=== PATIENT | female | born 1960 | race Caucasian/White ===

== ENCOUNTER 2017-03-21 18:33 | Emergency (ER) | payer OTHER ==
[2017-03-21 18:49] VITALS: TEMP 98.2; BMI 35.3
--- NOTE | 2017-03-21 19:13 | PDOC ---
History of Present Illness - General History Source: Patient Exam Limitations: No Limitations <Angela Fay - Last Filed: 03/21/17 22:04> <JulianZaiddenny Torresh - Last Filed: 03/22/17 01:55> - General Chief Complaint: Pain Stated Complaint: CHEST PAIN Time Seen by Provider: 03/21/17 18:45 - History of Present Illness Initial Comments: 03/21/17 20:28 The patient is a 56 year old female with past medical history of hypertension, hyperlipidemia, IDDM, asthma and panic attacks who presents to the ED with complaints of chest pain that began today at 11 am. She states it is a left sided sharp pain that radiates to arm, neck and mid back. It is accompanied with headache and palpitations. The patient has also been complaining of three days of vomiting, with two occurrences of vomiting blood. It is accompanied with epigastric abdominal pain. She reports cough but denies fever, or chills. She denies diarrhea, constipation, melena, hematochezia. She denies shortness of breath or urinary symptoms. The patient had a positive stress test in 2014. Surgical history: C-sections x4, cholecystectomy Allergies: Penicillin Social history: Denies drug or alcohol use. PCP: Sees a clinic at [facility] ([facility], [place]) Past History <Angela Fay - Last Filed: 03/21/17 22:04> - Past Medical History Asthma: Yes Cardiac Disorders: Yes (MVP) Diabetes: Yes HTN: Yes - Surgical History Cholecystectomy: Yes - Reproductive History (#): 4 Para: 4 - Immunization History Immunization Up to Date: Yes - Psycho/Social/Smoking Cessation Hx Anxiety: Yes Suicidal Ideation: No Smoking Status: No Smoking History: Never smoked Number of Cigarettes Smoked Daily: 0 Hx Alcohol Use: No Drug/Substance Use Hx: No Substance Use Type: None <JulianCadence Kennedy - Last Filed: 03/22/17 01:55> - Past Medical History Allergies/Adverse Reactions: Allergies Allergy/AdvReac Type Severity Reaction Status Date / Time Penicillins AdvReac Unknown Rash Verified 03/21/17 18:46 Home Medications: Ambulatory Orders Albuterol Sulfate [Proair Hfa -] 1 - 2 inh PO TID 11/03/15 Canagliflozin [Invokana] 300 mg PO DAILY 11/03/15 Diltiazem HCl [Diltiazem ER] 120 mg PO DAILY 11/03/15 Ezetimibe [Zetia] 10 mg PO DAILY 11/03/15 Naproxen/Esomeprazole Mag [Vimovo Dr 500-20 mg Tablet] 1 each PO DAILY 11/03/15 Ranolazine [Ranexa] 500 mg PO DAILY 11/03/15 Simvastatin [Zocor -] 20 mg PO DAILY 11/03/15 Trazodone HCl [Oleptro ER] 100 mg PO DAILY 11/03/15 Albuterol 0.083% Nebulizer Myra [Ventolin 0.083% Nebulizer Soln -] 1 amp NEB Q4H PRN #0 amp 11/05/15 Atorvastatin Ca [Lipitor] 10 mg PO HS tablet 11/05/15 Clonazepam [Klonopin -] 1 mg PO BID #60 tablet MDD 2 11/05/15 Clopidogrel Bisulfate [Plavix -] 75 mg PO DAILY tablet 11/05/15 Magnesium Oxide [Mag-Ox -] 400 mg PO BID tablet 11/05/15 Metoprolol Tartrate [Lopressor -] 25 mg PO BID tablet 11/05/15 Nitroglycerin Sublingual [Nitrostat -] 0.4 mg SL Q8H PRN #0 tab 11/05/15 Aspirin [ASA -] 81 mg PO DAILY 03/21/17 Haloperidol [Haldol -] 2 mg PO BID 03/21/17 Insulin Degludec [Tresiba Flextouch U-100] 70 unit SQ DAILY 03/21/17 Insulin Sliding Scale [Novolog Vial Sliding Scale -] 20 vial SQ BID 03/21/17 Omeprazole 40 mg PO DAILY 03/21/17 Tiotropium Farina [Spiriva] 1 inh IH DAILY 03/21/17 Venlafaxine HCl ER [Effexor Xr -] 150 mg PO DAILY 03/21/17 Review of Systems - Review of Systems Able to Perform ROS?: Yes All Other Systems: Reviewed and Negative <Angela Fay - Last Filed: 03/21/17 22:04> <Cadence Jordan - Last Filed: 03/22/17 01:55> - Review of Systems Comments:: 03/21/17 20:29 CONSTITUTIONAL: Absent: fever, chills, diaphoresis, generalized weakness, malaise, loss of appetite HEENT: Absent: rhinorrhea, nasal congestion, throat pain, throat swelling, difficulty swallowing, mouth swelling, ear pain, eye pain, visual Changes CARDIOVASCULAR: Present: chest pain with radiation to left arm, back and neck, palpitations Absent: syncope, irregular heart rate, lightheadedness, peripheral edema RESPIRATORY: Absent: cough, shortness of breath, dyspnea with exertion, orthopnea, wheezing, stridor, hemoptysis GASTROINTESTINAL: Present: vomiting, hematemasis, abdominal pain Absent: abdominal distension, diarrhea, constipation, melena, hematochezia GENITOURINARY: Absent: dysuria, frequency, urgency, hesitancy, hematuria, flank pain, genital pain MUSCULOSKELETAL: Absent: myalgia, arthralgia, joint swelling SKIN: Absent: rash, itching, pallor HEMATOLOGIC/IMMUNOLOGIC: Absent: easy bleeding, easy bruising, lymphadenopathy, frequent infections ENDOCRINE: Absent: unexplained weight gain, unexplained weight loss, heat intolerance, cold intolerance NEUROLOGIC: Present: headache Absent: focal weakness or paresthesias, dizziness, unsteady gait, seizure, mental status changes, bladder or bowel incontinence PSYCHIATRIC: Absent: anxiety, depression, suicidal or homicidal ideation, hallucinations. (Angela Fay) *Physical Exam <Angela Fay - Last Filed: 03/21/17 22:04> <Cadence Jordan - Last Filed: 03/22/17 01:55> - Vital Signs Last Vital Signs Temp Pulse Resp BP Pulse Ox 98.2 F 76 19 126/79 96 03/21/17 18:46 03/21/17 23:44 03/21/17 23:44 03/21/17 23:44 03/21/17 23:44 - Physical Exam Comments: 03/21/17 20:33 GENERAL: Well developed, well nourished. Awake and alert. No acute distress. HEENT: Normocephalic, atraumatic. PERRLA, EOMI. No conjunctival pallor. Sclera are non- icteric. Moist mucous membranes. Oropharynx is clear. NECK: Supple. Full ROM. No JVD. Carotid pulses 2+ and symmetric, without bruits. No thyromegaly. No lymphadenopathy. CARDIOVASCULAR: Regular rate and rhythm. No murmurs, rubs, or gallops. Distal pulses are 2+ and symmetric. PULMONARY: No evidence of respiratory distress. Lungs clear to auscultation bilaterally. No wheezing, rales or rhonchi. ABDOMINAL: Soft. Non-tender. Non-distended. No rebound or guarding. No organomegaly. Normoactive bowel sounds. MUSCULOSKELETAL Normal range of motion at all joints. No bony deformities or tenderness. No CVA tenderness. EXTREMITIES: No cyanosis. No clubbing. No edema. No calf tenderness. SKIN: Warm and dry. Normal capillary refill. No rashes. No jaundice. NEUROLOGICAL: Alert, awake, appropriate. Cranial nerves 2-12 intact. No deficits to light touch and temperature in face, upper extremities and lower extremities. No motor deficits in the in face, upper extremities and lower extremities. Normoreflexic in the upper and lower extremities. Normal speech. Toes are down-going bilaterally. Gait is normal without ataxia. PSYCHIATRIC: Cooperative. Good eye contact. Appropriate mood and affect. (Angela Fay) ED Treatment Course - LABORATORY CBC & Chemistry Diagram: 03/21/17 19:20 03/21/17 19:20 <Angela Fay - Last Filed: 03/21/17 22:04> - LABORATORY CBC & Chemistry Diagram: 03/21/17 19:20 03/21/17 19:20 <Cadence Jordan - Last Filed: 03/22/17 01:55> - ADDITIONAL ORDERS Additional order review: Laboratory Results 03/22/17 03/21/17 03/21/17 00:58 20:28 19:20 INR 1.08 Sodium Potassium Chloride Carbon Dioxide Anion Gap BUN Creatinine Creat Clearance w eGFR Random Glucose Calcium Total Bilirubin AST ALT Alkaline Phosphatase Creatine Kinase 36 Troponin I < 0.02 Total Protein Albumin Lipase 86 03/21/17 03/21/17 19:20 19:20 INR Sodium 136 Potassium 3.9 Chloride 99 Carbon Dioxide 32 Anion Gap 5 L BUN 9 D Creatinine 0.9 Creat Clearance w eGFR > 60 Random Glucose 372 H* D Calcium 8.3 L Total Bilirubin 0.1 L D AST 15 ALT 20 Alkaline Phosphatase 134 H Creatine Kinase 35 Troponin I 0.02 Total Protein 6.8 Albumin 2.9 L Lipase 03/21/17 19:20 RBC 4.07 MCV 85.4 MCHC 32.9 RDW 13.6 MPV 9.3 Neutrophils % 70.5 Lymphocytes % 21.3 D Monocytes % 4.6 Eosinophils % 3.0 Basophils % 0.6 - RADIOLOGY Radiology Studies Ordered: Category Date Time Status CHEST X-RAY PORTABLE* [RAD] Stat Radiology 03/21/17 19:19 Completed Radiograph Interpretation: 03/21/17 22:04 Chest X-ray as reviewed by Dr. Booker reports no acute pathology or change since 10/27 (Angela Fay) - Medications Given in the ED: ED Medications Discontinued Medications Generic Name Dose Route Start Last Admin Trade Name Laila PRN Reason Stop Dose Admin Aspirin 162 mg 03/21/17 19:16 03/21/17 19:24 Asa - PO 03/21/17 19:17 162 mg ONCE ONE Administration Sodium Chloride 1,000 mls @ 1,000 mls/hr 03/21/17 20:56 03/21/17 21:10 Normal Saline - IV 03/21/17 21:55 1,000 mls/hr ASDIR STA Administration Morphine Sulfate 2 mg 03/21/17 23:53 03/22/17 00:04 Morphine Injection - IVPUSH 03/21/17 23:54 2 mg ONCE ONE Administration Ondansetron HCl 4 mg 03/21/17 20:08 03/21/17 20:27 Zofran Injection IVPUSH 03/21/17 20:09 4 mg ONCE ONE Administration Medical Decision Making <Angela Fay - Last Filed: 03/21/17 22:04> <Cadence Jordan - Last Filed: 03/22/17 01:55> - Medical Decision Making 03/22/17 01:49 56-year-old female who is insulin-dependent diabetic, hypertensive, presents with complaint of chest pain and vomiting for several days. She has been in the emergency department. She is not having any further vomiting. EKG does not show any signs of acute ischemia is normal sinus rhythm at 80 bpm -both Sets of cardiac enzyme are negative Chest x-ray does not show any acute pulmonary disease, no effusions, no infiltrates, no pneumothorax Impression chest pain- PLAN pt to follow up with her primary physician 03/22/17 01:52 (Cadence Jordan) *DC/Admit/Observation/Transfer <Angela Fay - Last Filed: 03/21/17 22:04> <Cadence Jordan - Last Filed: 03/22/17 01:55> Diagnosis at time of Disposition: Diabetes Qualifiers: Diabetes mellitus type: type 1 Diabetes mellitus complication status: with hyperglycemia Qualified Code(s): E10.65 - Type 1 diabetes mellitus with hyperglycemia Chest pain Qualifiers: Chest pain type: unspecified Qualified Code(s): R07.9 - Chest pain, unspecified - Discharge Dispostion Disposition: HOME Condition at time of disposition: Stable - Referrals Referrals: Jimy Marks [Primary Care Provider] - - Patient Instructions Printed Discharge Instructions: DI for Chest Pain Additional Instructions: please follow up with your primary physician - Attestations Scribe Attestion: 03/21/17 20:35 Documentation prepared by Angela Fay, acting as medical billing and coding instructor for Cadence Jordan MD. (Angela Fay)
[2017-03-21] MEDS ORDERED: ASPIRIN 81 MG CHEWABLE TABLETS PO ONE (19:16)
[2017-03-21] MEDS ORDERED: ASPIRIN 81 MG CHEWABLE TABLETS ONE (19:22)
[2017-03-21] MEDS ORDERED: ONDANSETRON 4 MG/2 ML VIAL IVPUSH ONE (20:08)
[2017-03-21 20:18] LABS: BASOPHIL 0.6 % (0-2.0); MCH 28.1 pg (25.7-33.7); MCHC 32.9 g/dl (32.0-36.0); MEAN CELL VOLUME 85.4 fl (80-96); MEAN PLT VOLUME 9.3 fl (7.5-11.1); NEUTROPHILS 70.5 % (42.8-82.8); PLATELET COUNT 256 K/MM3 (134-434); RDW 13.6 % (11.6-15.6); WHITE BLOOD COUNT 11.2 K/mm3 (4.0-10.0)
[2017-03-21] MEDS ORDERED: ONDANSETRON 4 MG/2 ML VIAL ONE (20:20)
[2017-03-21 20:38] LABS: TROPONIN I 0.02 ng/ml (0.00-0.05)
[2017-03-21 20:39] LABS: ALBUMIN 2.9 g/dl (3.4-5.0); ANION GAP 5 (8-16); CALCIUM 8.3 mg/dL (8.5-10.1); CO2 32 mmol/L (21-32); SGOT/AST 15 U/L (15-37)
[2017-03-21 20:41] LABS: ALK PHOS 134 U/L (45-117); BILIRUBIN,TOTAL 0.1 mg/dL (0.2-1.0); CREATININE 0.9 mg/dL (0.55-1.02); SGPT/ALT 20 U/L (12-78); TOT PROT 6.8 g/dl (6.4-8.2)
[2017-03-21 20:47] LABS: GLUCOSE,RANDOM 372 mg/dL (74-106)
[2017-03-21 20:51] LABS: INR 1.08 (0.82-1.09); PROTHROMBIN TIME (PATIENT) 11.9 SEC (9.98-11.88)
[2017-03-21] MEDS ORDERED: SODIUM CHLORIDE 1,000 ML IV STA (20:56)
[2017-03-21 23:45] VITALS: BP 126/79; PULSE 76
[2017-03-21] MEDS ORDERED: morphine CARPU-JECT 2 MG/1 ML DISP.SYRIN IVPUSH ONE (23:53)
[2017-03-21] MEDS ORDERED: morphine CARPU-JECT 4 MG/1 ML DISP.SYRIN ONE (23:59)
[2017-03-22 01:46] LABS: CPK 36 IU/L (26-192)
[2017-03-22 01:47] LABS: TROPONIN I < 0.02 ng/ml (0.00-0.05)
--- NOTE | 2017-03-22 14:45 | EKG ---
Test Reason : Blood Pressure : / mmHG Vent. Rate : 080 BPM Atrial Rate : 080 BPM P-R Int : 132 ms QRS Dur : 076 ms QT Int : 380 ms P-R-T Axes : 046 034 054 degrees QTc Int : 438 ms NORMAL SINUS RHYTHM NORMAL ECG WHEN COMPARED WITH ECG OF 03-NOV-2015 14:51, NO SIGNIFICANT CHANGE WAS FOUND Confirmed by MATHIEU SINGH MD ([id number]) on 03/22/2017 2:44:49 PM Referred By: Confirmed By:MATHIEU SINGH MD
== END 2017-03-22 02:02 | disposition home or self-care (01) ==
LOC: JER 18:33
PROC: 3E033GC Introduction of Other Therapeutic Substance into Peripheral Vein, Percutaneous Approach (ICD-10-PCS; principal; 2017-03-21)
PROC: 3E033NZ Introduction of Analgesics, Hypnotics, Sedatives into Peripheral Vein, Percutaneous Approach (ICD-10-PCS; 2017-03-21)
PROC: 3E0337Z Introduction of Electrolytic and Water Balance Substance into Peripheral Vein, Percutaneous Approach (ICD-10-PCS; 2017-03-21)
DX: R07.9 Chest pain, unspecified (principal); E10.65 Type 1 diabetes mellitus with hyperglycemia; I10 Essential (primary) hypertension; E78.5 Hyperlipidemia, unspecified; J45.909 Unspecified asthma, uncomplicated; F41.0 Panic disorder [episodic paroxysmal anxiety]; I34.1 Nonrheumatic mitral (valve) prolapse; Z88.0 Allergy status to penicillin; Z79.82 Long term (current) use of aspirin; Z79.4 Long term (current) use of insulin
CPT/HCPCS: 36415; 71010-TC; 80053; 83690; 84484; 85025; 85610; 93005; 93010; 99283-25

== ENCOUNTER 2017-10-21 14:54 | Inpatient (IN) | payer OTHER ==
--- NOTE | 2017-10-21 15:23 | PDOC ---
History of Present Illness - General Chief Complaint: Chest Pain Stated Complaint: CHEST PAIN Time Seen by Provider: 10/21/17 15:14 - History of Present Illness Initial Comments: 10/21/17 15:22 57 yo F with h/o HTN, HLD, IDDM, and choleycystectomy who presents to ED with chest pain. Patient reports acute onset of epigastria predominant and generalized abdominal pain. Pain described as 8/10 pressure and crampy with radiation to chest, and left side arm. No identifiable triggers or alleivators. Reports nausea with one episode of non biliary, non bloody emesis. Denies F/C, SOB, diarrhea, constipation, urinary complaints, sensory disturbance. Denies h/ o CAD/CT, stent placement, or CABG. Past History - Past Medical History Allergies/Adverse Reactions: Allergies Allergy/AdvReac Type Severity Reaction Status Date / Time No Known Drug Allergies Allergy Verified 10/21/17 18:54 Penicillins AdvReac Unknown Rash Verified 10/21/17 15:23 Home Medications: Ambulatory Orders Albuterol Sulfate Inhaler - [Ventolin Hfa Inhaler -] 2 inh PO Q4H 10/21/17 Atorvastatin Calcium 40 mg PO ASDIR 10/21/17 Butalb/Acetaminophen/Caffeine [Axgqry-Fraxyaki-Cfdu 50-325-40] 1 each PO ASDIR 10/21/17 Clonazepam 1 mg PO ASDIR 10/21/17 Ergocalciferol (Vitamin D2) [Ergocalciferol] 1.25 mg PO ASDIR 10/21/17 Gabapentin [Neurontin -] 300 mg PO ASDIR 10/21/17 Insulin Degludec [Tresiba Flextouch U-200] 200 unit SQ ASDIR 10/21/17 Liraglutide [Victoza -] 0 mg SQ ASDIR 10/21/17 Losartan Potassium [Cozaar -] 50 mg PO ASDIR 10/21/17 Meloxicam 15 mg PO ASDIR 10/21/17 Metoprolol Succinate 25 mg PO ASDIR 10/21/17 Pantoprazole Sodium [Protonix -] 40 mg PO ASDIR 10/21/17 Venlafaxine HCl ER [Effexor Xr -] 75 mg PO ASDIR 10/21/17 traZODone HCL [Desyrel -] 150 mg PO ASDIR 10/21/17 Asthma: Yes Cardiac Disorders: Yes (MVP, angina) COPD: No Diabetes: Yes HTN: Yes Psychiatric Problems: Yes (anxiety panic attacks depression) - Surgical History Cholecystectomy: Yes - Reproductive History (#): 4 Para: 4 - Immunization History Immunization Up to Date: Yes - Suicide/Smoking/Psychosocial Hx Smoking Status: No Smoking History: Never smoked Have you smoked in the past 12 months: No Number of Cigarettes Smoked Daily: 0 Information on smoking cessation initiated: No Hx Alcohol Use: No Drug/Substance Use Hx: No Substance Use Type: None Review of Systems - Review of Systems Comments:: 10/21/17 15:22 GENERAL/CONSTITUTIONAL: No fever or chills. No weakness. HEAD, EYES, EARS, NOSE AND THROAT: No change in vision. No ear pain or discharge. No sore throat.- CARDIOVASCULAR:+chest pain. No shortness of breath RESPIRATORY: No cough, wheezing, or hemoptysis. GASTROINTESTINAL: + nausea, vomiting, and abdominal pain. No diarrhea or constipation. GENITOURINARY: No dysuria, frequency, or change in urination. MUSCULOSKELETAL: No joint or muscle swelling or pain. No neck or back pain. SKIN: No rash NEUROLOGIC: + No headache,and lightheadedness. No vertigo, loss of consciousness , or change in strength/sensation. ENDOCRINE: No increased thirst. No abnormal weight change HEMATOLOGIC/LYMPHATIC: No anemia, easy bleeding, or history of blood clots. ALLERGIC/IMMUNOLOGIC: No hives or skin allergy. *Physical Exam - Vital Signs Last Vital Signs Temp Pulse Resp BP Pulse Ox 99 F 100 H 20 154/91 95 10/21/17 15:06 10/21/17 15:06 10/21/17 15:06 10/21/17 15:06 10/21/17 15:06 - Physical Exam Comments: 10/21/17 15:22 GENERAL: Awake, alert, and fully oriented, in no acute distress HEAD: No signs of trauma, normocephalic, atraumatic EYES: PERRLA, EOMI, sclera anicteric, conjunctiva clear ENT: Auricles normal inspection, hearing grossly normal, nares patent, oropharynx clear without exudates. Moist mucosa NECK: Normal ROM, supple, no lymphadenopathy, JVD, or masses LUNGS: No distress, speaks full sentences, clear to auscultation bilaterally HEART: Regular rate and rhythm, normal S1 and S2, no murmurs, rubs or gallops, peripheral pulses normal and equal bilaterally. ABDOMEN: Diffusely tender to palpation. NBS, NDS. Neg mukherjee sign or mcburney point ttp. Neg CVA ttp. Neg suprpapubic ttp. EXTREMITIES : Normal inspection, Normal range of motion, no edema. No clubbing or cyanosis. SKIN: Warm, Dry, normal turgor, no rashes or lesions noted ED Treatment Course - LABORATORY CBC & Chemistry Diagram: 10/21/17 14:40 10/21/17 14:40 Medical Decision Making - Medical Decision Making 10/21/17 16:19 57 yo F with h/o HTN, HLD, IDDM, and choleycystectomy who presents to ED with acute onset of epigastria predominant and generalized abdominal pain. Pain described as 8/10 pressure and crampy with radiation to chest, and left side arm. No identifiable triggers or alleviators. +N/V. Denies F/C, SOB, diarrhea, constipation, urinary complaints, sensory disturbance. Denies h/o CAD/CT, stent placement, or CABG. Physical exam with diffuse and epigastric predominant ttp. Hemdoynamically stable. ACS/CT r/o. Suspect gastrtitis vs. esophagitis. Will also consider colitis. Low suspicion of mesenteric ischemia based on physical exam findings. ED Course: CBC,CMP,lipase EKG,CXR UA NS 1 L, Morphine, Zofran 10/21/17 16:24 CBC: 10.8 Trop: 0.07 Glu: 326 10/21/17 17:07 EKG: NSR with normal interval duration and axis. Absent SHERIN, STD, or TWI 10/21/17 23:13 Pt. pain controlled with medication. Pt. stable Pt. admitted to inpt. tele/obs. 10/21/17 23:13 Repeat trop 0.04 *DC/Admit/Observation/Transfer Diagnosis at time of Disposition: Chest pain, Diabetes, Epigastric pain, Elevated troponin - Discharge Dispostion Condition at time of disposition: Fair Admit: Yes - Referrals - Patient Instructions - Post Discharge Activity - Attestations Physician Attestion: 10/21/17 15:23 I attest to the information provided in this note.
--- NOTE | 2017-10-21 15:49 | PDOC ---
Attending Attestation - Resident Resident Name: Chaz Martinezson - ED Attending Attestation I have performed the following: I have examined & evaluated the patient, The case was reviewed & discussed with the resident, I agree w/resident's findings & plan, Exceptions are as noted - HPI HPI: Chief complaint chest pain History of present illness: 57 years old past medical history significant for hypertension diabetes family history of coronary artery disease presents to the emergency department 1 day history of epigastric pain, chest pain pressure-like squeezing 8 out of 10 radiates to her left arm associated with dizziness nausea several episodes of vomiting and mild headache. Symptoms are moderate persistent constant no exacerbating or alleviating factors - Physicial Exam PE: Vitals: Triage Vital signs reviewed General Appearance: mild acute distress, well nourished well developed, Head: Atraumatic, Neck: Supple;No Nucal rigidity Chest Wall: Nontender Cardiac: Regular rate and rhythym, no murmurs, no rubs, no gallops, Lungs: Clear to auscultation bilateral, good air movement bilaterally, Abdomen: epigastric ttp, normal bowel sounds, non tender to palpation Extremities: Full range of motion to all extremities, no cyanosis, clubbing, or edema Skin: Warm and dry, no rashes or lesions, no rash, no petechiae Neuro: Strength intact to all extremities, Sensation intact to all extremities, gait normal Psych: normal mood, normal affect - Medical Decision Making 10/21/17 15:54 57 years old past medical history significant for hypertension diabetes high cholesterol presents emergency department with epigastric discomfort chest pain radiated to her left arm Plan is labs EKG chest x-ray troponin observe and reassess Dr. Lopez to follow up labs, cxr, reevaluate pt. and dispo Heart Score/ECG Review - ECG Impressions Comment:: 10/21/17 15:55 EKG performed at 1504 p.m. Demonstrates rate of 95 sinus rhythm normal axis no ST elevations or T-wave inversions Interpreted by me
[2017-10-21] MEDS ORDERED: morphine CARPU-JECT 4 MG/1 ML DISP.SYRIN IVPUSH ONE (15:53)
[2017-10-21] MEDS ORDERED: ONDANSETRON 4 MG/2 ML VIAL IVPUSH ONE (15:53)
[2017-10-21] MEDS ORDERED: SODIUM CHLORIDE 1,000 ML IV STA (16:14)
[2017-10-21] MEDS ORDERED: MORPHINE SULFATE 10 MG/1 ML *VIAL ONE (16:16)
[2017-10-21] MEDS ORDERED: ONDANSETRON 4 MG/2 ML VIAL ONE (16:16)
[2017-10-21 16:18] LABS: BASO % 0.5 % (0-2.0); EOS % 2.4 % (0-4.5); HEMATOCRIT 34.7 % (32.4-45.2); HEMOGLOBIN 11.7 GM/dL (10.7-15.3); LYMPH % 17.7 % (8-40); MCH 28.2 pg (25.7-33.7); MCHC 33.6 g/dl (32.0-36.0); MEAN CELL VOLUME 83.8 fl (80-96); MONO % 5.7 % (3.8-10.2); NEUT % 73.7 % (42.8-82.8); PLATELET COUNT 334 K/MM3 (134-434); RBC 4.15 M/mm3 (3.60-5.2); RDW 14.9 % (11.6-15.6); WHITE BLOOD COUNT 10.8 K/mm3 (4.0-10.0)
[2017-10-21 16:42] LABS: ALBUMIN 3.3 g/dl (3.4-5.0); ANION GAP 10 (8-16); BILIRUBIN,TOTAL 0.1 mg/dL (0.2-1.0); BLOOD UREA NITROGEN 13 mg/dL (7-18); CALCIUM 8.5 mg/dL (8.5-10.1); CHLORIDE 99 mmol/L (98-107); CO2 30 mmol/L (21-32); POTASSIUM 3.8 mmol/L (3.5-5.1); SGOT/AST 23 U/L (15-37); SGPT/ALT 33 U/L (12-78); SODIUM 139 mmol/L (136-145); TOT PROT 7.7 g/dl (6.4-8.2)
[2017-10-21 16:44] LABS: ALK PHOS 163 U/L (45-117)
[2017-10-21 16:46] LABS: GLUCOSE,RANDOM 326 mg/dL (74-106)
[2017-10-21] MEDS ORDERED: ASPIRIN 81 MG CHEWABLE TABLETS PO ONE (16:58)
[2017-10-21] MEDS ORDERED: ACETAMINOPHEN 1000 MG/100 ML VIAL (NON FORMULARY) IVPB ONE (17:10)
[2017-10-21] MEDS ORDERED: FAMOTIDINE 20 MG/50 ML IVPB 20 MG/50 ML MG IVPB ONE ×3 (17:16→18:10)
--- NOTE | 2017-10-21 17:16 | PDOC ---
*Physical Exam - Vital Signs Last Vital Signs Temp Pulse Resp BP Pulse Ox 99 F 100 H 20 154/91 95 10/21/17 15:06 10/21/17 15:06 10/21/17 15:06 10/21/17 15:06 10/21/17 15:06 - Physical Exam Comments: 10/21/17 17:11 gen: aaox3, uncomfortable c/o epigastric pain and pain in her legs heart: +s1s2 reg Lungs: cta b/l abd: soft, mild epigastric ttp ext: no c/c/e ED Treatment Course - LABORATORY CBC & Chemistry Diagram: 10/21/17 14:40 10/21/17 14:40 - ADDITIONAL ORDERS Additional order review: Laboratory Results 10/21/17 10/21/17 14:40 14:40 Sodium 139 Potassium 3.8 Chloride 99 Carbon Dioxide 30 Anion Gap 10 BUN 13 Creatinine 1.0 Creat Clearance w eGFR 56.95 Random Glucose 326 H* Calcium 8.5 Total Bilirubin 0.1 L AST 23 ALT 33 Alkaline Phosphatase 163 H Troponin I 0.07 H Total Protein 7.7 Albumin 3.3 L Lipase 67 L 10/21/17 14:40 RBC 4.15 MCV 83.8 MCHC 33.6 RDW 14.9 MPV 8.0 D Neutrophils % 73.7 Lymphocytes % 17.7 Monocytes % 5.7 Eosinophils % 2.4 Basophils % 0.5 - Medications Given in the ED: ED Medications Discontinued Medications Generic Name Dose Route Start Last Admin Trade Name Freq PRN Reason Stop Dose Admin Morphine Sulfate 4 mg 10/21/17 15:53 10/21/17 16:20 Morphine Injection - IVPUSH 10/21/17 15:54 4 mg ONCE ONE Administration Ondansetron HCl 4 mg 10/21/17 15:53 10/21/17 16:20 Zofran Injection IVPUSH 10/21/17 15:54 4 mg ONCE ONE Administration Medical Decision Making - Medical Decision Making 10/21/17 17:13 a/p: 57yo female with cp -signed out from the prior attending pending labs and cxr -trop mildly elevated -cp improved with morphine -will keep in obs pending repeat trops -cxr clear -discussed plan with the patient. 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 Chairez Pts pmd admits to [facility] who is covered tonight by [facility] after 5p 10/21/17 18:06 pt with hyperglcyemia receiving IVF hydraiton discussed with [facility] who accepts pt to service *DC/Admit/Observation/Transfer Diagnosis at time of Disposition: Chest pain, Diabetes, Epigastric pain, Elevated troponin - Discharge Dispostion Condition at time of disposition: Fair - Referrals Referrals: iJmy Marks [Primary Care Provider] - - Patient Instructions Additional Instructions: Please return to the emergency department with any new or worsening symptoms or concerns. Please follow up with your primary care physician within 72 hours. - Post Discharge Activity
[2017-10-21] MEDS ORDERED: ACETAMINOPHEN INJECTION 100 ML IVPB ONE (17:18)
[2017-10-21] MEDS ORDERED: ASPIRIN 81 MG CHEWABLE TABLETS ONE (17:18)
--- NOTE | 2017-10-21 18:49 | HP ---
CHIEF COMPLAINT: epigastric pain that radiates to left chest, weakness, dizziness, lower extremity weakness PCP: HISTORY OF PRESENT ILLNESS: Patient is a 57 year old female with a significant past medical history of hypertension, diabetes, hyperlipdemia and choleycystectomy. She presents to the ED with complaints of epigatric pain that radiates to her left chest and arm. Patient describes her abdominal pain as crampy pain, 8/10 in intensity that radiates to her left arm with dizziness, and several episodes of nausea and vomiting. Also reports a mild headache. The chest pain renders her short of breath. In the ED her abdomen was noted to be soft, + bowel sounds, mildly distended with no pain on palpation of abdomen. She was nauseous on exam and states that she has no appetite. Her troponin was elevated at 0.07 on admission. ER course was notable for: (1) Trop 0.07 (2) NSR 90s (3) Recent Travel: denies PAST MEDICAL HISTORY: hypertension, diabetes, hyperlipdemia and choleycystectomy. PAST SURGICAL HISTORY: choleycystectomy. Social History: Smoking: n/a Alcohol: n/a Drugs: n/a Family History: Allergies Penicillins Adverse Reaction (Unknown, Verified 10/21/17 15:23) Rash HOME MEDICATIONS: Home Medications Medication Instructions Recorded Albuterol Sulfate Inhaler - 2 inh PO Q4H 10/21/17 [Ventolin Hfa Inhaler -] Atorvastatin Calcium 40 mg PO ASDIR 10/21/17 Butalb/Acetaminophen/Caffeine 1 each PO ASDIR 10/21/17 [Aejbrk-Ivvhjdmu-Ngff 50-325-40] Clonazepam 1 mg PO ASDIR 10/21/17 Ergocalciferol (Vitamin D2) 1.25 mg PO ASDIR 10/21/17 [Ergocalciferol] Gabapentin [Neurontin -] 300 mg PO ASDIR 10/21/17 Insulin Degludec [Tresiba 200 unit SQ ASDIR 10/21/17 Flextouch U-200] Liraglutide [Victoza -] 0 mg SQ ASDIR 10/21/17 Losartan Potassium [Cozaar -] 50 mg PO ASDIR 10/21/17 Meloxicam 15 mg PO ASDIR 10/21/17 Metoprolol Succinate 25 mg PO ASDIR 10/21/17 Pantoprazole Sodium [Protonix -] 40 mg PO ASDIR 10/21/17 Venlafaxine HCl ER [Effexor Xr -] 75 mg PO ASDIR 10/21/17 traZODone HCL [Desyrel -] 150 mg PO ASDIR 10/21/17 PHYSICAL EXAMINATION Vital Signs - 24 hr 10/21/17 10/21/17 15:06 18:04 Temperature 99 F Pulse Rate 100 H Pulse Rate [ 91 H Apical] Respiratory 20 21 Rate Blood Pressure 154/91 Blood Pressure 156/82 [Right Arm] O2 Sat by Pulse 95 100 Oximetry (%) GENERAL: Awake, alert, and fully oriented, in no acute distress. HEAD: Normal with no signs of trauma. EYES: Pupils equal, round and reactive to light, extraocular movements intact, sclera anicteric, conjunctiva clear. No lid lag. EARS, NOSE, THROAT: Ears normal, nares patent, oropharynx clear without exudates. Moist mucous membranes. NECK: Normal range of motion, supple without lymphadenopathy, JVD, or masses. LUNGS: Breath sounds equal, clear to auscultation bilaterally. HEART: Regular rate and rhythm ABDOMEN: soft, mildly distended, + bowel sounds LOWER EXTREMITIES: 2+ pulses, warm, well-perfused. No calf tenderness. No peripheral edema. NEUROLOGICAL: Normal speech. Normal gait. PSYCHIATRIC: Cooperative. Good eye contact. Appropriate mood and affect. SKIN: Warm, dry, normal turgor, no rashes or lesions noted, normal capillary refill. Laboratory Results - last 24 hr 10/21/17 10/21/17 10/21/17 14:40 14:40 14:40 WBC 10.8 H RBC 4.15 Hgb 11.7 Hct 34.7 MCV 83.8 MCH 28.2 MCHC 33.6 RDW 14.9 Plt Count 334 D MPV 8.0 D Neutrophils % 73.7 Lymphocytes % 17.7 Monocytes % 5.7 Eosinophils % 2.4 Basophils % 0.5 Sodium 139 Potassium 3.8 Chloride 99 Carbon Dioxide 30 Anion Gap 10 BUN 13 Creatinine 1.0 Creat Clearance w eGFR 56.95 Random Glucose 326 H* Lactic Acid Calcium 8.5 Total Bilirubin 0.1 L AST 23 ALT 33 Alkaline Phosphatase 163 H Troponin I 0.07 H Total Protein 7.7 Albumin 3.3 L Lipase 67 L 10/21/17 16:58 WBC RBC Hgb Hct MCV MCH MCHC RDW Plt Count MPV Neutrophils % Lymphocytes % Monocytes % Eosinophils % Basophils % Sodium Potassium Chloride Carbon Dioxide Anion Gap BUN Creatinine Creat Clearance w eGFR Random Glucose Lactic Acid 1.0 Calcium Total Bilirubin AST ALT Alkaline Phosphatase Troponin I Total Protein Albumin Lipase ASSESSMENT/PLAN: Patient is a 57 year old female with a significant past medical history of hypertension, diabetes, hyperlipdemia and choleycystectomy. She presents to the ED with complaints of epigatric pain that radiates to her left chest and arm. Patient describes her abdominal pain as crampy pain, 8/10 in intensity that radiates to her left arm with dizziness, and several episodes of nausea and vomiting. Also reports a mild headache. The chest pain renders her short of breath. In the ED her abdomen was noted to be soft, + bowel sounds, mildly distended with no pain on palpation of abdomen. She was nauseous on exam and states that she has no appetite. Her troponin was elevated at 0.07 on admission. Cardiology: Rule out ACS, Acute IN Trend troponins Monitor on tele Monitor labs, vitals Clear liquid diet IV hydration Echo ordered Cardiolology consult Hypertension Continue home meds Monitor BP Cardiology consult Hyperlipidemia Continue home statin Lipid panel in am. GI: Abdominal pain/Epigastric pain Clear liquid diet Zofran IVF Monitor electrolytes Endocrine: Diabetes Monitor BGMs Novolog Hgma1c F.E.N. Fluids: IVF 50cc/hr Electrolytes: monitor Nutrition: clears Prophylaxis: DVT: deferred if LOS < 48 hrs GI: Protonix IV daily Disposition: full code. LOS likely <48 hours. Visit type - Emergency Visit Emergency Visit: Yes ED Registration Date: 10/21/17 Care time: The patient presented to the Emergency Department on the above date and was hospitalized for further evaluation of their emergent condition. - New Patient This patient is new to me today: Yes Date on this admission: 10/22/17 - Critical Care Critical Care patient: No Hospitalist Screening - Colonoscopy Questionnaire Colonoscopy Questionnaire: Colonoscopy Questionnaire - Patient: 50 - 75 years old and never had a screening colonoscopy: Yes History of colon or rectal polyps, or CA: Unknown History of IBD, Crohn's disease or UC: Unknown History of abdominal radiation therapy as a child: Unknown - Relative: 1 with colon or rectal CA, or polyps at age 60 or younger: No Colon or rectal CA diagnosed at age 45 or younger: Unknown Multiple relatives with colon or rectal CA: Unknown - Outcome: Screening Result: Positive Screen
[2017-10-21] MEDS ORDERED: morphine SULFATE 4 MG/ML VIAL IVPUSH PRN (19:00)
[2017-10-21] MEDS ORDERED: ONDANSETRON 4 MG/2 ML VIAL IVPUSH PRN (19:14)
[2017-10-21] MEDS ORDERED: SODIUM CHLORIDE 1,000 ML IV SCH (19:15)
[2017-10-21] MEDS ORDERED: clonazePAM 0.5 MG TABLET PO ONE (22:29)
[2017-10-21] MEDS ORDERED: MELATONIN 5 MG TABLETS PO ONE (22:29)
--- NOTE | 2017-10-21 22:29 | HOSP ---
Physical Examination Vital Signs: Vital Signs Temperature 98.0 F 10/21/17 20:20 Pulse Rate 80 10/21/17 20:20 Respiratory Rate 15 10/21/17 20:20 Blood Pressure 137/81 10/21/17 20:20 O2 Sat by Pulse Oximetry (%) 100 10/21/17 20:20 Labs: CBC, BMP 10/21/17 14:40 10/21/17 14:40 Hospitalist Encounter Assessment: Suicidal ideation - pt reported to nurse that she heard voices today to telling her to kill self, no one loves me, go stab yourself with the scissors and jump off the roof - will order 1:1 and psychiatry consult
[2017-10-21] MEDS: ACETAMINOPHEN/CAFFEINE/BUTALBITAL 1 TAB PO PRN (23:21)
[2017-10-21] MEDS: ATORVASTATIN CA 40 MG TABLET (FP) PO SCH (23:22)
[2017-10-21] MEDS: traZODone HCL 50 MG TABLET (FP) PO SCH (23:22)
[2017-10-21] MEDS: INSULIN SLIDING SCALE (NOVOLOG) 1 VIAL SQ SCH (23:25)
[2017-10-22 00:35] LABS: URINE APPEARANCE CLEAR; URINE BILIRUBIN NEGATIVE (NEGATIVE); URINE BLOOD NEGATIVE (NEGATIVE); URINE COLOR YELLOW; URINE GLUCOSE (UA) NEGATIVE (NEGATIVE); URINE KETONE NEGATIVE (NEGATIVE); URINE LEUK ESTERASE NEGATIVE (NEGATIVE); URINE NITRITE NEGATIVE (NEGATIVE); URINE PROTEIN NEGATIVE (NEGATIVE); URINE UROBILINOGEN 4.0 E.U/dl mg/dL (0.2-1.0)
[2017-10-22 04:45] VITALS: BMI 38.0
[2017-10-22] MEDS: INSULIN SLIDING SCALE (NOVOLOG) 1 VIAL SQ SCH ×4 (06:36→22:10)
[2017-10-22 07:49] LABS: EOS % 4.2 % (0-4.5); HEMATOCRIT 32.9 % (32.4-45.2); HEMOGLOBIN 10.9 GM/dL (10.7-15.3); LYMPH % 23.7 % (8-40); MCH 28.4 pg (25.7-33.7); MCHC 33.3 g/dl (32.0-36.0); MEAN CELL VOLUME 85.4 fl (80-96); MONO % 8.2 % (3.8-10.2); NEUT % 62.9 % (42.8-82.8); PLATELET COUNT 268 K/MM3 (134-434); RBC 3.85 M/mm3 (3.60-5.2); RDW 14.9 % (11.6-15.6); WHITE BLOOD COUNT 8.3 K/mm3 (4.0-10.0)
[2017-10-22 07:58] LABS: ALBUMIN 2.9 g/dl (3.4-5.0); ANION GAP 5 (8-16); BLOOD UREA NITROGEN 11 mg/dL (7-18); CHLORIDE 105 mmol/L (98-107); CHOLESTEROL 117 mg/dL (50-200); CO2 31 mmol/L (21-32); CREATININE 0.8 mg/dL (0.55-1.02); GLUCOSE,RANDOM 117 mg/dL (74-106); MAGNESIUM 1.7 mg/dL (1.8-2.4); POTASSIUM 4.3 mmol/L (3.5-5.1); SGOT/AST 190 U/L (15-37); SGPT/ALT 155 U/L (12-78); SODIUM 141 mmol/L (136-145); TRIGLYCERIDES 93 mg/dL (35-160)
[2017-10-22 08:01] LABS: ALK PHOS 161 U/L (45-117); BILIRUBIN,TOTAL 0.3 mg/dL (0.2-1.0); HDL CHOLESTEROL 40 mg/dL (40-60); LDL CHOLESTEROL (ONLY SJRH) 66 mg/dL (5-100); TOT PROT 6.6 g/dl (6.4-8.2)
--- NOTE | 2017-10-22 09:24 | CON.CARD ---
Consult Consult Specialty:: Cardiology Referred by:: Hospitalist Reason for Consultation:: Cardiac evaluation - History of Present Illness Chief Complaint: Epigastric pain, chest pain, shortness of breath, palpitations History of Present Illness: Patient is a 57 year old female of descent with underlying history of hypertension, type 2 diabetes mellitus and hypercholesterolemia who presented with complaints of epigastric pain radiating to left chest and arm. She complained of vague shortness of breath. She also complained of palpitations. She denies paroxysmal nocturnal dyspnea or orthopnea. She denies fever or chills. She complained of nausea, but no vomiting, diarrhea or abdominal pain. She denies headache or lightheadedness. Troponin was slightly elevated at 0.07. She is on 1:1 at this time due to her comment on suicide. - History Source History Provided By: Patient Limitations to Obtaining History: No Limitations - Past Medical History Cardio/Vascular: Yes: CAD, HTN, Hyperlipdemia Endocrine: Yes: Diabetes Mellitus - Past Surgical History Past Surgical History: Yes: Cholecystectomy - Alcohol/Substance Use Hx Alcohol Use: No History of Substance Use: reports: None - Smoking History Smoking history: Never smoked Have you smoked in the past 12 months: No Aproximately how many cigarettes per day: 0 Home Medications - Allergies Allergies/Adverse Reactions: Allergies Allergy/AdvReac Type Severity Reaction Status Date / Time No Known Drug Allergies Allergy Verified 10/21/17 18:54 Penicillins AdvReac Unknown Rash Verified 10/21/17 15:23 - Home Medications Home Medications: Ambulatory Orders Albuterol Sulfate Inhaler - [Ventolin Hfa Inhaler -] 2 inh PO Q4H 10/21/17 Atorvastatin Calcium 40 mg PO ASDIR 10/21/17 Butalb/Acetaminophen/Caffeine [Zxedba-Gfgsbijd-Jiqe 50-325-40] 1 each PO ASDIR 10/21/17 Clonazepam 1 mg PO ASDIR 10/21/17 Ergocalciferol (Vitamin D2) [Ergocalciferol] 1.25 mg PO ASDIR 10/21/17 Gabapentin [Neurontin -] 300 mg PO ASDIR 10/21/17 Insulin Degludec [Tresiba Flextouch U-200] 200 unit SQ ASDIR 10/21/17 Liraglutide [Victoza -] 0 mg SQ ASDIR 10/21/17 Losartan Potassium [Cozaar -] 50 mg PO ASDIR 10/21/17 Meloxicam 15 mg PO ASDIR 10/21/17 Metoprolol Succinate 25 mg PO ASDIR 10/21/17 Pantoprazole Sodium [Protonix -] 40 mg PO ASDIR 10/21/17 Venlafaxine HCl ER [Effexor Xr -] 75 mg PO ASDIR 10/21/17 traZODone HCL [Desyrel -] 150 mg PO ASDIR 10/21/17 Family Disease History - Family Disease History Family Disease History: Diabetes: Mother, Sister, Daughter Review of Systems - Review of Systems Constitutional: denies: Chills, Fever Cardiovascular: reports: Chest Pain, Palpitations, Shortness of Breath Respiratory: reports: SOB. denies: Cough, Hemoptysis, Orthopnea, PND Gastrointestinal: denies: Abdominal Pain, Constipation, Diarrhea, Melena, Nausea , Rectal Bleeding, Vomiting Neurological: denies: Dizziness, Headache, Seizure, Syncope Vital Signs: Vital Signs Temperature 97.4 F L 10/22/17 06:00 Pulse Rate 81 10/22/17 06:00 Respiratory Rate 10/22/17 06:00 Blood Pressure 103/43 10/22/17 06:00 O2 Sat by Pulse Oximetry (%) 100 10/21/17 20:20 Constitutional: Yes: Well Nourished Eyes: Yes: PERRL HENT: Yes: Atraumatic Neck: Yes: Supple Respiratory: Yes: Diminished Gastrointestinal: Yes: Normal Bowel Sounds, Soft. No: Tenderness Cardiovascular: Yes: Regular Rate and Rhythm JVD: No Carotid Bruit: No PMI: Non-Displaced Heart Sounds: Yes: S1, S2 Edema: No - Other Data Labs, Other Data: CBC, BMP 10/22/17 06:30 10/22/17 06:30 Troponin, BNP 10/21/17 10/21/17 10/22/17 14:40 20:12 00:01 Troponin I 0.07 H 0.04 0.05 Laboratory Results - last 24 hr 10/22/17 10/22/17 10/22/17 00:01 06:30 06:30 WBC 8.3 RBC 3.85 Hgb 10.9 Hct 32.9 MCV 85.4 MCH 28.4 MCHC 33.3 RDW 14.9 Plt Count 268 MPV 8.0 Neutrophils % 62.9 Lymphocytes % 23.7 D Monocytes % 8.2 Eosinophils % 4.2 Basophils % 1.0 D-Dimer Sodium 141 Potassium 4.3 Chloride 105 Carbon Dioxide 31 Anion Gap 5 L BUN 11 Creatinine 0.8 Creat Clearance w eGFR > 60 POC Glucometer Random Glucose 117 H Hemoglobin A1c % Calcium 8.0 L Magnesium 1.7 L Total Bilirubin 0.3 D AST 190 H ALT 155 H Alkaline Phosphatase 161 H Creatine Kinase 80 Troponin I 0.05 0.03 Total Protein 6.6 Albumin 2.9 L Triglycerides 93 Cholesterol 117 Total LDL Cholesterol 66 HDL Cholesterol 40 Urine Color Urine Appearance Urine pH Ur Specific Surveyor Urine Protein Urine Glucose (UA) Urine Ketones Urine Blood Urine Nitrite Urine Bilirubin Urine Urobilinogen Ur Leukocyte Esterase Sinus rhythm with no ST-T abnormality Imaging - Results Chest X-ray: Report Reviewed (Unremarkable) EKG: Report Reviewed Problem List - Problems (1) Demand ischemia Code(s): I24.8 - OTHER FORMS OF ACUTE ISCHEMIC HEART DISEASE (2) Chest pain Code(s): R07.9 - CHEST PAIN, UNSPECIFIED Qualifiers: Chest pain type: unspecified Qualified Code(s): R07.9 - Chest pain, unspecified (3) Diabetes Code(s): E11.9 - TYPE 2 DIABETES MELLITUS WITHOUT COMPLICATIONS Qualifiers: Diabetes mellitus type: type 2 Diabetes mellitus residential insulin use: with residential use Diabetes mellitus complication status: without complication Qualified Code(s): E11.9 - Type 2 diabetes mellitus without complications; Z79.4 - halfway (current) use of insulin; Z79.4 - manager intermediate ( current) use of insulin; Z79.4 - halfway (current) use of insulin; Z79.4 - manager intermediate (current) use of insulin (4) Epigastric pain Code(s): R10.13 - EPIGASTRIC PAIN (5) HTN (hypertension) Code(s): I10 - ESSENTIAL (PRIMARY) HYPERTENSION Qualifiers: Hypertension type: essential hypertension Qualified Code(s): I10 - Essential (primary) hypertension (6) Hyperlipidemia Code(s): E78.5 - HYPERLIPIDEMIA, UNSPECIFIED Qualifiers: Hyperlipidemia type: pure hypercholesterolemia Qualified Code(s): E78.00 - Pure hypercholesterolemia, unspecified; E78.0 - Pure hypercholesterolemia (7) Palpitations Code(s): R00.2 - PALPITATIONS Assessment/Plan 1. Epigastric pain, etiology to be determined 2. Demand ischemia 3. Hypertension 4. Hypercholesterolemia 5. Type 2 diabetes mellitus 6. Suicidal ideation 7. Palpitations PLAN: 1. Trend troponin 2. Continue Metoprolol and Losartan as tolerated 3. Continue Atorvastatin 4. Consider ASA 5. Transthoracic echocardiography to assess LV/RV and valvular function 6. Continue telemetry monitoring Further plans are to follow. Further cardiac evaluation to follow Cedric Chairez MD
[2017-10-22] MEDS: PANTOPRAZOLE 40 MG TABLET (FP) PO SCH (09:55)
[2017-10-22] MEDS: LOSARTAN POTASSIUM 50 MG TABLET (FP) PO SCH (09:55)
[2017-10-22] MEDS: metoPROLOL SUCCINATE 25 MG TAB.SR.24H (FP) PO SCH (09:55)
[2017-10-22] MEDS: GABAPENTIN 300 MG CAPSULE (FP) PO SCH (09:55)
[2017-10-22] MEDS: ACETAMINOPHEN/CAFFEINE/BUTALBITAL 1 TAB PO PRN (09:57)
[2017-10-22] MEDS ORDERED: PT OWN MED DRAWER 7, Y5N ONE (10:15)
--- NOTE | 2017-10-22 11:04 | PN ---
Progress Note, Physician History of Present Illness: 57 year old female with a significant past medical history of hypertension, diabetes, hyperlipdemia and choleycystectomy. She presents to the ED with complaints of epigatric pain that radiates to her left chest and arm. Patient describes her abdominal pain as crampy pain, 8/10 in intensity that radiates to her left arm with dizziness, and several episodes of nausea and vomiting. Also reports a mild headache. The chest pain renders her short of breath. In the ED her abdomen was noted to be soft, + bowel sounds, mildly distended with no pain on palpation of abdomen. She was nauseous on exam and states that she has no appetite. Her troponin was elevated at 0.07 on admission. - Current Medication List Current Medications: Active Medications Acetaminophen/Butalbital/Caffeine (Fioricet -) 1 tablet PO Q6H PRN PRN Reason: headaches Last Admin: 10/22/17 09:57 Dose: 1 tablet Atorvastatin Calcium (Lipitor -) 40 mg PO HS [facility] Last Admin: 10/21/17 23:22 Dose: 40 mg Gabapentin (Neurontin -) 300 mg PO DAILY [facility] Last Admin: 10/22/17 09:55 Dose: 300 mg Sodium Chloride (Normal Saline -) 1,000 mls @ 50 mls/hr IV ASDIR [facility] Stop: 10/22/17 19:14 Last Admin: 10/21/17 20:01 Dose: 50 mls/hr Insulin Aspart (Novolog Vial Sliding Scale -) 1 vial SQ ACHS [facility] PRN Reason: Protocol Last Admin: 10/22/17 06:36 Dose: Not Given Losartan Potassium (Cozaar -) 50 mg PO DAILY [facility] Last Admin: 10/22/17 09:55 Dose: 50 mg Metoprolol Succinate (Toprol Xl -) 25 mg PO DAILY [facility] Last Admin: 10/22/17 09:55 Dose: 25 mg Morphine Sulfate (Morphine Sulfate) 2 mg IVPUSH Q4H PRN PRN Reason: PAIN Ondansetron HCl (Zofran Injection) 4 mg IVPUSH Q8H PRN PRN Reason: NAUSEA Pantoprazole Sodium (Protonix -) 40 mg PO DAILY [facility] Last Admin: 10/22/17 09:55 Dose: 40 mg Trazodone HCl (Desyrel -) 150 mg PO [facility] Last Admin: 10/21/17 23:22 Dose: 150 mg Venlafaxine HCl (Effexor Xr -) 75 mg PO DAILY [facility] - Objective Vital Signs: Vital Signs Temperature 97.5 F L 10/22/17 10:00 Pulse Rate 76 10/22/17 10:00 Respiratory Rate 18 10/22/17 10:00 Blood Pressure 118/61 10/22/17 10:00 O2 Sat by Pulse Oximetry (%) 100 10/21/17 20:20 Labs: CBC, BMP 10/22/17 06:30 10/22/17 06:30 Problem List - Problems (1) Elevated troponin Assessment/Plan: CARDIO ON BOARD] MONITOR Code(s): R74.8 - ABNORMAL LEVELS OF OTHER SERUM ENZYMES (2) Chest pain Assessment/Plan: Rule out ACS, Acute ID Trend troponins Monitor on tele Monitor labs, vitals Clear liquid diet IV hydration Echo ordered Cardiolology consult Hypertension Continue home meds Monitor BP Cardiology consult Hyperlipidemia Continue home statin Lipid panel in am. Code(s): R07.9 - CHEST PAIN, UNSPECIFIED Qualifiers: Chest pain type: unspecified Qualified Code(s): R07.9 - Chest pain, unspecified (3) Chronic headaches Assessment/Plan: CT HEAD NEURO Code(s): R51 - HEADACHE (4) Hallucination Assessment/Plan: WITH SI PSYCH 1:1 Code(s): R44.3 - HALLUCINATIONS, UNSPECIFIED (5) Diabetes Code(s): E11.9 - TYPE 2 DIABETES MELLITUS WITHOUT COMPLICATIONS Qualifiers: Diabetes mellitus type: type 2 Diabetes mellitus care home insulin use: with care home use Diabetes mellitus complication status: without complication Qualified Code(s): E11.9 - Type 2 diabetes mellitus without complications; Z79.4 - crew director (current) use of insulin; Z79.4 - assisted ( current) use of insulin; Z79.4 - crew director (current) use of insulin; Z79.4 - crew director (current) use of insulin (6) Epigastric pain Assessment/Plan: Abdominal pain/Epigastric pain --with abnormal lft Clear liquid diet Zofran IVF Monitor electrolytes gI US monitor Code(s): R10.13 - EPIGASTRIC PAIN
[2017-10-22] MEDS ORDERED: LORazepam 1 MG TABLET PO PRN (11:27)
[2017-10-22] MEDS: VENLAFAXINE HCL 75 MG E.R. CAPSULES (FP) PO SCH (11:48)
[2017-10-22] MEDS ORDERED: clonazePAM 0.5 MG TABLET PO STA (14:21)
--- NOTE | 2017-10-22 14:30 | CON.PSY ---
Psychiatry Consult Chief Complaint: Asked to see this patient a 57 year old female with a hx of Depression/Anxiety/Panic attacks for suicidal ideation. History of Present Problem: Patient has a Psychiatrist at an outside clinic and she was not sure of her full name"Malena" reports a long hx of Depression/Anxiety panic attacks for which she is prescribed Effexor, trazadone and klonopin 1mgs bid She states that she is having frequent panic attacks as she is not getting her usual dose of klonopin. Although, she admits to depressive symptoms she denies suicidal ideation/attempt/ plan. She denies hx of psychiatric hospitalizations, denies past suicidal attempts. Patient denies feeling helpless or hopeless at this time. Admits to not taking her effexor as prescribed. Symptoms: reports: Depressed Mood, Decreased Motivation, Somatic Symptoms - Family History Family History: Unable to Obtain - Current Medications Current Medications: Active Medications Acetaminophen/Butalbital/Caffeine (Fioricet -) 1 tablet PO Q6H PRN PRN Reason: headaches Last Admin: 10/22/17 09:57 Dose: 1 tablet Atorvastatin Calcium (Lipitor -) 40 mg PO HS [facility] Last Admin: 10/21/17 23:22 Dose: 40 mg Clonazepam (Klonopin -) 1 mg PO BID [facility] Stop: 10/22/17 14:22 Gabapentin (Neurontin -) 300 mg PO DAILY [facility] Last Admin: 10/22/17 09:55 Dose: 300 mg Sodium Chloride (Normal Saline -) 1,000 mls @ 50 mls/hr IV ASDIR [facility] Stop: 10/22/17 19:14 Last Admin: 10/21/17 20:01 Dose: 50 mls/hr Insulin Aspart (Novolog Vial Sliding Scale -) 1 vial SQ ACHS [facility] PRN Reason: Protocol Last Admin: 10/22/17 11:19 Dose: 4 unit Lorazepam (Ativan -) 1 mg PO BID PRN PRN Reason: ANXIETY Losartan Potassium (Cozaar -) 50 mg PO DAILY [facility] Last Admin: 10/22/17 09:55 Dose: 50 mg Metoprolol Succinate (Toprol Xl -) 25 mg PO DAILY [facility] Last Admin: 10/22/17 09:55 Dose: 25 mg Ondansetron HCl (Zofran Injection) 4 mg IVPUSH Q8H PRN PRN Reason: NAUSEA Pantoprazole Sodium (Protonix -) 40 mg PO DAILY [facility] Last Admin: 10/22/17 09:55 Dose: 40 mg Trazodone HCl (Desyrel -) 150 mg PO HS [facility] Last Admin: 10/21/17 23:22 Dose: 150 mg Venlafaxine HCl (Effexor Xr -) 75 mg PO DAILY [facility] Last Admin: 10/22/17 11:48 Dose: 75 mg - Allergies Allergies: Allergies Allergy/AdvReac Type Severity Reaction Status Date / Time No Known Drug Allergies Allergy Verified 10/21/17 18:54 Penicillins AdvReac Unknown Rash Verified 10/21/17 15:23 - Current Living Status Usual Living Arrangement: Other (with grown 40 year old son) - Current Mental Status Evaluation Appearance: Other (appropriately dressed for the situation- hospital gown.) - Affect Affect: Constrictive - Mood Mood: Depressed, Anxious - Speech/Language Receptive: Age Appropriate Comprehension of Spoken Words - Psychomotor Activity Psychomotor Activity: Normal - Thought Process Thought Process: Intact - Thought Content Hallucinations: Absent Delusions: Absent - Self Perception Self Perception: No Impairment - Cognition Attention: Alert Orientation: Time, Person, Place Memory, Short Term: 2/3 Memory, Remote with Promptin/3 - Concentration Serial Sevens Intact: No Simple Calculations Intact: Yes - Abstraction Proverb Interpretation: Intact Judgement: Minimally Impaired - Insight Insight: Intact - Impulse Control Impulse Control: Good Control - Suicidal Ideation Suicidal Ideation: No - Homicidal Ideation Homicidal Ideation: No Assessment/Plan Patient is not suicidal at this time Restart klonopin- stop ativan [employer] retrieved and she is on klonopin 1 mgs bid last rx, 10/19/17 by her outside psychiatrist Adv. to take RTC for her panic attacks Stressed full adherence to effexor. Spoke to RN re: High LFT LOW Magnesium DR> Mraia paged with regard to the above.
[2017-10-22] MEDS ORDERED: MAGNESIUM SULF 50% (8.12 MEQ/2 ML-1 GM VIAL) IVPB ONE ×2 (16:30→20:15)
[2017-10-22] MEDS: clonazePAM 0.5 MG TABLET PO SCH ×2 (16:37→22:02)
--- NOTE | 2017-10-22 16:49 | PN ---
Progress Note (short form) - Note Progress Note: GI CONSULTATION: PLEASE SEE COMPLETE DICTATION IN BRIEF: 57F/ POOR INFORMANT HTN/DM/HLD S/P EDEN YEARS AND YEARS AGO HAD PRIOR EGD/COLON OVER 20 YEARS AGO ADMIT WITH EPIG PAIN WITH RAD'NTO LEFT CHEST-----R/O ACS ADMIT WITH NORMAL LFT'S TODAY LFT'S HAVE RISEN TO 6x ULN UNCLEAR IF PASSING RETAINED CBD STONE/SLUDGE OR RXN TO A MEDICATION SHE HAD GOTTEN HERE ALL LFT NORMAL ON 10/21 WOULD D/C ALL MEDS THAT SHE WAS NOT ON AN OUTPATIENT OBTAIN A RUQ SONO/+/- MRCP F/U LFT'S AND HEP SEROLOGIES NO EVIDENCE OF FULMINANT LIVER FAILURE OR CHOLANGITIS AT THIS TIME THANKSKINGS MD
--- NOTE | 2017-10-22 18:47 | CONS ---
GASTROENTEROLOGY CONSULTATION DATE OF CONSULTATION: 10/22/2017 REASON FOR EVALUATION: I was asked by Dr. Nicholas Man and the hospitalist program to evaluate the patient for abdominal pain. HISTORY OF PRESENT ILLNESS: The patient is a 57-year-old female who is a poor medical informant. Apparently she has longstanding hypertension, diabetes, hyperlipidemia. She has had cholecystectomy many, many years ago, she reports. She came to the hospital because she was having the acute onset of epigastric crampy pain that was 8/10 that radiated to the left arm with dizziness, with shortness of breath, nausea and an episode of vomiting. She thought she was having something wrong with her heart and it went right into her chest. The patient feels much better now but she says at times she gets abdominal discomfort. It is not related to meals. She has not had any fevers, chills or sweats or change in bowel habits. She denies diarrhea or constipation. She tells me that she had endoscopy and colonoscopy many, many years ago. She cannot tell me the findings. She believes she had gastritis but she is not certain. She came to the emergency room and was admitted to rule out acute coronary syndrome, rule out myocardial infarction. Her troponins were borderline. She was placed on telemetry. She has been given a clear liquid diet and she is noted to have elevation of her liver enzymes and we are called for evaluation. She denies jaundice, icterus or pruritus. She denies a history of any liver or other biliary or pancreatic disease. She drinks very, very infrequently and she does not smoke. She was born in [place]. She is . She currently is unable to work. She has no significant additional medical history that she reports. She was noted to be afebrile with a temperature of borderline 99, pulse of 100 and a blood pressure of 150/90. ALLERGIES: She is noted to be ALLERGIC TO PENICILLIN. MEDICATIONS: She came in from home on Ventolin, atorvastatin, butalbital, clonazepam, vitamin D, Neurontin, insulin, Victoza, Cozaar, meloxicam, metoprolol, Protonix, Effexor and Desyrel. Currently her medications now in the hospital include Zofran, Fioricet, Cozaar, Neurontin, Desyrel, Effexor, Klonopin, Toprol, normal saline, Lipitor and Protonix. PHYSICAL EXAMINATION: Vital Signs: At the present time her vital signs are very stable. Her temperature is 97. Her blood pressure is 118/60 with a pulse of 76. General: She is an obese woman in no acute distress. There is chronic . Neck: Thick but supple. Heart: Regular. Abdomen: Bowel sounds are heard. There are no masses, rebound or guarding. There is no tenderness to deep palpation. LABORATORY DATA: Notable in that her white count on admission was 10.8. Today it is 8.3. Hemoglobin 10.9/hematocrit 32.9 with 268,000 platelets. Her chemistry reveal today an AST of 190, an ALT of 155, an alkaline phosphatase of 161. Otherwise, her total bilirubin is 0.3 and her SMA/7 is all within normal limits. Her glucose is 117. Interestingly, on October 21 her AST was 23, her ALT was 33, the alkaline phosphatase was 163. So prior her liver enzymes when she came in yesterday were normal and have risen today. A lipase done yesterday was completely normal and if I scan her prior LFTs on other admissions, it looks like her LFTs have always been normal, going back to 2010. She was here in 2010, 2013, 2015, 2016 and now 2018 and again on admission they were completely normal and they have risen approximately 6 times abnormal over the past 24 hours. Looking at additional medication, it looks like she has gotten morphine, aspirin, Pepcid. Therefore, at the present time, she has not had any GI films to report. IMPRESSION: It is my impression that the patient is a 57-year-old obese woman with hypertension, hyperlipidemia, diabetes, status post cholecystectomy in the past who came in with abdominal pain going into the chest and chest pain who on admission had normal liver enzymes. In the past she has had normal liver enzymes and over the past 24 hours they have risen and are six times the upper limit of normal. It is unclear whether she has passed a stone and the stone has gotten stuck in the common bile duct or whether this is the result of medication that she was given. Therefore I would recommend stopping all unnecessary medication and medication that she has not been on in the past. I would stop everything. I would keep her on a clear liquid diet. I would obtain a sonogram of the right upper quadrant and if LFTs remain elevated she will probably need an MRCP. In addition, she should undergo hepatitis serologic checking. We will continue to be available to aid in the management of this patient. At the present time there is no evidence of impending liver failure or cholangitis. CHUNG KU M.D. JAYSON/[id number]
--- NOTE | 2017-10-22 18:55 | HOSP ---
Physical Examination Vital Signs: Vital Signs Temperature 97.5 F L 10/22/17 10:00 Pulse Rate 76 10/22/17 10:00 Respiratory Rate 18 10/22/17 10:00 Blood Pressure 118/61 10/22/17 10:00 O2 Sat by Pulse Oximetry (%) 100 10/22/17 09:00 Findings/Remarks: The patient has complaints of b/l lower extremity pain. On exam, the patient has b/l lower extremity calf tenderness. No edema or erythema noted. Will order b/l lower extremity doppler to r/o DVT Labs: CBC, BMP 10/22/17 06:30 10/22/17 06:30
--- NOTE | 2017-10-22 20:06 | EKG ---
Test Reason : Blood Pressure : / mmHG Vent. Rate : 095 BPM Atrial Rate : 095 BPM P-R Int : 132 ms QRS Dur : 070 ms QT Int : 372 ms P-R-T Axes : 059 041 058 degrees QTc Int : 467 ms NORMAL SINUS RHYTHM NORMAL ECG WHEN COMPARED WITH ECG OF 01-AUG-2017 10:03, NO SIGNIFICANT CHANGE WAS FOUND Confirmed by RADHA PORTILLO MD ([id number]) on 10/22/2017 8:05:44 PM Referred By: Confirmed By:RADHA PORTILLO MD
[2017-10-22] MEDS: traZODone HCL 50 MG TABLET (FP) PO SCH (22:02)
[2017-10-22] MEDS: ATORVASTATIN CA 40 MG TABLET (FP) PO SCH (22:03)
[2017-10-23] MEDS: INSULIN SLIDING SCALE (NOVOLOG) 1 VIAL SQ SCH ×4 (06:34→21:29)
--- NOTE | 2017-10-23 08:15 | PN ---
Progress Note, Physician History of Present Illness: 57 year old female with a significant past medical history of hypertension, diabetes, hyperlipdemia and choleycystectomy. She presents to the ED with complaints of epigatric pain that radiates to her left chest and arm. Patient describes her abdominal pain as crampy pain, 8/10 in intensity that radiates to her left arm with dizziness, and several episodes of nausea and vomiting. Also reports a mild headache. The chest pain renders her short of breath. This am pt denies any pain or nausea - Current Medication List Current Medications: Active Medications Clonazepam (Klonopin -) 1 mg PO BID [facility] Last Admin: 10/22/17 22:02 Dose: 1 mg Gabapentin (Neurontin -) 300 mg PO DAILY [facility] Last Admin: 10/22/17 09:55 Dose: 300 mg Insulin Aspart (Novolog Vial Sliding Scale -) 1 vial SQ ACHS [facility] PRN Reason: Protocol Last Admin: 10/23/17 06:34 Dose: 2 unit Losartan Potassium (Cozaar -) 50 mg PO DAILY [facility] Last Admin: 10/22/17 09:55 Dose: 50 mg Metoprolol Succinate (Toprol Xl -) 25 mg PO DAILY [facility] Last Admin: 10/22/17 09:55 Dose: 25 mg Ondansetron HCl (Zofran Injection) 4 mg IVPUSH Q8H PRN PRN Reason: NAUSEA Pantoprazole Sodium (Protonix -) 40 mg PO DAILY [facility] Last Admin: 10/22/17 09:55 Dose: 40 mg Trazodone HCl (Desyrel -) 150 mg PO HS [facility] Last Admin: 10/22/17 22:02 Dose: 150 mg Venlafaxine HCl (Effexor Xr -) 75 mg PO DAILY [facility] Last Admin: 10/22/17 11:48 Dose: 75 mg - Objective Vital Signs: Vital Signs Temperature 97.5 F L 10/23/17 06:36 Pulse Rate 81 10/23/17 06:36 Respiratory Rate 20 10/23/17 06:36 Blood Pressure 122/48 10/23/17 06:36 O2 Sat by Pulse Oximetry (%) 98 10/22/17 21:00 Neck: Yes: Supple Cardiovascular: Yes: Regular Rate and Rhythm Respiratory: Yes: Regular, CTA Bilaterally Gastrointestinal: Yes: Normal Bowel Sounds, Soft. No: Tenderness Labs: CBC, BMP 10/22/17 06:30 10/22/17 06:30 Problem List - Problems (1) Elevated troponin Assessment/Plan: CARDIO ON BOARD] MONITOR--rpt nl Code(s): R74.8 - ABNORMAL LEVELS OF OTHER SERUM ENZYMES (2) Chest pain Assessment/Plan: Rule out ACS, Acute NC Trend troponins Monitor on tele Monitor labs, vitals Clear liquid diet IV hydration Echo ordered Cardiolology consult Code(s): R07.9 - CHEST PAIN, UNSPECIFIED Qualifiers: Chest pain type: unspecified Qualified Code(s): R07.9 - Chest pain, unspecified (3) Chronic headaches Assessment/Plan: CT HEAD NEURO Code(s): R51 - HEADACHE (4) Hallucination Assessment/Plan: WITH SI PSYCH 1:1 Code(s): R44.3 - HALLUCINATIONS, UNSPECIFIED (5) Diabetes Code(s): E11.9 - TYPE 2 DIABETES MELLITUS WITHOUT COMPLICATIONS Qualifiers: Diabetes mellitus type: type 2 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
[2017-10-23 09:19] LABS: ALBUMIN 2.8 g/dl (3.4-5.0); ALK PHOS 174 U/L (45-117); ANION GAP 7 (8-16); BILIRUBIN,TOTAL 0.2 mg/dL (0.2-1.0); BLOOD UREA NITROGEN 10 mg/dL (7-18); CALCIUM 8.2 mg/dL (8.5-10.1); CHLORIDE 104 mmol/L (98-107); CO2 30 mmol/L (21-32); CREATININE 0.9 mg/dL (0.55-1.02); GLUCOSE,RANDOM 147 mg/dL (74-106); POTASSIUM 4.4 mmol/L (3.5-5.1); SGOT/AST 73 U/L (15-37); SGPT/ALT 123 U/L (12-78); SODIUM 141 mmol/L (136-145); TOT PROT 6.8 g/dl (6.4-8.2)
[2017-10-23] MEDS ORDERED: PT OWN MED DRAWER 7, Y5N ONE ×2 (10:17→14:32)
[2017-10-23] MEDS: clonazePAM 0.5 MG TABLET PO SCH ×2 (10:23→21:25)
[2017-10-23] MEDS: PANTOPRAZOLE 40 MG TABLET (FP) PO SCH (10:24)
[2017-10-23] MEDS: GABAPENTIN 300 MG CAPSULE (FP) PO SCH (10:25)
[2017-10-23] MEDS: metoPROLOL SUCCINATE 25 MG TAB.SR.24H (FP) PO SCH (10:27)
[2017-10-23] MEDS: VENLAFAXINE HCL 75 MG E.R. CAPSULES (FP) PO SCH (10:27)
[2017-10-23] MEDS: LOSARTAN POTASSIUM 50 MG TABLET (FP) PO SCH (10:28)
--- NOTE | 2017-10-23 10:33 | PN ---
Progress Note, Physician Chief Complaint: No events overnight. Had breakfast w/o nausea, vomiting, abd. pain US liver done, formal read pending - Current Medication List Current Medications: Active Medications Clonazepam (Klonopin -) 1 mg PO BID [facility] Last Admin: 10/23/17 10:23 Dose: 1 mg Gabapentin (Neurontin -) 300 mg PO DAILY [facility] Last Admin: 10/23/17 10:25 Dose: 300 mg Insulin Aspart (Novolog Vial Sliding Scale -) 1 vial SQ ACHS [facility] PRN Reason: Protocol Last Admin: 10/23/17 06:34 Dose: 2 unit Losartan Potassium (Cozaar -) 50 mg PO DAILY [facility] Last Admin: 10/23/17 10:28 Dose: 50 mg Metoprolol Succinate (Toprol Xl -) 25 mg PO DAILY [facility] Last Admin: 10/23/17 10:27 Dose: 25 mg Ondansetron HCl (Zofran Injection) 4 mg IVPUSH Q8H PRN PRN Reason: NAUSEA Pantoprazole Sodium (Protonix -) 40 mg PO DAILY [facility] Last Admin: 10/23/17 10:24 Dose: 40 mg Trazodone HCl (Desyrel -) 150 mg PO HS [facility] Last Admin: 10/22/17 22:02 Dose: 150 mg Venlafaxine HCl (Effexor Xr -) 75 mg PO DAILY [facility] Last Admin: 10/23/17 10:27 Dose: 75 mg - Objective Vital Signs: Vital Signs Temperature 97.5 F L 10/23/17 06:36 Pulse Rate 81 10/23/17 06:36 Respiratory Rate 20 10/23/17 06:36 Blood Pressure 122/48 10/23/17 06:36 O2 Sat by Pulse Oximetry (%) 98 10/22/17 21:00 Constitutional: Yes: Well Nourished, No Distress, Calm Eyes: Yes: Conjunctiva Clear HENT: Yes: Atraumatic Neck: Yes: Supple Cardiovascular: Yes: Regular Rate and Rhythm Respiratory: Yes: Regular Gastrointestinal: Yes: Normal Bowel Sounds, Soft. No: Rectal Bleeding, Tenderness, Vomiting Neurological: Yes: Alert, Oriented Labs: CBC, BMP 10/22/17 06:30 10/23/17 08:39 CBCD WBC 8.3 K/mm3 (4.0-10.0) 10/22/17 06:30 RBC 3.85 M/mm3 (3.60-5.2) 10/22/17 06:30 Hgb 10.9 GM/dL (10.7-15.3) 10/22/17 06:30 Hct 32.9 % (32.4-45.2) 10/22/17 06:30 MCV 85.4 fl (80-96) 10/22/17 06:30 MCHC 33.3 g/dl (32.0-36.0) 10/22/17 06:30 RDW 14.9 % (11.6-15.6) 10/22/17 06:30 Plt Count 268 K/MM3 (134-434) 10/22/17 06:30 MPV 8.0 fl (7.5-11.1) 10/22/17 06:30 CMP Sodium 141 mmol/L (136-145) 10/23/17 08:39 Potassium 4.4 mmol/L (3.5-5.1) 10/23/17 08:39 Chloride 104 mmol/L (98-107) 10/23/17 08:39 Carbon Dioxide 30 mmol/L (21-32) 10/23/17 08:39 Anion Gap 7 (8-16) L 10/23/17 08:39 BUN 10 mg/dL (7-18) 10/23/17 08:39 Creatinine 0.9 mg/dL (0.55-1.02) 10/23/17 08:39 Creat Clearance w eGFR > 60 (>60) 10/23/17 08:39 Calcium 8.2 mg/dL (8.5-10.1) L 10/23/17 08:39 Total Bilirubin 0.2 mg/dL (0.2-1.0) D 10/23/17 08:39 AST 73 U/L (15-37) H 10/23/17 08:39 ALT 123 U/L (12-78) H 10/23/17 08:39 Alkaline Phosphatase 174 U/L (45-117) H 10/23/17 08:39 Total Protein 6.8 g/dl (6.4-8.2) 10/23/17 08:39 Albumin 2.8 g/dl (3.4-5.0) L 10/23/17 08:39 - ....Imaging Ultrasound: Pending Problem List - Problems (1) Transaminasemia Code(s): R74.0 - NONSPEC ELEV OF LEVELS OF TRANSAMNS & LACTIC ACID DEHYDRGNSE (2) Cholestasis Code(s): K83.1 - OBSTRUCTION OF BILE DUCT Assessment/Plan Pain-free US results, serology pending AST/ALT trending down Fat free diet for now
--- NOTE | 2017-10-23 11:17 | PN ---
Progress Note, Physician Chief Complaint: Not in distress History of Present Illness: Patient was seen and examined. Awake and alert. Chart was reviewed Denies chest pain, less SOB and cough Denies palpitations this am - Current Medication List Current Medications: Active Medications Clonazepam (Klonopin -) 1 mg PO BID [facility] Last Admin: 10/23/17 10:23 Dose: 1 mg Gabapentin (Neurontin -) 300 mg PO DAILY [facility] Last Admin: 10/23/17 10:25 Dose: 300 mg Insulin Aspart (Novolog Vial Sliding Scale -) 1 vial SQ ACHS [facility] PRN Reason: Protocol Last Admin: 10/23/17 06:34 Dose: 2 unit Losartan Potassium (Cozaar -) 50 mg PO DAILY [facility] Last Admin: 10/23/17 10:28 Dose: 50 mg Metoprolol Succinate (Toprol Xl -) 25 mg PO DAILY [facility] Last Admin: 10/23/17 10:27 Dose: 25 mg Ondansetron HCl (Zofran Injection) 4 mg IVPUSH Q8H PRN PRN Reason: NAUSEA Pantoprazole Sodium (Protonix -) 40 mg PO DAILY [facility] Last Admin: 10/23/17 10:24 Dose: 40 mg Trazodone HCl (Desyrel -) 150 mg PO HS [facility] Last Admin: 10/22/17 22:02 Dose: 150 mg Venlafaxine HCl (Effexor Xr -) 75 mg PO DAILY [facility] Last Admin: 10/23/17 10:27 Dose: 75 mg - Objective Vital Signs: Vital Signs Temperature 97.6 F 10/23/17 10:00 Pulse Rate 81 10/23/17 10:00 Respiratory Rate 20 10/23/17 10:00 Blood Pressure 129/72 10/23/17 10:00 O2 Sat by Pulse Oximetry (%) 98 10/22/17 21:00 Constitutional: Yes: Well Nourished Eyes: Yes: PERRL HENT: Yes: Atraumatic Neck: Yes: Supple Cardiovascular: Yes: Regular Rate and Rhythm, S1, S2 Respiratory: Yes: CTA Bilaterally Gastrointestinal: Yes: Normal Bowel Sounds, Soft. No: Tenderness Edema: No Additional Findings/Remarks: - Review of Systems Constitutional: denies: Chills, Fever Cardiovascular: reports: Chest Pain, Palpitations, Shortness of Breath Respiratory: reports: SOB. denies: Cough, Hemoptysis, Orthopnea, PND Gastrointestinal: denies: Abdominal Pain, Constipation, Diarrhea, Melena, Nausea , Rectal Bleeding, Vomiting Neurological: denies: Dizziness, Headache, Seizure, Syncope Labs: CBC, BMP 10/22/17 06:30 10/23/17 08:39 Problem List - Problems (1) Demand ischemia Code(s): I24.8 - OTHER FORMS OF ACUTE ISCHEMIC HEART DISEASE (2) Chest pain Code(s): R07.9 - CHEST PAIN, UNSPECIFIED Qualifiers: Chest pain type: unspecified Qualified Code(s): R07.9 - Chest pain, unspecified (3) Diabetes Code(s): E11.9 - TYPE 2 DIABETES MELLITUS WITHOUT COMPLICATIONS Qualifiers: Diabetes mellitus type: type 2 Diabetes mellitus termite technician insulin use: with termite technician use Diabetes mellitus complication status: without complication Qualified Code(s): E11.9 - Type 2 diabetes mellitus without complications; Z79.4 - [facility] (current) use of insulin; Z79.4 - manager intermediate ( current) use of insulin; Z79.4 - [facility] (current) use of insulin; Z79.4 - manager intermediate (current) use of insulin (4) Epigastric pain Code(s): R10.13 - EPIGASTRIC PAIN (5) HTN (hypertension) Code(s): I10 - ESSENTIAL (PRIMARY) HYPERTENSION Qualifiers: Hypertension type: essential hypertension Qualified Code(s): I10 - Essential (primary) hypertension (6) Hyperlipidemia Code(s): E78.5 - HYPERLIPIDEMIA, UNSPECIFIED Qualifiers: Hyperlipidemia type: pure hypercholesterolemia Qualified Code(s): E78.00 - Pure hypercholesterolemia, unspecified; E78.0 - Pure hypercholesterolemia (7) Palpitations Code(s): R00.2 - PALPITATIONS Assessment/Plan 1. Epigastric pain, etiology to be determined 2. Demand ischemia 3. Hypertension 4. Hypercholesterolemia 5. Type 2 diabetes mellitus 6. Palpitations PLAN: 1. Trend troponin - came down to 0.03 2. Continue Metoprolol and Losartan as tolerated 3. Continue Atorvastatin 4. Consider ASA 5. Transthoracic echocardiography to assess LV/RV and valvular function 6. Continue telemetry monitoring Further plans are to follow. Further cardiac evaluation to follow Cedric Chairez MD
--- NOTE | 2017-10-23 11:44 | PN ---
Progress Note (short form) - Note Progress Note: US of the liver report noted. Additional blood work ordered. Stop all non- essential medications Problem List - Problems (1) Transaminasemia Code(s): R74.0 - NONSPEC ELEV OF LEVELS OF TRANSAMNS & LACTIC ACID DEHYDRGNSE (2) Cholestasis Code(s): K83.1 - OBSTRUCTION OF BILE DUCT
--- NOTE | 2017-10-23 12:01 | CON.PSY ---
Psychiatry Consult Chief Complaint: I have panic disoreder for a l;earnest time> I see a psychiatrist at [facility]. I am ok now, I dont feel suicidal and never been. Symptoms: reports: Anxiety, Panic Attacks - Previous Psychiatric Treatment Outpatient: Less than 6 mos ago Inpatient: None - Previous Substance Abuse Treatment Outpatient: None Inpatient: None - Reason for Previous Treatment Reason for Previous Treatment: Anxiety or Panic Disorder - Current Medications Current Medications: Active Medications Clonazepam (Klonopin -) 1 mg PO BID [facility] Last Admin: 10/23/17 10:23 Dose: 1 mg Gabapentin (Neurontin -) 300 mg PO DAILY [facility] Last Admin: 10/23/17 10:25 Dose: 300 mg Insulin Aspart (Novolog Vial Sliding Scale -) 1 vial SQ ACHS [facility] PRN Reason: Protocol Last Admin: 10/23/17 11:48 Dose: 8 unit Losartan Potassium (Cozaar -) 50 mg PO DAILY [facility] Last Admin: 10/23/17 10:28 Dose: 50 mg Metoprolol Succinate (Toprol Xl -) 25 mg PO DAILY [facility] Last Admin: 10/23/17 10:27 Dose: 25 mg Ondansetron HCl (Zofran Injection) 4 mg IVPUSH Q8H PRN PRN Reason: NAUSEA Pantoprazole Sodium (Protonix -) 40 mg PO DAILY [facility] Last Admin: 10/23/17 10:24 Dose: 40 mg Trazodone HCl (Desyrel -) 150 mg PO HS [facility] Last Admin: 10/22/17 22:02 Dose: 150 mg Venlafaxine HCl (Effexor Xr -) 75 mg PO DAILY [facility] Last Admin: 10/23/17 10:27 Dose: 75 mg - Allergies Allergies: Allergies Allergy/AdvReac Type Severity Reaction Status Date / Time No Known Drug Allergies Allergy Verified 10/21/17 18:54 Penicillins AdvReac Unknown Rash Verified 10/21/17 15:23 - Current Living Status Usual Living Arrangement: With Significant Other - Current Mental Status Evaluation Appearance: Well Groomed Attitude: Cooperative - Affect Affect: Full Range Appropriateness: Appropriate to Content - Mood Mood: Anxious - Speech/Language Expressive: Coherent - Psychomotor Activity Psychomotor Activity: Normal - Thought Process Thought Process: Intact - Thought Content Hallucinations: Absent Delusions: Absent - Self Perception Self Perception: No Impairment - Cognition Attention: Alert Orientation: Time Memory, Immediate Recall: Intact Memory, Short Term: 2/3 Memory, Remote with Promptin/3 - Concentration Serial Sevens Intact: No Simple Calculations Intact: No - Abstraction Proverb Interpretation: Intact Judgement: Intact - Impulse Control Impulse Control: Good Control - Suicidal Ideation Suicidal Ideation: No - Homicidal Ideation Homicidal Ideation: No Assessment/Plan 1) No need for1:1 2) continue with [facility]. 3) will see her pvt psych at the clinic./
--- NOTE | 2017-10-23 20:17 | CONSULT ---
Consult - text type - Consultation Consultation Note: NEUROLOGY CONSULTATION is greatly appreciated: This 57 yo RH woman lives with her partner. PMH sig for HTN, DM, Asthma, Depression, panic attacks. S/P Cholecystectomy. Maintained on losartan, albuterol, atorvastatin, insulins, victoza, pantoprazole , trazadone (150), venlafaxine (75 mg), Clonazepam (1 mg BID), and gabapentin. Chronic headaches since teenage years. Now occur daily. Fioricet + APAP causes transient relief at best. HERNDON's can awaken her from sleep. Ridge- or Holocranial throbbing headaches with nausea, photophobia, phonophobia. 4 years of progressive pains "deep in her bones." Began in the legs at night. Now arms and legs, day and night. Now admitted with chest and abdominal pains. Increased LFT's and fatty liver on scan. CT of head (reviewed): Normal. CHARIS: Obese, neck supple, no bruits, cor reg. -Rubi's. -SLR NEURO: MS/speech: Normal CN II-XII: normal Motor: No drift or tremor. Normal strength, bulk, tone. Normal reflexes. Toes downgoing. Coord: No FTN dystaxia. Sensory: Normal Gait: initially stiff-legged, but normal IMP: Normal neurological exam. 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 SUGGEST: check Fe++, TIBC, Ferritin, CK, Ammonia, Lyme. Continue w/u of hepatitis. D/C meloxicam, fioricet, gabapentin Start topiramate 25 mg PO BID x 4 days then 50 mg PO BID Start Pramipexole 0.125 mg PO BID x 4 days the 0.25 mg BID Neuro f/u as out patient. Bupropion would be preferred to Venlafaxine for a patient with severe RLS. Thank you very much, Preet Narvaez MD
[2017-10-23] MEDS: traZODone HCL 50 MG TABLET (FP) PO SCH (21:20)
[2017-10-23] MEDS: TOPIRAMATE 25 MG TABLET (FP) PO SCH (21:26)
[2017-10-23] MEDS: PRAMIPEXOLE DIHYDROCHLORIDE 0.125 MG TABLET PO SCH (21:26)
[2017-10-24 06:07] LABS: HEP.C VIRUS AB 0.1 s/co ratio (0.0-0.9)
[2017-10-24] MEDS: INSULIN SLIDING SCALE (NOVOLOG) 1 VIAL SQ SCH ×4 (06:15→21:23)
[2017-10-24 07:15] LABS: INR 1.11 (0.82-1.09); PROTHROMBIN TIME (PATIENT) 12.5 SEC (9.98-11.88)
[2017-10-24 07:46] LABS: ALBUMIN 2.9 g/dl (3.4-5.0); ALK PHOS 180 U/L (45-117); ANION GAP 8 (8-16); BILIRUBIN,TOTAL 0.2 mg/dL (0.2-1.0); BLOOD UREA NITROGEN 10 mg/dL (7-18); CALCIUM 8.9 mg/dL (8.5-10.1); CHLORIDE 102 mmol/L (98-107); CO2 31 mmol/L (21-32); CREATININE 0.9 mg/dL (0.55-1.02); GLUCOSE,RANDOM 195 mg/dL (74-106); POTASSIUM 4.4 mmol/L (3.5-5.1); SGOT/AST 34 U/L (15-37); SGPT/ALT 88 U/L (12-78); SODIUM 141 mmol/L (136-145); TOT PROT 6.7 g/dl (6.4-8.2)
--- NOTE | 2017-10-24 08:09 | PN ---
Progress Note (short form) - Note Progress Note: Chief Complaint: Events noted, notes reviewed, denies any chest pain or dyspnea , History of Present Illness: Seen and examined on telemetry. Events noted, notes reviewed, denies any chest pain or dyspnea, Echocardiography report noted normal LV systolic function with LVEF 55-60%, mild MR and TR with RVSP of 38 mmHg - Current Medication List Current Medications Clonazepam (Klonopin -) 1 mg PO BID [facility] Last Admin: 10/23/17 21:25 Dose: 1 mg Gabapentin (Neurontin -) 300 mg PO DAILY [facility] Last Admin: 10/23/17 10:25 Dose: 300 mg Insulin Aspart (Novolog Vial Sliding Scale -) 1 vial SQ ACHS [facility] PRN Reason: Protocol Last Admin: 10/24/17 06:15 Dose: 2 unit Losartan Potassium (Cozaar -) 50 mg PO DAILY [facility] Last Admin: 10/23/17 10:28 Dose: 50 mg Metoprolol Succinate (Toprol Xl -) 25 mg PO DAILY [facility] Last Admin: 10/23/17 10:27 Dose: 25 mg Ondansetron HCl (Zofran Injection) 4 mg IVPUSH Q8H PRN PRN Reason: NAUSEA Pantoprazole Sodium (Protonix -) 40 mg PO DAILY [facility] Last Admin: 10/23/17 10:24 Dose: 40 mg Pramipexole Dihydrochloride (Mirapex -) 0.125 mg PO BID [facility] Last Admin: 10/23/17 21:26 Dose: 0.125 mg Topiramate (Topamax -) 25 mg PO BID [facility] Last Admin: 10/23/17 21:26 Dose: 25 mg Trazodone HCl (Desyrel -) 150 mg PO HS [facility] Last Admin: 10/23/17 21:20 Dose: 150 mg Venlafaxine HCl (Effexor Xr -) 75 mg PO DAILY [facility] Last Admin: 10/23/17 10:27 Dose: 75 mg - Review of Systems Constitutional: denies: Chills, Fever Cardiovascular: As noted above Respiratory: denies: Cough or Sputum Production Gastrointestinal: denies: Nausea, Vomiting, Diarrhea, Constipation or Abdominal Pain Neurological: denies: Dizziness or Headache - Objective Vital Signs: Last Vital Signs Temp Pulse Resp BP Pulse Ox 98.5 F 86 20 143/75 95 10/24/17 06:00 10/24/17 06:00 10/24/17 06:00 10/24/17 06:00 10/23/17 20:36 Intake & Output 10/21/17 10/22/17 10/23/17 10/24/17 22:59 23:59 23:59 23:59 Intake Total 2710 120 Balance 2710 120 Weight Constitutional: Well Nourished Eyes: KOKO, EOMI Neck: Supple Cardiovascular: S1 S2 Regular Rate and Rhythm No Murmurs Respiratory: CTA Bilaterally Gastrointestinal: Soft Benign Normal Bowel Sounds Ext: No Edema Labs: CBC, BMP 10/22/17 06:30 10/24/17 06:30 Hepatic Panel Total Bilirubin 0.2 mg/dL (0.2-1.0) 10/24/17 06:30 AST 34 U/L (15-37) 10/24/17 06:30 ALT 88 U/L (12-78) H 10/24/17 06:30 Alkaline Phosphatase 180 U/L (45-117) H 10/24/17 06:30 Albumin 2.9 g/dl (3.4-5.0) L 10/24/17 06:30 Assessment/Plan ASSESSMENT: 1. Epigastric pain, etiology to be determined 2. CAD with evidence of Demand ischemic injury 3. Diastolic LV dysfunction with class 0 NYHA classification LV failure 4. Hypertension 5. DM 6. Hypercholesterolemia 7. Palpitations with no evidence of sustained arrhythmia PLAN: 1. Continue Metoprolol XL and titrate dosage as tolerated and as needed 2. Continue Losartan 3. Add ASA unless it is contraindicated 4. Recommend resumption of statins unless it is absolutely contraindicated once LFT abnormality resolves 5. MPI study can be performed as outpatient for evaluation of CAD Katelynn Allen MD
--- NOTE | 2017-10-24 09:18 | PN ---
Progress Note, Physician - Current Medication List Current Medications: Active Medications Clonazepam (Klonopin -) 1 mg PO BID [facility] Last Admin: 10/23/17 21:25 Dose: 1 mg Gabapentin (Neurontin -) 300 mg PO DAILY [facility] Last Admin: 10/23/17 10:25 Dose: 300 mg Insulin Aspart (Novolog Vial Sliding Scale -) 1 vial SQ ACHS [facility] PRN Reason: Protocol Last Admin: 10/24/17 06:15 Dose: 2 unit Losartan Potassium (Cozaar -) 50 mg PO DAILY [facility] Last Admin: 10/23/17 10:28 Dose: 50 mg Metoprolol Succinate (Toprol Xl -) 25 mg PO DAILY [facility] Last Admin: 10/23/17 10:27 Dose: 25 mg Ondansetron HCl (Zofran Injection) 4 mg IVPUSH Q8H PRN PRN Reason: NAUSEA Pantoprazole Sodium (Protonix -) 40 mg PO DAILY [facility] Last Admin: 10/23/17 10:24 Dose: 40 mg Pramipexole Dihydrochloride (Mirapex -) 0.125 mg PO BID [facility] Last Admin: 10/23/17 21:26 Dose: 0.125 mg Topiramate (Topamax -) 25 mg PO BID [facility] Last Admin: 10/23/17 21:26 Dose: 25 mg Trazodone HCl (Desyrel -) 150 mg PO HS [facility] Last Admin: 10/23/17 21:20 Dose: 150 mg Venlafaxine HCl (Effexor Xr -) 75 mg PO DAILY [facility] Last Admin: 10/23/17 10:27 Dose: 75 mg - Objective Vital Signs: Vital Signs Temperature 98.5 F 10/24/17 06:00 Pulse Rate 86 10/24/17 06:00 Respiratory Rate 20 10/24/17 06:00 Blood Pressure 143/75 10/24/17 06:00 O2 Sat by Pulse Oximetry (%) 95 10/23/17 20:36 Labs: CBC, BMP 10/22/17 06:30 10/24/17 06:30 INR, PTT INR 1.11 (0.82-1.09) 10/24/17 05:30 Problem List - Problems (1) Elevated troponin Code(s): R74.8 - ABNORMAL LEVELS OF OTHER SERUM ENZYMES (2) Chest pain Code(s): R07.9 - CHEST PAIN, UNSPECIFIED Qualifiers: Chest pain type: unspecified Qualified Code(s): R07.9 - Chest pain, unspecified (3) Chronic headaches Code(s): R51 - HEADACHE (4) Hallucination Code(s): R44.3 - HALLUCINATIONS, UNSPECIFIED (5) Diabetes Code(s): E11.9 - TYPE 2 DIABETES MELLITUS WITHOUT COMPLICATIONS Qualifiers: Diabetes mellitus type: type 2 Diabetes mellitus shelter insulin use: with terminal operator use Diabetes mellitus complication status: without complication Qualified Code(s): E11.9 - Type 2 diabetes mellitus without complications; Z79.4 - retirement (current) use of insulin; Z79.4 - director long term care ( current) use of insulin; Z79.4 - retirement (current) use of insulin; Z79.4 - director long term care (current) use of insulin (6) Epigastric pain Code(s): R10.13 - EPIGASTRIC PAIN
[2017-10-24] MEDS ORDERED: PT OWN MED DRAWER 7, Y5N ONE ×4 (09:28→21:36)
--- NOTE | 2017-10-24 10:06 | DS ---
Physical Examination Vital Signs: Vital Signs Temperature 98.5 F 10/24/17 06:00 Pulse Rate 86 10/24/17 06:00 Respiratory Rate 20 10/24/17 06:00 Blood Pressure 143/75 10/24/17 06:00 O2 Sat by Pulse Oximetry (%) 95 10/23/17 20:36 Cardiovascular: Yes: Regular Rate and Rhythm Respiratory: Yes: Regular, CTA Bilaterally Gastrointestinal: Yes: Normal Bowel Sounds, Soft. No: Tenderness Labs: CBC, BMP 10/22/17 06:30 10/24/17 06:30 Discharge Summary Reason For Visit: ELEVATED TROPONIN 1 LEVEL,CHEST PAIN Current Active Problems Chest pain (Acute) Cholestasis (Acute) Chronic headaches (Acute) Demand ischemia (Acute) Diabetes (Acute) Elevated troponin (Acute) Epigastric pain (Acute) Hallucination (Acute) Transaminasemia (Acute) Hospital Course: Patient is a 57 year old female of descent with underlying history of hypertension, type 2 diabetes mellitus and hypercholesterolemia who presented with complaints of epigastric pain radiating to left chest and arm. She complained of vague shortness of breath. She also complained of palpitations. She denies paroxysmal nocturnal dyspnea or orthopnea. She denies fever or chills. She complained of nausea, but no vomiting, diarrhea or abdominal pain. She denies headache or lightheadedness. Troponin was slightly elevated at 0.07. She is on 1:1 at this time due to her comment on suicide. - History Source History Provided By: Patient Limitations to Obtaining History: No Limitations - Past Medical History Cardio/Vascular: Yes: CAD, HTN, Hyperlipdemia Endocrine: Yes: Diabetes Mellitus - Past Surgical History Past Surgical History: Yes: Cholecystectomy - Problems (1) Elevated troponin Assessment/Plan: CARDIO ON BOARD] MONITOR--rpt nl echo nl lv--further w/u as outpatient Code(s): R74.8 - ABNORMAL LEVELS OF OTHER SERUM ENZYMES (2) Chest pain Assessment/Plan: Rule out ACS, Acute WA--rpt ce nl Echo nl lv Cardiolology consult noted--further w/u as outpatient asa Code(s): R07.9 - CHEST PAIN, UNSPECIFIED Qualifiers: Chest pain type: unspecified Qualified Code(s): R07.9 - Chest pain, unspecified (3) Chronic headaches Assessment/Plan: CT HEAD NEURO noted--on topomax Code(s): R51 - HEADACHE (4) Hallucination Assessment/Plan: denies SI PSYCH noted off 1:1 Code(s): R44.3 - HALLUCINATIONS, UNSPECIFIED (5) Diabetes Code(s): E11.9 - TYPE 2 DIABETES MELLITUS WITHOUT COMPLICATIONS Qualifiers: Diabetes mellitus type: type 2 Diabetes mellitus senior care insulin use: with intermediate frame tender use Diabetes mellitus complication status: without complication Qualified Code(s): E11.9 - Type 2 diabetes mellitus without complications; Z79.4 - terminologist (current) use of insulin; Z79.4 - longterm ( current) use of insulin; Z79.4 - terminologist (current) use of insulin; Z79.4 - longterm (current) use of insulin (6) Epigastric pain Assessment/Plan: Abdominal pain/Epigastric pain --with abnormal lft tolerating diet gI noted US-fatty liver monitor dc tylenol and lipitor--may resume as outpatient depending on lft Code(s): R10.13 - EPIGASTRIC PAIN Condition: Improved - Instructions Diet, Activity, Other Instructions: Please return to the emergency department with any new or worsening symptoms or concerns. Please follow up with your primary care physician within 72 hours. your liver enzymes are abnormal need to be repeated and then decide on resuming your cholesterol and other meds Referrals: Jimy Marks [Primary Care Provider] - 1 Week - Home Medications Comprehensive Discharge Medication List: Ambulatory Orders Albuterol Sulfate Inhaler - [Ventolin HFA Inhaler -] 2 inh PO Q4H 10/21/17 Ergocalciferol (Vitamin D2) [Ergocalciferol] 1.25 mg PO ASDIR 10/21/17 Gabapentin [Neurontin -] 300 mg PO ASDIR 10/21/17 Insulin Degludec [Tresiba Flextouch U-200] 200 unit SQ ASDIR 10/21/17 Losartan Potassium [Cozaar -] 50 mg PO ASDIR 10/21/17 Metoprolol Succinate 25 mg PO ASDIR 10/21/17 Pantoprazole Sodium [Protonix -] 40 mg PO ASDIR 10/21/17 Venlafaxine HCl ER [Effexor Xr -] 75 mg PO ASDIR 10/21/17 traZODone HCL [Desyrel -] 150 mg PO ASDIR 10/21/17 Aspirin Coated [Ecotrin -] 81 mg PO DAILY tablet.ec 10/24/17 Gabapentin [Neurontin -] 200 mg PO TID #120 capsule 10/24/17 Pramipexole Dihydrochloride [Mirapex -] 0.125 mg PO BID #30 tablet 10/24/17 Topiramate [Topamax -] 25 mg PO BID #30 tablet 10/24/17
[2017-10-24] MEDS: PRAMIPEXOLE DIHYDROCHLORIDE 0.125 MG TABLET PO SCH (10:39)
[2017-10-24] MEDS: TOPIRAMATE 25 MG TABLET (FP) PO SCH ×2 (10:39→21:21)
[2017-10-24] MEDS: clonazePAM 0.5 MG TABLET PO SCH ×2 (10:39→21:21)
[2017-10-24] MEDS: PANTOPRAZOLE 40 MG TABLET (FP) PO SCH (10:40)
[2017-10-24] MEDS: ASPIRIN COATED 81 MG TABLET.EC PO SCH (10:40)
[2017-10-24] MEDS: metoPROLOL SUCCINATE 25 MG TAB.SR.24H (FP) PO SCH (10:40)
[2017-10-24] MEDS: LOSARTAN POTASSIUM 50 MG TABLET (FP) PO SCH (10:40)
[2017-10-24] MEDS ORDERED: INSULIN (NOVOLOG) ASPART 100 UNITS/ML 10ML VIAL ONE (12:18)
[2017-10-24] MEDS: VENLAFAXINE HCL 75 MG E.R. CAPSULES (FP) PO SCH (12:42)
[2017-10-24] MEDS: GABAPENTIN 100 MG CAPSULE (FP) PO SCH ×2 (14:05→21:21)
--- NOTE | 2017-10-24 19:16 | PN ---
Progress Note (short form) - Note Progress Note: NEUROLOGY FOLLOW-UP: Events reviewed. Patient examined. Sleep much improved last night after pramipexole Rx but Pt continued to c/o stiffness and pain this AM upon awakening. LFT's coming down into normal range. EXAM: normal neck ROM. - SLR Normal strength and reflexes. Normal sensation Gait: initially stiff then normalizes. IMP: Migraine Headaches Restless Limbs syndrome (RLS). Consider acetominophen toxicity as cause of elevated LFT's. SUGGEST: No APAP (or APAP containing products). Increase topiramate to 50 mg BID Increase pramipexole to .25 mg PO BID after meals. Neuro f/u as out patient. Thank you very much, Preet Narvaez MD
[2017-10-24] MEDS: traZODone HCL 50 MG TABLET (FP) PO SCH (21:20)
[2017-10-24] MEDS: PRAMIPEXOLE DIHYDROCHLORIDE 0.25 MG TABLET PO SCH (21:21)
[2017-10-24] MEDS ORDERED: INSULIN DETEMIR 100 UNITS/ML MDV SQ SCH (22:00)
--- NOTE | 2017-10-25 00:10 | CONSULT ---
Consult Consult Specialty:: endocrine Referred by:: dr.annabi sheehan Reason for Consultation:: diabetes mellitus uncontrolled - History of Present Illness Chief Complaint: high sugars History of Present Illness: 57 year old female with a significant past medical history of hypertension, diabetes, hyperlipdemia and choleycystectomy. She presents to the ED with complaints of epigatric pain that radiates to her left chest and arm. Patient describes her abdominal pain as crampy pain, 8/10 in intensity that radiates to her left arm with dizziness, and several episodes of nausea and vomiting. she has higher blood sugars ,despite taking insulin. she has not seen her senior climate advisor recently.she is unsure of how much insulin to take. - Past Medical History Cardio/Vascular: Yes: CAD, HTN, Hyperlipdemia Endocrine: Yes: Diabetes Mellitus - Past Surgical History Past Surgical History: Yes: Cholecystectomy - Alcohol/Substance Use Hx Alcohol Use: No History of Substance Use: reports: None - Smoking History Smoking history: Never smoked Have you smoked in the past 12 months: No Aproximately how many cigarettes per day: 0 - Social History Usual Living Arrangement: With Significant Other Home Medications - Allergies Allergies/Adverse Reactions: Allergies Allergy/AdvReac Type Severity Reaction Status Date / Time No Known Drug Allergies Allergy Verified 10/21/17 18:54 Penicillins AdvReac Unknown Rash Verified 10/21/17 15:23 - Home Medications Home Medications: Ambulatory Orders Albuterol Sulfate Inhaler - [Ventolin HFA Inhaler -] 2 inh PO Q4H 10/21/17 Ergocalciferol (Vitamin D2) [Ergocalciferol] 1.25 mg PO ASDIR 10/21/17 Gabapentin [Neurontin -] 300 mg PO ASDIR 10/21/17 Insulin Degludec [Tresiba Flextouch U-200] 200 unit SQ ASDIR 10/21/17 Losartan Potassium [Cozaar -] 50 mg PO ASDIR 10/21/17 Metoprolol Succinate 25 mg PO ASDIR 10/21/17 Pantoprazole Sodium [Protonix -] 40 mg PO ASDIR 10/21/17 Venlafaxine HCl ER [Effexor Xr -] 75 mg PO ASDIR 10/21/17 traZODone HCL [Desyrel -] 150 mg PO ASDIR 10/21/17 Aspirin Coated [Ecotrin -] 81 mg PO DAILY tablet.ec 10/24/17 Gabapentin [Neurontin -] 200 mg PO TID #120 capsule 10/24/17 Pramipexole Dihydrochloride [Mirapex -] 0.125 mg PO BID #30 tablet 10/24/17 Topiramate [Topamax -] 25 mg PO BID #30 tablet 10/24/17 Family Disease History - Family Disease History Family Disease History: Diabetes: Mother, Sister, Daughter Review of Systems - Review of Systems Constitutional: reports: Loss of Appetite, Weakness Eyes: reports: Blurred Vision HENT: reports: No Symptoms Neck: reports: No Symptoms Cardiovascular: reports: Shortness of Breath Respiratory: reports: Exercise Intolerance Gastrointestinal: reports: Abdominal Pain Genitourinary: reports: No Symptoms Breasts: reports: No Symptoms Reported Musculoskeletal: reports: Muscle Pain, Muscle Cramps Integumentary: reports: No Symptoms Neurological: reports: Numbness, Weakness Endocrine: reports: No Symptoms Psychiatric: reports: Altered Sleep Pattern Physical Exam Vital Signs: Vital Signs Temperature 97.9 F 10/24/17 21:00 Pulse Rate 77 10/24/17 21:00 Respiratory Rate 18 10/24/17 21:00 Blood Pressure 142/86 10/24/17 21:00 O2 Sat by Pulse Oximetry (%) 95 10/24/17 21:00 Constitutional: Yes: Anxious Eyes: Yes: EOM Intact HENT: Yes: Normocephalic Neck: Yes: Trachea Midline Cardiovascular: Yes: Regular Rate and Rhythm Respiratory: Yes: CTA Bilaterally Gastrointestinal: Yes: Normal Bowel Sounds ...Rectal Exam: Yes: Deferred Musculoskeletal: Yes: WNL Extremities: Yes: WNL Edema: No Integumentary: Yes: WNL Neurological: Yes: Alert Labs: CBC, BMP 10/22/17 06:30 10/24/17 06:30 Problem List - Problems (1) Type 2 diabetes mellitus with diabetic neuropathic arthropathy Code(s): E11.610 - TYPE 2 DIABETES MELLITUS W DIABETIC NEUROPATHIC ARTHROPATHY (2) Chest pain Code(s): R07.9 - CHEST PAIN, UNSPECIFIED Qualifiers: Chest pain type: unspecified Qualified Code(s): R07.9 - Chest pain, unspecified (3) Cholestasis Code(s): K83.1 - OBSTRUCTION OF BILE DUCT (4) Chronic headaches Code(s): R51 - HEADACHE (5) Diabetes Code(s): E11.9 - TYPE 2 DIABETES MELLITUS WITHOUT COMPLICATIONS Qualifiers: Diabetes mellitus type: type 2 Diabetes mellitus salvage determiner insulin use: with salvage determiner use Diabetes mellitus complication status: without complication Qualified Code(s): E11.9 - Type 2 diabetes mellitus without complications; Z79.4 - ad terminal makeup operator (current) use of insulin; Z79.4 - retirement ( current) use of insulin; Z79.4 - ad terminal makeup operator (current) use of insulin; Z79.4 - retirement (current) use of insulin Assessment/Plan Current Active Problems Chest pain (Acute) Cholestasis (Acute) Chronic headaches (Acute) Demand ischemia (Acute) Diabetes (Acute) Elevated troponin (Acute) Epigastric pain (Acute) Hallucination (Acute) Transaminasemia (Acute) Abnormal Lab Results 10/24/17 10/24/17 05:30 06:30 PT with INR 12.50 H Random Glucose 195 H ALT 88 H Alkaline Phosphatase 180 H Albumin 2.9 L Laboratory Results - last 24 hr 10/23/17 10/24/17 10/24/17 08:39 05:30 05:52 PT with INR 12.50 H INR 1.11 Sodium Potassium Chloride Carbon Dioxide Anion Gap BUN Creatinine Creat Clearance w eGFR POC Glucometer 178 Random Glucose Calcium Total Bilirubin AST ALT Alkaline Phosphatase Total Protein Albumin Hepatitis A IgM Ab Negative Hep Bs Antigen Negative Hep B Core IgM Ab Negative 10/24/17 10/24/17 10/24/17 06:30 10:46 17:29 PT with INR INR Sodium 141 Potassium 4.4 Chloride 102 Carbon Dioxide 31 Anion Gap 8 BUN 10 Creatinine 0.9 Creat Clearance w eGFR > 60 POC Glucometer 352 252 Random Glucose 195 H Calcium 8.9 Total Bilirubin 0.2 AST 34 ALT 88 H Alkaline Phosphatase 180 H Total Protein 6.7 Albumin 2.9 L Hepatitis A IgM Ab Hep Bs Antigen Hep B Core IgM Ab 10/24/17 21:17 PT with INR INR Sodium Potassium Chloride Carbon Dioxide Anion Gap BUN Creatinine Creat Clearance w eGFR POC Glucometer 166 Random Glucose Calcium Total Bilirubin AST ALT Alkaline Phosphatase Total Protein Albumin Hepatitis A IgM Ab Hep Bs Antigen Hep B Core IgM Ab Laboratory Tests 10/22/17 10/24/17 10/24/17 06:30 06:30 10:46 Sodium 141 Potassium 4.4 Chloride 102 Carbon Dioxide 31 Anion Gap 8 BUN 10 Creatinine 0.9 Creat Clearance w eGFR > 60 POC Glucometer 352 Random Glucose 195 H Hemoglobin A1c % 9.7 H ALT 88 H Alkaline Phosphatase 180 H 10/24/17 10/24/17 17:29 21:17 Sodium Potassium Chloride Carbon Dioxide Anion Gap BUN Creatinine Creat Clearance w eGFR POC Glucometer 252 166 Random Glucose Hemoglobin A1c % ALT Alkaline Phosphatase plan: levemir 20 units am levemir 10 units hs if sugar above 150mg/dl continue bgm achs diet nutrition consult lipid studies oupatient
[2017-10-25] MEDS ORDERED: INSULIN DETEMIR 100 UNITS/ML MDV SQ SCH ×2 (00:20→07:00)
[2017-10-25] MEDS: GABAPENTIN 100 MG CAPSULE (FP) PO SCH (06:43)
[2017-10-25] MEDS: INSULIN SLIDING SCALE (NOVOLOG) 1 VIAL SQ SCH ×2 (06:45→11:39)
[2017-10-25 08:07] LABS: SERUM IRON SATURATION 12 % (15-55); TOTAL IRON BINDING CAPACITY 278 ug/dL (250-450); UIBC 245 ug/dL (131-425)
[2017-10-25] MEDS ORDERED: PT OWN MED DRAWER 7, Y5N ONE (09:13)
--- NOTE | 2017-10-25 09:52 | PN ---
Progress Note, Physician History of Present Illness: No events overnight. Had breakfast w/o nausea, vomiting, abd. pain Fatty liver on RUQ US Autoimmune markers pending - Current Medication List Current Medications: Active Medications Aspirin (Ecotrin -) 81 mg PO DAILY [facility] Last Admin: 10/24/17 10:40 Dose: 81 mg Clonazepam (Klonopin -) 1 mg PO BID [facility] Last Admin: 10/24/17 21:21 Dose: 1 mg Gabapentin (Neurontin -) 200 mg PO TID [facility] Last Admin: 10/25/17 06:43 Dose: 200 mg Insulin Aspart (Novolog Vial Sliding Scale -) 1 vial SQ ACHS [facility] PRN Reason: Protocol Last Admin: 10/25/17 06:45 Dose: 2 unit Insulin Detemir (Levemir Vial) 20 units SQ AM [facility] Last Admin: 10/25/17 06:43 Dose: 20 units Insulin Detemir (Levemir Vial) 10 units SQ HS [facility] Losartan Potassium (Cozaar -) 50 mg PO DAILY [facility] Last Admin: 10/24/17 10:40 Dose: 50 mg Metoprolol Succinate (Toprol Xl -) 25 mg PO DAILY [facility] Last Admin: 10/24/17 10:40 Dose: 25 mg Ondansetron HCl (Zofran Injection) 4 mg IVPUSH Q8H PRN PRN Reason: NAUSEA Pantoprazole Sodium (Protonix -) 40 mg PO DAILY [facility] Last Admin: 10/24/17 10:40 Dose: 40 mg Pramipexole Dihydrochloride (Mirapex -) 0.25 mg PO BID [facility] Last Admin: 10/24/17 21:21 Dose: 0.25 mg Topiramate (Topamax -) 50 mg PO BID [facility] Last Admin: 10/24/17 21:21 Dose: 50 mg Trazodone HCl (Desyrel -) 150 mg PO HS [facility] Last Admin: 10/24/17 21:20 Dose: 150 mg Venlafaxine HCl (Effexor Xr -) 75 mg PO DAILY [facility] Last Admin: 10/24/17 12:42 Dose: 75 mg - Objective Vital Signs: Vital Signs Temperature 98.4 F 10/25/17 06:16 Pulse Rate 85 10/25/17 06:16 Respiratory Rate 18 10/25/17 06:16 Blood Pressure 145/80 10/25/17 06:16 O2 Sat by Pulse Oximetry (%) 95 10/24/17 21:00 Constitutional: Yes: Well Nourished, No Distress, Calm Eyes: Yes: Conjunctiva Clear HENT: Yes: Atraumatic Neck: Yes: Supple Cardiovascular: Yes: Regular Rate and Rhythm Respiratory: Yes: Regular Gastrointestinal: Yes: Soft. No: Ascites, Distention, Melena, Tenderness, Rebound, Vomiting Neurological: Yes: Alert, Oriented Labs: CBC, BMP 10/22/17 06:30 10/24/17 06:30 INR, PTT INR 1.11 (0.82-1.09) 10/24/17 05:30 CBCD WBC 8.3 K/mm3 (4.0-10.0) 10/22/17 06:30 RBC 3.85 M/mm3 (3.60-5.2) 10/22/17 06:30 Hgb 10.9 GM/dL (10.7-15.3) 10/22/17 06:30 Hct 32.9 % (32.4-45.2) 10/22/17 06:30 MCV 85.4 fl (80-96) 10/22/17 06:30 MCHC 33.3 g/dl (32.0-36.0) 10/22/17 06:30 RDW 14.9 % (11.6-15.6) 10/22/17 06:30 Plt Count 268 K/MM3 (134-434) 10/22/17 06:30 MPV 8.0 fl (7.5-11.1) 10/22/17 06:30 CMP Sodium 141 mmol/L (136-145) 10/24/17 06:30 Potassium 4.4 mmol/L (3.5-5.1) 10/24/17 06:30 Chloride 102 mmol/L (98-107) 10/24/17 06:30 Carbon Dioxide 31 mmol/L (21-32) 10/24/17 06:30 Anion Gap 8 (8-16) 10/24/17 06:30 BUN 10 mg/dL (7-18) 10/24/17 06:30 Creatinine 0.9 mg/dL (0.55-1.02) 10/24/17 06:30 Creat Clearance w eGFR > 60 (>60) 10/24/17 06:30 Calcium 8.9 mg/dL (8.5-10.1) 10/24/17 06:30 Total Bilirubin 0.2 mg/dL (0.2-1.0) 10/24/17 06:30 AST 34 U/L (15-37) 10/24/17 06:30 ALT 88 U/L (12-78) H 10/24/17 06:30 Alkaline Phosphatase 180 U/L (45-117) H 10/24/17 06:30 Total Protein 6.7 g/dl (6.4-8.2) 10/24/17 06:30 Albumin 2.9 g/dl (3.4-5.0) L 10/24/17 06:30 - ....Imaging Ultrasound: Report Reviewed Problem List - Problems (1) Transaminasemia Code(s): R74.0 - NONSPEC ELEV OF LEVELS OF TRANSAMNS & LACTIC ACID DEHYDRGNSE (2) Cholestasis Code(s): K83.1 - OBSTRUCTION OF BILE DUCT Assessment/Plan Pain-free Serology negative Autoimmune markers pending [place] has NAFLD Will need monitoring/follow up as OP. Discussed with the patient.
[2017-10-25] MEDS: ASPIRIN COATED 81 MG TABLET.EC PO SCH (10:17)
[2017-10-25] MEDS: PANTOPRAZOLE 40 MG TABLET (FP) PO SCH (10:17)
[2017-10-25] MEDS: VENLAFAXINE HCL 75 MG E.R. CAPSULES (FP) PO SCH (10:17)
[2017-10-25] MEDS: metoPROLOL SUCCINATE 25 MG TAB.SR.24H (FP) PO SCH (10:18)
[2017-10-25] MEDS: PRAMIPEXOLE DIHYDROCHLORIDE 0.25 MG TABLET PO SCH (10:18)
[2017-10-25] MEDS: TOPIRAMATE 25 MG TABLET (FP) PO SCH (10:18)
[2017-10-25] MEDS: LOSARTAN POTASSIUM 50 MG TABLET (FP) PO SCH (10:18)
[2017-10-25] MEDS: clonazePAM 0.5 MG TABLET PO SCH (10:33)
[2017-10-25 11:15] LABS: ALBUMIN 3.2 g/dl (3.4-5.0)
[2017-10-25 11:20] LABS: ALK PHOS 170 U/L (45-117); BILIRUBIN,DIRECT < 0.2 mg/dL (0.0-0.2); BILIRUBIN,TOTAL 0.2 mg/dL (0.2-1.0); SGOT/AST 17 U/L (15-37); SGPT/ALT 66 U/L (12-78); TOT PROT 7.1 g/dl (6.4-8.2)
[2017-10-25 14:00] VITALS: BP 147/87; PULSE 77; TEMP 98.3
[2017-10-25 14:16] LABS: TRANSGLUTAMINASE IGA < 2 U/mL (0-3); TRANSGLUTAMINASE IGG 2 U/mL (0-5)
== END 2017-10-25 12:50 | disposition home or self-care (01) | DRG 198 ==
LOC: JER 14:54 → JERBED 17:52 → J4S 21:24 → OBSVTOIN 10-23 08:13
PROVIDERS: ADMIT Internal Medicine; ATTEND Family Medicine
DX: I24.8 Other forms of acute ischemic heart disease (principal); K76.0 Fatty (change of) liver, not elsewhere classified; R07.9 Chest pain, unspecified; R74.0 Nonspecific elevation of levels of transaminase and lactic acid dehydrogenase [LDH]; I10 Essential (primary) hypertension; E11.9 Type 2 diabetes mellitus without complications; R10.13 Epigastric pain; E78.5 Hyperlipidemia, unspecified; R00.2 Palpitations; R44.3 Hallucinations, unspecified; G43.909 Migraine, unspecified, not intractable, without status migrainosus; E66.9 Obesity, unspecified; Z68.38 Body mass index [BMI] 38.0-38.9, adult; G25.81 Restless legs syndrome
CPT/HCPCS: 36415; 70450-TC; 71045-TC-FY; 76700-TC; 80053; 80061; 80074; 80076; 81003; 82550; 82962; 83036; 83516; 83540; 83550; 83605; 83690; 83721; 83735; 84484; 85025; 85379; 85610; 86038; 87086; 93005; 93010; 93306-TC; 93970-TC; 97116-GP; 97161-GP; 99283-25; G0378; J0131; J7030

== ENCOUNTER 2018-06-29 11:35 | Emergency (ER) | payer OTHER ==
[2018-06-29 11:56] VITALS: BP 157/59; PULSE 81; TEMP 98.6; BMI 40.6
--- NOTE | 2018-06-29 12:23 | PDOC ---
History of Present Illness - General Chief Complaint: Pain, Acute Stated Complaint: NAUSEA/VOMITING Time Seen by Provider: 06/29/18 12:15 Past History - Past Medical History Allergies/Adverse Reactions: Allergies Allergy/AdvReac Type Severity Reaction Status Date / Time Penicillins AdvReac Unknown Rash Verified 06/29/18 11:52 SEAFOOD Allergy Rash Uncoded 06/29/18 11:52 Home Medications: Ambulatory Orders Albuterol Sulfate Inhaler - [Ventolin HFA Inhaler -] 2 inh PO Q4H 10/21/17 Ergocalciferol (Vitamin D2) [Ergocalciferol] 1.25 mg PO ASDIR 10/21/17 Gabapentin [Neurontin -] 300 mg PO ASDIR 10/21/17 Insulin Degludec [Tresiba Flextouch U-200] 200 unit SQ ASDIR 10/21/17 Losartan Potassium [Cozaar -] 50 mg PO ASDIR 10/21/17 Metoprolol Succinate 25 mg PO ASDIR 10/21/17 Pantoprazole Sodium [Protonix -] 40 mg PO ASDIR 10/21/17 Venlafaxine HCl ER [Effexor Xr -] 75 mg PO ASDIR 10/21/17 traZODone HCL [Desyrel -] 150 mg PO ASDIR 10/21/17 Aspirin Coated [Ecotrin -] 81 mg PO DAILY tablet.ec 10/24/17 Gabapentin [Neurontin -] 200 mg PO TID #120 capsule 10/24/17 Pramipexole Dihydrochloride [Mirapex -] 0.125 mg PO BID #30 tablet 10/24/17 Topiramate [Topamax -] 25 mg PO BID #30 tablet 10/24/17 Asthma: Yes Cardiac Disorders: Yes (MVP, angina) COPD: No Diabetes: Yes HTN: Yes Psychiatric Problems: Yes (anxiety panic attacks depression) - Surgical History Cholecystectomy: Yes - Reproductive History (#): 4 Para: 4 - Immunization History Immunization Up to Date: Yes - Suicide/Smoking/Psychosocial Hx Smoking Status: No Smoking History: Never smoked Have you smoked in the past 12 months: No Number of Cigarettes Smoked Daily: 0 Hx Alcohol Use: No Drug/Substance Use Hx: No Substance Use Type: None *Physical Exam - Vital Signs Last Vital Signs Temp Pulse Resp BP Pulse Ox 98.6 F 81 19 157/59 L 97 06/29/18 11:52 06/29/18 11:52 06/29/18 11:52 06/29/18 11:52 06/29/18 11:52 ED Treatment Course - LABORATORY CBC & Chemistry Diagram: 06/29/18 12:55 06/29/18 12:55 *DC/Admit/Observation/Transfer Diagnosis at time of Disposition: Dehydration, mild, Elevated blood sugar, Depressed mood, Insulin dependent diabetes mellitus Nausea & vomiting Qualifiers: Vomiting type: unspecified Vomiting Intractability: non-intractable Qualified Code(s): R11.2 - Nausea with vomiting, unspecified - Discharge Dispostion Disposition: HOME Condition at time of disposition: Stable Decision to Admit order: No - Referrals - Patient Instructions Printed Discharge Instructions: DI for Diabetes Type 2, DI for Poor Appetite, DI for Vomiting -- Adult Additional Instructions: Stacy sntomas actuales son probablemente debido a erazo estado de honey deprimido, falta de apetito y altos niveles de azcar en la grisel. Trate de comer y beber ms. Asegrese de cristofer todos stacy medicamentos segn lo prescrito por erazo mdico. No se hicieron cambios a erazo rgimen mendoza. Sammie un seguimiento con erazo mdico de atencin primaria el en erazo markus previamente programada. Asegrese de hablar sobre stacy medicamentos para la diabetes y erazo apetito. He incluido copias de stacy resultados de la visita de mendoza a caro paquete. Llvelo con usted para que erazo mdico pueda verlos. Vaya al departamento de emergencias ms cercano si erazo afeccin empeora o si flako que necesita rickie evaluacin de emergencia adicional. Your symptoms today are likely because of your depressed mood, poor appetite, and high blood sugar levels. Try to eat and drink more. Be sure to take all of your medications as prescribed by your doctor. No changes were made to your regimen today. Follow up with your primary care doctor on Monday at your previously scheduled appointment. Be sure to talk about your diabetes medications and your appetite. I have included copies of your results from today's visit to this packet. Take it with you so your doctor can see them. Go to the nearest emergency department if your condition worsens or you feel like you need additional emergency evaluation. Print Language: TAJIK - Post Discharge Activity
--- NOTE | 2018-06-29 12:35 | PDOC ---
Attending Attestation - Resident Resident Name: Eric Jacob - ED Attending Attestation I have performed the following: I have examined & evaluated the patient, The case was reviewed & discussed with the resident, I agree w/resident's findings & plan, Exceptions are as noted - HPI HPI: 06/29/18 12:49 58y F hx psych, asthma, dm, fibromyagia, htn, hl, presents with nv x 1 day associated with dizziness. The patient notes she has had poor appateite and generalized weakness for the past for 4 months. The patient states that the last 2 days she has felt more generally weak, endorses lightheadedness, dizziness with possibly sensation of movement (the patient is unable to clearly verbalize her symptoms). The patient endorses a mild headache but endorses this is chronic, does not worse than usual. The patient denies any associated neck pain, new numbness, tingling, weakness, back pain, chest pain. She denies any fever, chills, dysuria, diarrhea, melena. The patient is not a good historian part of the history was obtained from the aide who was bedside. GENERAL: The patient is awake, alert, Nontoxic - in no acute distress. HEAD: Normocephalic, atraumatic. EYES: extraocular movements intact, sclera anicteric, conjunctiva clear. ENT: Normal voice, Moist mucous membranes. NECK: Normal range of motion, supple LUNGS: Breath sounds equal, clear to auscultation bilaterally. No wheezes, no rhonchi, no rales. HEART: Regular rate and rhythm, normal S1 and S2 without murmur, rub or gallop. ABDOMEN: Soft, nontender, normoactive bowel sounds. No guarding, no rebound. No CVA tenderness EXTREMITIES: Normal range of motion, trace edema. NEUROLOGICAL: No facial assymetry, Normal speech, normal rapid alternating movements, heel toe, negative Romberg. Finger to nose is inconclusive but symmetric b/l PSYCH: Normal mood, normal affect. SKIN: Warm, Dry, normal turgor, a couple of scabs/excoriations anterior abdomen without signs of erythema, induration, discharge. Differential for the patient's symptoms includes possible metabolic derangements , anemia, dehydration, occult UTI, cerebellar event, arrhythmia Will obtain blood work, UA, CT head Treat the patient's fluids for hydration, Zofran for nausea, meclizine for her possible vertigo Heart Score/ECG Review - ECG Impressions Comment:: 06/29/18 13:53 Twelve-lead EKG was performed and reviewed by me. There is normal sinus rhythm with a normal rate. rate of 75 The axis is normal. The intervals are normal. abnormal r wave progression
[2018-06-29] MEDS ORDERED: LACTATED RINGERS SOLUTION 1000 ML INFUS.BAG IV ONE (12:54)
[2018-06-29 13:15] LABS: MEAN PLT VOLUME 8.8 fl (7.5-11.1)
[2018-06-29 13:23] LABS: BASO % 0.9 % (0-2.0); EOS % 2.1 % (0-4.5); HEMATOCRIT 37.2 % (32.4-45.2); HEMOGLOBIN 11.8 GM/dL (10.7-15.3); LYMPH % 19.8 % (8-40); MCH 26.9 pg (25.7-33.7); MCHC 31.7 g/dl (32.0-36.0); NEUT % 72.2 % (42.8-82.8); PLATELET COUNT 299 K/MM3 (134-434); RBC 4.37 M/mm3 (3.60-5.2); RDW 14.6 % (11.6-15.6); WHITE BLOOD COUNT 10.7 K/mm3 (4.0-10.0)
[2018-06-29 13:59] LABS: ALK PHOS 103 U/L (45-117); ANION GAP 5 MMOL/L (8-16); BILIRUBIN,TOTAL 0.1 mg/dL (0.2-1); BLOOD UREA NITROGEN 9 mg/dL (7-18); CALCIUM 8.8 mg/dL (8.5-10.1); CHLORIDE 99 mmol/L (98-107); CO2 31 mmol/L (21-32); GLUCOSE,RANDOM 281 mg/dL (74-106); POTASSIUM 4.4 mmol/L (3.5-5.1); SGOT/AST 19 U/L (15-37); SGPT/ALT 20 U/L (13-61); SODIUM 135 mmol/L (136-145)
[2018-06-29] MEDS ORDERED: MECLIZINE HCL 25 MG TABLET (FP) PO ONE (14:03)
[2018-06-29] MEDS ORDERED: ONDANSETRON 4 MG/2 ML VIAL IVPUSH ONE (14:03)
[2018-06-29] MEDS ORDERED: MECLIZINE HCL 25 MG TABLET (FP) ONE (14:15)
[2018-06-29] MEDS ORDERED: ONDANSETRON 4 MG/2 ML VIAL ONE (14:15)
[2018-06-29 16:26] LABS: URINE APPEARANCE CLEAR; URINE BILIRUBIN NEGATIVE (<2.0 mg/dL); URINE COLOR LTYELLOW; URINE GLUCOSE (UA) 2+ (NEGATIVE); URINE KETONE NEGATIVE (NEGATIVE); URINE LEUK ESTERASE NEGATIVE (NEGATIVE); URINE NITRITE NEGATIVE (NEGATIVE); URINE PROTEIN NEGATIVE (NEGATIVE); URINE UROBILINOGEN NEGATIVE mg/dL (0.2-1.0)
--- NOTE | 2018-07-02 23:47 | EKG ---
Test Reason : Blood Pressure : / mmHG Vent. Rate : 074 BPM Atrial Rate : 074 BPM P-R Int : 134 ms QRS Dur : 074 ms QT Int : 386 ms P-R-T Axes : 031 009 042 degrees QTc Int : 428 ms NORMAL SINUS RHYTHM NORMAL ECG WHEN COMPARED WITH ECG OF 21-OCT-2017 15:04, NO SIGNIFICANT CHANGE WAS FOUND Confirmed by RADHA PORTILLO MD ([id number]) on 07/02/2018 11:47:23 PM Referred By: Confirmed By:RADHA PORTILLO MD
== END 2018-06-29 17:00 | disposition home or self-care (01) ==
LOC: JER 11:35
PROC: 3E0337Z Introduction of Electrolytic and Water Balance Substance into Peripheral Vein, Percutaneous Approach (ICD-10-PCS; principal; 2018-06-29)
PROC: 3E033GC Introduction of Other Therapeutic Substance into Peripheral Vein, Percutaneous Approach (ICD-10-PCS; 2018-06-29)
DX: E86.0 Dehydration (principal); E11.65 Type 2 diabetes mellitus with hyperglycemia; R11.2 Nausea with vomiting, unspecified
CPT/HCPCS: 36415; 70450-TC; 80053; 81003; 84484; 85025; 87086; 93005; 93010; 96361; 96374; 99285-25

== ENCOUNTER 2018-08-09 09:48 | Emergency (ER) | payer OTHER ==
[2018-08-09 10:58] VITALS: BP 178/72; PULSE 92; TEMP 97.9; BMI 39.8
--- NOTE | 2018-08-09 12:11 | PDOC ---
History of Present Illness - General Chief Complaint: Pain, Acute Stated Complaint: LEG PAIN Time Seen by Provider: 08/09/18 11:36 History Source: Patient Exam Limitations: No Limitations - History of Present Illness Initial Comments: 08/09/18 12:11 58 year old woman with a past medical history of asthma, dm, fibromyalgia, htn, hld and two prior DVTs who presents with pressure and cramping like pain that started 6 days ago and has been constant since onset. She reports that since the onset of the symptoms she has take Tylenol, Motrin and another medication which she does not recall the name of the med. The patient reports that she is semi-compliant with medications. Denies numbness, tingling, feeling similar to fibromyalgia pain, difficulty walking, new incontinence or retention, denies recent overexertion, back pain, weakness in the lower limbs. She denies any other complaints. PCP: Selina Past History - Past Medical History Allergies/Adverse Reactions: Allergies Allergy/AdvReac Type Severity Reaction Status Date / Time Penicillins AdvReac Unknown Rash Verified 08/09/18 10:54 SEAFOOD Allergy Rash Uncoded 08/09/18 10:54 Home Medications: Ambulatory Orders Albuterol Sulfate Inhaler - [Ventolin HFA Inhaler -] 2 inh PO Q4H 10/21/17 Ergocalciferol (Vitamin D2) [Ergocalciferol] 1.25 mg PO ASDIR 10/21/17 Gabapentin [Neurontin -] 300 mg PO ASDIR 10/21/17 Insulin Degludec [Tresiba Flextouch U-200] 200 unit SQ ASDIR 10/21/17 Losartan Potassium [Cozaar -] 50 mg PO ASDIR 10/21/17 Metoprolol Succinate 25 mg PO ASDIR 10/21/17 Pantoprazole Sodium [Protonix -] 40 mg PO ASDIR 10/21/17 Venlafaxine HCl ER [Effexor Xr -] 75 mg PO ASDIR 10/21/17 traZODone HCL [Desyrel -] 150 mg PO ASDIR 10/21/17 Aspirin Coated [Ecotrin -] 81 mg PO DAILY tablet.ec 10/24/17 Gabapentin [Neurontin -] 200 mg PO TID #120 capsule 10/24/17 Pramipexole Dihydrochloride [Mirapex -] 0.125 mg PO BID #30 tablet 10/24/17 Topiramate [Topamax -] 25 mg PO BID #30 tablet 10/24/17 Anemia: Yes Asthma: Yes Cardiac Disorders: Yes (MVP, angina) COPD: No Diabetes: Yes HTN: Yes Psychiatric Problems: Yes (anxiety panic attacks depression) - Surgical History Cholecystectomy: Yes - Reproductive History (#): 4 Para: 4 - Immunization History Immunization Up to Date: Yes - Suicide/Smoking/Psychosocial Hx Smoking Status: No Smoking History: Never smoked Have you smoked in the past 12 months: No Number of Cigarettes Smoked Daily: 0 Hx Alcohol Use: No Drug/Substance Use Hx: No Substance Use Type: None Review of Systems - Review of Systems Able to Perform ROS?: Yes Is the patient limited Luxembourgish proficient: No Constitutional: No: Chills, Diaphoresis, Fever HEENTM: No: Blurred Vision, Tinnitus Respiratory: No: Cough, Orthopnea, Shortness of Breath Cardiac (ROS): No: Chest Pain, Palpitations, Syncope ABD/GI: No: Constipated, Diarrhea, Nausea, Vomiting : No: Burning, Dysuria, Incontinence Musculoskeletal: Yes: Muscle Pain. No: Joint Pain, Joint Swelling, Joint Stiffness Neurological: No: Headache, Numbness, Tingling *Physical Exam - Vital Signs Last Vital Signs Temp Pulse Resp BP Pulse Ox 97.9 F 92 H 18 178/72 H 96 08/09/18 10:55 08/09/18 10:55 08/09/18 10:55 08/09/18 10:55 08/09/18 10:55 - Physical Exam Comments: 08/09/18 14:49 GENERAL: Awake, alert, and fully oriented, in no acute distress HEAD: No signs of trauma, normocephalic, atraumatic EYES: EOMI, sclera anicteric, conjunctiva clear ENT: oropharynx clear without exudates. Moist mucosa NECK: Normal ROM, supple LUNGS: No distress, speaks full sentences, clear to auscultation bilaterally HEART: Regular rate and rhythm, normal S1 and S2, no murmurs, rubs or gallops, peripheral pulses normal and equal bilaterally. ABDOMEN: Soft, nontender, normoactive bowel sounds. No guarding, no rebound. No masses EXTREMITIES : Normal inspection, Normal range of motion, no edema. No clubbing or cyanosis. + pain to palpation of L thigh, straight leg raise to 75 degrees elicits pain, very slightly enlarged compared to R thigh NEUROLOGICAL: Cranial nerves II through XII grossly intact. Normal speech, no focal sensorimotor deficits SKIN: Warm, Dry, normal turgor, no rashes or lesions noted Moderate Sedation - Procedure Monitoring Vital Signs: Procedure Monitoring Vital Signs Temperature 97.9 F 08/09/18 10:55 Pulse Rate 92 H 08/09/18 10:55 Respiratory Rate 18 08/09/18 10:55 Blood Pressure 178/72 H 08/09/18 10:55 O2 Sat by Pulse Oximetry (%) 96 08/09/18 10:55 ED Treatment Course - LABORATORY CBC & Chemistry Diagram: 08/09/18 13:49 08/09/18 13:49 Medical Decision Making - Medical Decision Making 58 year old woman with a past medical history of asthma, dm, fibromyalgia, htn, hld and two prior DVTs who presents with pressure and cramping like pain that started 6 days ago and has been constant since onset. She reports that since the onset of the symptoms she has take Tylenol, Motrin and another medication which she does not recall the name of the med. The patient reports that she is semi-compliant with medications. She denies any other complaints. ED Course: Patient symptoms and history concerning for DVT vs musculoskeltela pain vs fibromyalgia pain cbc, cmp, pt, ptt, Duplex US 08/09/18 14:29 Patient unable to be located. Not found in room, bathroom or ultrasound suite. 08/09/18 14:47 Patient has eloped. *DC/Admit/Observation/Transfer Diagnosis at time of Disposition: Eloped from emergency department, Leg pain - Discharge Dispostion Disposition: ELOPED - Referrals - Patient Instructions - Post Discharge Activity
[2018-08-09] MEDS ORDERED: ACETAMINOPHEN 1000 MG/100 ML VIAL (NON FORMULARY) IVPB ONE (13:23)
[2018-08-09] MEDS ORDERED: ACETAMINOPHEN 500 MG TABLET (FP) PO ONE (13:51)
[2018-08-09 14:00] LABS: BASO % 0.8 % (0-2.0); EOS % 1.6 % (0-4.5); HEMATOCRIT 37.9 % (32.4-45.2); LYMPH % 18.1 % (8-40); MCH 26.7 pg (25.7-33.7); MCHC 31.5 g/dl (32.0-36.0); MEAN CELL VOLUME 84.8 fl (80-96); MEAN PLT VOLUME 8.3 fl (7.5-11.1); MONO % 4.4 % (3.8-10.2); NEUT % 75.1 % (42.8-82.8); PLATELET COUNT 333 K/MM3 (134-434); RBC 4.47 M/mm3 (3.60-5.2); RDW 13.6 % (11.6-15.6); WHITE BLOOD COUNT 12.3 K/mm3 (4.0-10.0)
[2018-08-09] MEDS ORDERED: ACETAMINOPHEN 325 MG TABLET (FP) ONE (14:14)
[2018-08-09 14:16] LABS: INR 1.07 (0.83-1.09); PROTHROMBIN TIME (PATIENT) 12.6 SEC (9.7-13.0)
[2018-08-09 14:18] LABS: ACTIVATED PTT 26.2 SECONDS (25.2-36.5)
[2018-08-09 14:40] LABS: ALBUMIN 3.4 g/dl (3.4-5.0); ALK PHOS 139 U/L (45-117); ANION GAP 8 MMOL/L (8-16); BILIRUBIN,TOTAL 0.2 mg/dL (0.2-1); BLOOD UREA NITROGEN 11 mg/dL (7-18); CALCIUM 8.5 mg/dL (8.5-10.1); CHLORIDE 98 mmol/L (98-107); CO2 28 mmol/L (21-32); CREATININE 1.1 mg/dL (0.55-1.3); POTASSIUM 4.3 mmol/L (3.5-5.1); SGOT/AST 21 U/L (15-37); SGPT/ALT 26 U/L (13-61); SODIUM 134 mmol/L (136-145); TOT PROT 7.4 g/dl (6.4-8.2)
[2018-08-09 14:42] LABS: GLUCOSE,RANDOM 358 mg/dL (74-106)
--- NOTE | 2018-08-09 14:48 | PDOC ---
Attending Attestation - Resident Resident Name: Arminda Haysie - ED Attending Attestation I have performed the following: I have examined & evaluated the patient, The case was reviewed & discussed with the resident, I agree w/resident's findings & plan - HPI HPI: 08/09/18 14:47 hpi as documented per resident presentation 58 YOF with h/o 2 prior DVTs, fibromyalgia, depression, anxiety, HTN, HLD, DM2 presenting with a 6 day history of left thigh cramping. Patient states the left thigh cramping is constant and has also noticed slight swelling. Patient has taken Tylenol and Motrin with no relief. Patient is semi-complaint with her meds. Allergies: Penicillins Surgeries: Cholecystectomy Social history: No reported alcohol, drug or cigarette use. 08/09/18 14:59 - Physicial Exam PE: 08/09/18 14:48 not done. pt eloped prior to md eval - Medical Decision Making 08/09/18 14:48 pt seen by resideent. labs and US ordered/pending. eloped prior to full MD eval by attending checked everywhere, nowhere to be found. status: eloped from ED. 08/09/18 14:59
== END 2018-08-09 13:15 | disposition left against medical advice (07) ==
LOC: JER 09:48
DX: M79.652 Pain in left thigh (principal); R25.2 Cramp and spasm; I10 Essential (primary) hypertension; E78.00 Pure hypercholesterolemia, unspecified; E11.9 Type 2 diabetes mellitus without complications; Z79.4 Long term (current) use of insulin; J45.909 Unspecified asthma, uncomplicated; D64.9 Anemia, unspecified; Z86.718 Personal history of other venous thrombosis and embolism
CPT/HCPCS: 36415; 80053; 85025; 85610; 85730; 99281-25

== ENCOUNTER 2019-02-16 11:02 | Emergency (ER) | payer OTHER ==
[2019-02-16 11:08] VITALS: BMI 39.0
[2019-02-16] MEDS ORDERED: SODIUM CHLORIDE 1,000 ML IV STA (11:58)
[2019-02-16] MEDS ORDERED: ONDANSETRON 4 MG/2 ML VIAL IVPUSH ONE (11:59)
--- NOTE | 2019-02-16 12:02 | PDOC ---
History of Present Illness - General Chief Complaint: Pain, Acute Stated Complaint: FLANK PAIN Time Seen by Provider: 02/16/19 11:44 History Source: Patient Exam Limitations: No Limitations - History of Present Illness Initial Comments: 02/16/19 11:59 CHIEF COMPLAINT: Flank pain HISTORY OF PRESENT ILLNESS: This is a 58-year-old female with DVTs, fibromyalgia, depression/anxiety/panic disorder, HTN, HLD, and insulin- dependent diabetes who presents complaining of 4 days of bilateral flank pain and vomiting. She reports vomiting 3 times today. She reports that her blood sugars have been in the 300s, although she did not check it today. She denies dysuria/hematuria, diarrhea/constipation, and fevers/chills. Vital signs on arrival are notable for blood pressure 149/98. PCP is Dr. Jimy Marks REVIEW OF SYSTEMS: GENERAL/CONSTITUTIONAL: Generalized weakness.No fever or chills. No weight change. HEAD, EYES, EARS, NOSE AND THROAT: No change in vision. No ear pain or discharge. No sore throat. CARDIOVASCULAR: Palpitations. No chest pain. RESPIRATORY: No cough, wheezing, or shortness of breath. GASTROINTESTINAL: Nausea/vomiting. No diarrhea or constipation. GENITOURINARY: Bilateral flank pain. No dysuria, frequency, or change in urination. MUSCULOSKELETAL: No joint or muscle swelling or pain. No neck or back pain. SKIN: No rash or easy bruising. NEUROLOGIC: No headache, vertigo, loss of consciousness, or loss of sensation. PSYCHIATRIC: No depression or anxiety. ENDOCRINE: No increased thirst. No abnormal weight change. HEMATOLOGIC/LYMPHATIC: History of DVTs. No anemia or easy bleeding. ALLERGIC/IMMUNOLOGIC: PCN and seafood allergies. PHYSICAL EXAM: GENERAL: The patient is awake, alert, and fully oriented, in no acute distress. HEAD: Normal with no signs of trauma. ENT: Pupils equal, round and reactive to light, extraocular movements intact, sclera anicteric, conjunctiva clear. Neck supple. LUNGS: Clear to auscultation bilaterally. Normal excursion. No respiratory distress or use of accessory muscles. CV: RRR, S1/S2, no MRG. Cap refill < 2 sec. ABDOMEN: Soft, obese, non-tender. Bilateral CVA tenderness. EXTREMITIES: Trace LE edema bilaterally, no calf tenderness. NEUROLOGICAL: Normal speech, normal gait. CN II-XII grossly intact. PSYCH: Normal mood, normal affect. SKIN: Warm, dry, normal turgor, no rashes or lesions noted. 02/16/19 12:03 Past History - Past Medical History Allergies/Adverse Reactions: Allergies Allergy/AdvReac Type Severity Reaction Status Date / Time Penicillins AdvReac Unknown Rash Verified 02/16/19 11:06 SEAFOOD Allergy Rash Uncoded 02/16/19 11:06 Home Medications: Ambulatory Orders Albuterol 0.083% Nebulizer Myra [Ventolin 0.083%] 1 neb NEB QID 02/16/19 Aspirin 81 mg PO DAILY 02/16/19 Clonazepam 1 mg PO DAILY 02/16/19 Cyclobenzaprine HCl 10 mg PO DAILY 02/16/19 Haloperidol [Haldol -] 5 mg PO ASDIR 02/16/19 Insulin Degludec [Tresiba Flextouch U-200] 200 unit SQ ASDIR 02/16/19 Losartan Potassium 50 mg PO DAILY 02/16/19 Metoprolol Tartrate 50 mg PO DAILY 02/16/19 Oxycodone HCl/Acetaminophen [Oxycodone-Acetaminophen 5-325] 1 each PO ASDIR 01/30 Pantoprazole Sodium 40 mg PO DAILY 02/16/19 Venlafaxine HCl ER [Effexor Xr -] 150 mg PO DAILY 02/16/19 traZODone HCL [Trazodone HCl] 100 mg PO DAILY 02/16/19 Anemia: Yes Asthma: Yes Cardiac Disorders: Yes (MVP, angina) COPD: No Diabetes: Yes HTN: Yes Psychiatric Problems: Yes (anxiety panic attacks depression) - Surgical History Cholecystectomy: Yes - Reproductive History (#): 4 Para: 4 - Immunization History Immunization Up to Date: Yes - Suicide/Smoking/Psychosocial Hx Smoking Status: No Smoking History: Never smoked Have you smoked in the past 12 months: No Number of Cigarettes Smoked Daily: 0 Hx Alcohol Use: No Drug/Substance Use Hx: No Substance Use Type: None *Physical Exam - Vital Signs Last Vital Signs Temp Pulse Resp BP Pulse Ox 98.7 F 81 18 149/98 99 02/16/19 11:04 02/16/19 11:04 02/16/19 11:04 02/16/19 11:04 02/16/19 11:04 ED Treatment Course - LABORATORY CBC & Chemistry Diagram: 02/16/19 12:50 02/16/19 12:50 Medical Decision Making - Medical Decision Making 02/16/19 12:06 A/P: 58-year-old female with bilateral flank pain and vomiting. Differential includes but is not limited to UTI/pyelonephritis, renal colic. With vomiting and reported high blood sugars at home, DKA is also a consideration. 1. EKG (palpitations) 2. CXR 3. Labs including CBC, CMP, serum acetone, VBG, troponin, UA/culture 4. Normal saline 1 L bolus 5. Zofran 4 mg IV piggyback for nausea 6. Reassess 02/16/19 15:06 Labs notable for WBC 12.8. Anion gap is normal at acetone is negative. UA is negative. Chest x-ray with no acute process seen. *DC/Admit/Observation/Transfer Diagnosis at time of Disposition: Renal cyst - Discharge Dispostion Disposition: HOME Condition at time of disposition: Stable - Referrals Referrals: Jimy Marks [Primary Care Provider] - - Patient Instructions Additional Instructions: Follow-up with her primary doctor within the next 7 days. Thank you very much for choosing us to provide emergent health care needs. - Post Discharge Activity
[2019-02-16 12:49] LABS: PH,URINE 5.5 (5.0-8.0); URINE APPEARANCE CLEAR; URINE BILIRUBIN NEGATIVE (NEGATIVE); URINE COLOR YELLOW; URINE GLUCOSE (UA) 2+ (NEGATIVE); URINE KETONE NEGATIVE (NEGATIVE); URINE LEUK ESTERASE NEGATIVE (NEGATIVE); URINE NITRITE NEGATIVE (NEGATIVE); URINE PROTEIN NEGATIVE (NEGATIVE); URINE UROBILINOGEN 0.2 mg/dL (0.2-1.0)
[2019-02-16 13:06] LABS: VENOUS PC02 65.8 mmHg (41-51); VENOUS PH 7.29 (7.31-7.41)
[2019-02-16 13:07] LABS: VENOUS PO2 23.4 mmHg (30-40)
[2019-02-16] MEDS ORDERED: ONDANSETRON 4 MG/2 ML VIAL ONE (13:11)
[2019-02-16 13:27] LABS: BASO % 0.6 % (0-2.0); EOS % 2.4 % (0-4.5); HEMATOCRIT 39.3 % (32.4-45.2); HEMOGLOBIN 12.8 GM/dL (10.7-15.3); LYMPH % 20.3 % (8-40); MCH 27.5 pg (25.7-33.7); MCHC 32.6 g/dl (32.0-36.0); MEAN CELL VOLUME 84.3 fl (80-96); MEAN PLT VOLUME 8.9 fl (7.5-11.1); MONO % 5.4 % (3.8-10.2); NEUT % 71.3 % (42.8-82.8); RBC 4.67 M/mm3 (3.60-5.2); RDW 13.9 % (11.6-15.6); WHITE BLOOD COUNT 12.8 K/mm3 (4.0-10.0)
[2019-02-16 13:36] LABS: ALBUMIN 3.2 g/dl (3.4-5.0); ALK PHOS 117 U/L (45-117); ANION GAP 4 MMOL/L (8-16); BILIRUBIN,TOTAL 0.2 mg/dL (0.2-1); BLOOD UREA NITROGEN 12.5 mg/dL (7-18); CHLORIDE 103 mmol/L (98-107); CO2 31 mmol/L (21-32); CREATININE 1.1 mg/dL (0.55-1.3); GLUCOSE,RANDOM 267 mg/dL (74-106); POTASSIUM 4.6 mmol/L (3.5-5.1); SGOT/AST 22 U/L (15-37); SGPT/ALT 35 U/L (13-61); SODIUM 139 mmol/L (136-145)
[2019-02-16 13:54] LABS: PLATELET COUNT 328 K/MM3 (134-434)
[2019-02-16 14:18] LABS: ACETONE SERUM NEGATIVE (NEGATIVE)
--- NOTE | 2019-02-16 15:48 | PDOC ---
*Physical Exam - Vital Signs Last Vital Signs Temp Pulse Resp BP Pulse Ox 98.7 F 81 18 149/98 99 02/16/19 11:04 02/16/19 11:04 02/16/19 11:04 02/16/19 11:04 02/16/19 11:04 ED Treatment Course - LABORATORY CBC & Chemistry Diagram: 02/16/19 12:50 02/16/19 12:50 - ADDITIONAL ORDERS Additional order review: Laboratory Results 02/16/19 02/16/19 02/16/19 12:50 12:50 12:50 VBG pH 7.29 L POC VBG pCO2 65.8 H POC VBG pO2 23.4 L VBG HCO3 30.9 H VBG O2 Sat ([place]) 28.2 L VBG Base Excess 3.0 H Sodium 139 Potassium 4.6 Chloride 103 Carbon Dioxide 31 Anion Gap 4 L BUN 12.5 Creatinine 1.1 Est GFR (CKD-EPI)AfAm 63.64 Est GFR (CKD-EPI)NonAf 54.91 Random Glucose 267 H Calcium 9.0 Total Bilirubin 0.2 AST 22 ALT 35 Alkaline Phosphatase 117 Troponin I < 0.02 Total Protein 7.0 Albumin 3.2 L Urine Color Urine Appearance Urine pH Ur Specific [place] Urine Protein Urine Glucose (UA) Urine Ketones Urine Blood Urine Nitrite Urine Bilirubin Urine Urobilinogen Ur Leukocyte Esterase Acetone, Qual Negative L 02/16/19 12:20 VBG pH POC VBG pCO2 POC VBG pO2 VBG HCO3 VBG O2 Sat ([place]) VBG Base Excess Sodium Potassium Chloride Carbon Dioxide Anion Gap BUN Creatinine Est GFR (CKD-EPI)AfAm Est GFR (CKD-EPI)NonAf Random Glucose Calcium Total Bilirubin AST ALT Alkaline Phosphatase Troponin I Total Protein Albumin Urine Color Yellow Urine Appearance Clear Urine pH 5.5 Ur Specific [place] 1.022 Urine Protein Negative Urine Glucose (UA) 2+ H Urine Ketones Negative Urine Blood Negative Urine Nitrite Negative Urine Bilirubin Negative Urine Urobilinogen 0.2 Ur Leukocyte Esterase Negative Acetone, Qual 02/16/19 12:50 RBC 4.67 MCV 84.3 MCHC 32.6 RDW 13.9 MPV 8.9 Neutrophils % 71.3 Lymphocytes % 20.3 Monocytes % 5.4 Eosinophils % 2.4 Basophils % 0.6 - Medications Given in the ED: ED Medications Discontinued Medications Generic Name Dose Route Start Last Admin Trade Name Freq PRN Reason Stop Dose Admin Sodium Chloride 1,000 mls @ 1,000 mls/hr 02/16/19 11:58 02/16/19 12:54 Normal Saline - IV 02/16/19 12:57 1,000 mls/hr ASDIR STA Administration Ondansetron HCl 4 mg 02/16/19 11:59 02/16/19 13:22 Zofran Injection IVPUSH 02/16/19 12:00 4 mg ONCE ONE Administration Medical Decision Making - Medical Decision Making 02/16/19 15:47 Pt seen by Midlevel Provider under my direct supervision Ancillary studies reviewed I agree with plan as outlined by Midlevel Provider *DC/Admit/Observation/Transfer Diagnosis at time of Disposition: Renal cyst - Discharge Dispostion Disposition: HOME Condition at time of disposition: Stable - Referrals Referrals: Jimy Marks [Primary Care Provider] - - Patient Instructions Additional Instructions: Follow-up with her primary doctor within the next 7 days. Thank you very much for choosing us to provide emergent health care needs. - Post Discharge Activity
--- NOTE | 2019-02-16 17:12 | PDOC ---
*Physical Exam - Vital Signs Last Vital Signs Temp Pulse Resp BP Pulse Ox 98.7 F 81 18 149/98 99 02/16/19 11:04 02/16/19 11:04 02/16/19 11:04 02/16/19 11:04 02/16/19 11:04 - Physical Exam General Appearance: Yes: Appropriately Dressed. No: Apparent Distress Musculoskeletal: positive: CVA Tenderness (R), CVA Tenderness (L) Extremity: positive: Normal Inspection Integumentary: positive: Normal Color, Dry, Warm Neurologic: positive: Fully Oriented, Alert ED Treatment Course - LABORATORY CBC & Chemistry Diagram: 02/16/19 12:50 02/16/19 12:50 - ADDITIONAL ORDERS Additional order review: Laboratory Results 02/16/19 02/16/19 02/16/19 12:50 12:50 12:50 VBG pH 7.29 L POC VBG pCO2 65.8 H POC VBG pO2 23.4 L VBG HCO3 30.9 H VBG O2 Sat (Bradley) 28.2 L VBG Base Excess 3.0 H Sodium 139 Potassium 4.6 Chloride 103 Carbon Dioxide 31 Anion Gap 4 L BUN 12.5 Creatinine 1.1 Est GFR (CKD-EPI)AfAm 63.64 Est GFR (CKD-EPI)NonAf 54.91 Random Glucose 267 H Calcium 9.0 Total Bilirubin 0.2 AST 22 ALT 35 Alkaline Phosphatase 117 Troponin I < 0.02 Total Protein 7.0 Albumin 3.2 L Urine Color Urine Appearance Urine pH Ur Specific [place] Urine Protein Urine Glucose (UA) Urine Ketones Urine Blood Urine Nitrite Urine Bilirubin Urine Urobilinogen Ur Leukocyte Esterase Acetone, Qual Negative L 02/16/19 12:20 VBG pH POC VBG pCO2 POC VBG pO2 VBG HCO3 VBG O2 Sat (Bradley) VBG Base Excess Sodium Potassium Chloride Carbon Dioxide Anion Gap BUN Creatinine Est GFR (CKD-EPI)AfAm Est GFR (CKD-EPI)NonAf Random Glucose Calcium Total Bilirubin AST ALT Alkaline Phosphatase Troponin I Total Protein Albumin Urine Color Yellow Urine Appearance Clear Urine pH 5.5 Ur Specific [place] 1.022 Urine Protein Negative Urine Glucose (UA) 2+ H Urine Ketones Negative Urine Blood Negative Urine Nitrite Negative Urine Bilirubin Negative Urine Urobilinogen 0.2 Ur Leukocyte Esterase Negative Acetone, Qual 02/16/19 12:50 RBC 4.67 MCV 84.3 MCHC 32.6 RDW 13.9 MPV 8.9 Neutrophils % 71.3 Lymphocytes % 20.3 Monocytes % 5.4 Eosinophils % 2.4 Basophils % 0.6 - Medications Given in the ED: ED Medications Discontinued Medications Generic Name Dose Route Start Last Admin Trade Name Laila PRN Reason Stop Dose Admin Sodium Chloride 1,000 mls @ 1,000 mls/hr 02/16/19 11:58 02/16/19 12:54 Normal Saline - IV 02/16/19 12:57 1,000 mls/hr ASDIR STA Administration Ondansetron HCl 4 mg 02/16/19 11:59 02/16/19 13:22 Zofran Injection IVPUSH 02/16/19 12:00 4 mg ONCE ONE Administration Progress Note - Progress Note Progress Note: Received signout from nurse practitioner Cathi. Briefly this is a 58-year-old woman past medical history DVTs, fibromyalgia, anxiety, hypertension, hyperlipidemia and insulin-dependent diabetes with 4 days of bilateral flank pain and vomiting including 3 times today. CBC is notable for white count 12.8. chemistries are unremarkable with a random glucose of 267. Acetone is negative Urinalysis notable for 2+ glucose without signs of infection or blood. CT as read by Dr. Childers reveals status post cholecystectomy. Focal low attenuation density again seen in the left kidney measuring 1.6 cm and -10 Hounsfield units likely representing a cyst. Please correlate with renal ultrasound for further evaluation. There is no evidence of hydroureter nephrosis, renal or ureteral stone bilaterally. Partial distended urinary bladder without evidence of intraluminal larynx stones. Extensive diverticulosis mainly involving the sigmoid colon without evidence of acute diverticulitis. Patient is pending renal ultrasound and disposition Medical Decision Making - Medical Decision Making 02/16/19 19:23 Renal U/S: Left renal cyst. Pt feels better and is requesting d/c. I will d/c home to f/u with PMD for continued evaluation. *DC/Admit/Observation/Transfer Diagnosis at time of Disposition: Renal cyst - Discharge Dispostion Disposition: HOME Condition at time of disposition: Stable Decision to Admit order: No - Referrals Referrals: Jimy Marks [Primary Care Provider] - - Patient Instructions Additional Instructions: Follow-up with her primary doctor within the next 7 days. Thank you very much for choosing us to provide emergent health care needs. - Post Discharge Activity
[2019-02-16 19:27] VITALS: BP 143/78; PULSE 80; TEMP 98.2
== END 2019-02-16 19:25 | disposition home or self-care (01) ==
LOC: JER 11:02
PROC: 3E0337Z Introduction of Electrolytic and Water Balance Substance into Peripheral Vein, Percutaneous Approach (ICD-10-PCS; principal; 2019-02-16)
PROC: 3E033GC Introduction of Other Therapeutic Substance into Peripheral Vein, Percutaneous Approach (ICD-10-PCS; 2019-02-16)
DX: N28.1 Cyst of kidney, acquired (principal); I10 Essential (primary) hypertension; E78.5 Hyperlipidemia, unspecified; E11.9 Type 2 diabetes mellitus without complications; Z79.4 Long term (current) use of insulin; M79.7 Fibromyalgia; F41.9 Anxiety disorder, unspecified; F32.9 Major depressive disorder, single episode, unspecified; F41.0 Panic disorder [episodic paroxysmal anxiety]; Z86.718 Personal history of other venous thrombosis and embolism; Z91.013 Allergy to seafood; Z88.0 Allergy status to penicillin
CPT/HCPCS: 36415; 71046-TC-FY; 74176-TC; 76775-TC; 80053; 81003; 82009; 82803; 84484; 85025; 87086; 96361; 96374; 99283-25; J7030

== ENCOUNTER 2019-02-22 09:34 | Emergency (ER) | payer OTHER ==
[2019-02-22 09:44] VITALS: BMI 35.4
[2019-02-22] MEDS ORDERED: MAG HYDROX/AL HYDROX/SIMETH 30 ML UNIT-DOSE CUP PO ONE (10:37)
[2019-02-22] MEDS ORDERED: FAMOTIDINE 20 MG/50 ML IVPB 20 MG/50 ML MG IVPB ONE ×2 (10:37→10:48)
[2019-02-22] MEDS ORDERED: SODIUM CHLORIDE 1,000 ML IV STA (10:37)
[2019-02-22] MEDS ORDERED: ACETAMINOPHEN 1000 MG/100 ML VIAL (NON FORMULARY) IVPB ONE (10:37)
[2019-02-22] MEDS ORDERED: ONDANSETRON 4 MG/2 ML VIAL IVPB ONE (10:37)
[2019-02-22] MEDS ORDERED: MAG HYDROX/AL HYDROX/SIMETH 30 ML UNIT-DOSE CUP ONE (10:47)
[2019-02-22] MEDS ORDERED: ACETAMINOPHEN INJECTION 100 ML IVPB ONE (10:47)
[2019-02-22] MEDS ORDERED: ONDANSETRON 4 MG/2 ML VIAL ONE (10:48)
--- NOTE | 2019-02-22 11:00 | PDOC ---
History of Present Illness - General Chief Complaint: Pain, Acute Stated Complaint: FLANK PAIN Time Seen by Provider: 02/22/19 09:59 - History of Present Illness Initial Comments: 02/22/19 10:53 58 F with h/o DM, HTN, HLD, fibromyalgia, presenting to ED with 9 days of bilateral flank pain. Pt states that the pain is intermittent, lasting about 5 minutes at a time, but occurs frequently. No known triggers. No association with food. Pt states that the pain radiates into her abdomen. Denies CP/SOB. Denies F/C. Endorses nausea without vomiting. Occasional diarrhea. No constipation. Pt was seen here a week ago and evaluated. Had spiral CT and renal US that were unremarkable. Past History - Past Medical History Allergies/Adverse Reactions: Allergies Allergy/AdvReac Type Severity Reaction Status Date / Time Penicillins AdvReac Unknown Rash Verified 02/22/19 09:47 SEAFOOD Allergy Rash Uncoded 02/22/19 09:47 Home Medications: Ambulatory Orders Albuterol 0.083% Nebulizer Myra [Ventolin 0.083%] 1 neb NEB QID 02/16/19 Aspirin 81 mg PO DAILY 02/16/19 Clonazepam 1 mg PO DAILY 02/16/19 Cyclobenzaprine HCl 10 mg PO DAILY 02/16/19 Haloperidol [Haldol -] 5 mg PO ASDIR 02/16/19 Insulin Degludec [Tresiba Flextouch U-200] 200 unit SQ ASDIR 02/16/19 Losartan Potassium 50 mg PO DAILY 02/16/19 Metoprolol Tartrate 50 mg PO DAILY 02/16/19 Oxycodone HCl/Acetaminophen [Oxycodone-Acetaminophen 5-325] 1 each PO ASDIR 01/30 Pantoprazole Sodium 40 mg PO DAILY 02/16/19 Venlafaxine HCl ER [Effexor Xr -] 150 mg PO DAILY 02/16/19 traZODone HCL [Trazodone HCl] 100 mg PO DAILY 02/16/19 Anemia: Yes Asthma: Yes Cardiac Disorders: Yes (MVP, angina) COPD: No Diabetes: Yes HTN: Yes Psychiatric Problems: Yes (anxiety panic attacks depression) - Surgical History Cholecystectomy: Yes - Reproductive History (#): 4 Para: 4 - Immunization History Immunization Up to Date: Yes - Suicide/Smoking/Psychosocial Hx Smoking Status: No Smoking History: Never smoked Have you smoked in the past 12 months: No Number of Cigarettes Smoked Daily: 0 Hx Alcohol Use: No Drug/Substance Use Hx: No Substance Use Type: None Review of Systems - Review of Systems Comments:: 02/22/19 11:00 "GENERAL/CONSTITUTIONAL: No fever or chills. No weakness. HEAD, EYES, EARS, NOSE AND THROAT: No change in vision. No ear pain or discharge. No sore throat. CARDIOVASCULAR: No chest pain, no shortness of breath, no loss of consciousness RESPIRATORY: No cough, wheezing, or hemoptysis. GASTROINTESTINAL: + abdominal pain, No nausea, vomiting, diarrhea or constipation. GENITOURINARY: + bilateral flank pain, No dysuria, frequency, or change in urination. MUSCULOSKELETAL: No joint or muscle swelling or pain. No neck or back pain. SKIN: No rash NEUROLOGIC: No vertigo, no change in strength/sensation. ENDOCRINE: No increased thirst. No abnormal weight change. HEMATOLOGIC/LYMPHATIC: No anemia, easy bleeding, or history of blood clots. ALLERGIC/IMMUNOLOGIC: No hives or skin allergy. *Physical Exam - Vital Signs Last Vital Signs Temp Pulse Resp BP Pulse Ox 98.9 F 76 16 165/75 96 02/22/19 09:38 02/22/19 09:38 02/22/19 09:38 02/22/19 09:38 02/22/19 09:38 - Physical Exam Comments: 02/22/19 11:07 GENERAL: Awake, alert, and fully oriented, in no acute distress. HEAD: No signs of trauma EYES: PERRLA, EOMI, sclera anicteric, conjunctiva clear ENT: Auricles normal inspection, hearing grossly normal, nares patent, oropharynx clear without exudates. Moist mucosa NECK: Nontender, no stepoffs, Normal ROM, supple, no lymphadenopathy, JVD, or masses LUNGS: Breath sounds equal, clear to auscultation bilaterally. No wheezes, and no crackles HEART: Regular rate and rhythm, normal S1 and S2, no murmurs, rubs or gallops ABDOMEN: + LLQ TTP, no CVAT, normoactive bowel sounds. No guarding, no rebound. No masses EXTREMITIES: Normal range of motion, no edema. No clubbing or cyanosis. No cords, erythema, or tenderness NEUROLOGICAL: Cranial nerves II through XII intact. 5/5 strength and sensation in all extremities, Normal speech, normal gait, normal cerebellar function SKIN: Warm, Dry, normal turgor, no rashes or lesions noted. ED Treatment Course - LABORATORY CBC & Chemistry Diagram: 02/22/19 10:54 02/22/19 10:54 - RADIOLOGY Radiology Studies Ordered: Category Date Time Status ABDOMEN & PELVIS CT WITH CONTR [CT] Stat CT Scan 02/22/19 10:35 Ordered Medical Decision Making - Medical Decision Making 02/22/19 11:09 58 F with bilateral flank pain and abdominal pain. LLQ tenderness on exam. Pt had spiral CT and renal US done recently that were normal. No CVAT on exam to suggest renal colic. Will evaluate for diverticulitis/colitis. - Labs - CTAP with IV contrast - GI cocktail 02/22/19 15:31 Labs unremarkable other than mildly elevated lactate 02/22/19 16:48 CT unremarkable Pt is well appearing, with normal vitals. Clinically stable for DC at this time. I discussed the physical exam findings, ancillary test results and final diagnoses with the patient. I answered all of the patient's questions. The patient was satisfied with the care received and felt comfortable with the discharge plan and treatment plan. The patient agrees to follow up with the primary care physician within 24-72 hours. *DC/Admit/Observation/Transfer Diagnosis at time of Disposition: Abdominal pain, Flank pain, Nausea - Discharge Dispostion Disposition: HOME - Referrals Referrals: Jimy Marks [Primary Care Provider] - Td Holman DO [Staff Physician] - - Patient Instructions Printed Discharge Instructions: DI for Abdominal Pain-Adult Additional Instructions: Follow up with a GI doctor for further evaluation of your abdominal pain. Call the number provided to make an appointment within 1 week. If you experience worsening pain, vomiting, fevers, or any other concerning symptoms, return to the ER immediately. - Post Discharge Activity - Attestations Physician Attestion: 02/22/19 15:30 I, Dr. Ricky Cordova MD, attest that this document has been prepared under my direction and personally reviewed by me in its entirety. I further attest, that it accurately reflects all work, treatment, procedures and medical decision -making performed by me.
[2019-02-22 11:31] LABS: URINE APPEARANCE CLEAR; URINE BILIRUBIN NEGATIVE (NEGATIVE); URINE COLOR YELLOW; URINE GLUCOSE (UA) 3+ (NEGATIVE); URINE KETONE NEGATIVE (NEGATIVE); URINE LEUK ESTERASE NEGATIVE (NEGATIVE); URINE NITRITE NEGATIVE (NEGATIVE); URINE PROTEIN NEGATIVE (NEGATIVE); URINE UROBILINOGEN 0.2 mg/dL (0.2-1.0)
[2019-02-22 11:34] LABS: BASO % 0.6 % (0-2.0); EOS % 2.4 % (0-4.5); HEMOGLOBIN 12.7 GM/dL (10.7-15.3); LYMPH % 14.8 % (8-40); MCH 27.4 pg (25.7-33.7); MCHC 32.6 g/dl (32.0-36.0); MEAN CELL VOLUME 84.1 fl (80-96); MEAN PLT VOLUME 8.7 fl (7.5-11.1); MONO % 4.1 % (3.8-10.2); NEUT % 78.1 % (42.8-82.8); PLATELET COUNT 338 K/MM3 (134-434); RBC 4.64 M/mm3 (3.60-5.2); RDW 14.1 % (11.6-15.6); WHITE BLOOD COUNT 11.8 K/mm3 (4.0-10.0)
[2019-02-22 11:41] LABS: ALBUMIN 3.2 g/dl (3.4-5.0); ALK PHOS 114 U/L (45-117); ANION GAP 5 MMOL/L (8-16); BILIRUBIN,TOTAL 0.2 mg/dL (0.2-1); BLOOD UREA NITROGEN 12.5 mg/dL (7-18); CALCIUM 8.9 mg/dL (8.5-10.1); CHLORIDE 102 mmol/L (98-107); CO2 30 mmol/L (21-32); GLUCOSE,RANDOM 249 mg/dL (74-106); LIPASE 51 U/L (73-393); POTASSIUM 4.2 mmol/L (3.5-5.1); SGOT/AST 26 U/L (15-37); SGPT/ALT 38 U/L (13-61); SODIUM 137 mmol/L (136-145); TOT PROT 7.3 g/dl (6.4-8.2)
[2019-02-22 15:12] VITALS: BP 152/77; PULSE 77; TEMP 97.8
--- NOTE | 2019-02-23 09:31 | EKG ---
Test Reason : Blood Pressure : / mmHG Vent. Rate : 073 BPM Atrial Rate : 073 BPM P-R Int : 134 ms QRS Dur : 076 ms QT Int : 418 ms P-R-T Axes : 041 018 056 degrees QTc Int : 460 ms NORMAL SINUS RHYTHM NORMAL ECG WHEN COMPARED WITH ECG OF 29-JUN-2018 13:22, NO SIGNIFICANT CHANGE WAS FOUND Confirmed by CLAUDY CHIU MD ([id number]) on 02/23/2019 9:30:34 AM Referred By: Confirmed By:CLAUDY CHIU MD
== END 2019-02-22 16:56 | disposition home or self-care (01) ==
LOC: JER 09:34
PROC: 3E033NZ Introduction of Analgesics, Hypnotics, Sedatives into Peripheral Vein, Percutaneous Approach (ICD-10-PCS; principal; 2019-02-22)
PROC: 3E033GC Introduction of Other Therapeutic Substance into Peripheral Vein, Percutaneous Approach (ICD-10-PCS; 2019-02-22)
PROC: 3E0337Z Introduction of Electrolytic and Water Balance Substance into Peripheral Vein, Percutaneous Approach (ICD-10-PCS; 2019-02-22)
DX: R10.32 Left lower quadrant pain (principal); R10.31 Right lower quadrant pain; R10.9 Unspecified abdominal pain; R11.0 Nausea; J45.909 Unspecified asthma, uncomplicated; E11.9 Type 2 diabetes mellitus without complications; I10 Essential (primary) hypertension; F99 Mental disorder, not otherwise specified
CPT/HCPCS: 36415; 74177-TC; 80053; 81003; 82550; 83605; 83690; 84484; 85025; 87086; 93005; 93010; 96361; 96365; 96375; 99284-25; J0131; J7030

== ENCOUNTER 2019-09-23 10:49 | Inpatient (IN) | payer OTHER ==
[2019-09-16 11:48] VITALS: BMI 40.2
[~2019-09-23 10:49] MED LIST: BUPIVACAINE HCL/PF 0.25% (2.5MG/ML) 10 ML VIAL IJ ONE
--- NOTE | 2019-09-23 12:24 | HP ---
Admitting History and Physical - Admission Chief Complaint: Morbid obesity History Source: Patient Limitations to Obtaining History: No Limitations - Past Medical History Cardiovascular: Yes: CAD, HTN, Hyperlipdemia Endocrine: Yes: Diabetes Mellitus - Past Surgical History Past Surgical History: Yes: Cholecystectomy, - Smoking History Smoking history: Never smoked Have you smoked in the past 12 months: No Aproximately how many cigarettes per day: 0 - Alcohol/Substance Use Hx Alcohol Use: No History of Substance Use: reports: None - Social History ADL: Independent Home Medications - Allergies Allergies/Adverse Reactions: Allergies Allergy/AdvReac Type Severity Reaction Status Date / Time shellfish derived Allergy Severe Difficulty Verified 09/23/19 12:03 Breathing Penicillins AdvReac Unknown Rash Verified 09/16/19 11:30 SEAFOOD Allergy Severe Rash Uncoded 09/23/19 12:03 - Home Medications Home Medications: Ambulatory Orders Albuterol 0.083% Nebulizer Myra [Ventolin 0.083%] 1 neb NEB QID 02/16/19 Haloperidol [Haldol -] 5 mg PO HS 02/16/19 Losartan Potassium 50 mg PO DAILY 02/16/19 Pantoprazole Sodium 40 mg PO DAILY 02/16/19 Clonazepam [Klonopin] 1 mg PO BID 09/20/19 Insulin Aspart [Novolog] 20 unit SQ TID 09/20/19 Insulin Glargine,Hum.rec.anlog [Basaglar Kwikpen U-100] 60 iu SQ HS 09/20/19 Trazodone HCl 150 mg PO HS 09/23/19 Family Medical History Family History: Unremarkable Review of Systems - Review of Systems Constitutional: denies: Chills, Fever Neck: reports: No Symptoms Cardiovascular: reports: No Symptoms Respiratory: reports: No Symptoms Gastrointestinal: reports: No Symptoms Neurological: reports: No Symptoms Pain Intensity: 0 Physical Examination Vital Signs: Vital Signs Temperature 98.3 F 09/23/19 12:07 Pulse Rate 86 09/23/19 12:07 Respiratory Rate 16 09/23/19 12:07 Blood Pressure 143/94 09/23/19 12:07 O2 Sat by Pulse Oximetry (%) Constitutional: Yes: Calm Cardiovascular: Yes: WNL Respiratory: Yes: WNL Gastrointestinal: Yes: Soft, Abdomen, Obese Neurological: Yes: Alert, Oriented Problem List - Problems (1) Diabetes mellitus type 2 in obese Code(s): E11.69 - TYPE 2 DIABETES MELLITUS WITH OTHER SPECIFIED COMPLICATION; E66.9 - OBESITY, UNSPECIFIED (2) Hyperlipidemia Code(s): E78.5 - HYPERLIPIDEMIA, UNSPECIFIED Qualifiers: Hyperlipidemia type: unspecified Qualified Code(s): E78.5 - Hyperlipidemia , unspecified (3) Morbid obesity due to excess calories Code(s): E66.01 - MORBID (SEVERE) OBESITY DUE TO EXCESS CALORIES (4) Morbid obesity with BMI of 40.0-44.9, adult Code(s): E66.01 - MORBID (SEVERE) OBESITY DUE TO EXCESS CALORIES; Z68.41 - BODY MASS INDEX (BMI) 40.0-44.9, ADULT (5) Hypertension Code(s): I10 - ESSENTIAL (PRIMARY) HYPERTENSION Qualifiers: Hypertension type: unspecified Qualified Code(s): I10 - Essential (primary ) hypertension Assessment/Plan Laparoscopic possible open vertical sleeve gastrectomy possible liver biopsy, upper endoscopy
[2019-09-23] MEDS ORDERED: BUPIVACAINE HCL 0.25% 125 MG/50 ML VIAL ONE (12:40)
[2019-09-23] MEDS ORDERED: MIDAZOLAM HCL 2 MG/2 ML SINGLE DOSE VIAL ONE (13:03)
[2019-09-23] MEDS ORDERED: ROPIVACAINE HCL 0.5% 30ML VIAL ONE (13:04)
[2019-09-23] MEDS ORDERED: fentaNYL CITRATE 250 MCG/5 ML VIAL ONE (13:18)
[2019-09-23] MEDS ORDERED: PROPOFOL 20 ML ONE (13:18)
[2019-09-23] MEDS ORDERED: ROCURONIUM BROMIDE 50 MG/5 ML SYRINGE ONE (13:19)
[2019-09-23] MEDS ORDERED: DEXAMETHASONE SOD PHOSPHATE 4 MG/1 ML VIAL ONE (13:22)
[2019-09-23] MEDS ORDERED: KETOROLAC TROMETHAMINE 30 MG/1 ML VIAL ONE (13:22)
[2019-09-23] MEDS ORDERED: ceFAZolin SODIUM 1 GM VIAL ONE (13:29)
[2019-09-23] MEDS ORDERED: NEOSTIGMINE METHYLSULFATE 0.5 MG/ML - 10 ML MDV ONE (14:22)
[2019-09-23] MEDS ORDERED: GLYCOPYRROLATE 0.2 MG/1 ML VIAL ONE (14:22)
[2019-09-23] MEDS ORDERED: BUPIVACAINE HCL/PF 0.25% (2.5MG/ML) 10 ML VIAL IJ ONE (14:58)
[2019-09-23] MEDS ORDERED: HYDROmorphone HCL CARPU-JECT 1 MG/1 ML DISP.SYRIN IVPB PRN (15:06)
--- NOTE | 2019-09-23 15:08 | OPR ---
Operative Note Operative Date: 09/23/19 Pre-Operative Diagnosis: Morbid obesity Operation: 1. Diagnostic laparoscopy. 2. Laparoscopic vertical sleeve gastrectomy. 3. Laparoscopic wedge liver biopsy. 4. Laparoscopic oversewing of gastric staple line Post-Operative Diagnosis: Same as Pre-op (as well as hepatomegaly and oozing from gastric staple line) Surgeon: Sam Rivera Baby Counselor: Kirby Mccormick Anesthesia: General Specimens Removed: Greater curvature of stomach. Liver biopsy. Estimated Blood Loss (mls): 30 Drains & Tubes with Location: 36 Fr Bougie Operative Report Dictated: Yes
[2019-09-23] MEDS ORDERED: SODIUM CHLORIDE 1,000 ML IV SCH (15:15)
[2019-09-23] MEDS: METOCLOPRAMIDE HCL INJECTION 10 MG/2 ML VIAL IVPUSH SCH ×3 (15:16→21:20)
[2019-09-23] MEDS: ONDANSETRON 4 MG/2 ML VIAL IVPUSH SCH ×3 (15:17→21:20)
[2019-09-23] MEDS: ACETAMINOPHEN 1000 MG/100 ML VIAL (NON FORMULARY) IVPB SCH ×3 (15:18→21:21)
[2019-09-23] MEDS ORDERED: LACTATED RINGERS SOLUTION 1,000 ML IV SCH (15:30)
[2019-09-23] MEDS: ALBUTEROL SO4 0.083% IH SOL 2.5 MG/3 ML VIAL.NEB. NEB SCH ×2 (16:00→21:20)
[2019-09-23 16:11] LABS: ALBUMIN 3.3 g/dl (3.4-5.0); BILIRUBIN,TOTAL 0.4 mg/dl (0.2-1); CALCIUM 8.5 mg/dl (8.5-10); CREATININE 1.1 mg/dl (0.55-1.3); POTASSIUM 4.9 mmol/L (3.5-5.1)
[2019-09-23 16:13] LABS: MCH 27.4 pg (25.7-33.7)
[2019-09-23 16:17] LABS: HEMATOCRIT 37.5 % (32.4-45.2); HEMOGLOBIN 12.2 GM/dl (10.7-15.3); MCHC 32.5 g/dl (32.0-36.0); MEAN CELL VOLUME 84.1 fl (80-96); MEAN PLT VOLUME 8.8 fl (7.5-11.1); PLATELET COUNT 359 K/MM3 (134-434); RBC 4.46 M/mm3 (3.60-5.2); WHITE BLOOD COUNT 14.9 K/mm3 (4.0-10.8)
[2019-09-23] MEDS: INSULIN SLIDING SCALE (NOVOLOG) 1 VIAL SQ SCH (17:00)
[2019-09-23] MEDS ORDERED: FAMOTIDINE 20 MG/50 ML IVPB 20 MG/50 ML MG IVPB SCH (22:00)
[2019-09-23] MEDS ORDERED: ENOXAPARIN NA (PORCINE) 40 MG/0.4 ML DISP.SYRIN SQ SCH (22:00)
[2019-09-24] MEDS: ONDANSETRON 4 MG/2 ML VIAL IVPUSH SCH ×3 (01:14→06:24)
[2019-09-24] MEDS: METOCLOPRAMIDE HCL INJECTION 10 MG/2 ML VIAL IVPUSH SCH (02:46)
[2019-09-24] MEDS: ACETAMINOPHEN 1000 MG/100 ML VIAL (NON FORMULARY) IVPB SCH (02:46)
[2019-09-24] MEDS: INSULIN SLIDING SCALE (NOVOLOG) 1 VIAL SQ SCH (07:09)
[2019-09-24 07:58] LABS: HEMATOCRIT 36.6 % (32.4-45.2); HEMOGLOBIN 11.8 GM/dl (10.7-15.3); MCH 27.2 pg (25.7-33.7); MCHC 32.2 g/dl (32.0-36.0); MEAN CELL VOLUME 84.5 fl (80-96); MEAN PLT VOLUME 8.9 fl (7.5-11.1); PLATELET COUNT 403 K/MM3 (134-434); RBC 4.33 M/mm3 (3.60-5.2); RDW 13.2 % (11.6-15.6); WHITE BLOOD COUNT 15.3 K/mm3 (4.0-10.8)
[2019-09-24 08:07] LABS: ALBUMIN 3.2 g/dl (3.4-5.0); BILIRUBIN,TOTAL 0.2 mg/dl (0.2-1); CALCIUM 8.5 mg/dl (8.5-10)
--- NOTE | 2019-09-24 09:07 | DS ---
Physical Exam: SUBJECTIVE: Patient seen and examined OBJECTIVE: Vital Signs Temperature 98.5 F 09/24/19 06:00 Pulse Rate 99 H 09/24/19 06:00 Respiratory Rate 18 09/24/19 06:00 Blood Pressure 145/57 L 09/24/19 06:00 O2 Sat by Pulse Oximetry (%) 95 09/24/19 06:00 PHYSICAL EXAM GENERAL: The patient is awake, alert, and fully oriented, in no acute distress. HEAD: Normal with no signs of trauma. EYES: PERRL, extraocular movements intact, sclera anicteric, conjunctiva clear. ENT: Ears normal, nares patent, oropharynx clear without exudates, moist mucous membranes. NECK: Trachea midline, full range of motion, supple. LUNGS: breathing comfortably no accessory muscle use. ABDOMEN: Soft,mild diffuse tenderness, nondistended, incisions are clean no erythema, no guarding, no rebound, no hepatosplenomegaly, no masses. EXTREMITIES: warm, well-perfused, no edema. NEUROLOGICAL: Cranial nerves II through XII grossly intact. Normal speech, gait not observed. PSYCH: Normal mood, normal affect. SKIN: Warm, dry, normal turgor, no rashes or lesions noted. LABS CBC,CMP WBC 15.3 K/mm3 (4.0-10.8) H 09/24/19 07:20 RBC 4.33 M/mm3 (3.60-5.2) 09/24/19 07:20 Hgb 11.8 GM/dl (10.7-15.3) 09/24/19 07:20 Hct 36.6 % (32.4-45.2) 09/24/19 07:20 MCV 84.5 fl (80-96) 09/24/19 07:20 MCH 27.2 pg (25.7-33.7) 09/24/19 07:20 MCHC 32.2 g/dl (32.0-36.0) 09/24/19 07:20 RDW 13.2 % (11.6-15.6) 09/24/19 07:20 Plt Count 403 K/MM3 (134-434) 09/24/19 07:20 MPV 8.9 fl (7.5-11.1) 09/24/19 07:20 Sodium 134 mmol/L (136-145) L 09/24/19 07:20 Potassium 5.0 mmol/L (3.5-5.1) 09/24/19 07:20 Chloride 100 mmol/L (98-107) 09/24/19 07:20 Carbon Dioxide 26 mmol/L (21-32) 09/24/19 07:20 Anion Gap 8 MMOL/L (8-16) 09/24/19 07:20 BUN 13.0 mg/dl (7-18) 09/24/19 07:20 Creatinine 1.0 mg/dl (0.55-1.3) 09/24/19 07:20 Est GFR (CKD-EPI)AfAm 70.91 09/24/19 07:20 Est GFR (CKD-EPI)NonAf 61.19 09/24/19 07:20 POC Glucometer 243 UNITS (80-120) 09/24/19 06:05 Random Glucose 278 mg/dl (74-106) H 09/24/19 07:20 Calcium 8.5 mg/dl (8.5-10) 09/24/19 07:20 Total Bilirubin 0.2 mg/dl (0.2-1) 09/24/19 07:20 AST 45 U/L (15-37) H 09/24/19 07:20 ALT 32 U/L (13-61) 09/24/19 07:20 Alkaline Phosphatase 89 U/L (45-117) 09/24/19 07:20 Total Protein 7.0 g/dl (6.4-8.2) 09/24/19 07:20 Albumin 3.2 g/dl (3.4-5.0) L 09/24/19 07:20 HOSPITAL COURSE: Date of Admission:09/23/19 Date of Discharge: 09/24/19 HOSPITAL COURSE: The patient was admitted to the Med-Surg Unit after elective bariatric surgery. Now, s/p laparoscopic vertical sleeve gastrectomy. The day of surgery, the patient ambulated the hallways with assistance. The patient was monitored with remote tele/continuous pulse ox. Narcotic and non-narcotic pain management control was achieved with oral and IV pain control. Upper GI series was obtained the following morning and no leak, extravastion or gastric outlet obstruction. Started on a Bariatric Stage 1 diet and tolerated well. Lanie-operative IV ABX were administered in addition to GI prophylaxis. DVT prophylaxis was achieved with SCDs and early ambulation. The discharge instructions and an oral pain management plan were reviewed with the patient. All questions answered. Above plan discussed with Dr. Rivera and agreed. Minutes to complete discharge: 20 <Santana Crespo - Last Filed: 09/24/19 09:06> Physical Exam: SUBJECTIVE: Patient seen and examined OBJECTIVE: Vital Signs Temperature 98.4 F 09/24/19 10:00 Pulse Rate 94 H 09/24/19 10:00 Respiratory Rate 19 09/24/19 10:00 Blood Pressure 144/74 09/24/19 10:00 O2 Sat by Pulse Oximetry (%) 98 09/24/19 10:00 PHYSICAL EXAM GENERAL: The patient is awake, alert, and fully oriented, in no acute distress. HEAD: Normal with no signs of trauma. EYES: PERRL, extraocular movements intact, sclera anicteric, conjunctiva clear. ENT: Ears normal, nares patent, oropharynx clear without exudates, moist mucous membranes. NECK: Trachea midline, full range of motion, supple. LUNGS: Breath sounds equal, clear to auscultation bilaterally, no wheezes, no crackles, no accessory muscle use. HEART: Regular rate and rhythm, S1, S2 without murmur, rub or gallop. ABDOMEN: Soft, nontender, nondistended, normoactive bowel sounds, no guarding, no rebound, no hepatosplenomegaly, no masses. EXTREMITIES: 2+ pulses, warm, well-perfused, no edema. NEUROLOGICAL: Cranial nerves II through XII grossly intact. Normal speech, gait not observed. PSYCH: Normal mood, normal affect. SKIN: Warm, dry, normal turgor, no rashes or lesions noted. LABS CBC,CMP WBC 15.3 K/mm3 (4.0-10.8) H 09/24/19 07:20 RBC 4.33 M/mm3 (3.60-5.2) 09/24/19 07:20 Hgb 11.8 GM/dl (10.7-15.3) 09/24/19 07:20 Hct 36.6 % (32.4-45.2) 09/24/19 07:20 MCV 84.5 fl (80-96) 09/24/19 07:20 MCH 27.2 pg (25.7-33.7) 09/24/19 07:20 MCHC 32.2 g/dl (32.0-36.0) 09/24/19 07:20 RDW 13.2 % (11.6-15.6) 09/24/19 07:20 Plt Count 403 K/MM3 (134-434) 09/24/19 07:20 MPV 8.9 fl (7.5-11.1) 09/24/19 07:20 Sodium 134 mmol/L (136-145) L 09/24/19 07:20 Potassium 5.0 mmol/L (3.5-5.1) 09/24/19 07:20 Chloride 100 mmol/L (98-107) 09/24/19 07:20 Carbon Dioxide 26 mmol/L (21-32) 09/24/19 07:20 Anion Gap 8 MMOL/L (8-16) 09/24/19 07:20 BUN 13.0 mg/dl (7-18) 09/24/19 07:20 Creatinine 1.0 mg/dl (0.55-1.3) 09/24/19 07:20 Est GFR (CKD-EPI)AfAm 70.91 09/24/19 07:20 Est GFR (CKD-EPI)NonAf 61.19 09/24/19 07:20 POC Glucometer 243 UNITS (80-120) 09/24/19 06:05 Random Glucose 278 mg/dl (74-106) H 09/24/19 07:20 Calcium 8.5 mg/dl (8.5-10) 09/24/19 07:20 Total Bilirubin 0.2 mg/dl (0.2-1) 09/24/19 07:20 AST 45 U/L (15-37) H 09/24/19 07:20 ALT 32 U/L (13-61) 09/24/19 07:20 Alkaline Phosphatase 89 U/L (45-117) 09/24/19 07:20 Total Protein 7.0 g/dl (6.4-8.2) 09/24/19 07:20 Albumin 3.2 g/dl (3.4-5.0) L 09/24/19 07:20 HOSPITAL COURSE: Date of Admission:09/23/19 Date of Discharge: 09/24/19 Agree POD 1 Pain controlled AVSS UGI: no leak/obstruction Clears Discharge home <Sam Rivera - Last Filed: 09/24/19 16:22> Visit type - Case Type Case Type: Scheduled - Emergency Emergency Visit: No - New patient This patient is new to me today: Yes Date on this admission: 09/24/19 - Critical Care Critical Care patient: No <Santana Crespo - Last Filed: 09/24/19 09:06>
--- NOTE | 2019-09-24 09:28 | PN ---
Progress Note (short form) - Note Progress Note: ANESTHESIA POSTOP: 59 yo female, POD#1, s/p gastric sleeve Patient in bed. No complaints. Awaiting GI study. Pain adequately controlled. VSS, Afebrile Continue current care, encouraged IS and ambulation. No anesthetic complications.
--- NOTE | 2019-09-24 09:46 | SPEC ---
DATE OF OPERATION: 09/23/2019 PLACE OF SERVICE: [facility], [address] [place] [address]. SURGEON: Jo Rivera MD E LEARNING MANAGER: Kirby Mccormick MD PREOPERATIVE DIAGNOSES: 1. Morbid obesity. 2. Diabetes mellitus, type 2. 3. Hypertension. 4. Hyperlipidemia. POSTOPERATIVE DIAGNOSES: 1. Morbid obesity. 2. Diabetes mellitus, type 2. 3. Hypertension. 4. Hyperlipidemia. 5. Hepatomegaly. 6. Oozing from gastric staple line. PROCEDURES: 1. Diagnostic laparoscopy. 2. Laparoscopic vertical sleeve gastrectomy. 3. Laparoscopic wedge liver biopsy. 4. Laparoscopic oversewing of gastric staple line for oozing. SPECIMENS: 1. Greater curve of the stomach. 2. Liver biopsy. ESTIMATED BLOOD LOSS: 30 mL. DRAINS: None. ANESTHESIA: GET. BOUGIE: Size 36-Luxembourgish. REASON FOR PROCEDURE: This is a 59-year-old female who presented to the office for weight loss options. After describing different options she decided to proceed with laparoscopic, possible open vertical sleeve gastrectomy, possible liver biopsy, upper endoscopy. RISKS AND BENEFITS: After describing the different options for weight loss management, the patient decided to proceed with a laparoscopic, possible open vertical sleeve gastrectomy. The patient was seen by the respective subspecialties and cleared for surgery. The risks and benefits of the procedure were explained. These included bleeding, infection, hernia, IN, DVT, PE, injury to surrounding structures including the liver, colon, bowel, spleen, esophagus, vessel injury, nerve injury, weight regain, gastric leak, staple line leak, sleeve leak, obstruction, vitamin deficiency, hair loss and as some of the possible complications. The patient understood and signed informed consent. DESCRIPTION OF PROCEDURE: The patient was placed supine on the operating room table. The patient underwent general endotracheal intubation. The arms were brought out at 90 degrees and secured. A footboard was placed and the legs were secured laterally with padding. The abdomen was prepped and draped in the usual sterile fashion. A timeout was performed. An incision was made in the left upper quadrant and a Veress needle inserted. Pneumoperitoneum was established. Subsequently, the Veress needle was removed and a 5-mm trocar was placed under direct visualization with the laparoscope. The laparoscopic camera was then inserted and inspection of the abdominal cavity was performed. An incision was then made in the supraumbilical area and a 15-mm trocar was placed under direct visualization. A 5-mm trocar was then placed in the right upper quadrant and a 5-mm trocar was placed below the left subcostal margin. A stab wound was made in the subxiphoid area and a Homa clamp inserted and removed to dilate the tract. A Robby liver retractor was inserted. The post was secured at the bedside by the nursing staff. The patient was placed in steep reverse Trendelenburg position and the Robby liver retractor was used to secure the liver towards the anterior abdominal wall. The pylorus was identified and 6 cm proximal to it, the lesser sac was entered using the LigaSure device. All lateral attachments to the greater curvature of the stomach, including the short gastric vessels, were ligated using the LigaSure device toward the gastrosplenic and gastrophrenic ligaments. Once this was done in its entirety, it was confirmed that all tubes within the nasal or oropharyngeal cavity, including a temperature probe, were removed by Anesthesia. The bougie was then inserted by Anesthesia. Transection of the stomach was then begun staying adjacent to the bougie but away from the angularis. Transection of the stomach was performed near the portion of the stomach where the lesser sac was entered. Two laparoscopic Endo-FLORA black navin were used at this location. Laparoscopic Endo-FLORA purple staple loads were then used for the remainder of the transection until the greater curvature of the stomach was fully transected. This was done staying close to the bougie. Care was taken to stay away from the angle of His cephalad. The staple line was then inspected. Hemostasis was identified. A leak test was then performed. It was clamped distally to the staple line. Irrigation solution was placed in the left upper quadrant and air was insufflated by Anesthesia into the sleeve. No leaks were identified. No obstruction was identified. This was done through the entirety of the staple line. The stomach was suctioned and the bougie removed fully intact under direct visualization. At this point, the irrigation solution was suctioned and again, hemostasis was noted. A wedge liver biopsy was then performed. The left lobe of the liver was identified. A portion of the edge of the left lobe of the liver was grasped. Using electrocautery, a wedge of the left liver was excised. The specimen was removed and sent off the field. Hemostasis of the wedge liver biopsy site was attained and noted using electrocautery. The 15-mm supraumbilical trocar was then removed and the greater curvature specimen removed from the site using a sponge stick morton. A Yefri-Vipul device was then used to close the fascia with a 0 Vicryl suture at the site. Again, hemostasis was noted. The Robby liver retractor was then removed under direct visualization. Pneumoperitoneum was desufflated. Hemostasis was noted at all incision sites and Marcaine was injected at all incision sites. A 3-0 Vicryl suture was used to close the deep subcutaneous tissue at the 15-mm incision site. All incision sites were closed using 4-0 Biosyn. Sterile dressings were applied. In addition, there was oozing noted at the gastric staple line. The entirety of the gastric staple line had to be oversewn using Endo Stitch suture with multiple Surgidac sutures. Hemostasis was noted. The patient tolerated the rest of the procedure well, transferred to the recovery room in stable condition. JO RIVERA M.D. [id number]
[2019-09-24 11:00] VITALS: BP 144/74; PULSE 94; TEMP 98.4
[2019-09-24] MEDS ORDERED: oxyCODONE HCL 5 MG TABLET PO PRN (14:04)
[2019-09-24] MEDS ORDERED: SODIUM CHLORIDE 1,000 ML IV SCH (14:15)
--- NOTE | 2019-09-26 18:21 | PATH ---
Surgical Pathology Report Patient Name: CANDIDA CHERRY Med. Rec. #: [id number] /Age/Gender: 1960 (Age: 59) / F Account: [id number] Location: [facility] MED-SURG Taken: 09/23/2019 Received: 09/23/2019 Reported: 09/26/2019 Physicians: Sam Rivera M.D. Specimen(s) Received A: GREATER CURVATURE STOMACH B: LIVER BIOPSY Clinical History Morbid obesity Final Diagnosis A. GREATER CURVATURE STOMACH, LAPAROSCOPIC VERTICAL SLEEVE GASTRECTOMY: SEGMENT OF STOMACH SHOWING MILD CHRONIC GASTRITIS. IMMUNOSTAINING IS NEGATIVE FOR H. PYLORI ORGANISMS. Comment: Immunostain for H. Pylori performed at [place], [place] ([id number]) and interpreted at [facility]. Positive and negative controls (internal if applicable) show appropriate results. B. LIVER, BIOPSY: LIVER TISSUE WITH STEATOSIS (~20%), DIFFUSE. NO HISTOLOGIC EVIDENCE OF STEATOHEPATITIS. NO INCREASE IN FIBROSIS (TRICHROME STAIN) OR IRON (IRON STAIN) DEPOSITION. Electronically Signed Jeremías Rosa M.D. Gross Description A. Received in formalin, labeled "greater curvature of stomach," is a 74 gram, 19.0 x 2.5 x 2.0 cm. portion of stomach with a stapled margin of resection. The serosa is wilson-levine with minimal attached fat. The mucosa is wilson-pink with normal folds. No mucosal masses are identified. Financial Representative sections are submitted in one cassette. B. Received in formalin labeled "liver biopsy," is a 2.0 x 0.8 x 0.3 cm wilson portion of soft tissue, consistent with a portion of liver. The specimen is submitted in toto in one cassette. DL/09/24/2019 saudi09/24/2019
== END 2019-09-24 13:07 | disposition home or self-care (01) | DRG 403 ==
LOC: FM/S 10:49
PROVIDERS: ADMIT Surgery; ATTEND Surgery
PROC: 0DB64Z3 Excision of Stomach, Percutaneous Endoscopic Approach, Vertical (ICD-10-PCS; principal; 2019-09-23 14:03)
PROC: 0FB24ZX Excision of Left Lobe Liver, Percutaneous Endoscopic Approach, Diagnostic (ICD-10-PCS; 2019-09-23 14:03)
DX: E66.01 Morbid (severe) obesity due to excess calories (principal); R16.0 Hepatomegaly, not elsewhere classified; I25.10 Atherosclerotic heart disease of native coronary artery without angina pectoris; I10 Essential (primary) hypertension; E78.5 Hyperlipidemia, unspecified; E11.9 Type 2 diabetes mellitus without complications; Z79.4 Long term (current) use of insulin; Z68.39 Body mass index [BMI] 39.0-39.9, adult; Z88.0 Allergy status to penicillin
CPT/HCPCS: 36415; 74240-TC-FY; 80053; 82962; 85027; 94640; 94760; J0131; J7030

== ENCOUNTER 2020-05-04 14:22 | Observation (INO) | payer OTHER ==
[2020-05-04 14:40] VITALS: BMI 35.4
--- NOTE | 2020-05-04 14:41 | PDOC ---
Rapid Medical Evaluation Time Seen by Provider: 05/04/20 14:37 Medical Evaluation: Allergies Allergy/AdvReac Type Severity Reaction Status Date / Time shellfish derived Allergy Severe Difficulty Verified 05/04/20 14:37 Breathing Penicillins AdvReac Unknown Rash Verified 05/04/20 14:37 SEAFOOD Allergy Severe Rash Uncoded 05/04/20 14:37 05/04/20 14:37 Pt presents for evaluation of chest pain, palpitations, SOB since this morning. Exam: RRR, Lungs CTAB Orders: labs, ekg, CXR Pt to proceed to the ER for further evaluation Discharge Disposition - Diagnosis Chest pain Qualifiers: Chest pain type: unspecified Qualified Code(s): R07.9 - Chest pain, unspecified - Referrals - Patient Instructions - Post Discharge Activity
--- NOTE | 2020-05-04 15:21 | PDOC ---
History of Present Illness - General Chief Complaint: Chest Pain Stated Complaint: SENT BY PCP/CHEST PAIN Time Seen by Provider: 05/04/20 14:37 Past History - Medical History Allergies/Adverse Reactions: Allergies Allergy/AdvReac Type Severity Reaction Status Date / Time shellfish derived Allergy Severe Difficulty Verified 05/04/20 14:37 Breathing Penicillins AdvReac Unknown Rash Verified 05/04/20 14:37 SEAFOOD Allergy Severe Rash Uncoded 05/04/20 14:37 Home Medications: Ambulatory Orders Albuterol 0.083% Nebulizer Myra [Ventolin 0.083%] 1 neb NEB QID 02/16/19 Haloperidol [Haldol -] 5 mg PO HS 02/16/19 Losartan Potassium 50 mg PO DAILY 02/16/19 Pantoprazole Sodium 40 mg PO DAILY 02/16/19 Clonazepam [Klonopin] 1 mg PO BID 09/20/19 Insulin Aspart [Novolog] 20 unit SQ TID 09/20/19 Insulin Glargine,Hum.rec.anlog [Basaglar Kwikpen U-100] 60 iu SQ HS 09/20/19 Trazodone HCl 150 mg PO HS 09/23/19 Anemia: No Asthma: Yes Cancer: No Cardiac Disorders: Yes (MVP) CVA: No COPD: No CHF: No Dementia: No Diabetes: Yes GI Disorders: No Disorders: No HTN: Yes Hypercholesterolemia: Yes Liver Disease: No Psychiatric Problems: Yes (anxiety panic attacks depression) Seizures: No Thyroid Disease: No - Surgical History Abdominal Surgery: No Appendectomy: No Cardiac Surgery: No Cholecystectomy: Yes Lung Surgery: No Neurologic Surgery: No Orthopedic Surgery: No - Reproductive History (#): 4 Para: 4 - Immunization History Immunization Up to Date: Yes - Psycho-Social/Smoking History Smoking Status: No Smoking History: Never smoked Have you smoked in the past 12 months: No Number of Cigarettes Smoked Daily: 0 - Substance Abuse Hx (Audit-C & DAST Scrn) How often the patient has a drink containing alcohol: Never Score: In Men: 4 or > Positive; In Women: 3 or > Positive: 0 Screen Result (Pos requires Nsg. Audit-10AR): Negative *Physical Exam - Vital Signs Last Vital Signs Temp Pulse Resp BP Pulse Ox 97.3 F L 92 H 20 142/72 98 05/04/20 14:37 05/04/20 14:37 05/04/20 14:37 05/04/20 14:37 05/04/20 14:37 Heart Score/ECG Review - History History: Moderately suspicious - Electrocardiogram EKG: Normal - Age Age: 45-65 - Risk Factors Risk Factors Heart Score: Yes Hx Hypercholesterolemia, Yes Hx Hypertension, Yes Hx Diabetes, Yes Hx Obesity Based on the list above the patient has:: >/=3 risk factors or Hx atheroscleroti c disease - Troponin Troponin: </= normal limit - Score Heart Score - Total: 4 ED Treatment Course - LABORATORY CBC & Chemistry Diagram: 05/04/20 14:30 05/04/20 14:30 Medical Decision Making - Medical Decision Making 05/04/20 15:20 HPI: 59yo F hx IDT2DM, HTN, HLD, fibromyalgia, s/p cardiac cath, s/p gastric sleeve (1yr ago, no weight loss), angina, obesity, and panic attacks sent by Urgent Care for chest pain. Sudden onset nonexertional at 10am L-sided stabbing constant CP radiating down L arm, intermittent palpitations, dizziness, and nausea. Hx similar sx but does not know why. Did not take any meds today including pain meds or insulin. Did eat. Denies smoking, FHx early CAD, hx PE, leg swelling, numbness/tingling, weakness, vision changes, vomiting, SOB, abdominal pain, back pain, D/C PCP - Selina PE obesity L anterior chest tenderness HEART score 4 EKG: NSR, 86bpm, low voltage QRS, no e/o acute ischemia, QTc 435ms CXR: no acute pathology -Aspirin -1L NS -Cardiac workup -Admit tele obs 05/04/20 20:05 Labs reviewed. WBC 12.9, gluc 212, trop neg. Signed out to admitting team Discharge - Discharge Information Problems reviewed: Yes Clinical Impression/Diagnosis: Chest pain Qualifiers: Chest pain type: unspecified Qualified Code(s): R07.9 - Chest pain, unspecified Condition: Stable - Admission Yes - Follow up/Referral Referrals: Jimy Marks [Primary Care Provider] - - Patient Discharge Instructions - Post Discharge Activity
[2020-05-04] MEDS ORDERED: ACETAMINOPHEN 500 MG TABLET (FP) PO ONE (15:37)
[2020-05-04] MEDS ORDERED: ACETAMINOPHEN 325 MG TABLET (FP) ONE (15:44)
[2020-05-04 16:03] LABS: INR 1.13 (0.83-1.09); PROTHROMBIN TIME (PATIENT) 13.4 SEC (9.7-13.0)
--- NOTE | 2020-05-04 16:07 | PDOC ---
Documentation entered by Freddy Nichols SCRIBE, acting as scribe for Charlee Zhao MD. Charlee Zhao MD: This documentation has been prepared by the Simone del cid Xhesika, SCRIBE, under my direction and personally reviewed by me in its entirety. I confirm that the documentation accurately reflects all work, treatment, procedures, and medical decision making performed by me. Attending Attestation - Resident Resident Name: Malena Noonan - ED Attending Attestation I have performed the following: I have examined & evaluated the patient, The case was reviewed & discussed with the resident, I agree w/resident's findings & plan, Exceptions are as noted - HPI HPI: 05/04/20 15:57 The patient is a 59y/o F with a pmh of IDT2DM, HTN, HLD, fibromyalgia, s/p cardiac cath, s/p gastric sleeve (1yr ago, no weight loss), angina, obesity, and panic attacks for chest pain. Pt describe her pain as L sided, stabbing, constant, radiating down L arm, associated with intermittent palpitations, dizziness, and nausea. Pt denies taking any pain medication. Denies leg swelling, numbness/tingling, weakness, vision changes, vomiting, SOB, abdominal pain, back pain, D/C. Denies any URI symptoms. Allergies: PCN. PCP: Jimy Medeiros - Physicial Exam PE: 05/04/20 16:02 General: well appearing Chest: CTAB, good air entry, +L sided chest wall ttp reproduces complaint CVS: + s1 s2, RRR - Medical Decision Making 05/04/20 16:03 59 yo F with chest pain, EKG sinus without ST elevations or depressions, reproducible on exam however given comorbidities and CP with some typical features concerning for ACS. Plan: -labs -cxr -admit tele obs This clinical encounter is taking place during a federal and state health care emergency attributable to the novel Marquez Virus pandemic. The Corporate Manager of the Department of Health and Human Services has declared, pursuant to the Public Health Service Act 319F-3 (42 U.S.C. 247d-6d), that a covered persons activities related to medical countermeasures against COVID-19 will be immune from liability under Federal and State law. Discharge - Discharge Information Problems reviewed: Yes Clinical Impression/Diagnosis: Chest pain Qualifiers: Chest pain type: unspecified Qualified Code(s): R07.9 - Chest pain, unspecified Condition: Stable - Follow up/Referral Referrals: Jimy Marks [Primary Care Provider] - - Patient Discharge Instructions - Post Discharge Activity
[2020-05-04 16:24] LABS: BASO % 0.4 % (0-2.0); EOS % 2.1 % (0-4.5); HEMATOCRIT 36.2 % (32.4-45.2); HEMOGLOBIN 11.6 GM/dL (10.7-15.3); LYMPH % 20.7 % (8-40); MCH 27.4 pg (25.7-33.7); MEAN CELL VOLUME 85.7 fl (80-96); MEAN PLT VOLUME 9.2 fl (7.5-11.1); MONO % 5.2 % (3.8-10.2); NEUT % 71.6 % (42.8-82.8); PLATELET COUNT 292 K/MM3 (134-434); RBC 4.22 M/mm3 (3.60-5.2); RDW 14.1 % (11.6-15.6); WHITE BLOOD COUNT 12.9 K/mm3 (4.0-10.0)
[2020-05-04 16:28] LABS: ALBUMIN 3.2 g/dl (3.4-5.0); ALK PHOS 121 U/L (45-117); ANION GAP 6 MMOL/L (8-16); BILIRUBIN,TOTAL 0.2 mg/dL (0.2-1); BLOOD UREA NITROGEN 9.2 mg/dL (7-18); CALCIUM 8.4 mg/dL (8.5-10.1); CHLORIDE 102 mmol/L (98-107); CO2 30 mmol/L (21-32); CREATININE 1.1 mg/dL (0.55-1.3); GLUCOSE,RANDOM 212 mg/dL (74-106); MAGNESIUM 1.5 mg/dL (1.8-2.4); POTASSIUM 4.1 mmol/L (3.5-5.1); SGOT/AST 21 U/L (15-37); SGPT/ALT 27 U/L (13-61); SODIUM 138 mmol/L (136-145)
[2020-05-04] MEDS ORDERED: MAGNESIUM SULF 50% (8.12 MEQ/2 ML-1 GM VIAL) IVPB ONE (17:58)
[2020-05-04] MEDS ORDERED: SODIUM CHLORIDE 0.9% 500 ML INFUS.BAG IV ONE (18:00)
[2020-05-04] MEDS ORDERED: MAGNESIUM SULF 50% (8.12 MEQ/2 ML-1 GM VIAL) ONE (18:15)
[2020-05-04 18:57] LABS: URINE APPEARANCE CLEAR; URINE BILIRUBIN NEGATIVE (NEGATIVE); URINE COLOR YELLOW; URINE GLUCOSE (UA) NEGATIVE (NEGATIVE); URINE KETONE NEGATIVE (NEGATIVE); URINE LEUK ESTERASE NEGATIVE (NEGATIVE); URINE NITRITE NEGATIVE (NEGATIVE); URINE PROTEIN NEGATIVE (NEGATIVE); URINE UROBILINOGEN 0.2 mg/dL (0.2-1.0)
[2020-05-04] MEDS ORDERED: ASPIRIN 81 MG CHEWABLE TABLETS PO ONE (19:56)
[2020-05-04] MEDS ORDERED: ASPIRIN 81 MG CHEWABLE TABLETS ONE (20:02)
[2020-05-04] MEDS ORDERED: ALBUTEROL SO4 HFA INHALER IH PRN (20:28)
[2020-05-04] MEDS ORDERED: MELATONIN 5 MG TABLETS ONE (20:40)
--- NOTE | 2020-05-04 20:49 | HP ---
CHIEF COMPLAINT:left sided chest pain PCP:Dr. Jimy Marks HISTORY OF PRESENT ILLNESS: 59 year old obese female with a past medical history of IDDM, hypertension, hyperlipidemia, fibromyalgia, angina, s/p cardiac cath 5 years ago in [facility], no stents, s/p gastric sleeve, and panic attacks who was sent from Urgent Care for evaluation for chest pain. She reported left sided chest pain onset was sudden and started at 10am this morning described as stabbing and constant. Chest pain was nonexertional and non reproducible on exam. She reports having bilateral upper and lower extremity pain. She also reported intermittent palpitations, dizziness, and nausea. She denied vomiting, leg swelling, weakness, vision changes, SOB, abdominal pain, or back pain. ER course notable for: EKG- normal sinus rhythm, QTc interval 435, T wave inversions in aVR and V1 Lab findings notable for WBC 12.9 and magnesium 1.5(repleted) CXR- no acute pathology Venous doppler of lower extremities negative for DVT D-Dimer 350 Recent Travel: no PAST MEDICAL HISTORY: IDDM hypertension hyperlipidemia fibromyalgia angina PAST SURGICAL HISTORY: gastric sleeve surgery 1 year ago Social History: Smoking:no Alcohol:no Drugs:no Family History Denies early CAD in family Allergies shellfish derived Allergy (Severe, Verified 05/04/20 14:37) Difficulty Breathing Penicillins Adverse Reaction (Unknown, Verified 05/04/20 14:37) Rash SEAFOOD Allergy (Severe, Uncoded 05/04/20 14:37) Rash HOME MEDICATIONS: Home Medications Medication Instructions Recorded Albuterol 0.083% Nebulizer Myra 1 neb NEB QID 02/16/19 [Ventolin 0.083%] Haloperidol [Haldol -] 5 mg PO HS 02/16/19 Losartan Potassium 50 mg PO DAILY 02/16/19 Pantoprazole Sodium 40 mg PO DAILY 02/16/19 Clonazepam [Klonopin] 1 mg PO BID 09/20/19 Insulin Aspart [Novolog] 20 unit SQ TID 09/20/19 Insulin Glargine,Hum.rec.anlog 60 iu SQ HS 09/20/19 [Basaglar Kwikpen U-100] Trazodone HCl 150 mg PO HS 09/23/19 REVIEW OF SYSTEMS CONSTITUTIONAL: Absent: fever, chills, diaphoresis, generalized weakness, malaise, loss of appetite, weight change HEENT: Absent: rhinorrhea, nasal congestion, throat pain, throat swelling, difficulty swallowing, mouth swelling, ear pain, eye pain, visual changes CARDIOVASCULAR: Absent: chest pain, syncope, palpitations, irregular heart rate, lightheadedness, peripheral edema RESPIRATORY: Absent: cough, shortness of breath, dyspnea with exertion, orthopnea, wheezing, stridor, hemoptysis GASTROINTESTINAL: Absent: abdominal pain, abdominal distension, nausea, vomiting, diarrhea, constipation, melena, hematochezia GENITOURINARY: Absent: dysuria, frequency, urgency, hesitancy, hematuria, flank pain, genital pain MUSCULOSKELETAL: Absent: myalgia, arthralgia, joint swelling, back pain, neck pain SKIN: Absent: rash, itching, pallor HEMATOLOGIC/IMMUNOLOGIC: Absent: easy bleeding, easy bruising, lymphadenopathy, frequent infections ENDOCRINE: Absent: unexplained weight gain, unexplained weight loss, heat intolerance, cold intolerance NEUROLOGIC: Absent: headache, focal weakness or paresthesias, dizziness, unsteady gait, seizure, mental status changes, bladder or bowel incontinence PSYCHIATRIC: Absent: anxiety, depression, suicidal or homicidal ideation, hallucinations. PHYSICAL EXAMINATION Vital Signs - 24 hr 05/04/20 05/04/20 05/04/20 14:37 19:08 19:41 Temperature 97.3 F L 98.1 F Pulse Rate 92 H Pulse Rate [ 83 81 Left Radial] Respiratory 20 16 17 Rate Blood Pressure 142/72 Blood Pressure 152/71 145/74 [Right Arm] O2 Sat by Pulse 98 97 97 Oximetry (%) General no acute distress Vital signs reviewed afebrile Neuro no focal deficits Lungs CTA nonlabored breathing effort no rales no wheezing Heart s1s2 rate regular no murmurs Abdomen soft nontender nondistended Extremities warm to touch no pitting edema Skin nail beds and lips pink Mood calm Laboratory Results - last 24 hr 05/04/20 05/04/20 05/04/20 14:30 14:30 14:30 WBC 12.9 H RBC 4.22 Hgb 11.6 Hct 36.2 MCV 85.7 MCH 27.4 MCHC 32.0 RDW 14.1 Plt Count 292 D MPV 9.2 Absolute Neuts (auto) 9.2 H Neutrophils % 71.6 Lymphocytes % 20.7 D Monocytes % 5.2 Eosinophils % 2.1 Basophils % 0.4 Nucleated RBC % 0 PT with INR 13.40 H INR 1.13 H Sodium Potassium Chloride Carbon Dioxide Anion Gap BUN Creatinine Est GFR (CKD-EPI)AfAm Est GFR (CKD-EPI)NonAf Random Glucose Calcium Magnesium Total Bilirubin AST ALT Alkaline Phosphatase Creatine Kinase Troponin I Total Protein Albumin TSH Urine Color Yellow Urine Appearance Clear Urine pH 6.0 Ur Specific [place] 1.006 L Urine Protein Negative Urine Glucose (UA) Negative Urine Ketones Negative Urine Blood Negative Urine Nitrite Negative Urine Bilirubin Negative Urine Urobilinogen 0.2 Ur Leukocyte Esterase Negative 05/04/20 14:30 WBC RBC Hgb Hct MCV MCH MCHC RDW Plt Count MPV Absolute Neuts (auto) Neutrophils % Lymphocytes % Monocytes % Eosinophils % Basophils % Nucleated RBC % PT with INR INR Sodium 138 Potassium 4.1 Chloride 102 Carbon Dioxide 30 Anion Gap 6 L BUN 9.2 Creatinine 1.1 Est GFR (CKD-EPI)AfAm 63.20 Est GFR (CKD-EPI)NonAf 54.53 Random Glucose 212 H Calcium 8.4 L Magnesium 1.5 L Total Bilirubin 0.2 AST 21 ALT 27 Alkaline Phosphatase 121 H Creatine Kinase 44 Troponin I < 0.02 Total Protein 7.0 Albumin 3.2 L TSH 1.70 Urine Color Urine Appearance Urine pH Ur Specific [place] Urine Protein Urine Glucose (UA) Urine Ketones Urine Blood Urine Nitrite Urine Bilirubin Urine Urobilinogen Ur Leukocyte Esterase ASSESSMENT/PLAN: 59 year old obese female with a past medical history of IDDM, hypertension, hyperlipidemia, fibromyalgia, angina, s/p cardiac cath 5 years ago in [facility], no stents , s/p gastric sleeve, and panic attacks who presented with nonexertional, nonreproducible left sided chest pain associated with intermittent palpitations, dizziness, and nausea. She was found to have a normal troponin. EKG showed no acute ischemic changes. She is being admitted to observation to telemetry for further cardiac evaluation. #1 chest pain r/o acs EKG- normal sinus rhythm, T wave inversions in aVR and V1 trop X2 normal --repeat troponin in am --c/w asa --will add statin therapy --will keep NPO in anticipation for stress test --consider echo in the am to evaluate LVEF and exclude wall motion abnormalities --D-Dimer 350 --venous doppler of BLE negative for DVT --check lipid panel in am --Cardiology consulted- Dr. Gold #2 htn sbp 140-150's --c/w losartan #3 hld LFT's normal --atorvastatin added #4 leukocytosis (?etiology) afebrile, UA normal, CXR normal --repeat CBC in am #5 hypomagmagnesia repleted --repeat magnesium level in am --monitor on telemetry for ventricular ectopy #6 IDDM --BGM before meals and at bedtime --insulin as per sliding scale --check hgba1c --c/w asa and statin --c/w arb #7 rule out COVID --follow up on COVID test --maintain oxygen saturation >90% --maintain strict droplet and contact precautions FEN no IVF indicated BMP and magnesium level daily, replete as needed low sodium, low fat ADA diet DVT Prophylaxis lovenox 40 mg daily Family Medical History Family History: Denies Visit type - Emergency Visit Emergency Visit: Yes ED Registration Date: 05/04/20 Care time: The patient presented to the Emergency Department on the above date and was hospitalized for further evaluation of their emergent condition. - New Patient This patient is new to me today: Yes Date on this admission: 05/05/20 - Critical Care Critical Care patient: No
[2020-05-04] MEDS: ENOXAPARIN NA (PORCINE) 40 MG/0.4 ML DISP.SYRIN SQ SCH (21:24)
[2020-05-04] MEDS: MELATONIN 5 MG TABLETS PO ONE ×2 (21:24→23:25)
--- OUTSIDE RECORDS SUMMARY | 2020-05-04 21:28 | XMS ---
:1960 Author Organization [facility] Care Team Providers Name Role Phone MD JADA, ROLAND Unavailable JOSE BOOKER, RINEliud Unavailable JOSE BOOKER, RINY Unavailable JOSE BOOKER, RINY Unavailable JOSE BOOKER, RINY Unavailable ELINA GALLARDO Unavailable Unavailable ITZEL HARVEY Unavailable Unavailable ED STAFF PHYSICIAN, STAFF Unavailable Unavailable Gregoria Cabrales Unavailable [phone] William Cabrales Unavailable [phone] William Cabrales Unavailable [phone] EMY Salazar Unavailable Unavailable Gume, TEACHING ASSISTANT Unavailable Unavailable Gume, TEACHING ASSISTANT Unavailable Unavailable Gume, TEACHING ASSISTANT Unavailable Unavailable Gume, TEACHING ASSISTANT Unavailable Unavailable Cesia-Gabriel Unavailable [phone] Cesia-Gabriel Unavailable [phone] ANTONIO Thomas Unavailable Unavailable ED STAFF PHYSICIAN Unavailable Unavailable CESIA-GABRIEL DESTINI Unavailable Unavailable DEENA DDS Unavailable [facility] Unavailable Unavailable Sophie, DO Unavailable Sophie, DO Unavailable JANE DDS Unavailable Aszalos, Chely Unavailable Unavailable Aszalos, Chely Unavailable Unavailable Aszalos, Chely Unavailable Unavailable Aszalos, Chely Unavailable Unavailable Aszalos, Chely Unavailable Unavailable Aszalos, Chely Unavailable Unavailable Aszalos, Chely Unavailable Unavailable Aszalos, Chely Unavailable Unavailable Aszalos, Chely Unavailable Unavailable LOVE Unavailable Unavailable Veselinovic Unavailable [phone] Veselinovic Unavailable [phone] SHAHZA DENT HY Unavailable Re-disclosure Warning The records that you are about to access may contain information from federally- assisted alcohol or drug abuse programs. If such information is present, then the following federally mandated warning applies: This information has been disclosed to you from records protected by federal confidentiality rules (42 CFR part 2). The federal rules prohibit you from making any further disclosure of this information unless further disclosure is expressly permitted by the written consent of the person to whom it pertains or as otherwise permitted by 42 CFR part 2. A general authorization for the release of medical or other information is NOT sufficient for this purpose. The Federal rules restrict any use of the information to criminally investigate or prosecute any alcohol or drug abuse patient.The records that you are about to access may contain highly sensitive health information, the redisclosure of which is protected by Article 27-F of the [facility] Public Health law. If you continue you may haveaccess to information: Regarding HIV / AIDS; Provided by facilities licensed or operated by the [facility] Office of Mental Health; or Provided by the [facility] Office for People With Developmental Disabilities. If such information is present, then the following [facility] mandated warning applies: This information has been disclosed to you from confidential records which are protected by state law. State law prohibits you from making any further disclosure of this information without the specific written consent of the person to whom it pertains, or as otherwise permitted by law. Any unauthorized further disclosure in violation of state law may result in a fine or care home sentence or both. A general authorization for the release of medical or other information is NOT sufficient authorization for further disclosure. Allergies and Adverse Reactions Type Description Substance Reaction Status Data Source(s ) Drug allergy Penicillin Penicillin Unknown Active NEXTGEN ([facility]) Drug allergy PENICILLIN G Penicillin G Active MEDGEN ( [facility]) Drug allergy PENICILLIN G Penicillin G Active MEDGEN ( [facility]) Drug allergy Penicillins Penicillins Active OLIVIA ( [facility]) Drug allergy Penicillins Penicillins [facility] Food allergy No Known Food No Known Food [facility] Encounters Encounter Providers Location Date Indications Data Source(s ) OutpatientOFFICE Attender: Mental Health 04/17/2020 NEXTG EN ([facility] 10:55:00 AM [facility] VISIT, [facility] 04/17/2020 10:55:00 AM EDT Attender: Miriam 04/13/2020 MIL Dunaway NP 12:00:00 AM ([facility]) Office Attender: Miriam Dunaway NP 04/13/2020 12:00:00 AM EDT MEDGEN ([facility]) Office Attender: Miriam Dunaway NP 04/13/2020 12:00:00 AM EDT MEDGEN ([facility]) Office Attender: Miriam Dunaway NP 04/13/2020 12:00:00 AM EDT MEDGEN ([facility]) Office Attender: Miriam Dunaway NP 04/13/2020 12:00:00 AM EDT MEDGEN ([facility]) Office Attender: Miriam Dunaawy NP 04/13/2020 12:00:00 AM EDT MEDGEN ([facility]) Office Attender: Miriam Dunaway NP 04/13/2020 12:00:00 AM EDT MEDGEN ([facility]) Office Attender: Miriam Dunaway NP 04/13/2020 12:00:00 AM EDT MEDGEN ([facility]) Office Attender: Miriam Dunaway NP 04/13/2020 12:00:00 AM EDT MEDGEN ([facility]) Office Attender: Miriam Dunaway NP 04/13/2020 12:00:00 AM EDT MEDGEN ([facility]) Office Attender: Miriam Dunaway NP 04/13/2020 12:00:00 AM EDT MEDGEN ([facility]) Office Attender: Miriam Dunaway NP 04/13/2020 12:00:00 AM EDT MEDGEN ([facility]) Office Attender: Miriam Dunaway NP 03/31/2020 12:00:00 AM EDT MEDGEN ([facility]) Office Attender: Miriam Dunaway NP 03/31/2020 12:00:00 AM EDT MEDGEN ([facility]) Office Attender: Miriam Dunaway NP 03/31/2020 12:00:00 AM EDT MEDGEN ([facility]) Office Attender: Miriam Dunaway NP 03/31/2020 12:00:00 AM EDT MEDGEN ([facility]) Office Attender: Miriam Dunaway NP 03/31/2020 12:00:00 AM EDT MEDGEN ([facility]) Office Attender: Miriam Dunaway NP 03/31/2020 12:00:00 AM EDT MEDGEN ([facility]) Office Attender: Miriam Dunaway NP 03/31/2020 12:00:00 AM EDT MEDGEN ([facility]) Office Attender: Miriam Dunaway NP 03/31/2020 12:00:00 AM EDT MEDGEN ([facility]) Office Attender: Miriam Dunaway NP 03/31/2020 12:00:00 AM EDT MEDGEN ([facility]) Office Attender: Miriam Dunaway NP 03/31/2020 12:00:00 AM EDT MEDGEN ([facility]) Office Attender: Miriam Dunaway NP 03/31/2020 12:00:00 AM EDT MEDGEN ([facility]) Office Attender: Miriam Dunaway NP 03/31/2020 12:00:00 AM EDT MEDGEN ([facility]) Office Attender: [facility] 03/20/2020 NE XTGEN [facility] 11:26:00 AM EDT - Anika sephs 03/20/2020 Medical 11:26:00 AM EDT Center) [facility]OFF[facility]/ [facility] NEXTGEN ([facility] OUTPATIENT VISIT, Cesia-[facility] 10:53:00 AM EDT - Alexus EST 03/20/2020 Medical 10:53:00 AM EDT Center) OutpatientOFFICE/ Attender: [facility] 02/20/2020 DEE ([facility] OUTPATIENT VISIT, [facility] 02:40:00 PM EDT - Alexus EST 02/20/2020 Medical 02:40:00 PM EDT Center) OutpatientOFFICE/ Attender: [facility] OUT[facility], [facility] 01:33:00 PM EDT - Alexus EST 01/24/2020 Medical 01:33:00 PM EDT Center) Attender: [facility] 01/21/2020 HI XTGEN ([facility] 03:29:00 PM EDT - Anika sephs 01/21/2020 Medical 03:29:00 PM EDT Center) OutpatientOFFICE/ Attender: [facility] 12/25/2019 [facility] ([facility] OUTPATIENT VISIT, [facility] 02:16:00 PM EDT - Alexus EST 12/25/2019 Medical 02:16:00 PM EDT Center) OutpatientOFFICE/ Attender: [facility] 11/26/2019 [facility] ([facility] OUTPATIENT VISIT, [facility] 01:25:00 PM EDT - Alexus EST 11/26/2019 Medical 01:25:00 PM EDT Center) OutpatientOFFICE/ Attender: [facility] 10/28/2019 [facility] ([facility] OUTPATIENT VISIT, Cesia-[facility] 11:52:00 AM EDT - Alexus EST 10/28/2019 Medical 11:52:00 AM EDT Center) Outpatient Attender: MHAW9 [facility] 10/01/2019 GS I ([place] 12:16:40 PM EST [facility]) Patient admitted. OutpatientOFFICE/OUTPATIENT Attender: [facility] 09/27/2019 [facility] 12:23:00 PM ([facility] EST - Alexus 09/27/2019 Medical 12:23:00 PM Center) EST Attender: [facility] 09/26/2019 NEXTG EN [facility] 04:09:00 PM ([facility] EST - Alexus 09/26/2019 Medical 04:09:00 PM Center) EST Outpatient Attender: DOV Ruby 09/06/2019 [facility] KHALILAdmitter: 01:54:00 PM Alexus MONAE [facility] Medical GUMAROALILReferrer: [place] DOV LOVE OutpatientOFFICE/OUTPATIENT Attender: [facility] 08/29/2019 NEXTGEN VISIT, [facility] 02:37:00 PM ([facility] 08/29/2019 Medical 02:37:00 PM Center) EST Outpatient Attender: DESTINI 08/24/2019 [facility] 10:21:00 AM Alexus STAHLZAAttender: EST Medical [facility] JELENAAdmitter: [facility] DESTINI [facility] 08/24[facility] [facility] 10:21:00 AM ([facility] 08/24/2019 Medical 10:21:00 AM Center) EST OutpatientOFFICE/OUTPATIENT Attender: [facility] 08/01/2019 [facility] VISIT, [facility] 11:15:00 AM ([facility] 08/01/2019 Medical 11:15:00 AM Center) EST Emergency Attender: ARTURO ED H 07/20/2019 [facility] STAFF 11:06:00 AM Alexus PHYSICIANAttender: EST - Medica l STAFF ED STAFF 07/20/2019 [place] PHYSICIANAdmitter: 11:58:00 PM ARTURO ED STAFF EST PHYSICIAN Patient discharged. Attender: [facility] 07/19/2019 JESSICA KNIGHT ([facility] 08:40:00 AM [facility] - 07/19/2019 Center) 08:40:00 AM EST Attender: [facility] 07/02/2019 NE XTGEN ([facility] 01:21:00 PM [facility] - 07/02/2019 [place]) 01:21:00 PM EST Outpatient<td Attender: ELINA Dixon 06/20/2019 APARNA NEELY [facility] ID="Jesus GALLARDO [facility] 02:00:00 PM EST Ed non eDescriptionID0" Health Center - 06/20/2019 [facility] >NUTRITION 11:59:00 PM EST Health Ce nter) INITIAL VISIT</td><td>[address]</td><td>[facility]</td><td>1 08/20/2018</td><t d></td> OutpatientOFFICE Attender: [facility] 06/03/2019 NEXTGEN ([facility] /OUTPATIENT [facility] 10:32:00 AM EDT Jesse ephs Medical VISIT, EST - 06/03/2019 Center) 10:32:00 AM EDT Outpatient Attender: EMY Ruby 05/21/2019 [facility] JO KAdmitter: 09:15:00 AM EDT Medical Center EMY OSORIO KReferrer: EMY Salazar Outpatient Admitter: GREGORIA Ruby 05/17/2019 [facility] ANTONIO Thomas 09:07:00 AM EDT Medical Center Outpatient Attender: GREGORIA Ruby 05/17/2019 [facility] ANTONIO KINNEY 08:59:00 AM ED Medical Center MAdmitter: GREGORIA Franklin 05/17/2019 ANTONIO KINNEY 12:26:00 PM EDT MReferrer: GREGORIA Thomas Attender: Gregoria 05/17/2019 DEE ([facility] 08:59:00 AM EDT [facility] - 05/17/2019 Center) 08:59:00 AM EDT Outpatient Admitter: GREGORIA Ruby 05/17/2019 [facility] ANTONIO Thomas 12:00:00 AM EDT Medical Center Attender: [facility] 05/09/2019 NE XTGEN ([facility] 04:46:00 PM EDT [facility] Medical - 05/09/2019 Center) 04:46:00 PM EDT OutpatientOFFICE Attender: [facility] 05/03/2019 NEXT ([facility] /OUTPATIENT [facility] 10:23:00 AM EDT Jesse ephs Medical VISIT, EST - 05/03/2019 Center) 10:23:00 AM EDT Outpatient Attender: GREGORIA Ruby 05/01/2019 [facility] ANTONIO KINNEY 11:40:00 AM ED Medical Center MAdmitter: GREGORIA Thomas OutpatientOFFICE Attender: Gregoria [facility] 05/01/2019 N EXTGEN ([facility] /OUTPATIENT [place] 11:40:00 AM EDT Alexus Medical VISIT, [facility] - 05/01/2019 Center) 11:40:00 AM EDT OutpatientOFFICE Attender: [facility] 04/05/2019 [facility] ([facility] /OUTPATIENT [facility] 12:02:00 PM EDT Jesse lunabrendan Medical VISIT, [facility] - 04/05/2019 Center) 12:02:00 PM EDT Outpatient 03/15/2019 GSI ([place] 11:28:15 AM EDT [facility]) Patient admitted. Outpatient 03/15/2019 11:28:10 AM EDT GSI ([facility]) Patient admitted. OutpatientOFFICE/OUTPATIENT Attender: Mental 03/08/2019 [facility] VISIT, [facility] 09:12:00 AM ([facility] EDT [facility] 03/08/2019 Medical 09:12:00 AM Center) EDT Attender: Mental 02/28/2019 [facility]22[facility]00 [facility] 02/28/2019 Medical 02:22:00 PM Center) EDT Attender: Mental 02/18/2019 [facility] 02:24:00 PM [facility] 02/18/2019 Medical 02:24:00 PM Center) EDT Outpatient<td [place] 02/12/2019 [place] ID="encounterTypeDescription Community 11:15:00 AM ([place] ID1">WALKINS</td><td> Health EDT - [facility] </td><td>[facility] 02/12/2019 [facility] 11:59:00 PM Center) Center</td><td>02/12/2019</t EDT d><td></td> OutpatientOFFICE/OUTPATIENT Attender: Mental 01/21/2019 [facility] VISIT, [facility] 03:53:00 PM ([facility] EDT [facility] 01/21/2019 Medical 03:53:00 PM Center) EDT Attender: Mental 01/21/2019 [facility] 01:10:00 PM ([facility] 01/21/2019 Medical 01:10:00 PM Center) EDT OutpatientOFFICE/OUTPATIENT Attender: Mental 12/24/2018 [facility] VISIT, [facility] 02:34:00 PM [facility] 12/24/2018 Medical 02:34:00 PM Center) EDT Attender: Mental 12/18/2018 [facility] 05:36:00 PM [facility] 12/18/2018 Medical 05:36:00 PM Center) EDT Attender: Mental 12/10/2018 [facility] 09:30:00 AM ([facility] 12/10/2018 Medical 09:30:00 AM Center) EDT OutpatientOFFICE/OUTPATIENT Attender: Mental 11/12/2018 [facility] VISIT, [facility] 11:38:00 AM ([facility] 11/12/2018 Medical 11:38:00 AM Center) EDT OutpatientOFFICE/OUTPATIENT Attender: Mental 10/15/2018 [facility] VISIT, [facility] 02:28:00 PM ([facility] 10/15/2018 Medical 02:28:00 PM Center) EST Outpatient Attender: DESTINI 09/21/2018 [facility] 10:05:00 AM Medical ELIZAAdmitter: [facility] DESTINI OutpatientOFFICE/OUTPATIENT Attender: Mental 09/21/2018 [facility] VISIT, [facility] 09:38:00 AM ([facility] 09/21/2018 Medical 09:38:00 AM Center) EST 09/21/2018 [facility] 12:00:00 AM Medical EST [facility] 03/12/2017 12:00:00 AM EDT Attender: Mental 08/29/2018 [facility] 09:11:00 AM ([facility] 08/29/2018 Medical 09:11:00 AM Center) EST Outpatient<td Attender: Destiny 12/07/2017 OLIVIA ID="encounterTypeDescription HAI GIL DDS [facility] 10:30:00 AM (Davin Tovar ID2">DENTALVISIT</td><td>[facility] 12/07/2017 Health DDS</td><td>[place] 11:59:00 PM Cent er) [facility] Health EDT Center</td><td>12/07/2017</t d><td></td> Outpatient<td Attender: MARYANNE Dixon 11/21/2017 [facility] ID="encounterTypeDescription SHAHZA DENT HY [facility] 11:30:00 AM ([place] ID3">DENTALVISIT</td><[facility] SHAHZA DENT [facility] 11/21/2017 Health HY</td><td>Destiny [facility] 11:59:00 PM Center Health EDT Center</td><td>11/21/2017</t d><td></td> Outpatient<td Attender: Destiny 11/14/2017 OLIVIA ID="encounterTypeDescription HAI GIL DDS [facility] 01:45:00 PM (Davin [place] ID4">PREDETERMINATION Health EDT - [facility] ENCOUNTER</td><td>HAI [place] 11/14/2017 Health DEENA DDS</td><td>[place] 11:59:00 PM Center) [facility] Health EDT Center</td><td>11/14/2017</t d><td></td> Outpatient<td Attender: Destiny 11/14/2017 OLIVIA ID="encounterTypeDescription HAI SHAFFER DDS [facility] 10:30:00 AM ([place] ID5">DENTAL RE-CALL Health EDT - [facility] VISIT</td><td>HAI SHAFFER [facility] 11/14/2017 Health DDS</td><td>[place] 11:59:00 PM Cent er) [facility] Health EDT Center</td><td>11/14/2017</t d><td></td> Outpatient<td Attender: Destiny 10/03/2017 OLIVIA ID="encounterTypeDescription HAI GIL S Community 11:30:00 AM ([place] ID6">DENTALVISIT</td><td>[facility] 10/03/2017 Health DDS</td><td>[place] 11:59:00 PM Cent er) [facility] EST [place]</td><td>10/03/2017</t d><td></td> [facility]: [facility] ([facility] 09/21/2017 [facility] 08:05:00 AM [place]) EST Outpatient<td Attender: Destiny 09/15/2017 OLIVIA ID="encounterTypeDescriptartem SHAFFER DDS Community 12:00:00 PM ([place] ID7">DENTALVISIT</td><td>[facility] 09/15/2017 Health DDS</td><td>[place] 11:59:00 PM Cent er) [facility]</td><td>09/15/2017</t d><td></td> Outpatient<td Attender: Destiny 08/29/2017 OLIVIA ID="encounterTypeDescriptartem HAI GIL DDS Community 11:00:00 AM (Davin Tov[place] ID8">DENTALVISIT</td><td>[facility] 08/29/2017 Health DDS</td><td>[place] 11:59:00 PM Cent er) [facility]</td><td>08/29/2017</t d><td></td> Outpatient<td Attender: Destiny 08/22/2017 OLIVIA ID="encounterTypeDescription HAI GIL S Community 11:00:00 AM (Davin Tovar ID9">DENTALVISIT</td><td>[facility] 08/22/2017 Health DDS</td><td>[place] 11:59:00 PM Cent er) [facility] Health EST Center</td><td>08/22/2017</t d><td></td> Outpatient<td Attender: Destiny 07/24/2017 OLIVIA ID="encounterTypeDescription HAI SHAFFER DDS Community 09:30:00 AM (Davin Tov[place] ID10">DENTALVISIT</td><td>BE Health EST - [facility] 07/24/2017 Health DDS</td><td>[place] 11:59:00 PM Cent er) [facility] Health EST Center</td><td>07/24/2017</t d><td></td> Outpatient<td Attender: Destiny 07/17/2017 OLIVIA ID="encounterTypeDescription HAI SHAFFER DDS [facility] 10:30:00 AM (Davin Tovar ID11">*No Health EST - Neighborhood Show*</td><td>HAI [facility] 07/17/2017 Health DDS</td><td>[place] 11:59:00 PM Cent er) [facility] Health EST Center</td><td>07/17/2017</t d><td></td> Outpatient<td Attender: Destiny 06/21/2017 OLIVIA ID="encounterTypeDescription HAI SHAFFER DDS [facility] 12:30:00 PM (Davin [place] ID12">DENTALVISIT</td><td>BE Health EST - [facility] 06/21/2017 Health DDS</td><td>[place] 11:59:00 PM Cent er) [facility] Health EST Center</td><td>06/21/2017</t d><td></td> Outpatient<td Attender: NICO Dixon [facility]="encounterTypeDescription JANE DDS [facility] 11:59:00 AM (Davin Tovar ID13">*No Show*</td><[facility]</td><td>[facility] 05/31/2017 [facility] 11:59:00 PM Center) Center</td><td>05/31/2017</t EDT d><td></td> Outpatient<td Attender: NICO Dixon 05/24/2017 ARABELLA Y ID="encounterTypeDescription JANE DDS [facility] 12:19:00 PM (Davin Tovar ID14">*No Show*</td><td>[facility]</td><td>[facility] 05/24/2017 [facility] 11:59:00 PM Center Center</td><td>05/24/2017</t EDT d><td></td> Outpatient<td Attender: NICO Dixon 05/17/2017 ARABELLA Y ID="encounterTypeDescription JANE DDS [facility] 11:30:00 AM (Davin Tov[place] ID15">DENTALVISIT</td><td>DO Health EDT [facility] 05/17/2017 Health DDS</td><td>[place] 11:59:00 PM [facility] Health EDT Center</td><td>05/17/2017</t d><td></td> Outpatient<td Attender: MARYANNE Dixon 05/09/2017 FRITZ AY ID="encounterTypeDescription SHAHZA DENT HY [facility] 09:30:00 AM ([place] ID16">DENTALVISIT</td><td>[facility] EDT [facility] DANO ALEXANDREZA DENT Center 05/09/2017 Health HY</td><td>[facility] 11:59:00 PM [facility] EDT Center</td><td>05/09/2017</t d><td></td> Outpatient<td Attender: NICO Dixon 04/26/2017 ARABELLA Y ID="encounterTypeDescription JANE DDS [facility] 09:00:00 AM (Dav[place] ID17">DENTAL RE-CALL Health EDT - [facility] hborhood VISIT</td><td>NICO [facility] 04/26/2017 Health DDS</td><td>[place] 11:59:00 PM Cent [facility] EDT Center</td><td>04/26/2017</t d><td></td> Outpatient<td Attender: Destiny 07/23/2012 Diabete OLIVIA ID="encounterTypeDescription ROLAND ELIAS MD [facility] 03:12:00 PM s (Davin Tovar ID18">WALKINS</td><td>[facility] MD JADA</td><td>[facility] 07/23/2012 [facility] 04:37:44 PM 2 - Center Center</td><td>07/23/2012</t EST Uncompl d><td><content icated, ID="[id number] Uncontr ">Diabetes Mellitus Type 2 - olled Uncomplicated, Uncontrolled</content></td> Diabetes Mellitus Type 2 - Uncomplicated , Uncontrolled Outpatient<td Attender: Destiny 04/18/2012 OLIVIA ID="[id number]">WALKINS</td><td>[facility] 12:33:00 PM (Davin GARCIA MD</td><td>[facility] JOSE BOOKER [facility] EDT [facility]</td><td>04/18/2012</td><td></td> Center [address] [place] [address] 05:17:28 PM Center) EDT Outpatient<td Attender: Destiny 03/07/2012 OLIVIA ID="[id number]">[Patient [facility] 12:1 9:00 PM (Davin Tovar Encounter]</td><td>ANGELA GARCIA MD</td><td>Destiny GARCIA MD [facility] EDT [facility] 03/07/2012 Health Center</td><td>03/07/2012</td><td></td> 11:59:0 0 PM Center) EDT Outpatient<td Attender: Destiny 03/07/2012 OLIVIA ID="[id number]">WALKINS</td><td>[facility] 11:03:00 AM (Davin GARCIA MD</td><td>[facility] JOSE BOOKER Health EDT - [facility]</td><td>03/07/2012</td><td></td> Center [address] [place] [address] 05:10:10 PM Center) EDT Outpatient<td [place] 11/29/2011 OLIVIA ID="[id number]">WALKINS</td><td> Communi ty 11:30:00 AM ([place] </td><td>[facility] E DT - [facility]</td><td>11/29/2011</td><td></td> Center [address] [place] [address] 11:59:00 PM Center) EDT Outpatient<td [place] 10/24/2011 OLIVIA ID="[id number]">WALKINS</td><td> Communi ty 10:30:00 AM ([place] [facility] </td><td>[facility] E DT - [facility]</td><td>10/24/2011</td><td></td> Center [address] [place] [address] 11:59:00 PM Center) EDT Outpatient<td [place] 09/01/2011 OLIVIA ID="[id number]">WALKINS</td><td> Communi ty 12:00:00 PM ([place] </td><td>[facility] E ST - [facility]</td><td>09/01/2011</td><td></td> Center [facility] 11:59:00 PM Center) EST Outpatient<td ID="[id number]">OFFICE Attender: Destiny 04/28/2011 OLIVIA VISIT</td><td>ANGELA GARCIA MD</td><td>General acute hospital 12:30:00 PM ([place] [facility]</td><td>04/28/2011</td><td></td> [facility] EDT - [facility] 04/28/2011 Health 11:59:00 PM Center) EDT Outpatient<td [place] 04/22/2011 OLIVIA ID="[id number]">WALKINS</td><td> Communi ty 09:00:00 AM ([place] </td><td>[facility] E DT - [facility]</td><td>04/22/2011</td><td></td> Center [address] [place] [address] 11:59:00 PM Center) EDT Outpatient<td ID="[id number]">OFFICE Attender: [place] 04/11/2011 OLIVIA VISIT</td><td>[facility] </td><td>[facility] 11:30:00 AM ([facility] EDT - [facility]</td><td>04/11/2011</td><td></td> [facility] [address] [place] [address] 11:59:00 PM Center) EDT Outpatient<td [place] 03/21/2011 OLIVIA ID="[id number]">WALKINS</td><td> Communi ty 11:30:00 AM ([place] </td><td>[facility] DT [facility]</td><td>03/21/2011</td><td></td> Center [address] [place] [address] 11:59:00 PM Center) EDT Attender: Family 07/21/2009 [facility] 10:57:00 AM ([facility] 07/21/2009 Medical 10:57:00 AM Center) EST Immunizations Vaccine Date Status Description Data Source(s) Note that this vaccine 08/05/2016 completed [facility] name has changed. See 03:28:00 AM EST Ce nter also Td (adult). It is not adsorbed. Medications Medication Brand Start Product Dose Route Administrative Pharmacy St atus Indications Reaction Description Data Name Date Form Instructions Instructions Source(s) 24 HR Effexo 04/17/ active 24 HR NEXTGEN venlafaxine r XR 2020 venlafaxine ( [facility] 75 MG 75 mg 12:00: 75 MG Alex[facility] Extended capsul 00 AM Extended Medi galindo Release e,exte EDT Release Oral Ce nter) Oral nded Capsule Capsule releas [Effexor] [Effexor] e Effexor XR 75 mg capsule,ext ended release Trazodone trazod ORAL active take 1 NE XTGEN Hydrochlori one 2019 {tabl tablet by (S aint de 150 MG 150 mg 12:00: et} oral route Alexus Oral Tablet tablet 00 AM every Medi galindo trazodone EDT bedtime for [facility]) 150 mg insomnia tablet 24 HR Effexo 04/17/ active 24 HR NEXTGEN venlafaxine r XR 2019 venlafaxine ( [facility] 150 MG 150 mg 12:00: 150 MG Alexus Extended capsul 00 AM Extended Medi galindo Release e,exte EDT Release Oral Ce nter) Oral nded Capsule Capsule releas [Effexor] [Effexor] e Effexor XR 150 mg capsule,ext ended release Haloperidol halope 04/17/ active TAKE 08/15 NEXTGEN 5 MG Oral ridol 2019 TABLET BY (Nadir nt Tablet 5 mg 12:00: ORAL ROUTE Dave hs haloperidol tablet 00 AM EVERY DAY AT Medical 5 mg tablet EDT BEDTIME FOR C enter) PSYCHOSIS FOR PSYCHOSIS Clonazepam Klonop 04/17/ active clonazep am 1 NEXTGEN 1 MG Oral in 1 2020 MG Oral ([facility] Tablet mg 12:00: Tablet Alexus [Klonopin] tablet 00 AM [Klonopin] [facility] Klonopin 1 EDT Center) mg tablet Sulfamethox BACTRI 04/13/ TABLET 14 complet BACT RIM DS MEDGEN azole 800 M 2019 ed ([place] MG / DS:849 12:00: Medical Trimethopri 580 00 AM Service ) m 160 MG EDT Oral Tablet [Bactrim] BACTRIM DS:[id number] UBRELVY:226 04/13/ TABLET 30 complet UBRELV Y MEDGEN 8231 2019 ed ([place] 12:00: Medical 00 AM Service) EDT BASAGLAR 04/13/ SOLUTION 450 complet BASAGLA R MEDGEN KWIKPEN:173 2019 ed KWIKPEN ([place] 6863 12:00: Medical 00 AM Service) EDT Losartan LOSART 03/31/ TABLET 30 complet LOSARTA N MEDGEN Potassium AN:979 2019 ed ([facility] 100 MG Oral 480 12:00: Medica l Tablet 00 AM Service) LOSARTAN:97 EDT 9480 Albuterol ALBUTE 03/31/ SOLUTION 1 complet ALBU TEROL MEDGEN 0.83 MG/ML ROL:63 2019 ed ([facility] Inhalant 0208 12:00: Medical Solution 00 AM Service) ALBUTEROL:6 EDT 26238 24 HR METOPR 03/31/ TABLET, 30 complet METOPROLO L MEDGEN metoprolol OLOL 2020 EXTENDED ed SUCCINATE ER ([place] succinate SUCCIN 12:00: RELEASE Med ical 50 MG ATE 00 AM Service) Extended ER:866 EDT Release 436 Oral Tablet METOPROLOL SUCCINATE ER:481867 Insulin, NOVOLO 03/31/ SOLUTION 1980 complet NOVOL OG MEDGEN Aspart, G 2019 ed FLEXPEN ([place] Human 100 FLEXPE 12:00: Medica l UNT/ML N:3110 00 AM Service) Injectable 40 EDT Solution NOVOLOG FLEXPEN:311 040 Isopropyl ALCOHO 03/31/ PAD 90 complet ALCOHOL PAD MEDGEN Alcohol 0.7 L 2019 ed ([facility] ML/ML PAD:79 12:00: Medical Medicated 7544 00 AM Service) Pad ALCOHOL EDT PAD:332966 BASAGLAR 03/31/ SOLUTION 1800 complet BASAGLA R MEDGEN KWIKPEN:173 2019 ed KWIKPEN ([place] 12:00: Medical 00 AM Service) EDT BLOOD complet BLOOD MEDGEN GLUCOSE 2020 ed GLUCOSE TEST ([facility] adway TEST IN 12:00: IN VITRO Medica l VITRO 00 AM STRIP Service) STRIP: EDT Amylases CREON: 03/31/ DELAYED 150 complet CREON MEDGEN [id number] UNT [id number] 2000 RELEASE ed ( [place] 12:00: CAPSULE Medical Endopeptida 00 AM Service ) ses 579202 EDT UNT / Lipase 06329 UNT Delayed Release Oral Capsule [Creon] CREON:33409 27 Amylases CREON: 03/31/ DELAYED 150 complet CREON MEDGEN 933642 UNT [id number] 7104 RELEASE ed ( [place] 12:00: CAPSULE Medical Endopeptida 00 AM Service ) ses 530246 EDT UNT / Lipase 79886 UNT Delayed Release Oral Capsule [Creon] CREON:50417 27 atorvastati LIPITO 08/18/ TABLET 30 complet LIPI TOR MEDGEN n 20 MG R:6173 2020 ed ([place] Oral Tablet 18 12:00: Medica l [Lipitor] 00 AM Service) LIPITOR:617 EDT 318 BASAGLAR 03/31/ SOLUTION 1800 complet BASAGLA R MEDGEN KWIKPEN:173 2020 ed KWIKPEN ([place] 12:00: Medical 00 AM Service) EDT Isopropyl ALCOHO 03/31/ PAD 90 complet ALCOHOL PAD MEDGEN Alcohol 0.7 L 2020 ed ([facility] ML/ML PAD:79 12:00: Medical Medicated 7544 00 AM Service) Pad ALCOHOL EDT PAD:972431 BLOOD complet BLOOD MEDGEN GLUCOSE 2020 ed GLUCOSE TEST ([facility] TEST IN 12:00: IN VITRO Medica l VITRO 00 AM STRIP Service) STRIP: EDT Albuterol ALBUTE 03/31/ SOLUTION 1 complet ALBU TEROL MEDGEN 0.83 MG/ML ROL:63 [facility] 12:00: Medical Solution 00 AM Service) ALBUTEROL:6 EDT 14817 pantoprazol PROTON 03/31/ DELAYED 30 complet PRO TONIX MEDGEN e 40 MG IX:314 2020 RELEASE ed ([facility] Delayed 200 12:00: TABLET Medical Release 00 AM Service) Oral Tablet EDT PROTONIX:31 4200 Acetaminoph TYLENO 03/31/ TABLET 120 complet TYLE NOL MEDGEN en 325 MG L:3137 2019 ed ([facility] Oral Tablet 82 12:00: Medica l TYLENOL:313 00 AM Service ) 782 EDT 200 ACTUAT VENTOL 03/31/ AEROSOL 1 complet VENT DARIUS HFA MEDGEN Albuterol IN 2020 ed ([place] 0.09 HFA:74 12:00: Medical MG/ACTUAT 5679 00 AM Service) Metered EDT Dose Inhaler VENTOLIN HFA:735395 200 ACTUAT VENTOL 03/31/ AEROSOL 1 complet VENT DARIUS HFA MEDGEN Albuterol IN 2020 ed ([place] 0.09 HFA:74 12:00: Medical MG/ACTUAT 5679 00 AM Service) Metered EDT Dose Inhaler VENTOLIN HFA:638106 atorvastati LIPITO 03/31/ TABLET 30 complet LIPI TOR MEDGEN n 20 MG R:6173 2019 ed ([place] Oral Tablet 18 12:00: Medica l [Lipitor] 00 AM Service) LIPITOR:617 EDT 318 Losartan LOSART 03/31/ TABLET 30 complet LOSARTA N MEDGEN Potassium AN:979 2019 ed ([facility] 100 MG Oral 480 12:00: Medica l Tablet 00 AM Service) LOSARTAN:97 EDT 9480 Acetaminoph TYLENO 03/31/ TABLET 120 complet TYLE NOL MEDGEN en 325 MG L:3137 2019 ed ([facility] Oral Tablet 82 12:00: Medica l TYLENOL:313 00 AM Service ) 782 EDT pantoprazol PROTON 03/31/ DELAYED 30 complet PRO TONIX MEDGEN e 40 MG IX:314 2019 RELEASE ed ([facility] Delayed 200 12:00: TABLET Medical Release 00 AM Service) Oral Tablet EDT PROTONIX:31 4200 Insulin, NOVOLO 03/31/ SOLUTION 1980 complet NOVOL OG MEDGEN Aspart, G 2019 ed FLEXPEN ([place] Human 100 FLEXPE 12:00: Medica l UNT/ML N:3110 00 AM Service) Injectable 40 EDT Solution NOVOLOG FLEXPEN:311 040 24 HR METOPR 03/31/ TABLET, 30 complet METOPROLO L MEDGEN metoprolol OLOL 2019 EXTENDED ed SUCCINATE ER ([place] succinate SUCCIN 12:00: RELEASE Med ical 50 MG ATE 00 AM Service) Extended ER:866 EDT Release 436 Oral Tablet METOPROLOL SUCCINATE ER:240530 Haloperidol halope 03/20/ complet TAKE 1 /2 NEXTGEN 5 MG Oral ridol 2019 ed TABLET BY (Nadir nt Tablet 5 mg 12:00: ORAL ROUTE Dave hs haloperidol tablet 00 AM EVERY DAY AT Medical 5 mg tablet EDT BEDTIME FOR C enter) PSYCHOSIS FOR PSYCHOSIS 24 HR Effexo 03/20/ complet 24 HR NEXTGE N venlafaxine r XR 2019 ed venlafaxine ( [facility] 150 MG 150 mg 12:00: 150 MG Alexus Extended capsul 00 AM Extended Medi galindo Release e,exte EDT Release Oral Ce nter) Oral nded Capsule Capsule releas [Effexor] [Effexor] e Effexor XR 150 mg capsule,ext ended release Trazodone trazod ORAL complet take 1 N EXTGEN Hydrochlori one 2019 {tabl ed tablet by (S aint de 150 MG 150 mg 12:00: et} oral route Alexus Oral Tablet tablet 00 AM every Medi galindo trazodone EDT bedtime for [facility]) 150 mg insomnia tablet Clonazepam Klonop clonaze wilmer 1 NEXTGEN 1 MG Oral in 2019 ed MG Oral ([facility] Tablet mg 12:00: Tablet Alexus [Klonopin] tablet 00 AM [facility]) mg tablet 24 HR Effexo 24 HR NEXTGE N venlafaxine r XR 2019 ed venlafaxine ( [facility] 75 MG 75 mg 12:00: 75 MG Alexus Extended capsul 00 AM Extended Medi galindo Release e,exte EDT Release Oral Ce nter) Oral nded Capsule Capsule releas [Effexor] [Effexor] e Effexor XR 75 mg capsule,ext ended release Clonazepam Klonop ORAL complet Clonaze wilmer 1 NEXTGEN 1 MG Oral in 2019 {tbl} ed MG Oral ([facility] Tablet mg 12:00: Tablet Alexus [Klonopin] tablet 00 AM [facility]) mg tablet Medication administered onsite Trazodone trazodone 02/20/2020 1 ORAL completed take 1 NEXTGEN Hydrochloride 150 mg 12:00:00 AM {tbl} t ablet by ([facility] 150 MG Oral tablet EDT oral route Alexus Tablet every Medical trazodone 150 bedtime for Center) mg tablet insomnia 24 HR Effexor XR 02/20/2020 completed 24 HR NEXTGEN venlafaxine 150 mg 12:00:00 AM venl afaxine ([facility] 150 MG capsule,exte EDT 150 MG Jesse ephs Extended nded release Extended Medical Release Oral Release Cent er) Capsule Oral [Effexor] Capsule Effexor XR 150 [Effexor] mg capsule,extend ed release 24 HR Effexor XR 02/20/2020 completed 24 HR NEXTGEN venlafaxine 75 75 mg 12:00:00 AM ve nlafaxine ([facility] MG Extended capsule,exte EDT 75 MG Alexus Release Oral nded release Exte nded Medical Capsule Release [facility]) [Effexor] Oral Effexor XR 75 Capsule mg [Effexor] capsule,extend ed release Haloperidol 5 haloperidol 02/20/2020 completed TAKE 1/2 NEXTGEN MG Oral Tablet 5 mg tablet 12:00:00 AM TABLET BY ([facility] haloperidol 5 EDT ORAL ROUTE Alexus mg tablet EVERY DAY Medic al AT BEDTIME Center) FOR PSYCHOSIS FOR PSYCHOSIS Clonazepam 1 Klonopin 1 02/20/2020 completed Clonazepam NEXTGEN MG Oral Tablet mg tablet 12:00:00 AM 1 MG Oral ([facility] [Klonopin] EDT Tablet Alexus Klonopin 1 mg [Klonopin] Medical tablet Center) 24 HR MYRBETRIQ:13 02/06/2020 TABL 30 completed MYRBETRIQ MEDGEN mirabegron 50 08215 12:00:00 AM ET, ([facility] MG Extended EDT EXTE y Release Oral NDED Medical Tablet RELE Service) [Myrbetriq] ASE MYRBETRIQ:1300 803 Budesonide SYMBICORT:59 02/06/2020 AERO 1 completed SYMBICORT MEDGEN 0.16 MG/ACTUAT 7829 12:00:00 AM BOGDAN ([facility] / formoterol EDT y 0.0045 Medical MG/ACTUAT Service) Inhalant Powder SYMBICORT:5978 29 24 HR MYRBETRIQ:13 02/06/2020 TABL 30 completed MYRBETRIQ MEDGEN mirabegron 50 01370 12:00:00 AM ET, ([facility] MG Extended EDT EXTE y Release Oral NDED Medical Tablet RELE Service) [Myrbetriq] ASE MYRBETRIQ:1300 803 Budesonide SYMBICORT:59 02/06/2020 AERO 1 completed SYMBICORT MEDGEN 0.16 MG/ACTUAT 7829 12:00:00 AM BOGDAN ([place] / formoterol EDT y 0.0045 Medical MG/ACTUAT Service) Inhalant Powder SYMBICORT:5978 29 24 HR Effexor XR 01/24/2020 completed 24 HR NEXTGEN venlafaxine 75 75 mg 12:00:00 AM ve nlafaxine ([facility] MG Extended capsule,exte EDT 75 MG Alexus Release Oral nded release Exte nded Medical Capsule Release Center) [Effexor] Oral Effexor XR 75 Capsule mg [Effexor] capsule,extend ed release Haloperidol 5 haloperidol 01/24/2020 completed TAKE 1/2 NEXTGEN MG Oral Tablet 5 mg tablet 12:00:00 AM TABLET BY ([facility] haloperidol 5 EDT ORAL ROUTE Alexus mg tablet EVERY DAY Medic al AT BEDTIME Center) FOR PSYCHOSIS FOR PSYCHOSIS Trazodone trazodone 01/24/2020 1 ORAL completed take 1 NEXTGEN Hydrochloride 150 mg 12:00:00 AM {tbl} t ablet by ([facility] 150 MG Oral tablet EDT oral route Alexus Tablet every Medical trazodone 150 bedtime for Center) mg tablet insomnia 24 HR Effexor XR 01/24/2020 completed 24 HR NEXTGEN venlafaxine 150 mg 12:00:00 AM venl afaxine ([facility] 150 MG capsule,exte EDT 150 MG Jesse ephs Extended nded release Extended Medical Release Oral Release Cent er) Capsule Oral [Effexor] Capsule Effexor XR 150 [Effexor] mg capsule,extend ed release Clonazepam 1 Klonopin 1 01/24/2020 1 ORAL completed Clonazepam NEXTGEN MG Oral Tablet mg tablet 12:00:00 AM {tbl} 1 MG Oral ([facility] [Klonopin] EDT Tablet Alexus Klonopin 1 mg [Klonopin] Medical tablet [facility]) Haloperidol 5 haloperidol 12/25/2019 completed TAKE 1/2 NEXTGEN MG Oral Tablet 5 mg tablet 12:00:00 AM TABLET BY ([facility] haloperidol 5 EDT ORAL ROUTE Alexus mg tablet EVERY DAY Medic al AT BEDTIME Center) FOR PSYCHOSIS FOR PSYCHOSIS 24 HR Effexor XR 12/25/2019 completed 24 HR NEXTGEN venlafaxine 75 75 mg 12:00:00 AM ve nlafaxine ([facility] MG Extended capsule,exte EDT 75 MG Alexus Release Oral nded release Exte nded Medical Capsule Release [facility]) [Effexor] Oral Effexor XR 75 Capsule mg [Effexor] capsule,extend ed release 24 HR Effexor XR 12/25/2019 completed 24 HR NEXTGEN venlafaxine 150 mg 12:00:00 AM venl afaxine ([facility] 150 MG capsule,exte EDT 150 MG Jesse ephs Extended nded release Extended Medical Release Oral Release Cent er) Capsule Oral [Effexor] Capsule Effexor XR 150 [Effexor] mg capsule,extend ed release Trazodone trazodone 12/25/2019 1 ORAL completed take 1 NEXTGEN Hydrochloride 150 mg 12:00:00 AM {tbl} t ablet by ([facility] 150 MG Oral tablet EDT oral route Alexus Tablet every Medical trazodone 150 bedtime for Center) mg tablet insomnia Clonazepam 1 Klonopin 1 12/25/2019 1 ORAL completed Clonazepam NEXTGEN MG Oral Tablet mg tablet 12:00:00 AM {tbl} 1 MG Oral ([facility] [Klonopin] EDT Tablet Alexus Klonopin 1 mg [Klonopin] Medical tablet [facility]) 24 HR Effexor XR 11/26/2019 completed 24 HR NEXTGEN venlafaxine 75 75 mg 12:00:00 AM ve nlafaxine ([facility] MG Extended capsule,exte EDT 75 MG Alexus Release Oral nded release Exte nded Medical Capsule Release [facility]) [Effexor] Oral Effexor XR 75 Capsule mg [Effexor] capsule,extend ed release 24 HR Effexor XR 11/26/2019 completed 24 HR NEXTGEN venlafaxine 150 mg 12:00:00 AM venl afaxine ([facility] 150 MG capsule,exte EDT 150 MG Jesse ephs Extended nded release Extended Medical Release Oral Release Cent er) Capsule Oral [Effexor] Capsule Effexor XR 150 [Effexor] mg capsule,extend ed release Trazodone trazodone 11/26/2019 1 ORAL completed take 1 NEXTGEN Hydrochloride 150 mg 12:00:00 AM {tbl} t ablet by ([facility] 150 MG Oral tablet EDT oral route Alexus Tablet every Medical trazodone 150 bedtime for Center) mg tablet insomnia Haloperidol 5 haloperidol 11/26/2019 completed TAKE 1/2 NEXTGEN MG Oral Tablet 5 mg tablet 12:00:00 AM TABLET BY ([facility] haloperidol 5 EDT ORAL ROUTE Alexus mg tablet EVERY DAY Medic al AT BEDTIME Center) FOR PSYCHOSIS FOR PSYCHOSIS Clonazepam 1 Klonopin 1 11/26/2019 1 ORAL completed Clonazepam NEXTGEN MG Oral Tablet mg tablet 12:00:00 AM {tbl} 1 MG Oral ([facility] [Klonopin] EDT Tablet Alexus Klonopin 1 mg [Klonopin] Medical tablet [facility]) 24 HR Effexor XR 10/28/2019 completed 24 HR NEXTGEN venlafaxine 150 mg 12:00:00 AM venl afaxine ([facility] 150 MG capsule,exte EDT 150 MG Jesse ephs Extended nded release Extended Medical Release Oral Release Cent er) Capsule Oral [Effexor] Capsule Effexor XR 150 [Effexor] mg capsule,extend ed release 24 HR Effexor XR 10/28/2019 completed 24 HR NEXTGEN venlafaxine 75 75 mg 12:00:00 AM ve nlafaxine ([facility] MG Extended capsule,exte EDT 75 MG Alexus Release Oral nded release Exte nded Medical Capsule Release [facility]) [Effexor] Oral Effexor XR 75 Capsule mg [Effexor] capsule,extend ed release 24 HR Effexor XR 10/28/2019 completed 24 HR NEXTGEN venlafaxine 150 mg 12:00:00 AM venl afaxine ([facility] 150 MG capsule,exte EDT 150 MG Jesse ephs Extended nded release Extended Medical Release Oral Release Cent er) Capsule Oral [Effexor] Capsule Effexor XR 150 [Effexor] mg capsule,extend ed release Medication administered onsite 24 HR venlafaxine Effexor XR 75 mg 10/28/2019 comp leted 24 HR NEXTGEN 75 MG Extended capsule,extended 12:00:00 AM venlafaxine ([facility] Release Oral release EDT 75 MG Jesse ephs Capsule [Effexor] Extende d Medical Effexor XR 75 mg Release Oral [facility]) capsule,extended Capsule release [Effexor] Medication administered onsite Clonazepam 1 Klonopin 1 10/28/2019 1 ORAL completed Clonazepam 1 NEXTGEN MG Oral mg tablet 12:00:00 AM {tbl} MG O ral ([facility] Tablet EDT Tablet Alexus [Klonopin] [Klonopin] Med ical Klonopin 1 mg [facility] ) tablet Trazodone trazodone 10/28/2019 1 ORAL completed take 1 tablet NEXTGEN Hydrochloride 150 mg 12:00:00 AM {tbl} b y oral route ([facility] 150 MG Oral tablet EDT every Ad[facility]s Tablet bedtime for Medica l trazodone 150 insomnia Ce nter) mg tablet Haloperidol 5 haloperidol 10/28/2019 completed TAKE 1/2 NEXTGEN MG Oral 5 mg tablet 12:00:00 AM TAB LET BY ([facility] Tablet EDT ORAL ROUTE Alexus haloperidol 5 EVERY DAY A T Medical mg tablet BEDTIME FOR [facility]ise ter) PSYCHOSIS FOR PSYCHOSIS Mupirocin BACTROBAN:1 10/22/2019 OIN 1 completed BACTROBAN MEDGEN 0.02 MG/MG 60444 12:00:00 AM TME ( [place] Topical EDT NT Medical Ointment Service) [Bactroban] BACTROBAN:103 570 LANCETS 10/22/2019 90 completed LANCET S MEDGEN MISCELLANEOUS 12:00:00 AM MISC ELLANEOUS ([place] : EDT Medical Service) Mupirocin BACTROBAN:1 10/22/2019 OIN 1 completed BACTROBAN MEDGEN 0.02 MG/MG 83871 12:00:00 AM TME ( [place] Topical EDT NT Medical Ointment Service) [Bactroban] BACTROBAN:103 570 LANCETS 10/22/2019 90 completed LANCET S MEDGEN MISCELLANEOUS 12:00:00 AM MISC ELLANEOUS ([place] : EDT Medical Service) 24 HR Effexor XR 09/27/2019 completed 24 HR NEXTGEN venlafaxine 150 mg 12:00:00 AM venl afaxine ([facility] 150 MG capsule,ext EST 150 MG Ad[facility] phs Extended ended Extended Medica l Release Oral release Release O ral Center) Capsule Capsule [Effexor] [Effexor] Effexor XR 150 mg capsule,exten ded release Trazodone trazodone 09/27/2019 1 ORAL completed take 1 tablet NEXTGEN Hydrochloride 150 mg 12:00:00 AM {tbl} b y oral route ([facility] 150 MG Oral tablet EST every Adelso phs Tablet bedtime for Medica l trazodone 150 insomnia Ce nter) mg tablet Clonazepam 1 Klonopin 1 09/27/2019 1 ORAL completed Clonazepam 1 NEXTGEN MG Oral mg tablet 12:00:00 AM {tbl} MG O ral ([facility] Tablet EST Tablet Alexus [Klonopin] [Klonopin] Med ical Klonopin 1 mg [facility] ) tablet Haloperidol 5 haloperidol 09/27/2019 completed TAKE 1/2 NEXTGEN MG Oral 5 mg tablet 12:00:00 AM TAB LET BY ([facility] Tablet EST ORAL ROUTE Alexus haloperidol 5 EVERY DAY A T Medical mg tablet BEDTIME FOR [facility] ter) PSYCHOSIS FOR PSYCHOSIS 24 HR Effexor XR 09/27/2019 completed 24 HR NEXTGEN venlafaxine 75 mg 12:00:00 AM venla faxine ([facility] 75 MG capsule,ext EST 75 MG [facility] Extended ended Extended Medica l Release Oral release Release O ral Center) Capsule Capsule [Effexor] [Effexor] Effexor XR 75 mg capsule,exten ded release Haloperidol 5 haloperidol 08/29/2019 completed TAKE 1/2 NEXTGEN MG Oral 5 mg tablet 12:00:00 AM TAB LET BY ([facility] Tablet EST ORAL ROUTE Alexus haloperidol 5 EVERY DAY A T Medical mg tablet BEDTIME FOR [facility] ter) PSYCHOSIS FOR PSYCHOSIS 24 HR Effexor XR 08/29/2019 completed 24 HR NEXTGEN venlafaxine 75 mg 12:00:00 AM venla faxine ([facility] 75 MG capsule,ext EST 75 MG [place] [facility] Extended ended Extended Medica l Release Oral release Release O ral Center) Capsule Capsule [Effexor] [Effexor] Effexor XR 75 mg capsule,exten ded release 24 HR Effexor XR 08/29/2019 completed 24 HR NEXTGEN venlafaxine 150 mg 12:00:00 AM venl afaxine ([facility] 150 MG capsule,ext EST 150 MG Adelso phs Extended ended Extended Medica l Release Oral release Release O ral Center) Capsule Capsule [Effexor] [Effexor] Effexor XR 150 mg capsule,exten ded release Clonazepam 1 Klonopin 1 08/29/2019 1 ORAL completed Clonazepam 1 NEXTGEN MG Oral mg tablet 12:00:00 AM {tbl} MG O ral ([facility] Tablet EST Tablet Alexus [Klonopin] [Klonopin] Med ical Klonopin 1 mg Center ) tablet Trazodone trazodone 08/29/2019 1 ORAL completed take 1 tablet NEXTGEN Hydrochloride 150 mg 12:00:00 AM {tbl} b y oral route ([facility] 150 MG Oral tablet EST every Adelso phs Tablet bedtime for Medica l trazodone 150 insomnia Ce nter) mg tablet 24 HR Effexor XR 08/01/2019 completed 24 HR NEXTGEN venlafaxine 75 mg 12:00:00 AM venla faxine ([facility] 75 MG capsule,ext EST 75 MG [facility] Extended ended Extended Medica l Release Oral release Release O ral Center) Capsule Capsule [Effexor] [Effexor] Effexor XR 75 mg capsule,exten ded release Clonazepam 1 Klonopin 1 08/01/2019 1 ORAL completed Clonazepam 1 NEXTGEN MG Oral mg tablet 12:00:00 AM {tbl} MG O ral ([facility] Tablet EST Tablet Alexus [Klonopin] [Klonopin] Med ical Klonopin 1 mg Center ) tablet Haloperidol 5 haloperidol 08/01/2019 completed TAKE 1/2 NEXTGEN MG Oral 5 mg tablet 12:00:00 AM TAB LET BY ([facility] Tablet EST ORAL ROUTE Alexus haloperidol 5 EVERY DAY A T Medical mg tablet BEDTIME FOR [facility] ter) PSYCHOSIS FOR PSYCHOSIS 24 HR Effexor XR 08/01/2019 completed 24 HR NEXTGEN venlafaxine 150 mg 12:00:00 AM venl afaxine ([facility] 150 MG capsule,ext EST 150 MG Adelso phs Extended ended Extended Medica l Release Oral release Release O ral Center) Capsule Capsule [Effexor] [Effexor] Effexor XR 150 mg capsule,exten ded release Trazodone trazodone 08/01/2019 1 ORAL completed take 1 tablet NEXTGEN Hydrochloride 150 mg 12:00:00 AM {tbl} b y oral route ([facility] 150 MG Oral tablet EST every Adelso phs Tablet bedtime for Medica l trazodone 150 insomnia Ce nter) mg tablet 24 HR VENLAFAXINE 07/19/2019 completed 2 4 HR NEXTGEN venlafaxine HCL XR 12:00:00 AM venl afaxine ([facility] 150 MG 150MG CER EST 150 MG [facility] Extended Extended Medical Release Oral Release Oral Center) Capsule Capsule [Effexor] [Effexor] VENLAFAXINE HCL XR 150MG CER Haloperidol 5 HALOPERIDOL 07/19/2019 completed TAKE 1/2 NEXTGEN MG Oral 5MG TAB 12:00:00 AM TABLET BY ([facility] Tablet EST ORAL ROUTE Alexus HALOPERIDOL EVERY DAY AT Medical 5MG TAB BEDTIME FOR Cente r) PSYCHOSIS FOR PSYCHOSIS 24 HR VENLAFAXINE 07/19/2019 completed 2 4 HR NEXTGEN venlafaxine HYDROCHLORI 12:00:00 AM venlafaxine ([facility] 75 MG DE 75MG CAP EST 75 MG [facility] [facility] Extended ER Extended Medical Release Oral Release Oral Center) Capsule Capsule [Effexor] [Effexor] VENLAFAXINE HYDROCHLORIDE 75MG CAP ER 24 HR Effexor XR 07/02/2019 completed 24 HR NEXTGEN venlafaxine 150 mg 12:00:00 AM venl afaxine ([facility] 150 MG capsule,ext EST 150 MG Adelso phs Extended ended Extended Medica l Release Oral release Release O ral Center) Capsule Capsule [Effexor] [Effexor] Effexor XR 150 mg capsule,exten ded release Haloperidol 5 haloperidol 07/02/2019 completed take 1/2 NEXTGEN MG Oral 5 mg tablet 12:00:00 AM tab let by ([facility] Tablet EST oral route [facility] haloperidol 5 every day a t Medical mg tablet bedtime for [facility]) psychosis for psychosis Clonazepam 1 Klonopin 1 07/02/2019 1 ORAL completed Clonazepam 1 NEXTGEN MG Oral mg tablet 12:00:00 AM {tbl} MG O ral ([facility] Tablet EST Tablet [facility] [Klonopin] [Klonopin] Med ical Klonopin 1 mg Center ) tablet 24 HR Effexor XR 07/02/2019 completed 24 HR NEXTGEN venlafaxine 75 mg 12:00:00 AM venla faxine ([facility] 75 MG capsule,ext EST 75 MG [facility] Extended ended Extended Medica l Release Oral release Release O ral Center) Capsule Capsule [Effexor] [Effexor] Effexor XR 75 mg capsule,exten ded release Trazodone trazodone 07/02/2019 1 ORAL completed take 1 tablet NEXTGEN Hydrochloride 150 mg 12:00:00 AM {tbl} b y oral route ([facility] 150 MG Oral tablet EST every [facility] Tablet bedtime for Medica l trazodone 150 insomnia [facility]) mg tablet Haloperidol 5 haloperidol 06/03/2019 completed take 1/2 NEXTGEN MG Oral 5 mg tablet 12:00:00 AM tab let by ([facility] Tablet EDT oral route [facility] haloperidol 5 every day a t Medical mg tablet bedtime for [facility]) psychosis for psychosis Trazodone trazodone 06/03/2019 1 ORAL completed take 1 tablet NEXTGEN Hydrochloride 150 mg 12:00:00 AM {tbl} b y oral route ([facility] 150 MG Oral tablet EDT every [facility] Tablet bedtime for Medica l trazodone 150 insomnia Ce [facility]) mg tablet 24 HR Effexor XR 06/03/2019 completed 24 HR NEXTGEN venlafaxine 150 mg 12:00:00 AM venl afaxine ([facility] 150 MG capsule,ext EDT 150 MG [facility] Extended ended Extended Medica l Release Oral release Release [facility]al Center) Capsule Capsule [Effexor] [Effexor] Effexor XR 150 mg capsule,exten ded release 24 HR Effexor XR 06/03/2019 completed 24 HR NEXTGEN venlafaxine 75 mg 12:00:00 AM [facility]la faxine ([facility] 75 MG capsule,ext EDT 75 MG [facility] Extended ended Extended Medica l Release Oral release Release [facility] Center) Capsule Capsule [Effexor] [Effexor] Effexor XR 75 mg capsule,exten ded release Clonazepam 1 Klonopin 1 06/03/2019 1 ORAL completed Clonazepam 1 NEXTGEN MG Oral mg tablet 12:00:00 AM {tbl} MG O ral ([facility] Tablet EDT Tablet [facility] [Klonopin] [Klonopin] Med ical Klonopin 1 mg Center ) tablet Clonazepam 1 Klonopin 1 05/03/2019 1 ORAL completed Clonazepam 1 NEXTGEN MG Oral mg tablet 12:00:00 AM {tbl} MG O ral ([facility] Tablet EDT Tablet [facility] [Klonopin] [Klonopin] Med ical Klonopin 1 mg Center ) tablet Trazodone trazodone 05/03/2019 1 ORAL completed take 1 tablet NEXTGEN Hydrochloride 150 mg 12:00:00 AM {tbl} b y oral route ([facility] 150 MG Oral tablet EDT every [facility] Tablet bedtime for Medica l trazodone 150 insomnia Ce nter) mg tablet Haloperidol 5 haloperidol 05/03/2019 completed take 1/2 NEXTGEN MG Oral 5 mg tablet 12:00:00 AM tab let by ([facility] Tablet EDT oral route [facility] haloperidol 5 every day a t Medical mg tablet bedtime for [facility]) psychosis for psychosis 24 HR Effexor XR 05/03/2019 completed 24 HR NEXTGEN venlafaxine 75 mg 12:00:00 AM venla faxine ([facility] 75 MG capsule,ext EDT 75 MG [facility] Extended ended Extended Medica l Release Oral release Release [facility]al Center) Capsule Capsule [Effexor] [Effexor] Effexor XR 75 mg capsule,exten ded release 24 HR Effexor XR 05/03/2019 completed 24 HR NEXTGEN venlafaxine 150 mg 12:00:00 AM venl afaxine ([facility] 150 MG capsule,ext EDT 150 MG [facility] Extended ended Extended Medica l Release Oral release Release [facility]al Center) Capsule Capsule [Effexor] [Effexor] Effexor XR 150 mg capsule,exten ded release 24 HR Effexor XR 04/05/2019 completed 24 HR NEXTGEN venlafaxine 150 mg 12:00:00 AM venl afaxine ([facility] 150 MG capsule,ext EDT 150 MG [facility] Extended ended Extended Medica l Release Oral release Release [facility] Center) Capsule Capsule [Effexor] [Effexor] Effexor XR 150 mg capsule,exten ded release Haloperidol 5 haloperidol 04/05/2019 completed take 1/2 NEXTGEN MG Oral 5 mg tablet 12:00:00 AM tab let by ([facility] Tablet EDT oral route [facility] haloperidol 5 every day a t Medical mg tablet bedtime for [facility]) psychosis for psychosis Clonazepam 1 Klonopin 1 04/05/2019 1 ORAL completed Clonazepam 1 NEXTGEN MG Oral mg tablet 12:00:00 AM {tbl} MG O ral ([facility] Tablet EDT Tablet [facility] [Klonopin] [Klonopin] Med ical Klonopin 1 mg Center ) tablet 24 HR Effexor XR 04/05/2019 completed 24 HR NEXTGEN venlafaxine 75 mg 12:00:00 AM venla faxine ([facility] 75 MG capsule,ext EDT 75 MG [facility] Extended ended Extended Medica l Release Oral release Release [facility]al Center) Capsule Capsule [Effexor] [Effexor] Effexor XR 75 mg capsule,exten ded release Trazodone trazodone 04/05/2019 1 ORAL completed take 1 tablet NEXTGEN Hydrochloride 150 mg 12:00:00 AM {tbl} b y oral route ([facility] 150 MG Oral tablet EDT every [facility] Tablet bedtime for Medica l trazodone 150 insomnia Ce nter) mg tablet 24 HR Effexor XR 03/08/2019 completed 24 HR NEXTGEN venlafaxine 150 mg 12:00:00 AM venl afaxine ([facility] 150 MG capsule,ext EDT 150 MG [facility] Extended ended Extended Medica l Release Oral release Release [facility]al Center) Capsule Capsule [Effexor] [Effexor] Effexor XR 150 mg capsule,exten ded release 24 HR Effexor XR 03/08/2019 completed 24 HR NEXTGEN venlafaxine 75 mg 12:00:00 AM venla faxine ([facility] 75 MG capsule,ext EDT 75 MG [facility] Extended ended Extended Medica l Release Oral release Release [facility]al Center) Capsule Capsule [Effexor] [Effexor] Effexor XR 75 mg capsule,exten ded release Trazodone trazodone 03/08/2019 1 ORAL completed take 1 tablet NEXTGEN Hydrochloride 150 mg 12:00:00 AM {tbl} b y oral route ([facility] 150 MG Oral tablet EDT every [facility] Tablet bedtime for Medica l trazodone 150 insomnia Ce nter) mg tablet Haloperidol 5 haloperidol 03/08/2019 completed take 1/2 NEXTGEN MG Oral 5 mg tablet 12:00:00 AM tab let by ([facility] Tablet EDT oral route [facility] haloperidol 5 every day a t Medical mg tablet bedtime for [facility]) psychosis for psychosis Clonazepam 1 Klonopin 1 03/08/2019 1 ORAL completed Clonazepam 1 NEXTGEN MG Oral mg tablet 12:00:00 AM {tbl} MG O ral ([facility] Tablet EDT Tablet [facility] [Klonopin] [Klonopin] Med ical Klonopin 1 mg [place] ) tablet 24 HR Effexor XR 02/28/2019 completed 24 HR NEXTGEN venlafaxine 75 mg 12:00:00 AM venla faxine ([facility] 75 MG capsule,ext EDT 75 MG [facility] Extended ended Extended Medica l Release Oral release Release [facility]al Center) Capsule Capsule [Effexor] [Effexor] Effexor XR 75 mg capsule,exten ded release 24 HR Effexor XR 02/28/2019 completed 24 HR NEXTGEN venlafaxine 150 mg 12:00:00 AM venl afaxine ([facility] 150 MG capsule,ext EDT 150 MG [facility] Extended ended Extended Medica l Release Oral release Release [facility]al [facility]) Capsule Capsule [Effexor] [Effexor] Effexor XR 150 mg capsule,exten ded release Trazodone trazodone 02/28/2019 1 ORAL completed take 1 tablet NEXTGEN Hydrochloride 150 mg 12:00:00 AM {tbl} b y oral route ([facility] 150 MG Oral tablet EDT every [facility] Tablet bedtime for Medica l trazodone 150 insomnia Ce nter) mg tablet Haloperidol 5 haloperidol 02/28/2019 completed take 1/2 NEXTGEN MG Oral 5 mg tablet 12:00:00 AM tab let by ([facility] Tablet EDT oral route [facility] haloperidol 5 every day a t Medical mg tablet bedtime for [facility]) psychosis for psychosis Clonazepam 1 Klonopin 1 02/28/2019 1 ORAL completed Clonazepam 1 NEXTGEN MG Oral mg tablet 12:00:00 AM {tbl} MG O ral ([facility] Tablet EDT Tablet [facility] [Klonopin] [Klonopin] Med ical Klonopin 1 mg Center ) tablet Trazodone trazodone 01/21/2019 1 ORAL completed take 1 tablet NEXTGEN Hydrochloride 150 mg 12:00:00 AM {tbl} b y oral route ([facility] 150 MG Oral tablet EDT every [facility] Tablet bedtime for Medica l trazodone 150 insomnia Ce [facility]ter) mg tablet Clonazepam 1 Klonopin 1 01/21/2019 1 ORAL completed Clonazepam 1 NEXTGEN MG Oral mg tablet 12:00:00 AM {tbl} MG O ral ([facility] Tablet EDT Tablet [facility] [Klonopin] [Klonopin] Med ical Klonopin 1 mg [place] ) tablet Haloperidol 5 haloperidol 01/21/2019 completed take 1/2 NEXTGEN MG Oral 5 mg tablet 12:00:00 AM tab let by ([facility] Tablet EDT oral route [facility] haloperidol 5 every day a t Medical mg tablet bedtime for [facility]) psychosis for psychosis Trazodone trazodone 01/21/2019 1 ORAL completed take 1 tablet NEXTGEN Hydrochloride 100 mg 12:00:00 AM {tbl} b y oral route ([facility] 100 MG Oral tablet EDT every day at [facility] Tablet bedtime for Medica l trazodone 100 insomnia Ce nter) mg tablet 24 HR Effexor XR 01/21/2019 completed 24 HR NEXTGEN venlafaxine 150 mg 12:00:00 AM venl afaxine ([facility] 150 MG capsule,ext EDT 150 MG [facility] Extended ended Extended Medica l Release Oral release Release O ral [place]) Capsule Capsule [Effexor] [Effexor] Effexor XR 150 mg capsule,exten ded release 24 HR Effexor XR 01/21/2019 completed 24 HR NEXTGEN venlafaxine 75 mg 12:00:00 AM venla faxine ([facility] 75 MG capsule,ext EDT 75 MG [facility] Extended ended Extended Medica l Release Oral release Release O ral [place]) Capsule Capsule [Effexor] [Effexor] Effexor XR 75 mg capsule,exten ded release Haloperidol 5 haloperidol 12/24/2018 completed take 1/2 NEXTGEN MG Oral 5 mg tablet 12:00:00 AM tab let by ([facility] Tablet EDT oral route [facility] haloperidol 5 every day a t Medical mg tablet bedtime for [facility]) psychosis for psychosis 24 HR Effexor XR 12/24/2018 completed 24 HR NEXTGEN venlafaxine 150 mg 12:00:00 AM venl afaxine ([facility] 150 MG capsule,ext EDT 150 MG [facility] Extended ended Extended Medica l Release Oral release Release [facility]al Center) Capsule Capsule [Effexor] [Effexor] Effexor XR 150 mg capsule,exten ded release Trazodone trazodone 12/24/2018 1 ORAL completed take 1 tablet NEXTGEN Hydrochloride 100 mg 12:00:00 AM {tbl} b y oral route ([facility] 100 MG Oral tablet EDT every day at [facility] Tablet bedtime for Medica l trazodone 100 insomnia Ce nter) mg tablet Clonazepam 1 Klonopin 1 12/24/2018 1 ORAL completed Clonazepam 1 NEXTGEN MG Oral mg tablet 12:00:00 AM {tbl} MG O ral ([facility] Tablet EDT Tablet [facility] [Klonopin] [Klonopin] Med ical Klonopin 1 mg Center ) tablet 24 HR Effexor XR 12/24/2018 completed 24 HR NEXTGEN venlafaxine 75 mg 12:00:00 AM venla faxine ([facility] 75 MG capsule,ext EDT 75 MG [facility] Extended ended Extended Medica l Release Oral release Release [facility]al Center) Capsule Capsule [Effexor] [Effexor] Effexor XR 75 mg capsule,exten ded release Clonazepam 1 Klonopin 1 12/18/2018 1 ORAL completed Clonazepam 1 NEXTGEN MG Oral mg tablet 12:00:00 AM {tbl} MG O ral ([facility] Tablet EDT Tablet [facility] [Klonopin] [Klonopin] Med ical Klonopin 1 mg Center ) tablet Haloperidol 5 haloperidol 12/18/2018 completed take 1/2 NEXTGEN MG Oral 5 mg tablet 12:00:00 AM tab let by ([facility] Tablet EDT oral route [facility] haloperidol 5 every day a t Medical mg tablet bedtime for [facility]) psychosis for psychosis 24 HR Effexor XR 12/18/2018 completed 24 HR NEXTGEN venlafaxine 150 mg 12:00:00 AM venl afaxine ([facility] 150 MG capsule,ext EDT 150 MG [facility] Extended ended Extended Medica l Release Oral release Release [facility]al Center) Capsule Capsule [Effexor] [Effexor] Effexor XR 150 mg capsule,exten ded release Trazodone trazodone 12/18/2018 1 ORAL completed take 1 tablet NEXTGEN Hydrochloride 100 mg 12:00:00 AM {tbl} b y oral route ([facility] 100 MG Oral tablet EDT every day at [facility] Tablet bedtime for Medica l trazodone 100 insomnia Ce nter) mg tablet 24 HR Effexor XR 12/18/2018 completed 24 HR NEXTGEN venlafaxine 75 mg 12:00:00 AM venla faxine ([facility] 75 MG capsule,ext EDT 75 MG [facility] Extended ended Extended Medica l Release Oral release Release [facility]al Center) Capsule Capsule [Effexor] [Effexor] Effexor XR 75 mg capsule,exten ded release Trazodone trazodone 11/12/2018 1 ORAL completed take 1 tablet NEXTGEN Hydrochloride 100 mg 12:00:00 AM {tbl} b y oral route ([facility] 100 MG Oral tablet EDT every day at [facility] Tablet bedtime for Medica l trazodone 100 insomnia Ce nter) mg tablet 24 HR Effexor XR 11/12/2018 completed 24 HR NEXTGEN venlafaxine 75 mg 12:00:00 AM venla faxine ([facility] 75 MG capsule,ext EDT 75 MG [facility] Extended ended Extended Medica l Release Oral release Release [facility]al Center) Capsule Capsule [Effexor] [Effexor] Effexor XR 75 mg capsule,exten ded release Haloperidol 5 haloperidol 11/12/2018 completed take 1/2 NEXTGEN MG Oral 5 mg tablet 12:00:00 AM tab let by ([facility] Tablet EDT oral route [facility] haloperidol 5 every day a t Medical mg tablet bedtime for [facility]) psychosis for psychosis Clonazepam 1 Klonopin 1 11/12/2018 1 ORAL completed Clonazepam 1 NEXTGEN MG Oral mg tablet 12:00:00 AM {tbl} MG O ral ([facility] Tablet EDT Tablet [facility] [Klonopin] [Klonopin] Med ical Klonopin 1 mg [place] ) tablet 24 HR Effexor XR 11/12/2018 completed 24 HR NEXTGEN venlafaxine 150 mg 12:00:00 AM venl afaxine ([facility] 150 MG capsule,ext EDT 150 MG [facility] Extended ended Extended Medica l Release Oral release Release [facility]al Center) Capsule Capsule [Effexor] [Effexor] Effexor XR 150 mg capsule,exten ded release Trazodone trazodone 10/15/2018 1 ORAL completed take 1 tablet NEXTGEN Hydrochloride 100 mg 12:00:00 AM {tbl} b y oral route ([facility] 100 MG Oral tablet EST every day at [facility] Tablet bedtime for Medica l trazodone 100 insomnia Ce nter) mg tablet Clonazepam 1 Klonopin 1 10/15/2018 1 ORAL completed Clonazepam 1 NEXTGEN MG Oral mg tablet 12:00:00 AM {tbl} MG O ral ([facility] Tablet EST Tablet [facility] [Klonopin] [Klonopin] Med ical Klonopin 1 mg Center ) tablet 24 HR Effexor XR 10/15/2018 completed 24 HR NEXTGEN venlafaxine 150 mg 12:00:00 AM venl afaxine ([facility] 150 MG capsule,ext EST 150 MG [facility] Extended ended Extended Medica l Release Oral release Release [facility]al Center) Capsule Capsule [Effexor] [Effexor] Effexor XR 150 mg capsule,exten ded release 24 HR Effexor XR 10/15/2018 completed 24 HR NEXTGEN venlafaxine 75 mg 12:00:00 AM venla faxine ([facility] 75 MG capsule,ext EST 75 MG [facility] Extended ended Extended Medica l Release Oral release Release [facility]al Center) Capsule Capsule [Effexor] [Effexor] Effexor XR 75 mg capsule,exten ded release Haloperidol 5 haloperidol 10/15/2018 completed take 1/2 NEXTGEN MG Oral 5 mg tablet 12:00:00 AM tab let by ([facility] Tablet EST oral route [facility] haloperidol 5 every day a t Medical mg tablet bedtime for [facility] ter) psychosis for psychosis 24 HR Effexor XR 09/21/2018 completed 24 HR NEXTGEN venlafaxine 150 mg 12:00:00 AM venl afaxine ([facility] 150 MG capsule,ext EST 150 MG [facility] Extended ended Extended Medica l Release Oral release Release [facility]al Center) Capsule Capsule [Effexor] [Effexor] Effexor XR 150 mg capsule,exten ded release Clonazepam 1 Klonopin 1 09/21/2018 1 ORAL completed Clonazepam 1 NEXTGEN MG Oral mg tablet 12:00:00 AM {tbl} MG O ral ([facility] Tablet EST Tablet [facility] [Klonopin] [Klonopin] Med ical Klonopin 1 mg [place] ) tablet 24 HR Effexor XR 09/21/2018 completed 24 HR NEXTGEN venlafaxine 75 mg 12:00:00 AM venla faxine ([facility] 75 MG capsule,ext EST 75 MG [facility] Extended ended Extended Medica l Release Oral release Release O ral [place]) Capsule Capsule [Effexor] [Effexor] Effexor XR 75 mg capsule,exten ded release Trazodone trazodone 09/21/2018 1 ORAL completed take 1 tablet NEXTGEN Hydrochloride 100 mg 12:00:00 AM {tbl} b y oral route ([facility] 100 MG Oral tablet EST every day at [facility] Tablet bedtime for Medica l trazodone 100 insomnia Ce nter) mg tablet Haloperidol 5 haloperidol 09/21/2018 completed take 1/2 NEXTGEN MG Oral 5 mg tablet 12:00:00 AM tab let by ([facility] Tablet EST oral route [facility] haloperidol 5 every day a t Medical mg tablet bedtime for [facility] ter) psychosis Metformin metFORMIN 04/18/2012 UNI 1 active me tFORMIN HCl OLIVIA hydrochloride HCl 500MG 12:00:00 AM T ([facility] 500 MG Oral TABS EDT Guy Tablet [facility] metFORMIN HCl ood 500MG [facility]) Enalapril Enalapril 04/18/2012 UNI 1 active En alapril OLIVIA Maleate 5 MG Maleate 5MG 12:00:00 AM T Maleate ([facility] Oral Tablet OR TABS EDT [place] Enalapril [facility] Maleate 5MG ood OR [facility]) Glucophage Glucophage 03/07/2012 UNI 1 active Glucophage OLIVIA 1000 MG TABS 1000 MG 12:00:00 AM T ([facility] TABS EDT Guy [facility]) Ventolin HFA Ventolin 03/07/2012 INH active Ventolin HFA OLIVIA 108 (90 HFA 108 (90 12:00:00 AM ALA ([facility] Base)MCG/ACT Base)MCG/AC EDT MELIZA Guy IN AERS T IN AERS N [place] DOS ood [facility]) T Advair Diskus Advair 03/07/2012 INH 1 active A dvair Diskus OLIVIA 250-50MCG/DOS Diskus 12:00:00 AM ALA ([facility] E IN AEPB 250-50MCG/D EDT MELIZA Ed non OSE IN AEPB N [place]ighbor h DOS ood [facility]) T Paxil 20MG OR Paxil 20MG 03/07/2012 UNI 1 active Paxil OLIVIA TABS OR TABS 12:00:00 AM T (Moun t [facility]) RisperDAL 1MG RisperDAL 03/07/2012 UNI 1 active RisperDAL OLIVIA OR TABS 1MG OR TABS 12:00:00 AM T ([facility] EDT [facility]) Trazodone traZODone 03/07/2012 UNI 1 active tr aZODone HCl OLIVIA Hydrochloride HCl 100MG 12:00:00 AM T ([facility] 100 MG Oral OR TABS EDT [place] n Tablet [facility]ighbor traZODone HCl ood 100MG OR TABS [facility]) Insurance Providers Payer name Policy type / Policy ID Covered Covered libertarian's Policy Plan Coverage type libertarian ID relationship to [place] Information morton MVP MEDICAID [id number] SP [id number] [employer] [id number] self [id number] OPTION MEDICAID OF [id number] [facility] HEALTH [id number] 1 [id number] PLANS MEDICAID [id number] SP [id number] MVP PSYCH OP O [id number] O MVP/HHP O [id number] 01 [id number] [facility] O [id number] OPTION P MEDICAID [id number] SP [id number] O O [facility] Health Individual 0 Self [address] [facility] MVP/HHP O [id number] 01 [id number] [facility] [id number] self [id number] OPTIONS MVP/HHP O [id number] 01 [id number] MVP HEALTH [id number] 1 [id number] PLANS O [id number] 01 [id number] "" O [id number] 01 [id number] Dental [id number] S [id number] [employer] MKD Superior [id number] S [id number] Vision MKD [facility] [id number] S [id number] Options MKD [facility] [id number] S [id number] FFS Medicaid Medicaid [id number] S [id number] Regular Clinic Visit [facility] Medicaid [id number] S [id number] [facility] Care Superior [id number] S [id number] Vision MKD [facility] [id number] S [id number] Options MKD [facility] Medicaid [id number] S [id number] Managed Care Medicaid [id number] S [id number] Regular Clinic Visit [facility] th [id number] S [id number] S Medicaid Dental [id number] S [id number] U-1 [facility] MKD Problems, Conditions, and Diagnoses Code Display Name Description Problem Effective Data Type Dates Source(s) N39.0 Urinary tract URINARY TRACT Problem 04/13/2020 MEDGEN infection, site not INFECTION, SITE NOT 12:00:0 0 AM ([facility] EDT Medical Service) E66.09 Other obesity due to OTHER OBESITY DUE TO Problem 08/03 MEDGEN excess calories EXCESS CALORIES 12:00:00 AM ([facility] Medical Service) E66.09 Other obesity due to OTHER OBESITY DUE TO Problem 08/03 MEDGEN excess calories EXCESS CALORIES 12:00:00 AM ([facility] Medical Service) H81.10 Benign paroxysmal BENIGN PAROXYSMAL Problem 03/27/2019 MEDGEN vertigo, unspecified VERTIGO, UNSPECIFIED 12:00 :00 AM ([place] ear EAR EDT Medical Service) H61.23 Impacted cerumen, IMPACTED CERUMEN, Problem 03/27/2019 MEDGEN bilateral BILATERAL 12:00:00 AM ([place] EDT Medical Service) N32.81 Overactive bladder OVERACTIVE BLADDER Problem 9 MEDGEN 12:00:00 AM ([place] EDT Medical Service) H81.10 Benign paroxysmal BENIGN PAROXYSMAL Problem 03/27/2019 MEDGEN vertigo, unspecified VERTIGO, UNSPECIFIED 12:00 :00 AM ([place] ear EAR EDT Medical Service) H61.23 Impacted cerumen, IMPACTED CERUMEN, Problem 03/27/2019 MEDGEN bilateral BILATERAL 12:00:00 AM ([facility] Medical Service) N32.81 Overactive bladder OVERACTIVE BLADDER Problem 9 MEDGEN 12:00:00 AM ([facility] Medical Service) R10.9 Unspecified UNSPECIFIED Problem 03/05/2019 MEDGEN abdominal pain ABDOMINAL PAIN 12:00:00 AM ([facility] Medical Service) R10.9 Unspecified UNSPECIFIED Problem 03/05/2019 MEDGEN abdominal pain ABDOMINAL PAIN 12:00:00 AM ([facility] Medical Service) H10.45 Other chronic OTHER CHRONIC Problem 01/17/2019 MEDGEN allergic ALLERGIC 12:00:00 AM ([place] conjunctivitis CONJUNCTIVITIS EDT Medica l Service) H10.45 Other chronic OTHER CHRONIC Problem 01/17/2019 MEDGEN allergic ALLERGIC 12:00:00 AM ([place] conjunctivitis CONJUNCTIVITIS EDT Medica l Service) M79.7 Fibromyalgia FIBROMYALGIA Problem 10/09/2018 MEDGEN 12:00:00 AM ([facility] Medical Service) M79.7 Fibromyalgia FIBROMYALGIA Problem 10/09/2018 MEDGEN 12:00:00 AM ([facility] Medical Service) M25.542 Pain in joints of PAIN IN JOINTS OF Problem 03/21/2018 MEDGEN left hand LEFT HAND 12:00:00 AM ([facility] Medical Service) M25.542 Pain in joints of PAIN IN JOINTS OF Problem 03/21/2018 MEDGEN left hand LEFT HAND 12:00:00 AM ([facility] Medical Service) G43.019 Migraine without MIGRAINE WITHOUT Problem 09/18/2017 ME DGEN aura, intractable, AURA, INTRACTABLE, 12:00:00 AM ([place] without status WITHOUT STATUS EST Medica l migrainosus MIGRAINOSUS Service) G43.019 Migraine without MIGRAINE WITHOUT Problem 09/18/2017 ME DGEN aura, intractable, AURA, INTRACTABLE, 12:00:00 AM ([place] without status WITHOUT STATUS EST Medica l migrainosus MIGRAINOSUS Service) R51 Headache HEADACHE Problem 07/15/2017 MEDGEN 12:00:00 AM ([facility] Medical Service) R51 Headache HEADACHE Problem 07/15/2017 MEDGEN 12:00:00 AM ([facility] Medical Service) M25.50 Pain in unspecified PAIN IN UNSPECIFIED Problem 017 MEDGEN joint JOINT 12:00:00 AM ([facility] Medical Service) M25.50 Pain in unspecified PAIN IN UNSPECIFIED Problem 017 MEDGEN joint JOINT 12:00:00 AM ([facility] Medical Service) M79.1 Myalgia MYALGIA Problem 12/28/2016 MEDGEN 12:00:00 AM ([facility] Medical Service) M79.1 Myalgia MYALGIA Problem 12/28/2016 MEDGEN 12:00:00 AM ([facility] Medical Service) M54.5 Low back pain LOW BACK PAIN Problem 09/20/2016 MEDGEN 12:00:00 AM ([facility] Medical Service) R07.9 Chest pain, CHEST PAIN, Problem 09/20/2016 MEDGEN unspecified UNSPECIFIED 12:00:00 AM ([facility] Medical Service) M54.5 Low back pain LOW BACK PAIN Problem 09/20/2016 MEDGEN 12:00:00 AM ([facility] Medical Service) R07.9 Chest pain, CHEST PAIN, Problem 09/20/2016 MEDGEN unspecified UNSPECIFIED 12:00:00 AM ([facility] Medical Service) R42 Dizziness and DIZZINESS AND Problem 06/13/2016 MEDGEN giddiness GIDDINESS 12:00:00 AM ([facility] Medical Service) Z13.89 Encounter for ENCOUNTER FOR Problem 06/13/2016 MEDGEN screening for other SCREENING FOR OTHER 12:00:0 0 AM ([place] disorder DISORDER [facility] Medical Service) R42 Dizziness and DIZZINESS AND Problem 06/13/2016 MEDGEN giddiness GIDDINESS 12:00:00 AM ([facility] Medical Service) Z13.89 Encounter for ENCOUNTER FOR Problem 06/13/2016 MEDGEN screening for other SCREENING FOR OTHER 12:00:0 0 AM ([place] disorder DISORDER [facility] Medical Service) J06.0 Acute ACUTE Problem 05/11/2016 MEDGEN laryngopharyngitis LARYNGOPHARYNGITIS 12:00:00 AM ([facility] Medical Service) J06.0 Acute ACUTE Problem 05/11/2016 MEDGEN laryngopharyngitis LARYNGOPHARYNGITIS 12:00:00 AM (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 01/14/2016 MEDGEN neoplasm of skin and NEOPLASM OF SKIN AND 12:00 :00 AM ([facility] subcutaneous tissue SUBCUTANEOUS TISSUE EDT Medical of unspecified sites OF UNSPECIFIED SITES Service) J45.909 Unspecified asthma, UNSPECIFIED ASTHMA, Problem 016 MEDGEN uncomplicated UNCOMPLICATED 12:00:00 AM ([facility] EDT Medical Service) F41.9 Anxiety disorder, ANXIETY DISORDER, Problem 01/14/2016 MEDGEN unspecified UNSPECIFIED 12:00:00 AM ([facility] EDT Medical Service) F33.1 Major depressive MAJOR DEPRESSIVE Problem 01/14/2016 ME DGEN disorder, recurrent, DISORDER, RECURRENT, 12:00 :00 AM ([facility] EDT Medical Service) 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 Problem 01/14/2016 MEDGEN neoplasm of skin and NEOPLASM OF SKIN AND 12:00 :00 AM ([place] subcutaneous tissue SUBCUTANEOUS TISSUE EDT Medical of unspecified sites OF UNSPECIFIED SITES Service) E11.65 Type 2 diabetes TYPE 2 DIABETES Problem 11/17/2015 MEDG EN mellitus with MELLITUS WITH 12:00:00 AM ([facility] hyperglycemia HYPERGLYCEMIA EDT Medical Service) R00.2 Palpitations PALPITATIONS Problem 11/17/2015 MEDGEN 12:00:00 AM ([place] EDT Medical Service) E11.65 Type 2 diabetes TYPE 2 DIABETES Problem 11/17/2015 MEDG EN mellitus with MELLITUS WITH 12:00:00 AM ([facility] hyperglycemia HYPERGLYCEMIA EDT Medical Service) R00.2 Palpitations PALPITATIONS Problem 11/17/2015 MEDGEN 12:00:00 AM ([place] EDT Medical Service) E78.5 Hyperlipidemia, HYPERLIPIDEMIA, Problem 11/13/2015 MEDG EN unspecified UNSPECIFIED 12:00:00 AM ([place] EDT Medical Service) K59.09 Other constipation OTHER CONSTIPATION Problem 6 MEDGEN 12:00:00 AM ([facility] Medical Service) R30.0 Dysuria DYSURIA Problem 11/13/2015 MEDGEN 12:00:00 AM ([facility] Medical Service) K21.0 Gastro-esophageal GASTRO-ESOPHAGEAL Problem 11/13/2015 MEDGEN reflux disease with REFLUX DISEASE WITH 12:00:0 0 AM ([place] esophagitis ESOPHAGITIS T Medical Service) I10 Essential (primary) ESSENTIAL (PRIMARY) Problem 016 MEDGEN hypertension HYPERTENSION 12:00:00 AM ([facility] Medical Service) E78.5 Hyperlipidemia, HYPERLIPIDEMIA, Problem 11/13/2015 MEDG EN unspecified UNSPECIFIED 12:00:00 AM ([facility] Medical Service) K59.09 Other constipation OTHER CONSTIPATION Problem 6 MEDGEN 12:00:00 AM ([facility] Medical Service) R30.0 Dysuria DYSURIA Problem 11/13/2015 MEDGEN 12:00:00 AM ([facility] Medical Service) K21.0 Gastro-esophageal GASTRO-ESOPHAGEAL Problem 11/13/2015 MEDGEN reflux disease with REFLUX DISEASE WITH 12:00:0 0 AM ([place] esophagitis ESOPHAGITIS T Medical Service) I10 Essential (primary) ESSENTIAL (PRIMARY) Problem 016 MEDGEN hypertension HYPERTENSION 12:00:00 [facility] E78.2 Mixed hyperlipidemia MIXED HYPERLIPIDEMIA Problem 07/23 MEDGEN 12:00:00 AM ([facility] Medical Service) E11.9 Type 2 diabetes TYPE 2 DIABETES Problem 07/23/2015 MEDG EN mellitus without MELLITUS WITHOUT 12:00:00 AM ( [place] complications COMPLICATIONS EST Medical Service) E10.9 Type 1 diabetes TYPE 1 DIABETES Problem 07/23/2015 MEDG EN mellitus without MELLITUS WITHOUT 12:00:00 AM ( [place] complications COMPLICATIONS EST Medical Service) E78.2 Mixed hyperlipidemia MIXED HYPERLIPIDEMIA Problem 07/23 MEDGEN 12:00:00 AM ([place] EST Medical Service) E11.9 Type 2 diabetes TYPE 2 DIABETES Problem 07/23/2015 MEDG EN mellitus without MELLITUS WITHOUT 12:00:00 AM ( [place] complications COMPLICATIONS EST Medical Service) E10.9 Type 1 diabetes TYPE 1 DIABETES Problem 07/23/2015 MEDG EN mellitus without MELLITUS WITHOUT 12:00:00 AM ( [place] complications COMPLICATIONS EST Medical Service) [id number] Diabetes mellitus Diabetes Mellitus Problem 03/07/2012 OLIVIA (disorder) 12:00:00 AM ([facility]) [id number] Asthma (disorder) Asthma Problem 03/07/2012 [facility] 12:00:00 AM ([facility]) [id number] Anxiety (finding) Anxiety Finding 03/07/2012 [facility] 12:00:00 AM ([facility]) Z98.84 Bariatric surgery BARIATRIC SURGERY Diagnosis 09/06/2019 [facility] status STATUS 01:54:00 PM Medical EST Center I10 Essential (primary) ESSENTIAL (PRIMARY) Diagnosis 020 [facility] hypertension HYPERTENSION 01:54:00 PM Medical EST Center F33.3 Major depressive MAJOR DEPRESSV Diagnosis 08/24/2019 Amarilis Vaughan disorder, recurrent, DISORDER, RECURRENT, 10:21 :00 AM Medical severe with SEVERE W PSYCH EST Center psychotic symptoms SYMPTOMS Z53.20 Procedure and PROC/TRTMT NOT CRD Diagnosis 07/20/2019 Nadir Vaughan treatment not OUT BEC PT DECISION 11:06:00 AM M edical carried out because FOR UNSP REASONS EST Center of patient's decision for unspecified reasons R10.30 Lower abdominal LOWER ABDOMINAL Diagnosis 07/20/2019 Amarilis Vaughan pain, unspecified PAIN, UNSPECIFIED 11:06:00 AM Medical EST Center K57.90 Diverticulosis of DVRTCLOS OF INTEST, Diagnosis 9 [facility] intestine, part PART UNSP, W/O PERF 11:06:00 AM Medical unspecified, without OR ABSCESS W/O BLEED EST Center perforation or abscess without bleeding M79.606 Pain in leg, PAIN IN LEG, Diagnosis 07/20/2019 [facility] phs unspecified UNSPECIFIED 11:06:00 AM Medical EST Center E66.01 Morbid (severe) MORBID (SEVERE) Diagnosis 05/21/2019 Amarilis Vaughan obesity due to OBESITY DUE TO 09:15:00 AM Medic al excess calories EXCESS CALORIES EDT Cent er K29.50 Unspecified chronic UNSPECIFIED CHRONIC Diagnosis 019 [facility] gastritis without GASTRITIS WITHOUT 08:59:00 AM Medical bleeding BLEEDING EDT Center R10.13 Epigastric pain EPIGASTRIC PAIN Diagnosis 05/01/2019 Amarilis suarez [facility] 11:40:00 AM Medical EDT Center R69 Illness, unspecified Illness, unspecified Diagnosis 10/16 OLIVIA 06:23:31 PM ([facility]) Diagnosis NEXTGEN ([facility]) Diagnosis NEXTGEN ([facility]) Surgeries/Procedures Procedure Description Date Indications Data Source(s) OFFICE/OUTPATIENT 04/17/2020 NEXTGEN (S aint VISIT, EST 12:00:00 AM [facility] EDT - Center) 04/17/2020 12:00:00 AM EDT Psychotherapy (30 03/20/2020 NEXTGEN (S aint Mins) W/ E&M 12:00:00 AM [facility] EDT - [place]) 03/20/2020 12:00:00 AM EDT OFFICE/OUTPATIENT 03/20/2020 NEXTGEN (S aint VISIT, EST 12:00[facility] [facility] [place] 03/20/2020 12:00:00 AM EDT Psychotherapy (30 02/20/2020 NEXTGEN (S aint Mins) W/ E&M 12:00:00 AM [facility] EDT - [place]) 02/20/2020 12:00:00 AM EDT OFFICE/OUTPATIENT 02/20/2020 NEXTGEN (S aint VISIT, EST 12:00:00 AM [facility] EDT - [place]) 02/20/2020 12:00:00 AM EDT Psychotherapy (30 01/24/2020 NEXTGEN (S aint Mins) W/ E&M 12:00:00 AM [facility] EDT - Center) 01/24/2020 12:00:00 AM EDT OFFICE/OUTPATIENT 01/24/2020 NEXTGEN (S aint VISIT, EST 12:00:00 AM [facility] EDT - [place]) 01/24/2020 12:00:00 AM EDT OFFICE/OUTPATIENT 12/25/2019 NEXTGEN (S aint VISIT, EST 12:00:00 AM [facility] EDT - [place]) 12/25/2019 12:00:00 AM EDT Psychotherapy (30 11/26/2019 NEXTGEN (S aint Mins) W/ E&M 12:00:00 AM [facility] EDT - [place]) 11/26/2019 12:00:00 AM EDT OFFICE/OUTPATIENT 11/26/2019 NEXTGEN (S aint VISIT, EST 12:00:00 AM [facility] EDT - Center) 11/26/2019 12:00:00 AM EDT Documentation of 11/05/2019 MEDGEN ([place] [facility] current medications 12:00:00 AM Medical Service) (procedure) EDT Documentation of 11/05/2019 MEDGEN ([place] [facility] current medications 12:00:00 AM Medical Service) (procedure) EDT Documentation of 11/05/2019 MEDGEN ([place] current medications 12:00:00 AM Medical Service) (procedure) EDT Documentation of 11/05/2019 MEDGEN ([place] current medications 12:00:00 AM Medical Service) (procedure) EDT Documentation of 11/05/2019 MEDGEN ([place] current medications 12:00:00 AM Medical Service) (procedure) EDT Documentation of 11/05/2019 MEDGEN ([place] current medications 12:00:00 AM Medical Service) (procedure) EDT Documentation of 11/05/2019 MEDGEN ([place] current medications 12:00:00 AM Medical Service) (procedure) EDT Documentation of 11/05/2019 MEDGEN ([facility] current medications 12:00:00 AM Medical Service) (procedure) EDT Documentation of 11/05/2019 MEDGEN ([place] [facility] current medications 12:00:00 AM Medical Service) (procedure) EDT Documentation of 11/05/2019 MEDGEN ([place] [facility] current medications 12:00:00 AM Medical Service) (procedure) EDT Psychotherapy (30 10/28/2019 NEXTGEN (S aint Mins) W/ E&M 12:00:00 AM [facility] EDT - Center) 10/28/2019 12:00:00 AM EDT OFFICE/OUTPATIENT 10/28/2019 NEXTGEN (S aint VISIT, EST 12:00:00 AM [facility] EDT - Center) 10/28/2019 12:00:00 AM EDT OFFICE/OUTPATIENT 09/27/2019 NEXTGEN (S aint VISIT, EST 12:00:00 AM [facility] EST - Center) 09/27/2019 12:00:00 AM EST Documentation of 09/06/2019 MEDGEN ([place] current medications 12:00:00 AM Medical Service) (procedure) EST Documentation of 09/06/2019 MEDGEN ([place] current medications 12:00:00 AM Medical Service) (procedure) EST Documentation of 09/06/2019 MEDGEN ([place] current medications 12:00:00 AM Medical Service) (procedure) EST Documentation of 09/06/2019 MEDGEN ([place] current medications 12:00:00 AM Medical Service) (procedure) EST Documentation of 09/06/2019 MEDGEN ([place] current medications 12:00:00 AM Medical Service) (procedure) EST Documentation of 09/06/2019 MEDGEN ([place] current medications 12:00:00 AM Medical Service) (procedure) EST Documentation of 09/06/2019 MEDGEN ([place] current medications 12:00:00 AM Medical Service) (procedure) EST Documentation of 09/06/2019 MEDGEN ([place] current medications 12:00:00 AM Medical Service) (procedure) EST Documentation of 09/06/2019 MEDGEN ([place] current medications 12:00:00 AM Medical Service) (procedure) EST Documentation of 09/06/2019 MEDGEN ([place] current medications 12:00:00 AM Medical Service) (procedure) EST Documentation of 09/06/2019 MEDGEN ([place] current medications 12:00:00 AM Medical Service) (procedure) EST Documentation of 09/06/2019 MEDGEN ([place] current medications 12:00:00 AM Medical Service) (procedure) EST Documentation of 09/06/2019 MEDGEN ([place] current medications 12:00:00 AM Medical Service) (procedure) EST Documentation of 09/06/2019 MEDGEN ([place] current medications 12:00:00 AM Medical Service) (procedure) EST Documentation of 09/06/2019 MEDGEN ([place] current medications 12:00:00 AM Medical Service) (procedure) EST Documentation of 09/06/2019 MEDGEN ([place] current medications 12:00:00 AM Medical Service) (procedure) EST Documentation of 09/03/2019 MEDGEN ([place] current medications 12:00:00 AM Medical Service) (procedure) EST Documentation of 09/03/2019 MEDGEN ([place] current medications 12:00:00 AM Medical Service) (procedure) EST Documentation of 09/03/2019 MEDGEN ([place] current medications 12:00:00 AM Medical Service) (procedure) EST Documentation of 09/03/2019 MEDGEN ([place] current medications 12:00:00 AM Medical Service) (procedure) EST Documentation of 09/03/2019 MEDGEN ([place] current medications 12:00:00 AM Medical Service) (procedure) EST Documentation of 09/03/2019 MEDGEN ([place] [facility] current medications 12:00:00 AM Medical Service) (procedure) EST Documentation of 09/03/2019 MEDGEN ([place] current medications 12:00:00 AM Medical Service) (procedure) EST Documentation of 09/03/2019 MEDGEN ([place] [facility] current medications 12:00:00 AM Medical Service) (procedure) EST Documentation of 09/03/2019 MEDGEN ([place] current medications 12:00:00 AM Medical Service) (procedure) EST Documentation of 09/03/2019 MEDGEN ([place] current medications 12:00:00 AM Medical Service) (procedure) EST Documentation of 09/03/2019 MEDGEN ([place] current medications 12:00:00 AM Medical Service) (procedure) EST Documentation of 09/03/2019 MEDGEN ([place] current medications 12:00:00 AM Medical Service) (procedure) EST Psychotherapy (30 08/29/2019 NEXTGEN (S aint Mins) W/ E&M 12:00:00 AM [facility] EST - Center) 08/29/2019 12:00:00 AM EST OFFICE/OUTPATIENT 08/29/2019 NEXTGEN (S aint VISIT, EST 12:00:00 AM [facility] EST - Center) 08/29/2019 12:00:00 AM EST Documentation of 08/08/2019 MEDGEN ([place] [facility] current medications 12:00:00 AM Medical Service) (procedure) EST Documentation of 08/08/2019 MEDGEN ([place] current medications 12:00:00 AM Medical Service) (procedure) EST Documentation of 08/08/2019 MEDGEN ([place] current medications 12:00:00 AM Medical Service) (procedure) EST Documentation of 08/08/2019 MEDGEN ([place] current medications 12:00:00 AM Medical Service) (procedure) EST Documentation of 08/08/2019 MEDGEN ([place] current medications 12:00:00 AM Medical Service) (procedure) EST Documentation of 08/08/2019 MEDGEN ([place] current medications 12:00:00 AM Medical Service) (procedure) EST Documentation of 08/08/2019 MEDGEN ([place] current medications 12:00:00 AM Medical Service) (procedure) EST Documentation of 08/08/2019 MEDGEN ([place] current medications 12:00:00 AM Medical Service) (procedure) EST Documentation of 08/08/2019 MEDGEN ([place] current medications 12:00:00 AM Medical Service) (procedure) EST Documentation of 08/08/2019 MEDGEN ([place] current medications 12:00:00 AM Medical Service) (procedure) EST Documentation of 08/08/2019 MEDGEN ([place] [facility] current medications 12:00:00 AM Medical Service) (procedure) EST Documentation of 08/08/2019 MEDGEN ([place] current medications 12:00:00 AM Medical Service) (procedure) EST Documentation of 08/08/2019 MEDGEN ([place] current medications 12:00:00 AM Medical Service) (procedure) EST Documentation of 08/08/2019 MEDGEN ([place] current medications 12:00:00 AM Medical Service) (procedure) EST Documentation of 08/08/2019 MEDGEN ([place] current medications 12:00:00 AM Medical Service) (procedure) EST Documentation of 08/08/2019 MEDGEN ([place] current medications 12:00:00 AM Medical Service) (procedure) EST Documentation of 08/08/2019 MEDGEN ([place] current medications 12:00:00 AM Medical Service) (procedure) EST Documentation of 08/08/2019 MEDGEN ([place] current medications 12:00:00 AM Medical Service) (procedure) EST Documentation of 08/08/2019 MEDGEN ([place] current medications 12:00:00 AM Medical Service) (procedure) EST Documentation of 08/08/2019 MEDGEN ([place] current medications 12:00:00 AM Medical Service) (procedure) EST Documentation of 08/08/2019 MEDGEN ([place] current medications 12:00:00 AM Medical Service) (procedure) EST Documentation of 08/08/2019 MEDGEN ([place] current medications 12:00:00 AM Medical Service) (procedure) EST Documentation of 08/08/2019 MEDGEN ([place] current medications 12:00:00 AM Medical Service) (procedure) EST Documentation of 08/08/2019 MEDGEN ([place] current medications 12:00:00 AM Medical Service) (procedure) EST Documentation of 08/03/2019 MEDGEN ([place] current medications 12:00:00 AM Medical Service) (procedure) EST Documentation of 08/03/2019 MEDGEN ([place] current medications 12:00:00 AM Medical Service) (procedure) EST Documentation of 08/03/2019 MEDGEN ([place] current medications 12:00:00 AM Medical Service) (procedure) EST Documentation of 08/03/2019 MEDGEN ([place] current medications 12:00:00 AM Medical Service) (procedure) EST Documentation of 08/03/2019 MEDGEN ([place] current medications 12:00:00 AM Medical Service) (procedure) EST Documentation of 08/03/2019 MEDGEN ([place] current medications 12:00:00 AM Medical Service) (procedure) EST Documentation of 08/03/2019 MEDGEN ([place] current medications 12:00:00 AM Medical Service) (procedure) EST Documentation of 08/03/2019 MEDGEN ([place] current medications 12:00:00 AM Medical Service) (procedure) EST Documentation of 08/03/2019 MEDGEN ([place] current medications 12:00:00 AM Medical Service) (procedure) EST Documentation of 08/03/2019 MEDGEN ([place] current medications 12:00:00 AM Medical Service) (procedure) EST Documentation of 08/03/2019 MEDGEN ([place] current medications 12:00:00 AM Medical Service) (procedure) EST Documentation of 08/03/2019 MEDGEN ([place] current medications 12:00:00 AM Medical Service) (procedure) EST Documentation of 08/03/2019 MEDGEN ([place] current medications 12:00:00 AM Medical Service) (procedure) EST Documentation of 08/03/2019 MEDGEN ([place] current medications 12:00:00 AM Medical Service) (procedure) EST Documentation of 08/03/2019 MEDGEN ([place] current medications 12:00:00 AM Medical Service) (procedure) EST Documentation of 08/03/2019 MEDGEN ([place] current medications 12:00:00 AM Medical Service) (procedure) EST Psychotherapy (30 08/01/2019 NEXTGEN (S airosa Mins) W/ E&M 12:00:00 AM [facility] EST - Center) 08/01/2019 12:00:00 AM EST OFFICE/OUTPATIENT 08/01/2019 NEXTGEN (S aint VISIT, EST 12:00:00 AM [facility]) 08/01/2019 12:00:00 AM EST Documentation of 07/22/2019 MEDGEN ([place] current medications 12:00:00 AM Medical Service) (procedure) EST Documentation of 07/22/2019 MEDGEN ([place] current medications 12:00:00 AM Medical Service) (procedure) EST Documentation of 07/22/2019 MEDGEN ([place] current medications 12:00:00 AM Medical Service) (procedure) EST Documentation of 07/22/2019 MEDGEN ([place] current medications 12:00:00 AM Medical Service) (procedure) EST No intolerance to milk No intolerance to 06/20/2019 OLIVIA ([facility] milk products 12:00:00 AM [facility]) NUTRITION THERAPY NUTRITION THERAPY 06/20/[address] ([facility] INITIAL INITIAL 12:00:00 AM [facility]) OFFICE/OUTPATIENT 06/03/2019 NEXTGEN (S aint VISIT, EST 12:00:00 AM [facility] EDT - [place]) 06/03/2019 12:00:00 AM EDT Psychotherapy (30 05/03/2019 NEXTGEN (S aint Mins) W/ E&M 12:00:[address] [facility] 05/03/2019 12:00:00 AM EDT OFFICE/OUTPATIENT 05/03/2019 NEXTGEN (S aint VISIT, EST 12:00:[address] [facility] 05/03/2019 12:00:00 AM EDT OFFICE/OUTPATIENT 05/01/2019 NEXTGEN (S aint VISIT, NEW 12:00:[address] [facility] 05/01/2019 12:00:00 AM EDT Psychotherapy (30 04/05/2019 NEXTGEN (S aint Mins) W/ E&M 12:00:[address] [facility] 04/05/2019 12:00:00 AM EDT OFFICE/OUTPATIENT 04/05/2019 NEXTGEN (S aint VISIT, EST 12:00:[address] [facility] 04/05/2019 12:00:00 AM EDT Documentation of 03/27/2019 MEDGEN ([place] current medications 12:00:00 AM Medical Service) (procedure) EDT Documentation of 03/27/2019 MEDGEN ([place] current medications 12:00:00 AM Medical Service) (procedure) EDT Documentation of 03/27/2019 MEDGEN ([place] current medications 12:00:00 AM Medical Service) (procedure) EDT Documentation of 03/27/2019 MEDGEN ([place] current medications 12:00:00 AM Medical Service) (procedure) EDT Documentation of 03/27/2019 MEDGEN ([place] [facility] current medications 12:00:00 AM Medical Service) (procedure) EDT Documentation of 03/27/2019 MEDGEN ([place] current medications 12:00:00 AM Medical Service) (procedure) EDT Documentation of 03/27/2019 MEDGEN ([place] current medications 12:00:00 AM Medical Service) (procedure) EDT Documentation of 03/27/2019 MEDGEN ([place] current medications 12:00:00 AM Medical Service) (procedure) EDT Documentation of 03/27/2019 MEDGEN ([place] current medications 12:00:00 AM Medical Service) (procedure) EDT Documentation of 03/27/2019 MEDGEN ([place] current medications 12:00:00 AM Medical Service) (procedure) EDT Psychotherapy (30 03/08/2019 DEE (Brendan workman Mins) W/ E&M 12:00:[address] [facility] 03/08/2019 12:00:00 AM EDT OFFICE/OUTPATIENT 03/08/2019 DEE (Brendan workman VISIT, EST 12:00:[address] [facility] 03/08/2019 12:00:00 AM EDT Periodic Oral Exam - Periodic Oral Exam - 02/12/2019 OLIVIA ([facility] MKD WRAP MKD WRAP 12:00:00 AM [facility]) Re-evaluation - Re-evaluation - 02/12/2019 OLIVIA ([place] limited, problem limited, problem 12:00:00 AM [facility] focused (established focused (established [facility]) patien patien INTRAORAL PERIAPICAL INTRAORAL PERIAPICAL 02/12/2019 OLIVIA ([facility] FIRST FLIM FIRST FLIM 12:00:00 AM [facility]) Documentation of 02/07/2019 MEDGEN ([place] [facility] current medications 12:00:00 AM Medical Service) (procedure) EDT Documentation of 02/07/2019 MEDGEN ([place] current medications 12:00:00 AM Medical Service) (procedure) EDT Documentation of 02/07/2019 MEDGEN ([place] current medications 12:00:00 AM Medical Service) (procedure) EDT Documentation of 02/07/2019 MEDGEN ([place] current medications 12:00:00 AM Medical Service) (procedure) EDT Documentation of 02/07/2019 MEDGEN ([facility] current medications 12:00:00 AM Medical Service) (procedure) EDT Documentation of 02/07/2019 MEDGEN ([place] current medications 12:00:00 AM Medical Service) (procedure) EDT Documentation of 02/07/2019 MEDGEN ([place] [facility] current medications 12:00:00 AM Medical Service) (procedure) EDT Documentation of 02/07/2019 MEDGEN ([place] current medications 12:00:00 AM Medical Service) (procedure) EDT Documentation of 02/07/2019 MEDGEN ([place] [facility] current medications 12:00:00 AM Medical Service) (procedure) EDT Documentation of 02/07/2019 MEDGEN ([place] current medications 12:00:00 AM Medical Service) (procedure) EDT Documentation of 02/07/2019 MEDGEN ([place] current medications 12:00:00 AM Medical Service) (procedure) EDT Documentation of 02/07/2019 MEDGEN ([place] [facility] current medications 12:00:00 AM Medical Service) (procedure) EDT Psychotherapy (30 01/21/2019 NEXTGEN (S aint Mins) W/ E&M 12:00:[address] [facility]) 01/21/2019 12:00:00 AM EDT OFFICE/OUTPATIENT 01/21/2019 NEXTGEN (S aint VISIT, EST 12:00:[address] [facility]) 01/21/2019 12:00:00 AM EDT OFFICE/OUTPATIENT 12/24/2018 NEXTGEN (S aint VISIT, EST 12:00:[address] [facility]) 12/24/2018 12:00:00 AM EDT OFFICE/OUTPATIENT 11/12/2018 NEXTGEN (S aint VISIT, EST 12:00:00 AM [facility] EDT - Center) 11/12/2018 12:00:00 AM EDT OFFICE/OUTPATIENT 10/15/2018 NEXTGEN (S aint VISIT, EST 12:00:00 AM [facility] EST - Center) 10/15/2018 12:00:00 AM EST Documentation of 10/09/2018 MEDGEN ([facility] current medications 12:00:00 AM Medical Service) (procedure) EST Documentation of 10/09/2018 MEDGEN ([facility] current medications 12:00:00 AM Medical Service) (procedure) EST Documentation of 10/09/2018 MEDGEN ([facility] current medications 12:00:00 AM Medical Service) (procedure) EST Documentation of 10/09/2018 MEDGEN ([facility] current [facility] 12:00:00 AM [facility] Service) (procedure) EST Documentation of 10/09/2018 MEDGEN ([facility] current medications 12:00:00 AM Medical Service) (procedure) EST Documentation of 10/09/2018 [facility] ([facility] current [facility] 12:00:00 AM Medical Service) (procedure) EST Documentation of 10/09/2018 [facility] ([facility] current [facility] 12:00:00 AM Medical Service) (procedure) EST Documentation of 10/09/2018 [facility] ([facility] 12:00:00 AM Medical Service) (procedure) EST Documentation of 10/09/2018 [facility] ([facility] current [facility] 12:00:00 AM Medical Service) (procedure) EST Documentation of 10/09/2018 [facility] ([facility] 12:00:00 AM Medical Service) (procedure) EST Documentation of 10/09/2018 [facility] ([facility] 12:00:00 AM Medical Service) (procedure) EST Documentation of 10/09/2018 [facility] ([facility] 12:00:00 AM Medical Service) (procedure) EST Documentation of 10/09/2018 [facility] ([facility] 12:00:00 AM Medical Service) (procedure) EST Documentation of 10/09/2018 [facility] ([facility] 12:00:00 AM Medical Service) (procedure) EST Documentation of 10/09/2018 [facility] ([facility] 12:00:00 AM Medical Service) (procedure) EST Documentation of 10/09/2018 [facility] ([facility] current [facility] 12:00:00 AM Medical Service) (procedure) EST Psychotherapy (30 09/21/2018 NEXTGEN (S a[facility]) W/ E&M 12:00:00 AM [facility]) 09/21/2018 12:00:00 AM EST OFFICE/OUTPATIENT 09/21/2018 NEXTGEN (S aint VISIT, EST 12:00:00 AM [facility]) 09/21/2018 12:00:00 AM EST Documentation of 09/06/2018 MEDGEN ([facility] current [facility] 12:00:00 AM Medical Service) (procedure) EST Documentation of 09/06/2018 MEDGEN ([facility] current [facility] 12:00:00 AM Medical Service) (procedure) EST Documentation of 09/06/2018 [facility] ([facility] 12:00:00 AM Medical Service) (procedure) EST Documentation of 09/06/2018 MEDGEN ([facility] current [facility] 12:00:00 AM Medical Service) (procedure) EST Documentation of 09/06/2018 MEDGEN ([facility] current [facility] 12:00:00 AM Medical Service) (procedure) EST Documentation of 09/06/2018 MEDGEN ([facility] current [facility] 12:00:00 AM Medical Service) (procedure) EST Documentation of 09/06/2018 MED[facility] ([facility] 12:00:00 AM Medical Service) (procedure) EST Documentation of 09/06/2018 [facility]GEN ([facility] 12:00:00 AM Medical Service) (procedure) EST Documentation of 09/06/2018 [facility] ([facility] 12:00:00 AM Medical Service) (procedure) EST Documentation of 09/06/2018 MEDGEN ([facility] current [facility] 12:00:00 AM Medical Service) (procedure) EST Documentation of 09/06/2018 MEDGEN ([facility] 12:00:00 AM Medical Service) (procedure) EST Documentation of 09/06/2018 MEDGEN ([facility] 12:00:00 AM Medical Service) (procedure) EST Documentation of 09/06/2018 MEDGEN ([facility] current [facility] 12:00:00 AM Medical Service) (procedure) EST Documentation of 09/06/2018 [facility] ([facility] 12:00:00 AM Medical Service) (procedure) EST Documentation of 09/06/2018 [facility]GEN ([facility] current [facility] 12:00:00 AM Medical Service) (procedure) EST Documentation of 09/06/2018 MEDGEN ([facility] current [facility] 12:00:00 AM Medical Service) (procedure) EST Documentation of 08/10/2018 MEDGEN ([facility] current [facility] 12:00:00 AM Medical Service) (procedure) EST Documentation of 08/10/2018 MEDGEN ([facility] 12:00:00 AM Medical Service) (procedure) EST Documentation of 08/10/2018 MEDGEN ([facility] 12:00:00 AM Medical Service) (procedure) EST Documentation of 08/10/2018 MEDGEN ([facility] 12:00:00 AM Medical Service) (procedure) EST Documentation of 08/10/2018 MEDGEN ([facility] current [facility] 12:00:00 AM Medical Service) (procedure) EST Documentation of 08/10/2018 MEDGEN ([facility] current [facility] 12:00:00 AM Medical Service) (procedure) EST Documentation of 08/10/2018 MEDGEN ([facility] current [facility] 12:00:00 AM Medical Service) (procedure) EST Documentation of 08/10/2018 MEDGEN ([facility] current [facility] 12:00:00 AM Medical Service) (procedure) EST Documentation of 08/10/2018 MEDGEN ([facility] current [facility] 12:00:00 AM Medical Service) (procedure) EST Documentation of 08/10/2018 MEDGEN ([facility] current [facility] 12:00:00 AM Medical Service) (procedure) EST Documentation of 08/10/2018 MEDGEN ([facility] current [facility] 12:00:00 AM Medical Service) (procedure) EST Documentation of 08/10/2018 MEDGEN ([facility] current [facility] 12:00:00 AM Medical Service) (procedure) EST Documentation of 08/10/2018 MEDGEN ([facility] current [facility] 12:00:00 AM Medical Service) (procedure) EST Documentation of 08/10/2018 MEDGEN ([facility] current [facility] 12:00:00 AM Medical Service) (procedure) EST Documentation of 08/10/2018 MEDGEN ([facility] current [facility] 12:00:00 AM Medical Service) (procedure) EST Documentation of 08/10/2018 MEDGEN ([facility] current [facility] 12:00:00 AM Medical Service) (procedure) EST Documentation of 08/10/2018 MEDGEN ([facility] current [facility] 12:00:00 AM Medical Service) (procedure) EST Documentation of 08/10/2018 MEDGEN ([facility] current [facility] 12:00:00 AM Medical Service) (procedure) EST Documentation of 08/10/2018 MEDGEN ([facility] current [facility] 12:00:00 AM Medical Service) (procedure) EST Documentation of 08/10/2018 MEDGEN ([facility] current [facility] 12:00:00 AM Medical Service) (procedure) EST Documentation of 08/10/2018 MEDGEN ([facility] current [facility] 12:00:00 AM Medical Service) (procedure) EST Documentation of 08/10/2018 MEDGEN ([facility] current [facility] 12:00:00 AM Medical Service) (procedure) EST Documentation of 08/10/2018 MEDGEN ([facility] current [facility] 12:00:00 AM Medical Service) (procedure) EST Documentation of 08/10/2018 MEDGEN ([facility] current [facility] 12:00:00 AM Medical Service) (procedure) EST Documentation of 08/10/2018 MEDGEN ([facility] current [facility] 12:00:00 AM Medical Service) (procedure) EST Documentation of 08/10/2018 MEDGEN ([facility] current [facility] 12:00:00 AM Medical Service) (procedure) EST Documentation of 07/16/2018 MEDGEN ([facility] current [facility] 12:00:00 AM Medical Service) (procedure) EST Documentation of 07/16/2018 MEDGEN ([facility] 12:00:00 AM Medical Service) (procedure) EST Documentation of 07/16/2018 MEDGEN ([facility] current [facility] 12:00:00 AM Medical Service) (procedure) EST Documentation of 07/16/2018 MEDGEN ([facility] 12:00:00 AM Medical Service) (procedure) EST Documentation of 07/16/2018 MEDGEN ([facility] 12:00:00 AM Medical Service) (procedure) EST Documentation of 07/16/2018 [facility] ([facility] 12:00:00 AM Medical Service) (procedure) EST Documentation of 07/16/2018 MED[facility] ([facility] 12:00:00 AM Medical Service) (procedure) EST Documentation of 07/16/2018 MEDGEN ([facility] current [facility] 12:00:00 AM Medical Service) (procedure) EST Medication 07/16/2018 [facility] ([facility] [facility] 12:00:00 AM Medical Servi ce) (procedure) EST Documentation of 07/16/2018 MEDGEN ([facility] current [facility] 12:00:00 AM Medical Service) (procedure) EST Documentation of 07/16/2018 MED[facility] ([facility] current [facility] 12:00:00 AM Medical Service) (procedure) EST Documentation of 07/16/2018 MEDGEN ([facility] 12:00:00 AM Medical Service) (procedure) EST Documentation of 07/16/2018 MEDGEN ([facility] current [facility] 12:00:00 AM Medical Service) (procedure) EST Documentation of 07/16/2018 MEDGEN ([facility] 12:00:00 AM Medical Service) (procedure) EST Documentation of 07/16/2018 MEDGEN ([facility] 12:00:00 AM Medical Service) (procedure) EST Documentation of 07/16/2018 MEDGEN ([facility] 12:00:00 AM Medical Service) (procedure) EST Documentation of 07/16/2018 MED[facility] ([facility] current [facility] 12:00:00 AM Medical Service) (procedure) EST Documentation of 07/16/2018 MED[facility] ([facility] current [facility] 12:00:00 AM Medical Service) (procedure) EST Medication 07/16/2018 MEDGEN ([facility]conciliation 12:00:00 AM Medical Servi ce) (procedure) EST Documentation of 07/16/2018 MEDGEN ([facility] 12:00:00 AM Medical Service) (procedure) EST Documentation of 07/02/2018 MED[facility] ([facility] current [facility] 12:00:00 AM Medical Service) (procedure) EST Documentation of 07/02/2018 MEDGEN ([facility] current [facility] 12:00:00 AM Medical Service) (procedure) EST Documentation of 07/02/2018 MEDGEN ([facility] 12:00:00 AM Medical Service) (procedure) EST Medication 07/02/2018 MED[facility] ([facility]con[facility] 12:00:00 AM Medical Servi ce) (procedure) EST Documentation of 07/02/2018 MEDGEN ([facility] 12:00:00 AM Medical Service) (procedure) EST Documentation of 07/02/2018 MED[facility] ([facility] 12:00:00 AM Medical Service) (procedure) EST Documentation of 07/02/2018 [facility] ([facility] 12:00:00 AM Medical Service) (procedure) EST Documentation of 07/02/2018 MEDGEN ([facility] 12:00:00 AM Medical Service) (procedure) EST Medication 07/02/2018 MEDGEN ([facility] 12:00:00 AM Medical Servi ce) (procedure) EST Documentation of 07/02/2018 MEDGEN ([facility] 12:00:00 AM Medical Service) (procedure) EST Documentation of 05/26/2018 MEDGEN ([facility] 12:00:00 AM Medical Service) (procedure) EDT Documentation of 05/26/2018 MEDGEN ([facility] 12:00:00 AM Medical Service) (procedure) EDT Documentation of 05/26/2018 MEDGEN ([facility] 12:00:00 AM Medical Service) (procedure) EDT Documentation of 05/26/2018 MEDGEN ([facility] 12:00:00 AM Medical Service) (procedure) EDT Documentation of 05/26/2018 MEDGEN ([facility] 12:00:00 AM Medical Service) (procedure) EDT Documentation of 05/26/2018 MEDGEN ([facility] current [facility] 12:00:00 AM Medical Service) (procedure) EDT Documentation of 05/26/2018 MEDGEN ([facility] 12:00:00 AM Medical Service) (procedure) EDT Documentation of 05/26/2018 MEDGEN ([facility] current [facility] 12:00:00 AM Medical Service) (procedure) EDT Documentation of 04/24/2018 MEDGEN ([facility] current [facility] 12:00:00 AM Medical Service) (procedure) EDT Documentation of 04/24/2018 MEDGEN ([facility] current [facility] 12:00:00 AM Medical Service) (procedure) EDT Documentation of 04/24/2018 MEDGEN ([facility] 12:00:00 AM Medical Service) (procedure) EDT Documentation of 04/24/2018 MEDGEN ([facility] 12:00:00 AM Medical Service) (procedure) EDT Documentation of 04/24/2018 MEDGEN ([facility] 12:00:00 AM Medical Service) (procedure) EDT Documentation of 04/24/2018 MEDGEN ([facility] 12:00:00 AM Medical Service) (procedure) EDT Documentation of 04/24/2018 MEDGEN ([facility] 12:00:00 AM Medical Service) (procedure) EDT Documentation of 04/24/2018 MEDGEN ([facility] 12:00:00 AM Medical Service) (procedure) EDT Documentation of 03/21/2018 MEDGEN ([facility] current [facility] 12:00:00 AM Medical Service) (procedure) EDT Documentation of 03/21/2018 MEDGEN ([facility] 12:00:00 AM Medical Service) (procedure) EDT Documentation of 03/21/2018 MEDGEN ([facility] 12:00:00 AM Medical Service) (procedure) EDT Documentation of 03/21/2018 MEDGEN ([facility] current [facility] 12:00:00 AM Medical Service) (procedure) EDT Documentation of 03/21/2018 MEDGEN ([facility] 12:00:00 AM Medical Service) (procedure) EDT Documentation of 03/21/2018 MEDGEN ([facility] 12:00:00 AM Medical Service) (procedure) EDT Documentation of 03/21/2018 MEDGEN ([facility] 12:00:00 AM Medical Service) (procedure) EDT Documentation of 03/21/2018 MEDGEN ([facility] current [facility] 12:00:00 AM Medical Service) (procedure) EDT Documentation of 03/21/2018 MED[facility] ([facility] 12:00:00 AM Medical Service) (procedure) EDT Documentation of 03/21/2018 MEDGEN ([facility] current [facility] 12:00:00 AM Medical Service) (procedure) EDT Documentation of 03/21/2018 MEDGEN ([facility] 12:00:00 AM Medical Service) (procedure) EDT Documentation of 03/21/2018 MEDGEN ([facility] current [facility] 12:00:00 AM Medical Service) (procedure) EDT Documentation of 03/21/2018 MEDGEN ([facility] current [facility] 12:00:00 AM Medical Service) (procedure) EDT Documentation of 03/21/2018 MEDGEN ([facility] current [facility] 12:00:00 AM Medical Service) (procedure) EDT Documentation of 03/21/2018 MEDGEN ([facility] current [facility] 12:00:00 AM Medical Service) (procedure) EDT Documentation of 03/21/2018 MEDGEN ([facility] current [facility] 12:00:00 AM Medical Service) (procedure) EDT Documentation of 03/21/2018 MEDGEN ([facility] current [facility] 12:00:00 AM Medical Service) (procedure) EDT Documentation of 03/21/2018 MEDGEN ([facility] current [facility] 12:00:00 AM Medical Service) (procedure) EDT Documentation of 03/21/2018 MEDGEN ([facility] current [facility] 12:00:00 AM Medical Service) (procedure) EDT Documentation of 03/21/2018 MEDGEN ([facility] current [facility] 12:00:00 AM Medical Service) (procedure) EDT Documentation of 03/21/2018 MEDGEN ([facility] current [facility] 12:00:00 AM Medical Service) (procedure) EDT Documentation of 03/21/2018 MEDGEN ([facility] current [facility] 12:00:00 AM Medical Service) (procedure) EDT Documentation of 03/21/2018 MED[facility] ([facility] current [facility] 12:00:00 AM Medical Service) (procedure) EDT Documentation of 03/21/2018 MEDGEN ([facility] current [facility] 12:00:00 AM Medical Service) (procedure) EDT Documentation of 02/28/2018 MEDGEN ([facility] current medications 12:00:00 AM Medical Service) (procedure) EDT Documentation of 02/28/2018 MEDGEN ([facility] current medications 12:00:00 AM Medical Service) (procedure) EDT Documentation of 02/28/2018 MEDGEN ([facility] current medications 12:00:00 AM Medical Service) (procedure) EDT Documentation of 02/28/2018 MEDGEN ([facility] current medications 12:00:00 AM Medical Service) (procedure) EDT Documentation of 02/28/2018 MEDGEN ([facility] current medications 12:00:00 AM Medical Service) (procedure) EDT Documentation of 02/28/2018 MEDGEN ([facility] current medications 12:00:00 AM Medical Service) (procedure) EDT Documentation of 02/28/2018 MEDGEN ([facility] current medications 12:00:00 AM Medical Service) (procedure) EDT Documentation of 02/28/2018 MEDGEN ([facility] current [facility] 12:00:00 AM Medical Service) (procedure) EDT Documentation of 02/28/2018 MEDGEN ([facility] current [facility] 12:00:00 AM Medical Service) (procedure) EDT Documentation of 02/28/2018 MEDGEN ([facility] current medications 12:00:00 AM Medical Service) (procedure) EDT Documentation of 02/28/2018 MEDGEN ([facility] current [facility] 12:00:00 AM Medical Service) (procedure) EDT Documentation of 02/28/2018 MEDGEN ([facility] current [facility] 12:00:00 AM Medical Service) (procedure) EDT Documentation of 02/28/2018 MEDGEN ([facility] current [facility] 12:00:00 AM Medical Service) (procedure) EDT Documentation of 02/28/2018 MEDGEN ([facility] current [facility] 12:00:00 AM Medical Service) (procedure) EDT Documentation of 02/20/2018 MEDGEN ([facility] current [facility] 12:00:00 AM Medical Service) (procedure) EDT Documentation of 02/20/2018 MEDGEN ([facility] current [facility] 12:00:00 AM Medical Service) (procedure) EDT Documentation of 02/20/2018 MEDGEN ([facility] current [facility] 12:00:00 AM Medical Service) (procedure) EDT Documentation of 02/20/2018 MEDGEN ([facility] current [facility] 12:00:00 AM Medical Service) (procedure) EDT Documentation of 02/20/2018 MEDGEN ([facility] current medications 12:00:00 AM Medical Service) (procedure) EDT Documentation of 02/20/2018 MEDGEN ([facility] current [facility] 12:00:00 AM Medical Service) (procedure) EDT Documentation of 02/20/2018 MEDGEN ([facility] current [facility] 12:00:00 AM Medical Service) (procedure) EDT Documentation of 02/20/2018 MEDGEN ([facility] current [facility] 12:00:00 AM Medical Service) (procedure) EDT Documentation of 02/20/2018 MEDGEN ([facility] current medications 12:00:00 AM Medical Service) (procedure) EDT Documentation of 02/20/2018 MEDGEN ([facility] current [facility] 12:00:00 AM Medical Service) (procedure) EDT Documentation of 02/20/2018 MEDGEN ([facility] current medications 12:00:00 AM Medical Service) (procedure) EDT Documentation of 02/20/2018 MEDGEN ([facility] current medications 12:00:00 AM Medical Service) (procedure) EDT Documentation of 02/20/2018 MEDGEN ([facility] current medications 12:00:00 AM Medical Service) (procedure) EDT Documentation of 02/20/2018 MEDGEN ([facility] current medications 12:00:00 AM Medical Service) (procedure) EDT Documentation of 02/20/2018 MEDGEN ([facility] current medications 12:00:00 AM Medical Service) (procedure) EDT Documentation of 02/20/2018 MEDGEN ([facility] current medications 12:00:00 AM Medical Service) (procedure) EDT Documentation of 02/20/2018 MEDGEN ([facility] current medications 12:00:00 AM Medical Service) (procedure) EDT Documentation of 02/20/2018 MEDGEN ([facility] current medications 12:00:00 AM Medical Service) (procedure) EDT Documentation of 02/10/2018 MEDGEN ([facility] current medications 12:00:00 AM Medical Service) (procedure) EDT Documentation of 02/10/2018 MEDGEN ([facility] current medications 12:00:00 AM Medical Service) (procedure) EDT Documentation of 02/10/2018 MEDGEN ([facility] current medications 12:00:00 AM Medical Service) (procedure) EDT Documentation of 02/10/2018 MEDGEN ([facility] current medications 12:00:00 AM Medical Service) (procedure) EDT Documentation of 01/09/2018 MEDGEN ([facility] current medications 12:00:00 AM Medical Service) (procedure) EDT Documentation of 01/09/2018 MEDGEN ([facility] current medications 12:00:00 AM Medical Service) (procedure) EDT Documentation of 01/09/2018 MEDGEN ([facility] current medications 12:00:00 AM Medical Service) (procedure) EDT Documentation of 01/09/2018 MEDGEN ([facility] current medications 12:00:00 AM Medical Service) (procedure) EDT Documentation of 01/09/2018 MEDGEN ([facility] current medications 12:00:00 AM Medical Service) (procedure) EDT Documentation of 01/09/2018 [facility]GEN ([facility] current medications 12:00:00 AM Medical Service) (procedure) EDT Documentation of 01/09/2018 [facility]GEN ([facility] current medications 12:00:00 AM Medical Service) (procedure) EDT Documentation of 01/09/2018 [facility] ([facility] current [facility] 12:00:00 AM Medical Service) (procedure) EDT Documentation of 01/09/2018 [facility] ([facility] current medications 12:00:00 AM Medical Service) (procedure) EDT Documentation of 01/09/2018 [facility] ([facility] current medications 12:00:00 AM Medical Service) (procedure) EDT Documentation of 01/09/2018 [facility] ([facility] current medications 12:00:00 AM Medical Service) (procedure) EDT Documentation of 01/09/2018 [facility] ([facility] current medications 12:00:00 AM Medical Service) (procedure) EDT Documentation of 01/09/2018 [facility] ([facility] current medications 12:00:00 AM Medical Service) (procedure) EDT Documentation of 01/09/2018 [facility] ([facility] current medications 12:00:00 AM Medical Service) (procedure) EDT Documentation of 01/09/2018 [facility] ([facility] current medications 12:00:00 AM Medical Service) (procedure) EDT Documentation of 01/09/2018 [facility] ([facility] current medications 12:00:00 AM Medical Service) (procedure) EDT Documentation of 01/09/2018 [facility] ([facility] current medications 12:00:00 AM Medical Service) (procedure) EDT Documentation of 01/09/2018 [facility] ([facility] current medications 12:00:00 AM Medical Service) (procedure) EDT Documentation of 12/20/2017 MEDGEN ([facility] current medications 12:00:00 AM Medical Service) (procedure) EDT Documentation of 12/20/2017 [facility]GEN ([facility] current medications 12:00:00 AM Medical Service) (procedure) EDT Documentation of 12/20/2017 MEDGEN ([facility] current medications 12:00:00 AM Medical Service) (procedure) EDT Documentation of 12/20/2017 MEDGEN ([facility] current medications 12:00:00 AM Medical Service) (procedure) EDT Documentation of 12/20/2017 MEDGEN ([facility] current medications 12:00:00 AM Medical Service) (procedure) EDT Documentation of 12/20/2017 [facility] ([facility] current medications 12:00:00 AM Medical Service) (procedure) EDT Documentation of 12/20/2017 [facility] ([facility] current medications 12:00:00 AM Medical Service) (procedure) EDT Documentation of 12/20/2017 [facility] ([facility] current [facility] 12:00:00 AM Medical Service) (procedure) EDT Documentation of 12/20/2017 [facility] ([facility] current medications 12:00:00 AM Medical Service) (procedure) EDT Documentation of 12/20/2017 [facility] ([facility] current medications 12:00:00 AM Medical Service) (procedure) EDT Documentation of 12/20/2017 [facility] ([facility] current medications 12:00:00 AM Medical Service) (procedure) EDT Documentation of 12/20/2017 [facility] ([facility] 12:00:00 AM Medical Service) (procedure) EDT Documentation of 11/22/2017 [facility] ([facility] current [facility] 12:00:00 AM Medical Service) (procedure) EDT Documentation of 11/22/2017 [facility] ([facility] current [facility] 12:00:00 AM Medical Service) (procedure) EDT Documentation of 11/22/2017 [facility] ([facility] current medications 12:00:00 AM Medical Service) (procedure) EDT Documentation of 11/22/2017 [facility] ([facility] current [facility] 12:00:00 AM Medical Service) (procedure) EDT Documentation of 11/09/2017 [facility] ([facility] current [facility] 12:00:00 AM Medical Service) (procedure) EDT Documentation of 11/09/2017 [facility] ([facility] current medications 12:00:00 AM Medical Service) (procedure) EDT Documentation of 11/09/2017 [facility]GEN ([facility] current medications 12:00:00 AM Medical Service) (procedure) EDT Documentation of 11/09/2017 [facility] ([facility] current medications 12:00:00 AM Medical Service) (procedure) EDT Documentation of 11/09/2017 [facility] ([facility] current medications 12:00:00 AM Medical Service) (procedure) EDT Documentation of 11/09/2017 [facility] ([facility] current medications 12:00:00 AM Medical Service) (procedure) EDT Documentation of 11/09/2017 [facility] ([facility] current medications 12:00:00 AM Medical Service) (procedure) EDT Documentation of 11/09/2017 [facility] ([facility] current medications 12:00:00 AM Medical Service) (procedure) EDT Documentation of 10/26/2017 MEDGEN ([facility] current medications 12:00:00 AM Medical Service) (procedure) EDT Documentation of 10/26/2017 [facility] ([facility] current medications 12:00:00 AM Medical Service) (procedure) EDT Documentation of 10/26/2017 [facility] ([facility] current medications 12:00:00 AM Medical Service) (procedure) EDT Documentation of 10/26/2017 [facility] ([facility] current medications 12:00:00 AM Medical Service) (procedure) EDT Documentation of 10/19/2017 [facility] ([facility] current medications 12:00:00 AM Medical Service) (procedure) EST Documentation of 10/19/2017 [facility] ([facility] current medications 12:00:00 AM Medical Service) (procedure) EST Documentation of 10/19/2017 [facility] ([facility] current medications 12:00:00 AM Medical Service) (procedure) EST Documentation of 10/19/2017 [facility] ([facility] current medications 12:00:00 AM Medical Service) (procedure) EST Documentation of 10/19/2017 MED[facility] ([facility] current medications 12:00:00 AM Medical Service) (procedure) EST Documentation of 10/19/2017 [facility] ([facility] 12:00:00 AM Medical Service) (procedure) EST Documentation of 10/03/2017 [facility] ([facility] medications 12:00:00 AM Medical Service) (procedure) EST Documentation of 10/03/2017 [facility] ([facility] medications 12:00:00 AM [facility] Service) (procedure) EST Documentation of 10/03/2017 [facility] ([place] current medications 12:00:00 AM [facility] Service) (procedure) EST Documentation of 10/03/2017 [facility] ([place] [facility] current medications 12:00:00 AM Medical Service) (procedure) EST Documentation of 10/03/2017 [facility] ([place] [facility] current medications 12:00:00 AM [facility] Service) (procedure) EST Documentation of 10/03/2017 [facility] ([place] [facility] current medications 12:00:00 AM Medical Service) (procedure) EST Documentation of 10/03/2017 [facility] ([place] [facility] current medications 12:00:00 AM [facility] Service) (procedure) EST Documentation of 10/03/2017 [facility] ([place] [facility] current medications 12:00:00 AM Medical Service) (procedure) EST Documentation of 10/03/2017 [facility] ([place] [facility] current medications 12:00:00 AM Medical Service) (procedure) EST Documentation of 10/03/2017 [facility] ([place] [facility] current medications 12:00:00 AM Medical Service) (procedure) EST Documentation of 07/27/2017 [facility] ([place] [facility] current medications 12:00:00 AM [facility] Service) (procedure) EST Documentation of 07/27/2017 [facility] ([place] [facility] current medications 12:00:00 AM [facility] Service) (procedure) EST Documentation of 07/27/2017 [facility] ([place] current medications 12:00:00 AM [facility] Service) (procedure) EST Documentation of 07/27/2017 [facility] ([place] [facility] current medications 12:00:00 AM [facility] Service) (procedure) EST Documentation of 07/27/2017 [facility] ([place] current medications 12:00:00 AM Medical Service) (procedure) EST Documentation of 07/27/2017 [facility] ([place] [facility] current medications 12:00:00 AM Medical Service) (procedure) EST Documentation of 07/27/2017 [facility] ([place] [facility] current medications 12:00:00 AM [facility] Service) (procedure) EST Documentation of 07/27/2017 [facility] ([place] [facility] current medications 12:00:00 AM Medical Service) (procedure) EST Documentation of 07/27/2017 [facility] ([place] [facility] current medications 12:00:00 AM Medical Service) (procedure) EST Documentation of 07/27/2017 [facility] ([place] [facility] current medications 12:00:00 AM Medical Service) (procedure) EST Documentation of 07/27/2017 [facility] ([place] [facility] current medications 12:00:00 AM Medical Service) (procedure) EST Documentation of 07/27/2017 [facility] ([place] [facility] current medications 12:00:00 AM Medical Service) (procedure) EST Documentation of 07/15/2017 [facility] ([place] [facility] current medications 12:00:00 AM Medical Service) (procedure) EST Documentation of 07/15/2017 [facility] ([place] [facility] current medications 12:00:00 AM Medical Service) (procedure) EST Documentation of 07/15/2017 [facility] ([place] [facility] current medications 12:00:00 AM Medical Service) (procedure) EST Documentation of 07/15/2017 [facility] ([place] [facility] current medications 12:00:00 AM Medical Service) (procedure) EST Documentation of 07/15/2017 [facility] ([place] [facility] current medications 12:00:00 AM Medical Service) (procedure) EST Documentation of 07/15/2017 [facility] ([place] [facility] current medications 12:00:00 AM Medical Service) (procedure) EST Documentation of 06/20/2017 [facility] ([place] [facility] current medications 12:00:00 AM Medical Service) (procedure) EST Documentation of 06/20/2017 [facility] ([place] [facility] current medications 12:00:00 AM Medical Service) (procedure) EST Documentation of 06/20/2017 [facility] ([place] [facility] current medications 12:00:00 AM Medical Service) (procedure) EST Documentation of 06/20/2017 [facility] ([place] [facility] current medications 12:00:00 AM Medical Service) (procedure) EST Documentation of 06/20/2017 [facility] ([place] [facility] current medications 12:00:00 AM Medical Service) (procedure) EST Documentation of 06/20/2017 [facility] ([place] [facility] current medications 12:00:00 AM Medical Service) (procedure) EST Documentation of 06/20/2017 [facility] ([place] [facility] current medications 12:00:00 AM Medical Service) (procedure) EST Documentation of 06/20/2017 [facility] ([place] [facility] current medications 12:00:00 AM Medical Service) (procedure) EST Documentation of 06/20/2017 [facility] ([place] [facility] current medications 12:00:00 AM Medical Service) (procedure) EST Documentation of 06/20/2017 [facility] ([place] [facility] current medications 12:00:00 AM Medical Service) (procedure) EST Documentation of 06/20/2017 [facility] ([place] [facility] current medications 12:00:00 AM Medical Service) (procedure) EST Documentation of 06/20/2017 [facility] ([place] [facility] current medications 12:00:00 AM Medical Service) (procedure) EST Documentation of 06/20/2017 [facility] ([place] [facility] current medications 12:00:00 AM Medical Service) (procedure) EST Documentation of 06/20/2017 [facility] ([place] [facility] current medications 12:00:00 AM Medical Service) (procedure) EST Documentation of 06/20/2017 [facility] ([place] [facility] current medications 12:00:00 AM Medical Service) (procedure) EST Documentation of 06/20/2017 [facility] ([place] [facility] current medications 12:00:00 AM Medical Service) (procedure) EST Documentation of 06/12/2017 [facility] ([place] [facility] current medications 12:00:00 AM Medical Service) (procedure) EDT Documentation of 06/12/2017 [facility] ([place] [facility] current medications 12:00:00 AM Medical Service) (procedure) EDT Documentation of 06/12/2017 [facility] ([place] [facility] current medications 12:00:00 AM Medical Service) (procedure) EDT Documentation of 06/12/2017 [facility] ([place] [facility] current medications 12:00:00 AM Medical Service) (procedure) EDT Documentation of 06/12/2017 [facility] ([place] [facility] current medications 12:00:00 AM Medical Service) (procedure) EDT Documentation of 06/12/2017 [facility] ([place] [facility] current medications 12:00:00 AM Medical Service) (procedure) EDT Documentation of 06/12/2017 [facility] ([place] [facility] current medications 12:00:00 AM Medical Service) (procedure) EDT Documentation of 06/12/2017 [facility] ([place] [facility] current medications 12:00:00 AM Medical Service) (procedure) EDT Documentation of 03/16/2017 [facility] ([place] [facility] current medications 12:00:00 AM Medical Service) (procedure) EDT Documentation of 03/16/2017 [facility] ([place] [facility] current medications 12:00:00 AM Medical Service) (procedure) EDT Documentation of 03/16/2017 [facility] ([place] [facility] current medications 12:00:00 AM Medical Service) (procedure) EDT Documentation of 03/16/2017 [facility] ([place] [facility] current medications 12:00:00 AM Medical Service) (procedure) EDT Documentation of 03/16/2017 [facility] ([place] current medications 12:00:00 AM Medical Service) (procedure) EDT Medication 03/16/2017 [facility] ([place] [facility] 12:00:00 AM [facility] Serv[facility]) (procedure) EDT Documentation of 03/16/2017 [facility] ([place] current medications 12:00:00 AM Medical Service) (procedure) EDT Documentation of 03/16/2017 [facility] ([place] current medications 12:00:00 AM Medical Service) (procedure) EDT Documentation of 03/16/2017 [facility] ([place] [facility] current medications 12:00:00 AM Medical Service) (procedure) EDT Documentation of 03/16/2017 [facility] ([place] [facility] current medications 12:00:00 AM Medical Service) (procedure) EDT Documentation of 03/16/2017 [facility] ([place] [facility] current medications 12:00:00 AM Medical Service) (procedure) EDT Medication 03/16/2017 [facility] ([place] [facility] 12:00:00 AM [facility]) (procedure) EDT Documentation of 03/13/2017 [facility] ([place] [facility] current medications 12:00:00 AM Medical Service) (procedure) EDT Documentation of 03/13/2017 [facility] ([place] [facility] current medications 12:00:00 AM Medical Service) (procedure) EDT Documentation of 03/13/2017 [facility] ([place] [facility] current medications 12:00:00 AM Medical Service) (procedure) EDT Documentation of 03/13/2017 [facility] ([place] [facility] current medications 12:00:00 AM Medical Service) (procedure) EDT Documentation of 03/13/2017 [facility] ([place] [facility] current medications 12:00:00 AM Medical Service) (procedure) EDT Documentation of 03/13/2017 [facility] ([place] [facility] current medications 12:00:00 AM Medical Service) (procedure) EDT Documentation of 03/13/2017 [facility] ([place] [facility] current medications 12:00:00 AM Medical Service) (procedure) EDT Documentation of 03/13/2017 [facility] ([place] [facility] current medications 12:00:00 AM Medical Service) (procedure) EDT Documentation of 03/13/2017 [facility] ([place] [facility] current medications 12:00:00 AM Medical Service) (procedure) EDT Documentation of 03/13/2017 [facility] ([place] [facility] current medications 12:00:00 AM Medical Service) (procedure) EDT Documentation of 03/13/2017 [facility] ([place] [facility] current medications 12:00:00 AM Medical Service) (procedure) EDT Documentation of 03/13/2017 [facility] ([place] [facility] current medications 12:00:00 AM Medical Service) (procedure) EDT Documentation of 03/13/2017 [facility] ([place] [facility] current medications 12:00:00 AM Medical Service) (procedure) EDT Documentation of 03/13/2017 [facility] ([place] [facility] current medications 12:00:00 AM Medical Service) (procedure) EDT Documentation of 03/13/2017 [facility] ([place] [facility] current medications 12:00:00 AM Medical Service) (procedure) EDT Documentation of 03/13/2017 [facility] ([place] [facility] current medications 12:00:00 AM Medical Service) (procedure) EDT Documentation of 03/13/2017 [facility] ([place] [facility] current medications 12:00:00 AM Medical Service) (procedure) EDT Documentation of 03/13/2017 [facility] ([place] [facility] current medications 12:00:00 AM Medical Service) (procedure) EDT Documentation of 03/09/2017 [facility] ([place] [facility] current medications 12:00:00 AM Medical Service) (procedure) EDT Documentation of 03/09/2017 [facility] ([place] current medications 12:00:00 AM Medical Service) (procedure) EDT Documentation of 03/09/2017 [facility] ([place] [facility] current medications 12:00:00 AM Medical Service) (procedure) EDT Documentation of 03/09/2017 [facility] ([place] [facility] current medications 12:00:00 AM Medical Service) (procedure) EDT Documentation of 03/09/2017 [facility] ([place] [facility] current medications 12:00:00 AM Medical Service) (procedure) EDT Documentation of 03/09/2017 [facility] ([place] current medications 12:00:00 AM Medical Service) (procedure) EDT Documentation of 03/09/2017 [facility] ([place] [facility] current medications 12:00:00 AM Medical Service) (procedure) EDT Documentation of 03/09/2017 [facility] ([place] [facility] current medications 12:00:00 AM Medical Service) (procedure) EDT Documentation of 01/12/2017 [facility] ([place] [facility] current medications 12:00:00 AM Medical Service) (procedure) EDT Documentation of 01/12/2017 [facility] ([place] [facility] current medications 12:00:00 AM Medical Service) (procedure) EDT Documentation of 01/12/2017 [facility] ([place] [facility] current medications 12:00:00 AM Medical Service) (procedure) EDT Documentation of 01/12/2017 [facility] ([place] current medications 12:00:00 AM Medical Service) (procedure) EDT Documentation of 01/12/2017 [facility] ([place] [facility] current medications 12:00:00 AM Medical Service) (procedure) EDT Documentation of 01/12/2017 [facility] ([place] [facility] current medications 12:00:00 AM Medical Service) (procedure) EDT Documentation of 01/12/2017 [facility] ([place] [facility] current medications 12:00:00 AM Medical Service) (procedure) EDT Documentation of 01/12/2017 [facility] ([place] [facility] current medications 12:00:00 AM Medical Service) (procedure) EDT Documentation of 12/07/2016 [facility] ([place] [facility] current medications 12:00:00 AM Medical Service) (procedure) EDT Documentation of 12/07/2016 [facility] ([place] [facility] current medications 12:00:00 AM Medical Service) (procedure) EDT Documentation of 10/21/2016 [facility] ([place] [facility] current medications 12:00:00 AM Medical Service) (procedure) EST Documentation of 10/21/2016 [facility] ([place] current medications 12:00:00 AM Medical Service) (procedure) EST Documentation of 10/21/2016 [facility] ([place] [facility] current medications 12:00:00 AM Medical Service) (procedure) EST Documentation of 10/21/2016 [facility] ([place] current medications 12:00:00 AM Medical Service) (procedure) EST Medication 10/21/2016 [facility] ([facility] [facility] 12:00:00 AM [facility] Serv[facility]) (procedure) EST Documentation of 10/21/2016 [facility] ([place] current medications 12:00:00 AM Medical Service) (procedure) EST Documentation of 10/21/2016 [facility] ([place] [facility] current medications 12:00:00 AM Medical Service) (procedure) EST Documentation of 10/21/2016 [facility] ([place] [facility] current medications 12:00:00 AM Medical Service) (procedure) EST Documentation of 10/21/2016 [facility] ([place] [facility] current medications 12:00:00 AM Medical Service) (procedure) EST Documentation of 10/21/2016 [facility] ([place] [facility] current medications 12:00:00 AM Medical Service) (procedure) EST Documentation of 10/21/2016 [facility] ([place] [facility] current medications 12:00:00 AM Medical Service) (procedure) EST Documentation of 10/21/2016 [facility] ([place] current medications 12:00:00 AM Medical Service) (procedure) EST Documentation of 10/21/2016 [facility] ([place] [facility] current medications 12:00:00 AM Medical Service) (procedure) EST Medication 10/21/2016 [facility] ([place] [facility] 12:00:00 AM [facility] Serv[facility] ce) (procedure) EST Documentation of 10/21/2016 [facility] ([place] current medications 12:00:00 AM Medical Service) (procedure) EST Documentation of 10/21/2016 [facility] ([place] current medications 12:00:00 AM Medical Service) (procedure) EST Documentation of 10/21/2016 [facility] ([place] current medications 12:00:00 AM Medical Service) (procedure) EST Documentation of 10/21/2016 [facility] ([place] current medications 12:00:00 AM Medical Service) (procedure) EST Documentation of 09/20/2016 [facility] ([place] current medications 12:00:00 AM Medical Service) (procedure) EST Documentation of 09/20/2016 [facility] ([place] current medications 12:00:00 AM Medical Service) (procedure) EST Documentation of 09/20/2016 [facility] ([place] current medications 12:00:00 AM Medical Service) (procedure) EST Documentation of 09/20/2016 [facility] ([place] current medications 12:00:00 AM Medical Service) (procedure) EST Documentation of 09/20/2016 [facility] ([place] current medications 12:00:00 AM Medical Service) (procedure) EST Documentation of 09/20/2016 [facility] ([place] current medications 12:00:00 AM Medical Service) (procedure) EST Documentation of 06/13/2016 [facility] ([place] current medications 12:00:00 AM Medical Service) (procedure) EDT Documentation of 06/13/2016 [facility] ([place] current medications 12:00:00 AM Medical Service) (procedure) EDT Documentation of 06/13/2016 [facility] ([place] current medications 12:00:00 AM Medical Service) (procedure) EDT Documentation of 06/13/2016 [facility] ([place] current medications 12:00:00 AM Medical Service) (procedure) EDT Documentation of 06/13/2016 [facility] ([place] current medications 12:00:00 AM Medical Service) (procedure) EDT Documentation of 06/13/2016 [facility] ([place] current medications 12:00:00 AM Medical Service) (procedure) EDT Documentation of 06/13/2016 [facility] ([place] current medications 12:00:00 AM Medical Service) (procedure) EDT Documentation of 06/13/2016 [facility] ([place] current medications 12:00:00 AM Medical Service) (procedure) EDT Documentation of 06/13/2016 [facility] ([place] current medications 12:00:00 AM Medical Service) (procedure) EDT Documentation of 06/13/2016 [facility] ([place] current medications 12:00:00 AM Medical Service) (procedure) EDT Documentation of 06/13/2016 [facility] ([place] current medications 12:00:00 AM Medical Service) (procedure) EDT Documentation of 06/13/2016 [facility] ([place] current medications 12:00:00 AM Medical Service) (procedure) EDT Documentation of 06/13/2016 [facility] ([place] [facility] current medications 12:00:00 AM Medical Service) (procedure) EDT Documentation of 06/13/2016 [facility] ([place] current medications 12:00:00 AM Medical Service) (procedure) EDT Documentation of 05/11/2016 [facility] ([place] [facility] current medications 12:00:00 AM Medical Service) (procedure) EDT Documentation of 05/11/2016 [facility] ([place] current medications 12:00:00 AM Medical Service) (procedure) EDT Documentation of 05/11/2016 [facility] ([place] current medications 12:00:00 AM Medical Service) (procedure) EDT Documentation of 05/11/2016 [facility] ([place] current medications 12:00:00 AM Medical Service) (procedure) EDT Documentation of 05/11/2016 [facility] ([place] [facility] current medications 12:00:00 AM Medical Service) (procedure) EDT Documentation of 05/11/2016 [facility] ([place] current medications 12:00:00 AM Medical Service) (procedure) EDT Documentation of 05/11/2016 [facility] ([place] [facility] current medications 12:00:00 AM Medical Service) (procedure) EDT Documentation of 05/11/2016 [facility] ([place] current medications 12:00:00 AM Medical Service) (procedure) EDT Documentation of 01/14/2016 [facility] ([place] [facility] current medications 12:00:00 AM Medical Service) (procedure) EDT Documentation of 01/14/2016 [facility] ([place] [facility] current medications 12:00:00 AM Medical Service) (procedure) EDT Documentation of 01/14/2016 [facility] ([place] [facility] current medications 12:00:00 AM Medical Service) (procedure) EDT Documentation of 01/14/2016 [facility] ([place] [facility] current medications 12:00:00 AM Medical Service) (procedure) EDT Documentation of 01/14/2016 [facility] ([place] [facility] current medications 12:00:00 AM Medical Service) (procedure) EDT Documentation of 01/14/2016 [facility] ([place] [facility] current medications 12:00:00 AM Medical Service) (procedure) EDT Documentation of 01/14/2016 [facility] ([place] [facility] current medications 12:00:00 AM Medical Service) (procedure) EDT Documentation of 01/14/2016 [facility] ([place] [facility] current medications 12:00:00 AM Medical Service) (procedure) EDT Documentation of 01/14/2016 [facility] ([place] [facility] current medications 12:00:00 AM Medical Service) (procedure) EDT Documentation of 01/14/2016 [facility] ([place] [facility] current medications 12:00:00 AM Medical Service) (procedure) EDT Documentation of 01/14/2016 [facility] ([place] [facility] current medications 12:00:00 AM Medical Service) (procedure) EDT Documentation of 01/14/2016 [facility] ([place] current medications 12:00:00 AM Medical Service) (procedure) EDT Urine protein was not Urine protein was not 07/23/2012 [place] ([place] checked checked 12:00:00 AM [facility]) History of History of 07/23/2012 [place] ([place] hypertension hypertension 12:00:00 AM [facility]) History of asthma History of asthma 07/23/2012 [facility] ([place] 12:00:00 AM [facility]) A home blood sugar A home blood sugar 07/23/2012 APARNA NEELY ([place] check was not check was not 12:00:00 AM [facility]) No history of coronary No history of 04/18/2012 NEREYDA [facility] ([facility] artery disease coronary artery 12:00:00 AM [facility]) History of type 2 History of type 2 04/18/2012 [facility] ([facility] diabetes mellitus diabetes mellitus 12:00:00 AM [facility]) History of History of 04/18/2012 [place] ([facility] hyperlipidemia hyperlipidemia [facility]:00:[facility] History of essential History of essential 04/18/2012 [place] ([facility] hypertension hypertension 12[facility]00:00 AM [facility]) depression..s/p psych depression..s/p psych 03/07/2012 [place] ([facility] admission at [facility]. admission at st. 12:00:00 AM [facility]) Results ID Date Data Source [id number] 03/31/2020 12:00:00 AM EDT [facility] ([facility]) Name Value Range Interpretation Description Data Sup porting Code Source(s) Document(s ) SARS-CoV- Not Detected Normal (applies to [facility] 2 PCR non-numeric ([place] results) Medical Service) ID Date Data Source [id number] 03/31/2020 12:00:00 AM EDT [facility] ([facility]) Name Value Range Interpretation Code Description Data Supporting Source(s) Document(s ) SARS-CoV- 3.80 AU/mL Normal (applies to [facility] 2 IGG QNT non-numeric ([place] results) Medical Service) SARS-CoV- NEGATIVE Normal (applies to [facility] 2 IGG non-numeric ([place] results) Medical Service) ID Date Data Source [id number] 03/31/2020 12:00:00 AM EDT [facility] ([facility]) Name Value Range Interpretation Description Data Sup porting Code Source(s) Document(s ) TSH,3RD 1.17 Normal (applies to [facility] GENERATION uIU/mL non-numeric ([place] results) [facility] Service) T4 TOTAL 7.8 ug/dL Normal (applies to [facility] THYROXINE non-numeric ([facility] results) Medical Service) T3 TOTAL 81 ng/dL Normal (applies to [facility] non-numeric ([place] results) Medical Service) ID Date Data Source [id number] 03/31/2020 12:00:00 AM EDT [facility] ([facility]) Name Value Range Interpretation Description Data Sup porting Code Source(s) Document(s ) Cholesterol 234 Above high normal [facility] [Moles/volume] mg/dL ([place] in Pericardial Medical fluid Service) LDL CALCULATION 149.2 Above high normal [facility] mg/dL ([facility]) CHOL/HDL RATIO 4.25 Normal (applies [facility] ratio to non-numeric ([facility] results) Medical Service) HDL CHOLESTEROL 55 mg/dL Normal (applies [facility] to non-numeric ([facility] results) Medical Service) VLDL CALCULATION 29.8 Normal (applies [facility] mg/dl to non-numeric ([place] results) Medical Service) TRIGLYCERIDES 149 Normal (applies [facility] mg/dL to non-numeric ([place] results) Medical Service) ID Date Data Source [id number] 03/31/2020 12:00:00 AM EDT [facility] ([facility]) Name Value Range Interpretation Description Data Sup porting Code Source(s) Document(s ) WBC 11.2 Above high normal [facility] 10(3)/uL ([facility]) RBC 4.5 Normal (applies [facility] 10(6)/uL to non-numeric ([place] results) Medical Service) Hemoglobin 12.2 g/dL Normal (applies [facility] [Mass/volume] to non-numeric ([place] in Mixed venous results) Medical blood by Service) Oximetry Hematocrit 38.7 % Normal (applies [facility] [Pure volume to non-numeric ([place] fraction] of results) Medical Blood by Service) Automated count MCV 86.0 fL Normal (applies [facility] to non-numeric ([place] results) Medical Service) MCH 27 pg Normal (applies [facility] to non-numeric ([place] results) Medical Service) MCHC 32 g/dL Normal (applies [facility] to non-numeric ([place] results) Medical Service) RDWSD 39.4 fL Normal (applies [facility] to non-numeric ([place] results) Medical Service) RDWCV 12.7 % Normal (applies [facility] to non-numeric ([place] results) Medical Service) Platelet Count 289 Normal (applies [facility] 10(3)/uL to non-numeric ([place] results) Medical Service) MPV 11.1 fL Normal (applies [facility] to non-numeric ([place] results) Medical Service) Neutrophil Abs 7.83 Above high normal [facility] 10(3)/uL ([facility]) Lymphocyte Abs 2.52 Normal (applies [facility] 10(3)/uL to non-numeric ([place] results) Medical Service) Monocyte Abs 0.55 Normal (applies [facility] 10(3)/uL to non-numeric ([place] results) Medical Service) Eosinophil Abs 0.27 Normal (applies [facility] 10(3)/uL to non-numeric ([place] results) Medical Service) Basophil Abs 0.07 Normal (applies [facility] 10(3)/uL to non-numeric ([place] results) Medical Service) Immature 0.06 Normal (applies [facility] Granulocyte Abs 10(3)/uL to non-numeric ([place] results) Medical Service) Neutrophil % 69.70 % Normal (applies [facility] to non-numeric ([place] results) Medical Service) Lymphocyte % 22 % Normal (applies [facility] to non-numeric ([place] results) Medical Service) Monocyte % 4.9 % Normal (applies [facility] to non-numeric ([place] results) Medical Service) Eosinophil % 2.4 % Normal (applies [facility] to non-numeric ([place] results) Medical Service) Basophil % 0.6 % Normal (applies [facility] to non-numeric ([place] results) Medical Service) Immature 0.50 % Normal (applies [facility] Granulocyte % to non-numeric ([place] results) Medical Service) NRBC % 0.0 % Normal (applies [facility] to non-numeric ([place] results) Medical Service) NRBC Abs 0.00 Normal (applies [facility] 10(3)/uL to non-numeric ([place] results) Medical Service) ID Date Data Source [id number] 03/31/2020 12:00:00 AM EDT [facility] ([facility]) Name Value Range Interpretation Description Data Sup porting Code Source(s) Document(s ) GLUCOSE 386 Above high normal [facility] NONFASTING,SERUM mg/dL ([place] [facility]) SODIUM, SERUM 135 Normal (applies [facility] mEq/L to non-numeric ([place] results) Medical Service) POTASSIUM, SERUM 4.1 Normal (applies [facility] mEq/L to non-numeric ([place] results) Medical Service) CHLORIDE, SERUM 98 mEq/L Below low normal [facility] ([facility]) Carbon dioxide 27 mEq/L Normal (applies [facility] [VFr/PPres] in to non-numeric ([facility] results) Medical system Service) Anion gap in 14.1 Normal (applies [facility] Body fluid mEq/L to non-numeric ([facility] results) Medical Service) BLOOD UREA 9 mg/dL Normal (applies [facility] NITROGEN to non-numeric ([facility] results) Medical Service) CREATININE, 1.10 Above high normal [facility] SERUM mg/dL ([facility]) BUN/CREATININE 8.18 Normal (applies [facility] RATIO to non-numeric ([facility] results) Medical Service) CALCIUM, SERUM 9.1 Normal (applies [facility] mg/dL to non-numeric ([facility] results) Medical Service) TOTAL PROTEIN 7.1 g/dL Normal (applies [facility] to non-numeric ([facility] results) Medical Service) Microalbumin 4.3 g/dL Normal (applies [facility] [Mass/time] in to non-numeric ([facility] Urine collected results) Medical for unspecified Service) duration Globulin 2.8 gldl Normal (applies [facility] [Mass/time] in to non-numeric ([facility] 24 hour Urine results) Medical Service) A/G RATIO 1.54 Normal (applies [facility] g/dl to non-numeric ([facility] results) Medical Service) BILIRUBIN, TOTAL 0.2 Below low normal [facility] mg/dL ([facility]) ALKALINE 124 U/L Normal (applies [facility] ALT (SGPT) 27 U/L Normal (applies [facility] to non-numeric ([facility] results) Medical Service) AST 25 U/L Normal (applies [facility] to non-numeric ([facility] results) Medical Service) EGFR NON AFR 54 Below low normal MEDGEN BRAZILIAN mL/min/1 ([facility] .[facility] Service) EGFR AFR 65 Normal (applies [facility] BRAZILIAN mL/min/1 to non-numeric ([facility] .73m2 results) Medical Service) ID Date Data Source [id number] 02/20/2020 12:25:00 PM EDT PT PAL tics Name Value Range Interpretation Code Description Data Camryn rce(s) Supporting Document(s ) COV2 [facility] This lab was ordered by [facility] AKSHAT GUSMAN and reported by [facility]. ID Date Data Source [id number] 12/10/2019 04:55:00 PM EDT PT PAL tics Name Value Range Interpretation Code Description Data Camryn rce(s) Supporting Document(s ) COV2 [facility] This lab was ordered by ARIANA baldwin nd reported by [facility] [place]. ID Date Data Source [id number] 10/22/2019 12:00:00 AM EDT [facility] ([facility]) Name Value Range Interpretation Description Data Sup porting Code Source(s) Document(s ) TSH,3RD 1.43 Normal (applies to [facility] GENERATION uIU/mL non-numeric ([facility] results) Medical Service) T4 TOTAL 8.5 ug/dL Normal (applies to [facility] THYROXINE non-numeric ([facility] results) Medical Service) T3 TOTAL 98 ng/dL Normal (applies to [facility] non-numeric ([facility] results) Medical Service) ID Date Data Source [id number] 10/22/2019 12:00:00 AM EDT MEDGEN ([facility]) Name Value Range Interpretation Description Data Sup porting Code Source(s) Document(s ) Ferritin 39 ng/mL Normal (applies to MEDGEN [Interpretat non-numeric ([facility] ion] in results) Medical Blood Service) ID Date Data Source [id number] 10/22/2019 12:00:00 AM EDT [facility] ([facility]) Name Value Range Interpretation Description Data Sup porting Code Source(s) Document(s ) IRON, TOTAL 27 ug/dL Below low normal [facility]GEN ([facility]) Transferrin 265 mg/dL Normal (applies [facility] [Mass/time] in to non-numeric ([facility] 24 hour Urine results) Medical Service) TIBC 371.6 Normal (applies [facility] ug/dL to non-numeric ([facility] results) Medical Service) UIBC 344.6 Normal (applies [facility] ug/dL to non-numeric ([facility] results) Medical Service) %SATURATION 7.3 % Below low normal MEDGEN ([facility]) ID Date Data Source [id number] 10/22/2019 12:00:00 AM EDT MEDGEN ([facility]) Name Value Range Interpretation Description Data Sup porting Code Source(s) Document(s ) VITAMIN D 30.85 Below low normal [facility]GEN 25-HYDROXY ng/mL ([facility]) ID Date Data Source [id number] 10/22/2019 12:00:00 AM EDT MEDGEN ([facility]) Name Value Range Interpretation Description Data Sup porting Code Source(s) Document(s ) VITAMIN B12 678 pg/mL Normal (applies to MEDGEN non-numeric ([facility] results) Medical Service) ID Date Data Source [id number] 10/22/2019 12:00:00 AM EDT [facility] ([facility] Medical Service) Name Value Range Interpretation Description Data Sup porting Code Source(s) Document(s ) Cholesterol 196 Normal (applies MEDGEN [Moles/volume] mg/dL to non-numeric ([facility] in Pericardial results) Medical fluid Service) LDL CALCULATION 127.6 Normal (applies [facility] mg/dL to non-numeric ([facility] results) Medical Service) CHOL/HDL RATIO 5.16 Normal (applies [facility]GEN ratio to non-numeric ([facility] results) Medical Service) HDL CHOLESTEROL 38 mg/dL Below low normal [facility]GEN ([facility]) VLDL CALCULATION 30.4 Normal (applies [facility] mg/dl to non-numeric ([facility] results) Medical Service) TRIGLYCERIDES 152 Above high normal [facility] mg/dL ([facility]) ID Date Data Source [id number] 10/22/2019 12:00:00 AM EDT MED[facility] ([facility] Service) Name Value Range Interpretation Description Data Sup porting Code Source(s) Document(s ) WBC 11.2 Above high normal [facility]GEN 10(3)/uL ([facility]) RBC 4.7 Normal (applies [facility]GEN 10(6)/uL to non-numeric ([facility] results) Medical Service) Hemoglobin 12.3 g/dL Normal (applies [facility]GEN [Mass/volume] to non-numeric ([facility] in Mixed venous results) Medical blood by Service) Oximetry Hematocrit 39.0 % Normal (applies MEDGEN [Pure volume to non-numeric ([facility] fraction] of results) Medical Blood by Service) Automated count MCV 83.5 fL Normal (applies MEDGEN to non-numeric ([facility] results) Medical Service) MCH 26 pg Normal (applies [facility]GEN to non-numeric ([facility] results) Medical Service) MCHC 32 g/dL Normal (applies MEDGEN to non-numeric ([facility] results) Medical Service) RDWSD 41.5 fL Normal (applies [facility]GEN to non-numeric ([facility] results) Medical Service) RDWCV 13.7 % Normal (applies MEDGEN to non-numeric ([facility] results) Medical Service) Platelet Count 332 Normal (applies MEDGEN 10(3)/uL to non-numeric ([facility] results) Medical Service) MPV 10.8 fL Normal (applies [facility]GEN to non-numeric ([facility] results) Medical Service) Neutrophil Abs 8.21 Above high normal [facility]GEN 10(3)/uL ([facility]) Lymphocyte Abs 2.14 Normal (applies MEDGEN 10(3)/uL to non-numeric ([facility] results) Medical Service) Monocyte Abs 0.55 Normal (applies [facility]GEN 10(3)/uL to non-numeric ([facility] results) Medical Service) Eosinophil Abs 0.23 Normal (applies [facility]GEN 10(3)/uL to non-numeric ([facility] results) Medical Service) Basophil Abs 0.06 Normal (applies [facility]GEN 10(3)/uL to non-numeric ([facility] results) Medical Service) Immature 0.05 Normal (applies MEDGEN Granulocyte Abs 10(3)/uL to non-numeric ([facility] results) Medical Service) Neutrophil % 73.20 % Normal (applies [facility]GEN to non-numeric ([facility] results) Medical Service) Lymphocyte % 19 % Normal (applies [facility]GEN to non-numeric ([facility] results) Medical Service) Monocyte % 4.9 % Normal (applies [facility] to non-numeric ([facility] results) Medical Service) Eosinophil % 2.0 % Normal (applies [facility]GEN to non-numeric ([facility] results) Medical Service) Basophil % 0.5 % Normal (applies [facility] to non-numeric ([facility] results) Medical Service) Immature 0.40 % Normal (applies MEDGEN Granulocyte % to non-numeric ([facility] results) Medical Service) NRBC % 0.0 % Normal (applies [facility] to non-numeric ([facility] results) Medical Service) NRBC Abs 0.00 Normal (applies [facility]GEN 10(3)/uL to non-numeric ([facility] results) Medical Service) ID Date Data Source [id number] 10/22/2019 12:00:00 AM EDT MEDGEN ([facility]) Name Value Range Interpretation Code Description Data Supporting Source(s) Document(s ) GLYCOMARK 5.98 ug/mL Below low normal [facility]GEN ([facility]) ID Date Data Source [id number] 10/22/2019 12:00:00 AM EDT MEDGEN ([facility]) Name Value Range Interpretation Description Data Sup porting Code Source(s) Document(s ) Hemoglobin A1c 9.5 % Above high normal MEDGEN in Blood ([facility]) ID Date Data Source [id number] 10/22/2019 12:00:00 AM EDT MEDGEN ([facility]) Name Value Range Interpretation Description Data Sup porting Code Source(s) Document(s ) GLUCOSE 189 Above high normal MEDGEN NONFASTING,SERUM mg/dL ([facility]) SODIUM, SERUM 138 Normal (applies [facility]GEN mEq/L to non-numeric ([facility] results) Medical Service) POTASSIUM, SERUM 4.5 Normal (applies [facility]GEN mEq/L to non-numeric ([facility]) Medical Service) CHLORIDE, SERUM 102 Normal (applies [facility]GEN mEq/L to non-numeric ([facility]) Medical Service) Carbon dioxide 23 mEq/L Normal (applies MEDGEN [VFr/PPres] in to non-numeric ([facility] results) Medical system Service) Anion gap in 17.5 Normal (applies MEDGEN Body fluid mEq/L to non-numeric ([facility]) Medical Service) BLOOD UREA 14 mg/dL Normal (applies [facility]GEN NITROGEN to non-numeric ([facility]) Medical Service) CREATININE, 1.00 Above high normal [facility] SERUM mg/dL ([facility]) BUN/CREATININE 14.00 Normal (applies [facility] RATIO to non-numeric ([facility]) Medical Service) CALCIUM, SERUM 10.1 Normal (applies [facility]GEN mg/dL to non-numeric ([facility] results) Medical Service) TOTAL PROTEIN 7.0 g/dL Normal (applies [facility]GEN to non-numeric ([facility]) Medical Service) Microalbumin 4.1 g/dL Normal (applies [facility]GEN [Mass/time] in to non-numeric ([facility] Urine collected results) Medical for unspecified Service) duration Globulin 2.9 gldl Normal (applies [facility]GEN [Mass/time] in to non-numeric ([facility] 24 hour Urine results) Medical Service) A/G RATIO 1.41 Normal (applies [facility]GEN g/dl to non-numeric ([facility]) Medical Service) BILIRUBIN, TOTAL 0.3 Normal (applies [facility]GEN mg/dL to non-numeric ([facility] results) Medical Service) ALKALINE 94 U/L Normal (applies [facility] PHOSPHATASE, ALP to non-numeric ([facility] y results) Medical Service) ALT (SGPT) 27 U/L Normal (applies [facility]GEN to non-numeric ([facility] results) Medical Service) AST 33 U/L Normal (applies [facility]GEN to non-numeric ([facility] results) Medical Service) EGFR NON AFR 60 Normal (applies MEDGEN BRAZILIAN mL/min/1 to non-numeric ([facility] .73m2 results) Medical Service) EGFR AFR 73 Normal (applies MEDGEN BRAZILIAN mL/min/1 to non-numeric ([facility] .73m2 results) Medical Service) ID Date Data Source [id number] 10/22/2019 12:00:00 AM EDT MED[facility] ([facility]) Name Value Range Interpretation Description Data Sup porting Code Source(s) Document(s ) TSH,3RD 1.43 Normal (applies to [facility] GENERATION uIU/mL non-numeric ([facility] results) Medical Service) T4 TOTAL 8.5 ug/dL Normal (applies to [facility] THYROXINE non-numeric ([facility] results) Medical Service) T3 TOTAL 98 ng/dL Normal (applies to [facility]GEN non-numeric ([facility] results) Medical Service) ID Date Data Source [id number] 10/22/2019 12:00:00 AM EDT MEDGEN ([facility]) Name Value Range Interpretation Description Data Sup porting Code Source(s) Document(s ) Ferritin 39 ng/mL Normal (applies to MEDGEN [Interpretat non-numeric ([facility] ion] in results) Medical Blood Service) ID Date Data Source [id number] 10/22/2019 12:00:00 AM EDT MEDGEN ([facility]) Name Value Range Interpretation Description Data Sup porting Code Source(s) Document(s ) IRON, TOTAL 27 ug/dL Below low normal MEDGEN ([facility]) Transferrin 265 mg/dL Normal (applies MEDGEN [Mass/time] in to non-numeric ([facility] 24 hour Urine results) Medical Service) TIBC 371.6 Normal (applies [facility]GEN ug/dL to non-numeric ([facility] results) Medical Service) UIBC 344.6 Normal (applies [facility]GEN ug/dL to non-numeric ([facility] results) Medical Service) %SATURATION 7.3 % Below low normal [facility]GEN ([facility]) ID Date Data Source [id number] 10/22/2019 12:00:00 AM EDT MEDGEN ([facility]) Name Value Range Interpretation Description Data Sup porting Code Source(s) Document(s ) VITAMIN D 30.85 Below low normal MEDGEN 25-HYDROXY ng/mL ([facility]) ID Date Data Source [id number] 10/22/2019 12:00:00 AM EDT MEDGEN ([facility] Service) Name Value Range Interpretation Description Data Sup porting Code Source(s) Document(s ) VITAMIN B12 678 pg/mL Normal (applies to MEDGEN non-numeric ([facility] results) Medical Service) ID Date Data Source [id number] 10/22/2019 12:00:00 AM EDT MEDGEN ([facility] Service) Name Value Range Interpretation Description Data Sup porting Code Source(s) Document(s ) Cholesterol 196 Normal (applies MEDGEN [Moles/volume] mg/dL to non-numeric ([facility] in Pericardial results) Medical fluid Service) LDL CALCULATION 127.6 Normal (applies [facility]GEN mg/dL to non-numeric ([facility] results) Medical Service) CHOL/HDL RATIO 5.16 Normal (applies [facility]GEN ratio to non-numeric ([facility] results) Medical Service) HDL CHOLESTEROL 38 mg/dL Below low normal [facility]GEN ([facility]) VLDL CALCULATION 30.4 Normal (applies [facility]GEN mg/dl to non-numeric ([facility] results) Medical Service) TRIGLYCERIDES 152 Above high normal [facility] mg/dL ([facility]) ID Date Data Source [id number] 10/22/2019 12:00:00 AM EDT MED[facility] ([facility] Service) Name Value Range Interpretation Description Data Sup porting Code Source(s) Document(s ) WBC 11.2 Above high normal [facility]GEN 10(3)/uL ([facility]) RBC 4.7 Normal (applies [facility]GEN 10(6)/uL to non-numeric ([facility] results) Medical Service) Hemoglobin 12.3 g/dL Normal (applies [facility]GEN [Mass/volume] to non-numeric ([facility] in Mixed venous results) Medical blood by Service) Oximetry Hematocrit 39.0 % Normal (applies MEDGEN [Pure volume to non-numeric ([facility] fraction] of results) Medical Blood by Service) Automated count MCV 83.5 fL Normal (applies MEDGEN to non-numeric ([facility] results) Medical Service) MCH 26 pg Normal (applies MEDGEN to non-numeric ([facility] results) Medical Service) MCHC 32 g/dL Normal (applies MEDGEN to non-numeric ([facility] results) Medical Service) RDWSD 41.5 fL Normal (applies MEDGEN to non-numeric ([facility] results) Medical Service) RDWCV 13.7 % Normal (applies MEDGEN to non-numeric ([facility] results) Medical Service) Platelet Count 332 Normal (applies MEDGEN 10(3)/uL to non-numeric ([facility] results) Medical Service) MPV 10.8 fL Normal (applies MEDGEN to non-numeric ([facility] results) Medical Service) Neutrophil Abs 8.21 Above high normal MEDGEN 10(3)/uL ([facility]) Lymphocyte Abs 2.14 Normal (applies MEDGEN 10(3)/uL to non-numeric ([facility] results) Medical Service) Monocyte Abs 0.55 Normal (applies MEDGEN 10(3)/uL to non-numeric ([facility] results) Medical Service) Eosinophil Abs 0.23 Normal (applies [facility]GEN 10(3)/uL to non-numeric ([facility] results) Medical Service) Basophil Abs 0.06 Normal (applies [facility]GEN 10(3)/uL to non-numeric ([facility] results) Medical Service) Immature 0.05 Normal (applies MEDGEN Granulocyte Abs 10(3)/uL to non-numeric ([facility] results) Medical Service) Neutrophil % 73.20 % Normal (applies [facility]GEN to non-numeric ([facility] results) Medical Service) Lymphocyte % 19 % Normal (applies MEDGEN to non-numeric ([facility] results) Medical Service) Monocyte % 4.9 % Normal (applies MEDGEN to non-numeric ([facility] results) Medical Service) Eosinophil % 2.0 % Normal (applies [facility]GEN to non-numeric ([facility] results) Medical Service) Basophil % 0.5 % Normal (applies MEDGEN to non-numeric ([facility] results) Medical Service) Immature 0.40 % Normal (applies MEDGEN Granulocyte % to non-numeric ([facility] results) Medical Service) NRBC % 0.0 % Normal (applies MEDGEN to non-numeric ([facility] results) Medical Service) NRBC Abs 0.00 Normal (applies MEDGEN 10(3)/uL to non-numeric ([facility] results) Medical Service) ID Date Data Source [id number] 10/22/2019 12:00:00 AM EDT MEDGEN ([facility] Medical Service) Name Value Range Interpretation Code Description Data Supporting Source(s) Document(s ) GLYCOMARK 5.98 ug/mL Below low normal MEDGEN ([facility]) ID Date Data Source [id number] 10/22/2019 12:00:00 AM EDT MEDGEN ([facility]) Name Value Range Interpretation Description Data Sup porting Code Source(s) Document(s ) Hemoglobin A1c 9.5 % Above high normal MED[facility] in Blood ([facility]) ID Date Data Source [id number] 10/22/2019 12:00:00 AM EDT MEDGEN ([facility]) Name Value Range Interpretation Description Data Sup porting Code Source(s) Document(s ) GLUCOSE 189 Above high normal MEDGEN NONFASTING,SERUM mg/dL ([facility]) SODIUM, SERUM 138 Normal (applies MEDGEN mEq/L to non-numeric ([facility] results) Medical Service) POTASSIUM, SERUM 4.5 Normal (applies MEDGEN mEq/L to non-numeric ([facility] results) Medical Service) CHLORIDE, SERUM 102 Normal (applies [facility]GEN mEq/L to non-numeric ([facility] results) Medical Service) Carbon dioxide 23 mEq/L Normal (applies MEDGEN [VFr/PPres] in to non-numeric ([facility] results) Medical system Service) Anion gap in 17.5 Normal (applies MEDGEN Body fluid mEq/L to non-numeric ([facility] results) Medical Service) BLOOD UREA 14 mg/dL Normal (applies MEDGEN NITROGEN to non-numeric ([facility] results) Medical Service) CREATININE, 1.00 Above high normal MEDGEN SERUM mg/dL ([facility]) BUN/CREATININE 14.00 Normal (applies [facility]GEN RATIO to non-numeric ([facility] results) Medical Service) CALCIUM, SERUM 10.1 Normal (applies MEDGEN mg/dL to non-numeric ([facility] results) Medical Service) TOTAL PROTEIN 7.0 g/dL Normal (applies MEDGEN to non-numeric ([facility] results) Medical Service) Microalbumin 4.1 g/dL Normal (applies MEDGEN [Mass/time] in to non-numeric ([facility] Urine collected results) Medical for unspecified Service) duration Globulin 2.9 gldl Normal (applies MEDGEN [Mass/time] in to non-numeric ([facility] 24 hour Urine results) Medical Service) A/G RATIO 1.41 Normal (applies MEDGEN g/dl to non-numeric ([facility] results) Medical Service) BILIRUBIN, TOTAL 0.3 Normal (applies MEDGEN mg/dL to non-numeric ([facility] results) Medical Service) ALKALINE 94 U/L Normal (applies MED[facility] PHOSPHATASE, ALP to non-numeric ([facility] results) Medical Service) ALT (SGPT) 27 U/L Normal (applies [facility]GEN to non-numeric ([facility] results) Medical Service) AST 33 U/L Normal (applies MEDGEN to non-numeric ([facility] results) Medical Service) EGFR NON AFR 60 Normal (applies MEDGEN BRAZILIAN mL/min/1 to non-numeric ([facility] .73m2 results) Medical Service) EGFR AFR 73 Normal (applies MEDGEN BRAZILIAN mL/min/1 to non-numeric ([facility] .73m2 results) Medical Service) ID Date Data Source [id number] 09/03/2019 12:00:00 AM EST MEDGEN ([facility] Service) Name Value Range Interpretation Description Data Sup porting Code Source(s) Document(s ) Amphetamines NEGATIVE Normal (applies MEDGEN [Presence] in to non-numeric ([facility] Stool results) Medical Service) BENZODIAZEPINE NEGATIVE Normal (applies MEDGEN to non-numeric ([facility] results) Medical Service) Barbiturates NEGATIVE Normal (applies MEDGEN [Mass/volume] in to non-numeric ([facility] Serum or Plasma results) Medical Service) Methadone NEGATIVE Normal (applies MEDGEN [Mass/volume] in to non-numeric ([facility] Blood results) Medical Service) Opiates NEGATIVE Normal (applies MEDGEN [Presence] in to non-numeric ([facility] Unknown substance results) Medical by Confirmatory Service) method PCP NEGATIVE Normal (applies MEDGEN (PHENCYCLIDINE) to non-numeric ([facility] results) Medical Service) Cocaine NEGATIVE Normal (applies MEDGEN [Presence] in to non-numeric ([facility] Unknown substance results) Medical by Confirmatory Service) method Cannabinoids NEGATIVE Normal (applies MEDGEN [Presence] in to non-numeric ([facility] Unknown substance results) Medical by Confirmatory Service) method Propoxyphene NEGATIVE Normal (applies MEDGEN [Presence] in to non-numeric ([facility] Meconium by results) Medical Screen method Service) Ethanol NEGATIVE Normal (applies MEDGEN [Mass/volume] in to non-numeric ([facility] Urine collected results) Medical for unspecified Service) duration CREATININE,URINE 27.9 mg/dL Normal (applies MEDGEN to non-numeric ([facility] results) Medical Service) ID Date Data Source [id number] 09/03/2019 12:00:00 AM EST MEDGEN ([facility] Service) Name Value Range Interpretation Description Data Sup porting Code Source(s) Document(s ) Amphetamines NEGATIVE Normal (applies MEDGEN [Presence] in to non-numeric ([facility] Stool results) Medical Service) BENZODIAZEPINE NEGATIVE Normal (applies MEDGEN to non-numeric ([facility] results) Medical Service) Barbiturates NEGATIVE Normal (applies MEDGEN [Mass/volume] in to non-numeric ([facility] Serum or Plasma results) Medical Service) Methadone NEGATIVE Normal (applies MEDGEN [Mass/volume] in to non-numeric ([facility] Blood results) Medical Service) Opiates NEGATIVE Normal (applies MEDGEN [Presence] in to non-numeric ([facility] Unknown substance results) Medical by Confirmatory Service) method PCP NEGATIVE Normal (applies MEDGEN (PHENCYCLIDINE) to non-numeric ([facility] results) Medical Service) Cocaine NEGATIVE Normal (applies MEDGEN [Presence] in to non-numeric ([facility] Unknown substance results) Medical by Confirmatory Service) method Cannabinoids NEGATIVE Normal (applies MEDGEN [Presence] in to non-numeric ([facility] Unknown substance results) Medical by Confirmatory Service) method Propoxyphene NEGATIVE Normal (applies MEDGEN [Presence] in to non-numeric ([facility] Meconium by results) Medical Screen method Service) Ethanol NEGATIVE Normal (applies MEDGEN [Mass/volume] in to non-numeric ([facility] Urine collected results) Medical for unspecified Service) duration CREATININE,URINE 27.9 mg/dL Normal (applies MEDGEN to non-numeric ([facility] results) Medical Service) ID Date Data Source [id number] 08/03/2019 12:00:00 AM EST MEDGEN ([facility]) Name Value Range Interpretation Description Data Sup porting Code Source(s) Document(s ) Amphetamines NEGATIVE Normal (applies MEDGEN [Presence] in to non-numeric ([facility] Stool results) Medical Service) BENZODIAZEPINE NEGATIVE Normal (applies MEDGEN to non-numeric ([facility] results) Medical Service) Barbiturates NEGATIVE Normal (applies MEDGEN [Mass/volume] in to non-numeric ([facility] Serum or Plasma results) Medical Service) Methadone NEGATIVE Normal (applies MEDGEN [Mass/volume] in to non-numeric ([facility] Blood results) Medical Service) Opiates NEGATIVE Normal (applies MEDGEN [Presence] in to non-numeric ([facility] Unknown substance results) Medical by Confirmatory Service) method PCP NEGATIVE Normal (applies MEDGEN (PHENCYCLIDINE) to non-numeric ([facility] results) Medical Service) Cocaine NEGATIVE Normal (applies MEDGEN [Presence] in to non-numeric ([facility] Unknown substance results) Medical by Confirmatory Service) method Cannabinoids NEGATIVE Normal (applies MEDGEN [Presence] in to non-numeric ([facility] Unknown substance results) Medical by Confirmatory Service) method Propoxyphene NEGATIVE Normal (applies MEDGEN [Presence] in to non-numeric ([facility] Meconium by results) Medical Screen method Service) Ethanol NEGATIVE Normal (applies MEDGEN [Mass/volume] in to non-numeric ([facility] Urine collected results) Medical for unspecified Service) duration CREATININE,URINE 80 mg/dL Normal (applies MEDGEN to non-numeric ([facility] results) Medical Service) ID Date Data Source [id number] 08/03/2019 12:00:00 AM EST MED[facility] ([facility]) Name Value Range Interpretation Description Data Sup porting Code Source(s) Document(s ) Amphetamines NEGATIVE Normal (applies MEDGEN [Presence] in to non-numeric ([facility] Stool results) Medical Service) BENZODIAZEPINE NEGATIVE Normal (applies MEDGEN to non-numeric ([facility] results) Medical Service) Barbiturates NEGATIVE Normal (applies MEDGEN [Mass/volume] in to non-numeric ([facility] Serum or Plasma results) Medical Service) Methadone NEGATIVE Normal (applies MEDGEN [Mass/volume] in to non-numeric ([facility] Blood results) Medical Service) Opiates NEGATIVE Normal (applies MEDGEN [Presence] in to non-numeric ([facility] Unknown substance results) Medical by Confirmatory Service) method PCP NEGATIVE Normal (applies MEDGEN (PHENCYCLIDINE) to non-numeric ([facility] results) Medical Service) Cocaine NEGATIVE Normal (applies MEDGEN [Presence] in to non-numeric ([place] Unknown substance results) Medical by Confirmatory Service) method Cannabinoids NEGATIVE Normal (applies MEDGEN [Presence] in to non-numeric ([place] Unknown substance results) Medical by Confirmatory Service) method Propoxyphene NEGATIVE Normal (applies MEDGEN [Presence] in to non-numeric ([place] Meconium by results) Medical Screen method Service) Ethanol NEGATIVE Normal (applies MEDGEN [Mass/volume] in to non-numeric ([place] Urine collected results) Medical for unspecified Service) duration CREATININE,URINE 80 mg/dL Normal (applies MEDGEN to non-numeric ([place] results) Medical Service) ID Date Data Source Liver 07/20/2019 12:55:[address] [facility] Profile.[id number] Name Value Range Interpretation Description Data Sup porting Code Source(s) Document(s ) Aspartate 14-36 <content [facility] aminotransferase styleCode="Bold"> Dave hs [Enzymatic Aspartate Medical activity/volume] Aminotransferase Center in Serum or Plasma (AST) </content>31 IU/L<content styleCode="Italic s"> (14-36 IU/L)</content> Alanine 7-30 <content [facility] aminotransferase styleCode="Bold"> Dave hs [Enzymatic Alanine Medical activity/volume] Aminotransferase Center in Serum or Plasma (ALT) </content>29 IU/L<content styleCode="Italic s"> (7-30 IU/L)</content> Bilirubin.total 0.2-1.3 <content Saint [Mass/volume] in styleCode="Bold"> Dave hs Serum or Plasma Bilirubin Total Medical </content>0.4 Center MG/DL<content styleCode="Italic s"> (0.2-1.3 MG/DL)</content> Albumin 3.5-5.0 <content Saint [Mass/volume] in styleCode="Bold"> Dave hs Serum or Plasma Albumin Medical </content>4.1 Center G/DL<content styleCode="Italic s"> (3.5-5.0 G/DL)</content> Alkaline 38-126 Above high <content [facility] phosphatase normal styleCode="Bold"> Alexus [Enzymatic Alkaline Medical activity/volume] Phosphatase (ALP) Cente r in Serum or Plasma </content>129 IU/L H<content styleCode="Italic s"> (38-126 IU/L)</content> UNK 0.0-0.3 <content Saint styleCode="Bold"> Alexus Bilirubin, Direct Medical </content>< 0.2 Center MG/DL<content styleCode="Italic s"> (0.0-0.3 MG/DL)</content> ID Date Data Source HematologyRou.[id number] 07/20/2019 12:55:00 PM MARLENE Schmitz [facility] 0500 Name Value Range Interpretation Description Data Sup porting Code Source(s) Document(s ) Leukocytes 4.4-11.0 Above high <content Saint [#/volume] in normal styleCode="Bold Alexus Blood by ">White Blood Medical Automated count Cell Count Center </content>11.89 KCUMM H<content styleCode="Ital ics"> (4.4-11.0 KCUMM)</content > Erythrocytes 4.0-5.1 <content Saint [#/volume] in styleCode="Bold Alexus Blood by ">Red Blood Medical Automated count Cell Count Center </content>4.88 MCUMM<content styleCode="Ital ics"> (4.0-5.1 MCUMM)</content > Hemoglobin 12.3-16. <content Saint [Mass/volume] in 0 styleCode="Bold Alexus Blood ">Hemoglobin Medical </content>13.3 Center G/DL<content styleCode="Ital ics"> (12.3-16.0 G/DL)</content> Hematocrit 36.0-46. <content Saint [Volume 0 styleCode="Bold Alexus Fraction] of ">Hematocrit Medical Blood by </content>40.8 Center Automated count %<content styleCode="Ital ics"> (36.0-46.0 %)</content> Erythrocyte mean 26.0-34. <content Saint corpuscular 0 styleCode="Bold Alexus hemoglobin ">Mean Medical [Entitic mass] Corposcular Center by Automated Hemoglobin count </content>27.3 PG<content styleCode="Ital ics"> (26.0-34.0 PG)</content> Erythrocyte mean 80.0-100 <content [facility] corpuscular .0 styleCode="Bold Alexus volume [Entitic ">Mean Medical volume] by Corpuscular Center Automated count Volume </content>83.6 FL<content styleCode="Ital ics"> (80.0-100.0 FL)</content> Erythrocyte mean 32.0-37. <content [facility] corpuscular 0 styleCode="Bold Alexus hemoglobin ">Mean Corpus. Medical concentration Hgb Center [Mass/volume] by Concentration Automated count (MCHC) </content>32.6 G/DL<content styleCode="Ital ics"> (32.0-37.0 G/DL)</content> Erythrocyte 11.5-14. <content Saint distribution 5 styleCode="Bold Alexus width [Ratio] by ">Red Cell Medical Automated count Distribution Center Width </content>12.9 %<content styleCode="Ital ics"> (11.5-14.5 %)</content> Platelets 130-400 <content Saint [#/volume] in styleCode="Bold Alexus Blood by ">Platelet Medical Automated count Count Center </content>335 KCUMM<content styleCode="Ital ics"> (130-400 KCUMM)</content > Platelet mean 8.0-11.0 <content Saint volume [Entitic styleCode="Bold Alexus volume] in Blood ">Mean Platelet Medical by Automated Volume Center count </content>10.2 FL<content styleCode="Ital ics"> (8.0-11.0 FL)</content> UNK 0 <content Saint styleCode="Bold Alexus ">Nucleated Red Medical Blood Cell Center </content>0.0 /100<content styleCode="Ital ics"> (0 /100)</content> UNK 0.0 <content Saint styleCode="Bold Alexus ">Nucleated Red Medical Blood Cell Center Count </content>0.00 KCUMM<content styleCode="Ital ics"> (0.0 KCUMM)</content > ID Date Data Source GFR(Creatinine).[id number] 07/20/2019 12:55:00 PM EST Nadir [facility] 0-0500 Name Value Range Interpretation Code Description Data Camryn rce(s) Supporting Document(s ) UNK > 60 <content [facility] styleCode="Bold"> Medical Cent er EGFR </content>78 GFR<content styleCode="Italic s"> (> 60 GFR)</content> ID Date Data Source CHMROUTINECCDA.[id number] 07/20/2019 12:55:00 PM MARLENE lee [facility] -0500 Name Value Range Interpretation Description Data Sup porting Code Source(s) Document(s ) UNK 30-110 <content [facility] styleCode="Bold Medical ">Amylase Center </content>38 IU/L<content styleCode="Ital ics"> (30-110 IU/L)</content> Lipase 23-300 <content [facility] [Enzymatic styleCode="Bold Medical activity/vo ">Lipase Center lume] in </content>23 Serum or IU/L<content Plasma styleCode="Ital ics"> (23-300 IU/L)</content> ID Date Data Source [facility].[id number] 07/20/2019 12:55:00 PM EST [facility] Name Value Range Interpretation Description Data Sup porting Code Source(s) Document(s ) Chloride 98-107 Below low <content Saint [Moles/volume] in normal styleCode="Bold"> [facility] Serum or Plasma Chloride Medical </content>96 Center MEQ/L L<content styleCode="Italic s"> (98-107 MEQ/L)</content> Potassium 3.5-5.3 <content Saint [Moles/volume] in styleCode="Bold"> [facility] Serum or Plasma Potassium Medical </content>4.7 Center MEQ/L<content styleCode="Italic s"> (3.5-5.3 MEQ/L)</content> Sodium 137-145 Below low <content Saint [Moles/volume] in normal styleCode="Bold"> [facility] Serum or Plasma Sodium Medical </content>135 Center MEQ/L L<content styleCode="Italic s"> (137-145 MEQ/L)</content> UNK 7-17 <content Saint styleCode="Bold"> [facility] BUN </content>14 Medical MG/DL<content Center styleCode="Italic s"> (7-17 MG/DL)</content> Calcium 8.4-10. <content Saint [Mass/volume] in 2 styleCode="Bold"> Dave hs Serum or Plasma Calcium Medical </content>9.3 Center MG/DL<content styleCode="Italic s"> (8.4-10.2 MG/DL)</content> Carbon dioxide, 22-30 Above high <content [facility] total normal styleCode="Bold"> Alexus [Moles/volume] in Carbon Dioxide Medical Serum or Plasma </content>31 Center MEQ/L H<content styleCode="Italic s"> (22-30 MEQ/L)</content> Creatinine 0.5-1.3 <content Saint [Mass/volume] in styleCode="Bold"> Dave hs Serum or Plasma Creatinine Medical </content>0.8 Center MG/DL<content styleCode="Italic s"> (0.5-1.3 MG/DL)</content> Glucose 74-106 Above high <content Saint [Mass/volume] in normal styleCode="Bold"> Dave hs Serum or Plasma Glucose Medical </content>243 Center MG/DL H<content styleCode="Italic s"> (74-106 MG/DL)</content> Alkaline 38-126 Above high <content [facility] phosphatase normal styleCode="Bold"> Alexus [Enzymatic Alkaline Medical activity/volume] Phosphatase (ALP) Cente r in Serum or Plasma </content>129 IU/L H<content styleCode="Italic s"> (38-126 IU/L)</content> Aspartate 14-36 <content [facility] aminotransferase styleCode="Bold"> Dave hs [Enzymatic Aspartate Medical activity/volume] Aminotransferase Center in Serum or Plasma (AST) </content>31 IU/L<content styleCode="Italic s"> (14-36 IU/L)</content> Bilirubin.total 0.2-1.3 <content Saint [Mass/volume] in styleCode="Bold"> Dave hs Serum or Plasma Bilirubin Total Medical </content>0.4 Center MG/DL<content styleCode="Italic s"> (0.2-1.3 MG/DL)</content> UNK > 60 <content Saint styleCode="Bold"> Alexus EGFR </content>78 Medical GFR<content Center styleCode="Italic s"> (> 60 GFR)</content> Albumin 3.5-5.0 <content Saint [Mass/volume] in styleCode="Bold"> Dave hs Serum or Plasma Albumin Medical </content>4.1 Center G/DL<content styleCode="Italic s"> (3.5-5.0 G/DL)</content> Alanine 7-30 <content [facility] aminotransferase styleCode="Bold"> Dave hs [Enzymatic Alanine Medical activity/volume] Aminotransferase Center in Serum or Plasma (ALT) </content>29 IU/L<content styleCode="Italic s"> (7-30 IU/L)</content> ID Date Data Source [id number] 06/20/2019 04:36:14 PM EST ARABELLA Y ([place] [id number] [facility]) Name Value Range Interpretation Description Data Source(s ) Supporting Code Document(s ) No Results No Results No Results OLIVIA ([facility] Recorded For [place] Specified [facility]) ID Date Data Source Liver 05/21/2019 09:25:00 AM EDT [facility] Profile.[id number] Name Value Range Interpretation Description Data Sup porting Code Source(s) Document(s ) Aspartate 14-36 Above high <content Saint aminotransferase normal styleCode="Bold"> Dave hs [Enzymatic Aspartate Medical activity/volume] Aminotransferase Center in Serum or Plasma (AST) </content>37 IU/L H<content styleCode="Italic s"> (14-36 IU/L)</content> Albumin 3.5-5.0 <content Saint [Mass/volume] in styleCode="Bold"> Dave hs Serum or Plasma Albumin Medical </content>3.9 Center G/DL<content styleCode="Italic s"> (3.5-5.0 G/DL)</content> Bilirubin.total 0.2-1.3 <content Saint [Mass/volume] in styleCode="Bold"> Dave hs Serum or Plasma Bilirubin Total Medical </content>0.4 Center MG/DL<content styleCode="Italic s"> (0.2-1.3 MG/DL)</content> Alanine 7-30 Above high <content [facility] aminotransferase normal styleCode="Bold"> Dave hs [Enzymatic Alanine Medical activity/volume] Aminotransferase Center in Serum or Plasma (ALT) </content>33 IU/L H<content styleCode="Italic s"> (7-30 IU/L)</content> Alkaline 38-126 <content Saint phosphatase styleCode="Bold"> Alexus [Enzymatic Alkaline Medical activity/volume] Phosphatase (ALP) Cente r in Serum or Plasma </content>123 IU/L<content styleCode="Italic s"> (38-126 IU/L)</content> ID Date Data Source LIPID.[id number] 05/21/2019 09:25:00 AM EDT [facility] Name Value Range Interpretation Description Data Sup porting Code Source(s) Document(s ) Triglyceride < 150 Above high normal <content Saint [Mass/volume] in styleCode="Stacy Alexus Serum or Plasma d">Triglycerid Medical es Center </content>165 MG/DL H<content styleCode="Desiree lics"> (< 150 MG/DL)</conten t> UNK < 100 Above high normal <content Saint styleCode="Stacy Alexus d">LDL-Cholest Medical stacie Center </content>165 MG/DL H<content styleCode="Desiree lics"> (< 100 MG/DL)</conten t> Cholesterol -<200 Above high normal <content Saint [Mass/volume] in styleCode="Stacy Alexus Serum or Plasma d">Cholesterol Medical </content>245 Center MG/DL H<content styleCode="Desiree lics"> (-<200 MG/DL)</conten t> UNK > 60 Below low normal <content Saint styleCode="Stacy Alexus d">HDL- Medical Cholesterol Center </content>47 MG/DL L<content styleCode="Desiree lics"> (> 60 MG/DL)</conten t> ID Date Data Source Hormones.[id number] 05/21/2019 09:25:00 AM EDT [facility] Name Value Range Interpretation Description Data Sup porting Code Source(s) Document(s ) Thyrotropin 0.465-4. <content Saint [Units/volume] 68 styleCode="Stacy Alexus in Serum or d">Thyroid Medical Plasma by Stimulating Center Detection Hormone limit <= 0.05 </content>1.80 mIU/L MIU/L<content styleCode="Desiree lics"> (0.465-4.68 MIU/L)</conten t> ID Date Data Source HematologyRou.[id number] 05/21/2019 09:25:00 AM EDT [facility] nt [facility] 0400 Name Value Range Interpretation Description Data Sup porting Code Source(s) Document(s ) Leukocytes 4.4-11.0 <content Saint [#/volume] in styleCode="Bold Alexus Blood by ">White Blood Medical Automated count Cell Count Center </content>10.58 KCUMM<content styleCode="Ital ics"> (4.4-11.0 KCUMM)</content > Erythrocyte mean 80.0-100 <content Saint corpuscular .0 styleCode="Bold Alexus volume [Entitic ">Mean Medical volume] by Corpuscular Center Automated count Volume </content>85.5 FL<content styleCode="Ital ics"> (80.0-100.0 FL)</content> Erythrocyte mean 26.0-34. <content Saint corpuscular 0 styleCode="Bold Alexus hemoglobin ">Mean Medical [Entitic mass] Corposcular Center by Automated Hemoglobin count </content>27.2 PG<content styleCode="Ital ics"> (26.0-34.0 PG)</content> Erythrocytes 4.0-5.1 <content Saint [#/volume] in styleCode="Bold Alexus Blood by ">Red Blood Medical Automated count Cell Count Center </content>4.82 MCUMM<content styleCode="Ital ics"> (4.0-5.1 MCUMM)</content > Hematocrit 36.0-46. <content Saint [Volume 0 styleCode="Bold Alexus Fraction] of ">Hematocrit Medical Blood by </content>41.2 Center Automated count %<content styleCode="Ital ics"> (36.0-46.0 %)</content> Hemoglobin 12.3-16. <content Saint [Mass/volume] in 0 styleCode="Bold Alexus Blood ">Hemoglobin Medical </content>13.1 Center G/DL<content styleCode="Ital ics"> (12.3-16.0 G/DL)</content> Erythrocyte 11.5-14. <content Saint distribution 5 styleCode="Bold Alexus width [Ratio] by ">Red Cell Medical Automated count Distribution Center Width </content>13.3 %<content styleCode="Ital ics"> (11.5-14.5 %)</content> Platelet mean 8.0-11.0 <content Saint volume [Entitic styleCode="Bold Alexus volume] in Blood ">Mean Platelet Medical by Automated Volume Center count </content>10.7 FL<content styleCode="Ital ics"> (8.0-11.0 FL)</content> Erythrocyte mean 32.0-37. Below low normal <content Saint corpuscular 0 styleCode="Bold Alexus hemoglobin ">Mean Corpus. Medical concentration Hgb Center [Mass/volume] by Concentration Automated count (MCHC) </content>31.8 G/DL L<content styleCode="Ital ics"> (32.0-37.0 G/DL)</content> UNK 0 <content Saint styleCode="Bold Alexus ">Nucleated Red Medical Blood Cell Center </content>0.0 /100<content styleCode="Ital ics"> (0 /100)</content> Platelets 130-400 <content Saint [#/volume] in styleCode="Bold Alexus Blood by ">Platelet Medical Automated count Count Center </content>332 KCUMM<content styleCode="Ital ics"> (130-400 KCUMM)</content > UNK 0.0 <content Saint styleCode="Bold Alexus ">Nucleated Red Medical Blood Cell Center Count </content>0.00 KCUMM<content styleCode="Ital ics"> (0.0 KCUMM)</content > ID Date Data Source GFR(Creatinine).[id number] 05/21/2019 09:25:00 AM EDT [facility] 0-0400 Name Value Range Interpretation Code Description Data Camryn rce(s) Supporting Document(s ) UNK > 60 <content [facility] styleCode="Bold"> Medical Cent er EGFR </content>78 GFR<content styleCode="Italic s"> (> 60 GFR)</content> ID Date Data Source Coagulation 05/21/2019 09:25:00 AM [facility] Rout.[id number] EDT Name Value Range Interpretation Description Data Sup porting Code Source(s) Document(s ) INR in 0.80-1.2 <content Saint Platelet poor 0 styleCode="Bold" Alexus plasma by >INR Medical Coagulation </content>1.11 Center assay #<content styleCode="Itali cs"> (0.80-1.20 #)</content> aPTT in 25.1-36. <content Saint Platelet poor 5 styleCode="Bold" Alexus plasma by >Partial Medical Coagulation Thromboplastin Center assay Time </content>31.0 SEC<content styleCode="Itali cs"> (25.1-36.5 SEC)</content> UNK 9.0-13.0 <content Saint styleCode="Bold" Alexus >Protime Medical </content>12.3 Center SEC<content styleCode="Itali cs"> (9.0-13.0 SEC)</content> ID Date Data Source CHMROUTINECCDA.[id number] 05/21/2019 09:25:00 AM EDT [facility] -0400 Name Value Range Interpretation Description Data Sup porting Code Source(s) Document(s ) UNK 4.2-5.8 Above high normal <content Saint styleCode="Stacy Alexus d">Hemoglobin Medical A1C Center </content>11.6 % H<content styleCode="Desiree lics"> (4.2-5.8 %)</content> Protein 6.3-8.2 <content Saint [Mass/volume] styleCode="Stacy Jackmans in Serum or d">Total Medical Plasma Protein Center </content>7.3 G/DL<content styleCode="Desiree lics"> (6.3-8.2 G/DL)</content > Cannabinoids <content Saint [Presence] in styleCode="Stacy [facility] Urine by Screen d">Cannabinoid Medical method >50 s Center ng/mL </content>NEGA TIVE NG/ML (Reference Range: not available)<br/ > UNK >= 1.0 <content Saint styleCode="Stacy Alexus d">AG Ratio Medical </content>1.1 Center <content styleCode="Desiree lics"> (>= 1.0 )</content> UNK 2.3-3.5 <content Saint styleCode="Stacy Alexus d">Globulin Medical </content>3.4 Center G/DL<content styleCode="Desiree lics"> (2.3-3.5 G/DL)</content > ID Date Data Source BloodBank.[id number] 05/21/2019 09:25:00 AM EDT [facility] Name Value Range Interpretation Code Description Data Camryn rce(s) Supporting Document(s ) UNK NEGATIVE <content [facility] styleCode="Bold" Medical Cente r >Antibody Screen </content>NEGATI VE <content styleCode="Itali cs"> (NEGATIVE )</content> UNK <content [facility] styleCode="Bold" Medical Cente r >RH Type </content>POSITI VE (Reference Range: not available)
UNK <content [facility] styleCode="Bold" Medical Cente r >Blood Type </content>GROUP O (Reference Range: not available)
ID Date Data Source [facility].[id number] 05/21/2019 09:25:00 AM EDT [facility] Name Value Range Interpretation Description Data Sup porting Code Source(s) Document(s ) UNK 7-17 <content [facility] styleCode="Bold"> [facility] BUN </content>13 Medical MG/DL<content Center styleCode="Italic s"> (7-17 MG/DL)</content> Carbon dioxide, 22-30 <content Saint total styleCode="Bold"> Alexus [Moles/volume] in Carbon Dioxide Medical Serum or Plasma </content>27 Center MEQ/L<content styleCode="Italic s"> (22-30 MEQ/L)</content> Chloride 98-107 <content Saint [Moles/volume] in styleCode="Bold"> Adelso phs Serum or Plasma Chloride Medical </content>103 Center MEQ/L<content styleCode="Italic s"> (98-107 MEQ/L)</content> Sodium 137-145 <content Saint [Moles/volume] in styleCode="Bold"> Adelso phs Serum or Plasma Sodium Medical </content>138 Center MEQ/L<content styleCode="Italic s"> (137-145 MEQ/L)</content> Potassium 3.5-5.3 <content Saint [Moles/volume] in styleCode="Bold"> Adelso phs Serum or Plasma Potassium Medical </content>4.4 Center MEQ/L<content styleCode="Italic s"> (3.5-5.3 MEQ/L)</content> Calcium 8.4-10. <content Saint [Mass/volume] in 2 styleCode="Bold"> Dave hs Serum or Plasma Calcium Medical </content>9.7 Center MG/DL<content styleCode="Italic s"> (8.4-10.2 MG/DL)</content> Aspartate 14-36 Above high <content Saint aminotransferase normal styleCode="Bold"> Dave hs [Enzymatic Aspartate Medical activity/volume] Aminotransferase Center in Serum or Plasma (AST) </content>37 IU/L H<content styleCode="Italic s"> (14-36 IU/L)</content> Creatinine 0.5-1.3 <content Saint [Mass/volume] in styleCode="Bold"> Dave hs Serum or Plasma Creatinine Medical </content>0.8 Center MG/DL<content styleCode="Italic s"> (0.5-1.3 MG/DL)</content> UNK > 60 <content Saint styleCode="Bold"> Alexus EGFR </content>78 Medical GFR<content Center styleCode="Italic s"> (> 60 GFR)</content> Glucose 74-106 Above high <content Saint [Mass/volume] in normal styleCode="Bold"> Dave hs Serum or Plasma Glucose Medical </content>317 Center MG/DL H<content styleCode="Italic s"> (74-106 MG/DL)</content> Bilirubin.total 0.2-1.3 <content Saint [Mass/volume] in styleCode="Bold"> Dave hs Serum or Plasma Bilirubin Total Medical </content>0.4 Center MG/DL<content styleCode="Italic s"> (0.2-1.3 MG/DL)</content> Alanine 7-30 Above high <content Saint aminotransferase normal styleCode="Bold"> Dave hs [Enzymatic Alanine Medical activity/volume] Aminotransferase Center in Serum or Plasma (ALT) </content>33 IU/L H<content styleCode="Italic s"> (7-30 IU/L)</content> Alkaline 38-126 <content Saint phosphatase styleCode="Bold"> Alexus [Enzymatic Alkaline Medical activity/volume] Phosphatase (ALP) Cente r in Serum or Plasma </content>123 IU/L<content styleCode="Italic s"> (38-126 IU/L)</content> Albumin 3.5-5.0 <content Saint [Mass/volume] in styleCode="Bold"> Dave hs Serum or Plasma Albumin Medical </content>3.9 Center G/DL<content styleCode="Italic s"> (3.5-5.0 G/DL)</content> ID Date Data Source [id number] 03/06/2019 12:00:00 AM EDT [facility] ([employer] [facility]) Name Value Range Interpretation Code Description Data Camryn rce(s) Supporting Document(s ) REFLEX FOR Abnormal (applies MEDGEN P53 - 1 UNIT to non-numeric [facility] Medical Service) ID Date Data Source [id number] 03/06/2019 12:00:00 AM EDT [facility] ([facility]) Name Value Range Interpretation Description Data Sup porting Code Source(s) Document(s ) ORGANISM Abnormal (applies MEDGEN to non-numeric ([place] results) Medical Service) Comment Abnormal (applies MEDGEN [facility]Interpretation[facility] Medical Ophthalmometer Service) ID Date Data Source [id number] 03/06/2019 12:00:00 AM EDT MED[facility] ([employer] [facility]) Name Value Range Interpretation Description Data Sup porting Code Source(s) Document(s ) GLUCOSE UA 150 mg/dL Normal (applies MEDGEN to non-numeric ([place] results) Medical Service) BILIRUBIN, TOTAL NEGATIVE Normal (applies MEDGEN to non-numeric ([place] results) Medical Service) Ketones NEGATIVE Normal (applies MEDGEN [Presence] in to non-numeric ([place] Blood by Tablet results) Medical Service) Specific gravity 1.018 SG Normal (applies MEDGEN of Pericardial units to non-numeric ([place] fluid by results) Medical Refractometry Service) Blood [Presence] NEGATIVE Normal (applies MEDGEN in Urine by to non-numeric ([place] Visual results) Medical Service) pH of Lower 6 Ph units Normal (applies MEDGEN respiratory to non-numeric ([place] specimen results) Medical Service) Protein 30 mg/dL Normal (applies MEDGEN [Mass/volume] in to non-numeric ([place] [facility] Lower results) Medical respiratory Service) specimen Urobilinogen 0-2.0 Normal (applies MEDGEN [Presence] in to non-numeric ([place] Urine by results) Medical Automated test Service) strip Nitrite NEGATIVE Normal (applies MEDGEN [Presence] in to non-numeric ([place] Urine by Test results) Medical strip Service) Leukocyte NEGATIVE Normal (applies MEDGEN esterase to non-numeric ([place] [Presence] in results) Medical Body fluid by Service) Automated test strip Color of YELLOW Normal (applies MEDGEN Peritoneal to non-numeric ([place] dialysis fluid results) Medical Service) TRANSPARENCY CLOUDY Normal (applies MEDGEN to non-numeric ([place] results) Medical Service) Bacteria FEW Normal (applies MEDGEN [Presence] in to non-numeric ([place] Prostatic fluid results) Medical by Light Service) microscopy SQUAMOUS FEW Normal (applies MEDGEN EPITHELIAL to non-numeric ([place] results) Medical Service) MUCOUS FEW Normal (applies MEDGEN to non-numeric ([place] results) Medical Service) ID Date Data Source [id number] 03/06/2019 12:00:00 AM EDT MED[facility] ([employer] [facility]) Name Value Range Interpretation Code Description Data Camryn rce(s) Supporting Document(s ) REFLEX FOR Abnormal (applies MEDGEN P53 - 1 UNIT to non-numeric ([place] results) Medical Service) ID Date Data Source [id number] 03/06/2019 12:00:00 AM EDT [facility] ([facility] Medical Service) Name Value Range Interpretation Description Data Sup porting Code Source(s) Document(s ) ORGANISM Abnormal (applies MEDGEN to non-numeric ([facility] results) Medical Service) Comment Abnormal (applies [facility]pretation[facility] Medical Ophthalmometer Service) ID Date Data Source [id number] 03/06/2019 12:00:00 AM EDT MEDGEN ([facility] Service) Name Value Range Interpretation Description Data Sup porting Code Source(s) Document(s ) GLUCOSE UA 150 mg/dL Normal (applies MEDGEN to non-numeric ([facility] results) Medical Service) BILIRUBIN, TOTAL NEGATIVE Normal (applies MEDGEN to non-numeric ([facility] results) Medical Service) Ketones NEGATIVE Normal (applies MEDGEN [Presence] in to non-numeric ([facility] Blood by Tablet results) Medical Service) Specific gravity 1.018 SG Normal (applies MEDGEN of Pericardial units to non-numeric ([place] fluid by results) Medical Refractometry Service) Blood [Presence] NEGATIVE Normal (applies MEDGEN in Urine by to non-numeric ([facility] Visual results) Medical Service) pH of Lower 6 Ph units Normal (applies MEDGEN respiratory to non-numeric ([facility] specimen results) Medical Service) Protein 30 mg/dL Normal (applies MEDGEN [Mass/volume] in to non-numeric ([facility] y Lower results) Medical respiratory Service) specimen Urobilinogen 0-2.0 Normal (applies MEDGEN [Presence] in to non-numeric ([facility] Urine by results) Medical Automated test Service) strip Nitrite NEGATIVE Normal (applies MEDGEN [Presence] in to non-numeric ([facility] Urine by Test results) Medical strip Service) Leukocyte NEGATIVE Normal (applies MEDGEN esterase to non-numeric ([facility] [Presence] in results) Medical Body fluid by Service) Automated test strip Color of YELLOW Normal (applies MEDGEN Peritoneal to non-numeric ([place] dialysis fluid results) Medical Service) TRANSPARENCY CLOUDY Normal (applies MEDGEN to non-numeric ([facility] results) Medical Service) Bacteria FEW Normal (applies MEDGEN [Presence] in to non-numeric ([facility] Prostatic fluid results) Medical by Light Service) microscopy SQUAMOUS FEW Normal (applies MEDGEN EPITHELIAL to non-numeric ([facility] results) Medical Service) MUCOUS FEW Normal (applies MEDGEN to non-numeric ([facility] results) Medical Service) ID Date Data Source [id number] 01/17/2019 12:00:00 AM EDT MEDGEN ([facility] Service) Name Value Range Interpretation Code Description Data Camryn rce(s) Supporting Document(s ) REFLEX FOR Abnormal (applies MEDGEN P53 - 1 UNIT to non-numeric ([facility] results) Medical Service) ID Date Data Source [id number] 01/17/2019 12:00:00 AM EDT MEDGEN ([facility]) Name Value Range Interpretation Description Data Sup porting Code Source(s) Document(s ) Cholesterol 237 Above high normal MEDGEN [Moles/volume] mg/dL ([facility] in Pericardial Medical fluid Service) LDL CALCULATION 159.0 Above high normal MEDGEN mg/dL ([facility] Service) CHOL/HDL RATIO 4.74 Normal (applies MEDGEN ratio to non-numeric ([facility] results) Medical Service) HDL CHOLESTEROL 50 mg/dL Above high normal MEDGEN ([facility]) VLDL CALCULATION 28.0 Normal (applies MEDGEN mg/dl to non-numeric ([facility] results) Medical Service) TRIGLYCERIDES 140 Normal (applies MEDGEN mg/dL to non-numeric ([facility] results) Medical Service) ID Date Data Source [id number] 01/17/2019 12:00:00 AM EDT MEDGEN ([facility]) Name Value Range Interpretation Description Data Sup porting Code Source(s) Document(s ) GLUCOSE 420 Above high normal MEDGEN NONFASTING,SERUM mg/dL ([facility] Service) SODIUM, SERUM 135 Normal (applies MEDGEN mEq/L to non-numeric ([facility] results) Medical Service) POTASSIUM, SERUM 4.5 Normal (applies MEDGEN mEq/L to non-numeric ([facility] results) Medical Service) CHLORIDE, SERUM 96 mEq/L Below low normal MEDGEN ([facility]) Carbon dioxide 23 mEq/L Normal (applies MEDGEN [VFr/PPres] in to non-numeric ([facility] Gas delivery results) Medical system Service) Anion gap in 20.5 Above high normal MEDGEN Body fluid mEq/L ([facility]) BLOOD UREA 11 mg/dL Normal (applies MEDGEN NITROGEN to non-numeric ([facility] results) Medical Service) CREATININE, 1.10 Above high normal MEDGEN SERUM mg/dL ([facility]) BUN/CREATININE 10.00 Normal (applies MEDGEN RATIO to non-numeric ([facility] results) Medical Service) CALCIUM, SERUM 8.8 Normal (applies MEDGEN mg/dL to non-numeric ([facility] results) Medical Service) TOTAL PROTEIN 6.8 g/dL Normal (applies MEDGEN to non-numeric ([facility] results) Medical Service) Microalbumin 4.1 g/dL Normal (applies MEDGEN [Mass/time] in to non-numeric ([facility] Urine collected results) Medical for unspecified Service) duration Globulin 2.7 gldl Normal (applies MEDGEN [Mass/time] in to non-numeric ([facility] 24 hour Urine results) Medical Service) A/G RATIO 1.52 Normal (applies MEDGEN g/dl to non-numeric ([facility] results) Medical Service) BILIRUBIN, TOTAL 0.3 Normal (applies MEDGEN mg/dL to non-numeric ([facility] results) Medical Service) ALKALINE 108 U/L Normal (applies MEDGEN PHOSPHATASE, ALP to non-numeric ([facility] y results) Medical Service) ALT (SGPT) 52 U/L Above high normal MEDGEN ([facility]) AST 47 U/L Above high normal MEDGEN ([facility]) EGFR NON AFR 54 Above high normal MEDGEN BRAZILIAN mL/min/1 ([facility] .73m2 Medical Service) EGFR AFR 65 Above high normal MEDGEN BRAZILIAN mL/min/1 ([facility] Medical Service) ID Date Data Source [id number] 01/17/2019 12:00:00 AM EDT MEDGEN ([facility]) Name Value Range Interpretation Description Data Sup porting Code Source(s) Document(s ) GLUCOSE UA >=500 Normal (applies MEDGEN to non-numeric ([facility] results) Medical Service) BILIRUBIN, TOTAL NEGATIVE Normal (applies MEDGEN to non-numeric ([facility] results) Medical Service) Ketones NEGATIVE Normal (applies MEDGEN [Presence] in to non-numeric ([facility] Blood by Tablet results) Medical Service) Specific gravity 1.024 SG Normal (applies MEDGEN of Pericardial units to non-numeric ([place] fluid by results) Medical Refractometry Service) Blood [Presence] NEGATIVE Normal (applies MEDGEN in Urine by to non-numeric ([facility] Visual results) Medical Service) pH of Lower 6 Ph units Normal (applies MEDGEN respiratory to non-numeric ([facility] specimen results) Medical Service) Protein NEGATIVE Normal (applies MEDGEN [Mass/volume] in to non-numeric ([facility] Lower results) Medical respiratory Service) specimen Urobilinogen 0-2.0 Normal (applies MEDGEN [Presence] in to non-numeric ([place] Urine by results) Medical Automated test Service) strip Nitrite NEGATIVE Normal (applies MEDGEN [Presence] in to non-numeric ([place] Urine by Test results) Medical strip Service) Leukocyte NEGATIVE Normal (applies MEDGEN esterase to non-numeric ([place] [Presence] in results) Medical Body fluid by Service) Automated test strip Color of YELLOW Normal (applies MEDGEN Peritoneal to non-numeric ([facility] dialysis fluid results) Medical Service) TRANSPARENCY CLOUDY Normal (applies MEDGEN to non-numeric ([facility] results) Medical Service) ID Date Data Source [id number] 01/17/2019 12:00:00 AM EDT MEDGEN ([facility] Medical Service) Name Value Range Interpretation Description Data Sup porting Code Source(s) Document(s ) WBC 9.3 Normal (applies MEDGEN 10(3)/uL to non-numeric ([facility] results) Medical Service) RBC 4.6 Normal (applies MEDGEN 10(6)/uL to non-numeric ([facility] results) Medical Service) Hemoglobin 12.5 g/dL Normal (applies MEDGEN [Mass/volume] to non-numeric ([place] in Mixed venous results) Medical blood by Service) Oximetry Hematocrit 40.6 % Normal (applies MEDGEN [Pure volume to non-numeric ([facility] fraction] of results) Medical Blood by Service) Automated count MCV 88.1 fL Normal (applies MEDGEN to non-numeric ([facility] results) Medical Service) MCH 27 pg Normal (applies MEDGEN to non-numeric ([facility] results) Medical Service) MCHC 31 g/dL Normal (applies MEDGEN to non-numeric ([facility] results) Medical Service) RDWSD 41.5 fL Normal (applies MEDGEN to non-numeric ([facility] results) Medical Service) RDWCV 13.0 % Normal (applies MEDGEN to non-numeric ([facility] results) Medical Service) Platelet Count 283 Normal (applies MEDGEN 10(3)/uL to non-numeric ([facility] results) Medical Service) MPV 10.6 fL Normal (applies MEDGEN to non-numeric ([facility] results) Medical Service) Neutrophil Abs 6.45 Normal (applies MEDGEN 10(3)/uL to non-numeric ([facility] results) Medical Service) Lymphocyte Abs 2.14 Normal (applies MEDGEN 10(3)/uL to non-numeric ([facility] results) Medical Service) Monocyte Abs 0.47 Normal (applies MEDGEN 10(3)/uL to non-numeric ([facility] results) Medical Service) Eosinophil Abs 0.14 Normal (applies MEDGEN 10(3)/uL to non-numeric ([facility] results) Medical Service) Neutrophil % 69.20 % Normal (applies MEDGEN to non-numeric ([facility] results) Medical Service) Lymphocyte % 23 % Normal (applies MEDGEN to non-numeric ([facility] results) Medical Service) Monocyte % 5.0 % Normal (applies MEDGEN to non-numeric ([facility] results) Medical Service) Eosinophil % 1.5 % Normal (applies MEDGEN to non-numeric ([facility] results) Medical Service) Basophil % 0.8 % Normal (applies MEDGEN to non-numeric ([facility] results) Medical Service) Immature 0.60 % Above high normal MEDGEN Granulocyte % ([facility]) ID Date Data Source [id number] 01/17/2019 12:00:00 AM EDT MEDGEN ([facility] Medical Service) Name Value Range Interpretation Description Data Sup porting Code Source(s) Document(s ) TSH,3RD GENERATION 0.78 Normal (applies MEDGE N uIU/mL to non-numeric ([facility] results) Medical Service) T4 FREE, THYROXINE 1.00 Normal (applies MEDGE N ng/dL to non-numeric ([facility] results) Medical Service) T4 TOTAL THYROXINE 8 ug/dL Normal (applies MEDGE N to non-numeric ([facility] results) Medical Service) T3 FREE 2.60 Normal (applies MEDGEN TRIIODOTHYRONINE pg/mL to non-numeric ([facility] results) Medical Service) T3 TOTAL 105 Normal (applies MEDGEN ng/dL to non-numeric ([facility] results) Medical Service) T3 UPTAKE 28.00 % Normal (applies MEDGEN to non-numeric ([facility] results) Medical Service) FTI 2.24 Normal (applies MEDGEN Index to non-numeric ([facility] results) Medical Service) ID Date Data Source [id number] 01/17/2019 12:00:00 AM EDT MEDGEN ([facility]) Name Value Range Interpretation Description Data Sup porting Code Source(s) Document(s ) ORGANISM Abnormal (applies MEDGEN to non-numeric ([facility] results) Medical Service) Comment Abnormal (applies MEDGEN [Interpretation] to non-numeric ([facility] y Left eye Narrative results) Medical Ophthalmometer Service) ID Date Data Source [id number] 01/17/2019 12:00:00 AM EDT MEDGEN ([facility]) Name Value Range Interpretation Code Description Data Supporting Source(s) Document(s ) GLYCOMARK 3.22 ug/mL Below low normal MEDGEN ([facility]) ID Date Data Source [id number] 01/17/2019 12:00:00 AM EDT MEDGEN ([facility]) Name Value Range Interpretation Description Data Sup porting Code Source(s) Document(s ) Hemoglobin A1c 11.5 % Above high normal MEDGEN in Blood ([facility]) ID Date Data Source [id number] 01/17/2019 12:00:00 AM EDT MEDGEN ([facility]) Name Value Range Interpretation Description Data Sup porting Code Source(s) Document(s ) MICROALBUMIN 0.3 Normal (applies MEDGEN URINE mg/dL to non-numeric ([facility] results) Medical Service) ID Date Data Source [id number] 01/17/2019 12:00:00 AM EDT MEDGEN ([facility]) Name Value Range Interpretation Code Description Data Camryn rce(s) Supporting Document(s ) REFLEX FOR Abnormal (applies MEDGEN P53 - 1 UNIT to non-numeric ([facility] results) Medical Service) ID Date Data Source [id number] 01/17/2019 12:00:00 AM EDT MEDGEN ([facility]) Name Value Range Interpretation Description Data Sup porting Code Source(s) Document(s ) Cholesterol 237 Above high normal MEDGEN [Moles/volume] mg/dL ([facility] in Pericardial Medical fluid Service) LDL CALCULATION 159.0 Above high normal MEDGEN mg/dL ([facility]) CHOL/HDL RATIO 4.74 Normal (applies MEDGEN ratio to non-numeric ([facility] results) Medical Service) VLDL CALCULATION 28.0 Normal (applies MEDGEN mg/dl to non-numeric ([facility] results) Medical Service) HDL CHOLESTEROL 50 mg/dL Above high normal MEDGEN ([facility]) TRIGLYCERIDES 140 Normal (applies MEDGEN mg/dL to non-numeric ([facility] results) Medical Service) ID Date Data Source [id number] 01/17/2019 12:00:00 AM EDT MEDGEN ([facility]) Name Value Range Interpretation Description Data Sup porting Code Source(s) Document(s ) GLUCOSE 420 Above high normal MEDGEN NONFASTING,SERUM mg/dL ([facility]) SODIUM, SERUM 135 Normal (applies MEDGEN mEq/L to non-numeric ([facility] results) Medical Service) POTASSIUM, SERUM 4.5 Normal (applies MEDGEN mEq/L to non-numeric ([facility] results) Medical Service) CHLORIDE, SERUM 96 mEq/L Below low normal MEDGEN ([facility]) Carbon dioxide 23 mEq/L Normal (applies MEDGEN [VFr/PPres] in to non-numeric ([facility] Gas delivery results) Medical system Service) Anion gap in 20.5 Above high normal MEDGEN Body fluid mEq/L ([facility]) BLOOD UREA 11 mg/dL Normal (applies MEDGEN NITROGEN to non-numeric ([facility] results) Medical Service) CREATININE, 1.10 Above high normal MEDGEN SERUM mg/dL ([facility]) BUN/CREATININE 10.00 Normal (applies MEDGEN RATIO to non-numeric ([facility] results) Medical Service) CALCIUM, SERUM 8.8 Normal (applies MEDGEN mg/dL to non-numeric ([facility] results) Medical Service) TOTAL PROTEIN 6.8 g/dL Normal (applies MEDGEN to non-numeric ([facility] results) Medical Service) Microalbumin 4.1 g/dL Normal (applies MEDGEN [Mass/time] in to non-numeric ([facility] Urine collected results) Medical for unspecified Service) duration Globulin 2.7 gldl Normal (applies MEDGEN [Mass/time] in to non-numeric ([facility] 24 hour Urine results) Medical Service) A/G RATIO 1.52 Normal (applies MEDGEN g/dl to non-numeric ([facility] results) Medical Service) BILIRUBIN, TOTAL 0.3 Normal (applies MEDGEN mg/dL to non-numeric ([facility] results) Medical Service) ALKALINE 108 U/L Normal (applies MEDGEN PHOSPHATASE, ALP to non-numeric ([facility] y results) Medical Service) ALT (SGPT) 52 U/L Above high normal MEDGEN ([facility] Service) AST 47 U/L Above high normal MEDGEN ([facility]) EGFR NON AFR 54 Above high normal MEDGEN BRAZILIAN mL/min/1 ([facility] .73m2 Medical Service) EGFR AFR 65 Above high normal MEDGEN BRAZILIAN mL/min/1 ([facility] Medical Service) ID Date Data Source [id number] 01/17/2019 12:00:00 AM EDT MEDGEN ([facility]) Name Value Range Interpretation Description Data Sup porting Code Source(s) Document(s ) GLUCOSE UA >=500 Normal (applies MEDGEN to non-numeric ([facility] results) Medical Service) BILIRUBIN, TOTAL NEGATIVE Normal (applies MEDGEN to non-numeric ([facility] results) Medical Service) Ketones NEGATIVE Normal (applies MEDGEN [Presence] in to non-numeric ([facility] Blood by Tablet results) Medical Service) Specific gravity 1.024 SG Normal (applies MEDGEN of Pericardial units to non-numeric ([facility] fluid by results) Medical Refractometry Service) Blood [Presence] NEGATIVE Normal (applies MEDGEN in Urine by to non-numeric ([facility] Visual results) Medical Service) pH of Lower 6 Ph units Normal (applies MEDGEN respiratory to non-numeric ([facility] specimen results) Medical Service) Protein NEGATIVE Normal (applies MEDGEN [Mass/volume] in to non-numeric ([facility] y Lower results) Medical respiratory Service) specimen Urobilinogen 0-2.0 Normal (applies MEDGEN [Presence] in to non-numeric ([place] Urine by results) Medical Automated test Service) strip Nitrite NEGATIVE Normal (applies MEDGEN [Presence] in to non-numeric ([facility] Urine by Test results) Medical strip Service) Leukocyte NEGATIVE Normal (applies MEDGEN esterase to non-numeric ([facility] [Presence] in results) Medical Body fluid by Service) Automated test strip Color of YELLOW Normal (applies MEDGEN Peritoneal to non-numeric ([facility] dialysis fluid results) Medical Service) TRANSPARENCY CLOUDY Normal (applies MEDGEN to non-numeric ([facility] results) Medical Service) ID Date Data Source [id number] 01/17/2019 12:00:00 AM EDT MEDGEN ([facility]) Name Value Range Interpretation Description Data Sup porting Code Source(s) Document(s ) WBC 9.3 Normal (applies MEDGEN 10(3)/uL to non-numeric ([facility] results) Medical Service) RBC 4.6 Normal (applies MEDGEN 10(6)/uL to non-numeric ([facility] results) Medical Service) Hemoglobin 12.5 g/dL Normal (applies MEDGEN [Mass/volume] to non-numeric ([facility] in Mixed venous results) Medical blood by Service) Oximetry Hematocrit 40.6 % Normal (applies MEDGEN [Pure volume to non-numeric ([facility] fraction] of results) Medical Blood by Service) Automated count MCV 88.1 fL Normal (applies MEDGEN to non-numeric ([facility] results) Medical Service) MCH 27 pg Normal (applies MEDGEN to non-numeric ([facility] results) Medical Service) MCHC 31 g/dL Normal (applies MEDGEN to non-numeric ([facility] results) Medical Service) RDWSD 41.5 fL Normal (applies MEDGEN to non-numeric ([facility] results) Medical Service) RDWCV 13.0 % Normal (applies MEDGEN to non-numeric ([facility] results) Medical Service) Platelet Count 283 Normal (applies MEDGEN 10(3)/uL to non-numeric ([facility] results) Medical Service) MPV 10.6 fL Normal (applies MEDGEN to non-numeric ([facility] results) Medical Service) Neutrophil Abs 6.45 Normal (applies MEDGEN 10(3)/uL to non-numeric ([facility] results) Medical Service) Lymphocyte Abs 2.14 Normal (applies MEDGEN 10(3)/uL to non-numeric ([facility] results) Medical Service) Monocyte Abs 0.47 Normal (applies MEDGEN 10(3)/uL to non-numeric ([facility] results) Medical Service) Eosinophil Abs 0.14 Normal (applies MEDGEN 10(3)/uL to non-numeric ([facility] results) Medical Service) Neutrophil % 69.20 % Normal (applies MEDGEN to non-numeric ([facility] results) Medical Service) Lymphocyte % 23 % Normal (applies MEDGEN to non-numeric ([facility] results) Medical Service) Monocyte % 5.0 % Normal (applies MEDGEN to non-numeric ([facility] results) Medical Service) Eosinophil % 1.5 % Normal (applies MEDGEN to non-numeric ([facility] results) Medical Service) Basophil % 0.8 % Normal (applies MEDGEN to non-numeric ([facility] results) Medical Service) Immature 0.60 % Above high normal MEDGEN Granulocyte % ([facility]) ID Date Data Source [id number] 01/17/2019 12:00:00 AM EDT MEDGEN ([facility] Service) Name Value Range Interpretation Description Data Sup porting Code Source(s) Document(s ) TSH,3RD GENERATION 0.78 Normal (applies MEDGE N uIU/mL to non-numeric ([facility] results) Medical Service) T4 FREE, THYROXINE 1.00 Normal (applies MEDGE N ng/dL to non-numeric ([facility] results) Medical Service) T4 TOTAL THYROXINE 8 ug/dL Normal (applies MEDGE N to non-numeric ([facility] results) Medical Service) T3 TOTAL 105 Normal (applies MEDGEN ng/dL to non-numeric ([facility] results) Medical Service) T3 FREE 2.60 Normal (applies MEDGEN TRIIODOTHYRONINE pg/mL to non-numeric ([facility] results) Medical Service) T3 UPTAKE 28.00 % Normal (applies MEDGEN to non-numeric ([place] results) Medical Service) FTI 2.24 Normal (applies MEDGEN Index to non-numeric ([facility] results) Medical Service) ID Date Data Source [id number] 01/17/2019 12:00:00 AM EDT MEDGEN ([facility]) Name Value Range Interpretation Description Data Sup porting Code Source(s) Document(s ) ORGANISM Abnormal (applies MEDGEN to non-numeric ([facility] results) Medical Service) Comment Abnormal (applies MEDGEN [Interpretation] to non-numeric ([facility] Left eye Narrative results) Medical Ophthalmometer Service) ID Date Data Source [id number] 01/17/2019 12:00:00 AM EDT MEDGEN ([facility]) Name Value Range Interpretation Code Description Data Supporting Source(s) Document(s ) GLYCOMARK 3.22 ug/mL Below low normal MEDGEN ([facility]) ID Date Data Source [id number] 01/17/2019 12:00:00 AM EDT MEDGEN ([facility]) Name Value Range Interpretation Description Data Sup porting Code Source(s) Document(s ) Hemoglobin A1c 11.5 % Above high normal MEDGEN in Blood ([facility]) ID Date Data Source [id number] 01/17/2019 12:00:00 AM EDT MEDGEN ([facility]) Name Value Range Interpretation Description Data Sup porting Code Source(s) Document(s ) MICROALBUMIN 0.3 Normal (applies MEDGEN URINE mg/dL to non-numeric ([facility] results) Medical Service) ID Date Data Source [id number] 08/01/2018 12:00:00 AM EST MEDGEN ([facility]) Name Value Range Interpretation Description Data Sup porting Code Source(s) Document(s ) GLUCOSE 330 Above high normal MEDGEN NONFASTING,SERUM mg/dL ([facility]) SODIUM, SERUM 139 Normal (applies MEDGEN mEq/L to non-numeric ([facility] results) Medical Service) POTASSIUM, SERUM 4.7 Normal (applies MEDGEN mEq/L to non-numeric ([facility] results) Medical Service) CHLORIDE, SERUM 100 Normal (applies MEDGEN mEq/L to non-numeric ([facility] results) Medical Service) Carbon dioxide 29 mEq/L Normal (applies MEDGEN [VFr/PPres] in to non-numeric ([facility] Gas delivery results) Medical system Service) Anion gap in 14.7 Normal (applies MEDGEN Body fluid mEq/L to non-numeric ([facility] results) Medical Service) BLOOD UREA 12 mg/dL Normal (applies MEDGEN NITROGEN to non-numeric ([facility] results) Medical Service) CREATININE, 1.00 Normal (applies MEDGEN SERUM mg/dL to non-numeric ([facility] results) Medical Service) CALCIUM, SERUM 9.2 Normal (applies MEDGEN mg/dL to non-numeric ([facility] results) Medical Service) TOTAL PROTEIN 7.2 g/dL Normal (applies MEDGEN to non-numeric ([facility] results) Medical Service) Microalbumin 4.0 g/dL Normal (applies MEDGEN [Mass/time] in to non-numeric ([facility] Urine collected results) Medical for unspecified Service) duration Globulin 3.2 gldl Normal (applies MEDGEN [Mass/time] in to non-numeric ([facility] 24 hour Urine results) Medical Service) A/G RATIO 1.25 Normal (applies MEDGEN g/dl to non-numeric ([facility] results) Medical Service) BILIRUBIN, TOTAL 0.3 Normal (applies MEDGEN mg/dL to non-numeric ([facility] results) Medical Service) ALKALINE 130 U/L Above high normal MEDGEN PHOSPHATASE, ALP ([facility]) ALT (SGPT) 25 U/L Normal (applies MEDGEN to non-numeric ([facility] results) Medical Service) AST 26 U/L Normal (applies MEDGEN to non-numeric ([facility] results) Medical Service) EGFR NON AFR 60 Above high normal MEDGEN BRAZILIAN mL/min/1 ([facility] .73m2 Medical Service) EGFR AFR 73 Above high normal MEDGEN BRAZILIAN mL/min/1 ([facility] .73m2 Medical Service) ID Date Data Source [id number] 08/01/2018 12:00:00 AM EST MEDGEN ([facility]) Name Value Range Interpretation Description Data Sup porting Code Source(s) Document(s ) GLUCOSE 330 Above high normal MEDGEN NONFASTING,SERUM mg/dL ([facility]) SODIUM, SERUM 139 Normal (applies MEDGEN mEq/L to non-numeric ([facility] results) Medical Service) POTASSIUM, SERUM 4.7 Normal (applies MEDGEN mEq/L to non-numeric ([facility] results) Medical Service) CHLORIDE, SERUM 100 Normal (applies MEDGEN mEq/L to non-numeric ([facility] results) Medical Service) Carbon dioxide 29 mEq/L Normal (applies MEDGEN [VFr/PPres] in to non-numeric ([facility] Gas delivery results) Medical system Service) Anion gap in 14.7 Normal (applies MEDGEN Body fluid mEq/L to non-numeric ([facility] results) Medical Service) BLOOD UREA 12 mg/dL Normal (applies MEDGEN NITROGEN to non-numeric ([facility] results) Medical Service) CREATININE, 1.00 Normal (applies MEDGEN SERUM mg/dL to non-numeric ([facility] results) Medical Service) CALCIUM, SERUM 9.2 Normal (applies MEDGEN mg/dL to non-numeric ([place] results) Medical Service) TOTAL PROTEIN 7.2 g/dL Normal (applies [facility]GEN to non-numeric ([place] results) Medical Service) Microalbumin 4.0 g/dL Normal (applies [facility]GEN [Mass/time] in to non-numeric ([place] Urine collected results) Medical for unspecified Service) duration Globulin 3.2 gldl Normal (applies [facility]GEN [Mass/time] in to non-numeric ([place] 24 hour Urine results) Medical Service) A/G RATIO 1.25 Normal (applies [facility]GEN g/dl to non-numeric ([place] results) Medical Service) BILIRUBIN, TOTAL 0.3 Normal (applies [facility]GEN mg/dL to non-numeric ([place] results) Medical Service) ALKALINE 130 U/L Above high normal [facility] PHOSPHATASE, ALP ([facility]) ALT (SGPT) 25 U/L Normal (applies [facility]GEN to non-numeric ([place] results) Medical Service) AST 26 U/L Normal (applies [facility]GEN to non-numeric ([place] results) Medical Service) EGFR NON AFR 60 Above high normal MEDGEN BRAZILIAN mL/min/1 ([place] .73m2 Medical Service) EGFR AFR 73 Above high normal [facility]GEN BRAZILIAN mL/min/1 ([place] .73m2 Medical Service) ID Date Data Source [id number] 07/03/2018 12:00:00 AM EST [facility] ([facility]) Name Value Range Interpretation Description Data Sup porting Code Source(s) Document(s ) Cholesterol 194 Normal (applies [facility]GEN [Moles/volume] mg/dL to non-numeric ([place] in Pericardial results) Medical fluid Service) LDL CALCULATION 131.4 Above high normal [facility] mg/dL ([place] [facility]) CHOL/HDL RATIO 5.39 Normal (applies [facility]GEN ratio to non-numeric ([place] results) Medical Service) HDL CHOLESTEROL 36 mg/dL Above high normal [facility]GEN ([place] [facility]) VLDL CALCULATION 26.6 Normal (applies [facility] mg/dl to non-numeric ([place] results) Medical Service) TRIGLYCERIDES 133 Normal (applies [facility] mg/dL to non-numeric ([place] results) Medical Service) ID Date Data Source [id number] 07/03/2018 12:00:00 AM EST [facility]GEN ([facility]) Name Value Range Interpretation Description Data Sup porting Code Source(s) Document(s ) TSH,3RD 1.46 Normal (applies to [facility] GENERATION uIU/mL non-numeric ([place] results) Medical Service) T4 TOTAL 8.3 ug/dL Normal (applies to [facility] THYROXINE non-numeric ([place] results) Medical Service) T3 TOTAL 104 ng/dL Normal (applies to [facility] non-numeric ([place] results) Medical Service) ID Date Data Source [id number] 07/03/2018 12:00:00 AM EST [facility]GEN ([facility]) Name Value Range Interpretation Code Description Data Camryn rce(s) Supporting Document(s ) FOLATE 7 ng/mL Above high normal [facility] SERUM ([facility]) ID Date Data Source [id number] 07/03/2018 12:00:00 AM EST [facility]GEN ([facility]) Name Value Range Interpretation Description Data Sup porting Code Source(s) Document(s ) VITAMIN B12 561 pg/mL Normal (applies to [facility] non-numeric ([place] results) Medical Service) ID Date Data Source [id number] 07/03/2018 12:00:00 AM EST [facility] ([facility]) Name Value Range Interpretation Description Data Sup porting Code Source(s) Document(s ) Cholesterol 194 Normal (applies [facility] [Moles/volume] mg/dL to non-numeric ([place] in Pericardial results) Medical fluid Service) LDL CALCULATION 131.4 Above high normal [facility] mg/dL ([facility]) CHOL/HDL RATIO 5.39 Normal (applies [facility] ratio to non-numeric ([place] results) Medical Service) HDL CHOLESTEROL 36 mg/dL Above high normal [facility] ([place] [facility]) VLDL CALCULATION 26.6 Normal (applies [facility] mg/dl to non-numeric ([place] results) Medical Service) TRIGLYCERIDES 133 Normal (applies [facility] mg/dL to non-numeric ([place] results) Medical Service) ID Date Data Source [id number] 07/03/2018 12:00:00 AM EST MEDGEN ([facility]) Name Value Range Interpretation Description Data Sup porting Code Source(s) Document(s ) TSH,3RD 1.46 Normal (applies to [facility] GENERATION uIU/mL non-numeric ([place] results) Medical Service) T4 TOTAL 8.3 ug/dL Normal (applies to [facility] THYROXINE non-numeric ([place] results) Medical Service) T3 TOTAL 104 ng/dL Normal (applies to [facility] non-numeric ([place] results) Medical Service) ID Date Data Source [id number] 07/03/2018 12:00:00 AM EST MEDGEN ([facility]) Name Value Range Interpretation Code Description Data Camryn rce(s) Supporting Document(s ) FOLATE 7 ng/mL Above high normal [facility] SERUM ([place] [facility]) ID Date Data Source [id number] 07/03/2018 12:00:00 AM EST MED[facility] ([facility]) Name Value Range Interpretation Description Data Sup porting Code Source(s) Document(s ) VITAMIN B12 561 pg/mL Normal (applies to [employer] [facility] non-numeric ([employer]) Medical Service) ID Date Data Source Liver 06/12/2018 11:18:00 AM EDT [facility] Profile.[id number] Name Value Range Interpretation Description Data Sup porting Code Source(s) Document(s ) Alkaline 38-126 <content [facility] phosphatase styleCode="Bold"> [facility] [Enzymatic Alkaline Medical activity/volume] Phosphatase (ALP) Cente r in Serum or Plasma </content>104 IU/L<content styleCode="Italic s"> (38-126 IU/L)</content> Aspartate 14-36 <content [facility] aminotransferase styleCode="Bold"> Dave [facility] [Enzymatic Aspartate Medical activity/volume] Aminotransferase Center in Serum or Plasma (AST) </content>16 IU/L<content styleCode="Italic s"> (14-36 IU/L)</content> Bilirubin.total 0.2-1.3 <content [facility] [Mass/volume] in styleCode="Bold"> Dave hs Serum or Plasma Bilirubin Total Medical </content>0.2 Center MG/DL<content styleCode="Italic s"> (0.2-1.3 MG/DL)</content> Alanine 7-30 <content [facility] aminotransferase styleCode="Bold"> Dave [facility] [Enzymatic Alanine Medical activity/volume] Aminotransferase Center in Serum or Plasma (ALT) </content>16 IU/L<content styleCode="Italic s"> (7-30 IU/L)</content> UNK 0.0-0.3 <content [facility] styleCode="Bold"> [facility] Bilirubin, Direct Medical </content>< 0.2 Center MG/DL<content styleCode="Italic s"> (0.0-0.3 MG/DL)</content> Albumin 3.5-5.0 Below low <content [facility] [Mass/volume] in normal styleCode="Bold"> Dave hs Serum or Plasma Albumin Medical </content>3.4 Center G/DL L<content styleCode="Italic s"> (3.5-5.0 G/DL)</content> ID Date Data Source HematologyRou.[id number] 06/12/2018 11:18:00 AM EDT [facility] 0400 Name Value Range Interpretation Description Data Sup porting Code Source(s) Document(s ) Erythrocytes 4.0-5.1 <content [facility] [#/volume] in styleCode="Bold [facility] Blood by ">Red Blood Medical Automated count Cell Count Center </content>4.24 MCUMM<content styleCode="Ital ics"> (4.0-5.1 MCUMM)</content > Leukocytes 4.4-11.0 Above high <content [facility] [#/volume] in normal styleCode="Bold [facility] Blood by ">White Blood Medical Automated count Cell Count Center </content>12.30 KCUMM H<content styleCode="Ital ics"> (4.4-11.0 KCUMM)</content > Hemoglobin 12.3-16. Below low normal <content [facility] [Mass/volume] in 0 styleCode="Bold [facility] Blood ">Hemoglobin Medical </content>11.5 Center G/DL L<content styleCode="Ital ics"> (12.3-16.0 G/DL)</content> Erythrocyte 11.5-14. <content [facility] distribution 5 styleCode="Bold [facility] width [Ratio] by ">Red Cell Medical Automated count Distribution Center Width </content>13.8 %<content styleCode="Ital ics"> (11.5-14.5 %)</content> Hematocrit 36.0-46. <content [facility] [Volume 0 styleCode="Bold [facility] Fraction] of ">Hematocrit Medical Blood by </content>36.0 Center Automated count %<content styleCode="Ital ics"> (36.0-46.0 %)</content> Erythrocyte mean 80.0-100 <content [facility] corpuscular .0 styleCode="Bold [facility] volume [Entitic ">Mean Medical volume] by Corpuscular Center Automated count Volume </content>84.9 FL<content styleCode="Ital ics"> (80.0-100.0 FL)</content> Erythrocyte mean 26.0-34. <content [facility] corpuscular 0 styleCode="Bold [facility] hemoglobin ">Mean Medical [Entitic mass] Corposcular Center by Automated Hemoglobin count </content>27.1 PG<content styleCode="Ital ics"> (26.0-34.0 PG)</content> Erythrocyte mean 32.0-37. Below low normal <content [facility] corpuscular 0 styleCode="Bold [facility] hemoglobin ">Mean Corpus. Medical concentration Hgb Center [Mass/volume] by Concentration Automated count (MCHC) </content>31.9 G/DL L<content styleCode="Ital ics"> (32.0-37.0 G/DL)</content> UNK 0.0 <content Saint styleCode="Bold [facility] ">Nucleated Red Medical Blood Cell Center Count </content>0.00 KCUMM<content styleCode="Ital ics"> (0.0 KCUMM)</content > UNK 0 <content Saint styleCode="Bold [facility] ">Nucleated Red Medical Blood Cell Center </content>0.0 /100<content styleCode="Ital ics"> (0 /100)</content> Platelet mean 8.0-11.0 <content [facility] volume [Entitic styleCode="Bold [facility] volume] in Blood ">Mean Platelet Medical by Automated Volume Center count </content>10.2 FL<content styleCode="Ital ics"> (8.0-11.0 FL)</content> Platelets 130-400 <content [facility] [#/volume] in styleCode="Bold [facility] Blood by ">Platelet Medical Automated count Count Center </content>347 KCUMM<content styleCode="Ital ics"> (130-400 KCUMM)</content > ID Date Data Source GFR(Creatinine).[id number] 06/12/2018 11:18:00 AM EDT [facility] 0-0400 Name Value Range Interpretation Code Description Data Camryn rce(s) Supporting Document(s ) UNK > 60 <content [facility] styleCode="Bold"> Medical Cent er EGFR </content>68 GFR<content styleCode="Italic s"> (> 60 GFR)</content> ID Date Data Source Coagulation 06/12/2018 11:18:00 AM [facility] Rout.[id number] EDT Name Value Range Interpretation Description Data Sup porting Code Source(s) Document(s ) UNK 9.0-13.0 <content [facility] styleCode="Bold" [facility] >Protime Medical </content>13.0 Center SEC<content styleCode="Itali cs"> (9.0-13.0 SEC)</content> INR in 0.80-1.2 <content [facility] Platelet poor 0 styleCode="Bold" [facility] plasma by >INR Medical Coagulation </content>1.15 Center assay #<content styleCode="Itali cs"> (0.80-1.20 #)</content> aPTT in 25.1-36. <content [facility] Platelet poor 5 styleCode="Bold" [facility] plasma by >Partial Medical Coagulation Thromboplastin Center assay Time </content>31.0 SEC<content styleCode="Itali cs"> (25.1-36.5 SEC)</content> ID Date Data Source CHMROUTINECCDA.[id number] 06/12/2018 11:18:00 AM EDT [facility] -0400 Name Value Range Interpretation Description Data Sup porting Code Source(s) Document(s ) Lipase 23-300 Below low normal <content [facility] [Enzymatic styleCode="Bold Medical activity/vo ">Lipase Center lume] in </content>16 Serum or IU/L L<content Plasma styleCode="Ital ics"> (23-300 IU/L)</content> UNK 30-110 <content [facility] styleCode="Bold Medical ">Amylase Center </content>32 IU/L<content styleCode="Ital ics"> (30-110 IU/L)</content> ID Date Data Source [employer].[id number] 06/12/2018 11:18:00 AM EDT [facility] -0400 Name Value Range Interpretation Description Data Sup porting Code Source(s) Document(s ) Creatine 30-135 Below low normal <content [facility] kinase styleCode="Bold [facility] [Enzymatic ">CK Medical activity/vol </content>26 Center ume] in IU/L L<content Serum or styleCode="Ital Plasma ics"> (30-135 IU/L)</content> Troponin 0-0.034 <content [facility] I.cardiac styleCode="Bold [facility] [Mass/volume ">Troponin I Medical ] in Serum </content>< Center or Plasma 0.012 NG/ML<content styleCode="Ital ics"> (0-0.034 NG/ML)</content > ID Date Data Source [facility].[id number] 06/12/2018 11:18:00 AM EDT [facility] Center Name Value Range Interpretation Description Data Sup porting Code Source(s) Document(s ) Sodium 137-145 <content [facility] [Moles/volume] in styleCode="Bold"> [facility] phs Serum or Plasma Sodium Medical </content>138 Center MEQ/L<content styleCode="Italic s"> (137-145 MEQ/L)</content> Carbon dioxide, 22-30 <content [facility] total styleCode="Bold"> [facility] [Moles/volume] in Carbon Dioxide Medical Serum or Plasma </content>29 Center MEQ/L<content styleCode="Italic s"> (22-30 MEQ/L)</content> Chloride 98-107 <content [facility] [Moles/volume] in styleCode="Bold"> [facility] Serum or Plasma Chloride Medical </content>98 Center MEQ/L<content styleCode="Italic s"> (98-107 MEQ/L)</content> Potassium 3.5-5.3 <content [facility] [Moles/volume] in styleCode="Bold"> [facility] Serum or Plasma Potassium Medical </content>4.2 Center MEQ/L<content styleCode="Italic s"> (3.5-5.3 MEQ/L)</content> Creatinine 0.5-1.3 <content [facility] [Mass/volume] in styleCode="Bold"> Dave hs Serum or Plasma Creatinine Medical </content>0.9 Center MG/DL<content styleCode="Italic s"> (0.5-1.3 MG/DL)</content> Glucose 74-106 Above high <content [facility] [Mass/volume] in normal styleCode="Bold"> Dave hs Serum or Plasma Glucose Medical </content>237 Center MG/DL H<content styleCode="Italic s"> (74-106 MG/DL)</content> Calcium 8.4-10. <content [facility] [Mass/volume] in 2 styleCode="Bold"> Dave hs Serum or Plasma Calcium Medical </content>9.1 Center MG/DL<content styleCode="Italic s"> (8.4-10.2 MG/DL)</content> Aspartate 14-36 <content [facility] aminotransferase styleCode="Bold"> Dave hs [Enzymatic Aspartate Medical activity/volume] Aminotransferase Center in Serum or Plasma (AST) </content>16 IU/L<content styleCode="Italic s"> (14-36 IU/L)</content> UNK 7-17 <content [facility] styleCode="Bold"> [facility] BUN </content>11 Medical MG/DL<content Center styleCode="Italic s"> (7-17 MG/DL)</content> UNK > 60 <content [facility] styleCode="Bold"> [facility] EGFR </content>68 Medical GFR<content Center styleCode="Italic s"> (> 60 GFR)</content> Albumin 3.5-5.0 Below low <content [facility] [Mass/volume] in normal styleCode="Bold"> Dave hs Serum or Plasma Albumin Medical </content>3.4 Center G/DL L<content styleCode="Italic s"> (3.5-5.0 G/DL)</content> Bilirubin.total 0.2-1.3 <content [facility] [Mass/volume] in styleCode="Bold"> Dave hs Serum or Plasma Bilirubin Total Medical </content>0.2 Center MG/DL<content styleCode="Italic s"> (0.2-1.3 MG/DL)</content> Alkaline 38-126 <content [facility] phosphatase styleCode="Bold"> [facility] [Enzymatic Alkaline Medical activity/volume] Phosphatase (ALP) Cente r in Serum or Plasma </content>104 IU/L<content styleCode="Italic s"> (38-126 IU/L)</content> Alanine 7-30 <content [facility] aminotransferase styleCode="Bold"> Dave hs [Enzymatic Alanine Medical activity/volume] Aminotransferase Center in Serum or Plasma (ALT) </content>16 IU/L<content styleCode="Italic s"> (7-30 IU/L)</content> ID Date Data Source Microbiology.[id number] 04/15/2018 11:40:00 AM EDT [facility] 400 Name Value Range Interpretation Description Data Sup porting Code Source(s) Document(s ) UNK <item><content [facility] styleCode="Bold" [facility] >Culture Report Medical </content>
< Center table><tbody><tr ><td>Specimen Number:</td><td> [id number]</td></ tr><tr><td>Sampl e Collection Date/Time: </td><td> 11:40 AM</td></tr><tr> <td>Specimen Source:</td><td> THROAT</td></tr> <tr><td>Throat-N ose Culture:</td><td >Collection Plate Date: 04/15/2018 11:45 </td></tr><tr><t d>Culture Status:</td><td> Final </td></tr><tr><t d>Culture Report:</td><td> NEGATIVE FOR BETA HEMOLYTIC STREPTOCOCCI </td></tr><tr><t d>Organism 1:</td><td>FEW STAPHYLOCOCCUS AUREUS </td></tr></tbod y></table>
< table border="2"><tbod y><tr><td></td>< td>1</td></tr><t r><td>Comment</t d><td></td></tr> <tr><td>Result Value</td><td>FE W STAPHYLOCOCCUS AUREUS </td></tr><tr><t d>Result Status</td><td>F inal Result</td></tr> <tr><td></td><td ></td></tr></tbo dy></table></ite m> Streptococcus <item><content [facility] pyogenes Ag styleCode="Bold" [facility] [Presence] in >Rapid Strep A Medical Unspecified </content>
< Center specimen by table><tbody><tr Immunoassay ><td>Specimen Number:</td><td> [id number]</td></ tr><tr><td>Sampl e Collection Date/Time: </td><td> 11:40 AM</td></tr><tr> <td>Specimen Source:</td><td> THROAT</td></tr> <tr><td>Rapid Strep A:</td><td>NEGAT ARNOLD </td></tr></tbod y></table></item > UNK <item><content [facility] styleCode="Bold" [facility] >Culture Status Medical </content>
< Center table><tbody><tr ><td>Specimen Number:</td><td> [id number]</td></ tr><tr><td>Sampl e Collection Date/Time: </td><td> 11:40 AM</td></tr><tr> <td>Specimen Source:</td><td> THROAT</td></tr> <tr><td>Culture Report:</td><td> NEGATIVE FOR BETA HEMOLYTIC STREPTOCOCCI </td></tr><tr><t d>Throat-Nose Culture:</td><td >Collection Plate Date: 04/15/2018 11:45 </td></tr><tr><t d>Culture Status:</td><td> Final </td></tr><tr><t d>Organism 1:</td><td>FEW STAPHYLOCOCCUS AUREUS </td></tr></tbod y></table>
< table border="2"><tbod y><tr><td></td>< td>1</td></tr><t r><td>Comment</t d><td></td></tr> <tr><td>Result Value</td><td>FE W STAPHYLOCOCCUS AUREUS </td></tr><tr><t d>Result Status</td><td>F inal Result</td></tr> <tr><td></td><td ></td></tr></tbo dy></table></ite m> ID Date Data Source Liver 04/15/2018 11:40:00 AM EDT [facility] Profile.[id number] Name Value Range Interpretation Description Data Sup porting Code Source(s) Document(s ) Aspartate 14-36 <content [facility] aminotransferase styleCode="Bold"> Dave hs [Enzymatic Aspartate Medical activity/volume] Aminotransferase Center in Serum or Plasma (AST) </content>20 IU/L<content styleCode="Italic s"> (14-36 IU/L)</content> Alanine 7-30 <content [facility] aminotransferase styleCode="Bold"> Dave hs [Enzymatic Alanine Medical activity/volume] Aminotransferase Center in Serum or Plasma (ALT) </content>19 IU/L<content styleCode="Italic s"> (7-30 IU/L)</content> Alkaline 38-126 <content [facility] phosphatase styleCode="Bold"> [facility] [Enzymatic Alkaline Medical activity/volume] Phosphatase (ALP) Cente r in Serum or Plasma </content>111 IU/L<content styleCode="Italic s"> (38-126 IU/L)</content> Bilirubin.total 0.2-1.3 <content [facility] [Mass/volume] in styleCode="Bold"> Dave hs Serum or Plasma Bilirubin Total Medical </content>0.3 Center MG/DL<content styleCode="Italic s"> (0.2-1.3 MG/DL)</content> Albumin 3.5-5.0 <content [facility] [Mass/volume] in styleCode="Bold"> Dave hs Serum or Plasma Albumin Medical </content>3.6 Center G/DL<content styleCode="Italic s"> (3.5-5.0 G/DL)</content> ID Date Data Source HematologyRou.[id number] 04/15/2018 11:40:00 AM EDT [facility] 0400 Name Value Range Interpretation Description Data Sup porting Code Source(s) Document(s ) Erythrocytes 4.0-5.1 <content [facility] [#/volume] in styleCode="Bold [facility] Blood by ">Red Blood Medical Automated count Cell Count Center </content>4.55 MCUMM<content styleCode="Ital ics"> (4.0-5.1 MCUMM)</content > Leukocytes 4.4-11.0 Above high <content [facility] [#/volume] in normal styleCode="Bold [facility] Blood by ">White Blood Medical Automated count Cell Count Center </content>11.02 KCUMM H<content styleCode="Ital ics"> (4.4-11.0 KCUMM)</content > Hemoglobin 12.3-16. Below low normal <content [facility] [Mass/volume] in 0 styleCode="Bold [facility] Blood ">Hemoglobin Medical </content>12.1 Center G/DL L<content styleCode="Ital ics"> (12.3-16.0 G/DL)</content> Hematocrit 36.0-46. <content [facility] [Volume 0 styleCode="Bold [facility] Fraction] of ">Hematocrit Medical Blood by </content>38.1 Center Automated count %<content styleCode="Ital ics"> (36.0-46.0 %)</content> Erythrocyte mean 80.0-100 <content [facility] corpuscular .0 styleCode="Bold [facility] volume [Entitic ">Mean Medical volume] by Corpuscular Center Automated count Volume </content>83.7 FL<content styleCode="Ital ics"> (80.0-100.0 FL)</content> Erythrocyte mean 26.0-34. <content [facility] corpuscular 0 styleCode="Bold [facility] hemoglobin ">Mean Medical [Entitic mass] Corposcular Center by Automated Hemoglobin count </content>26.6 PG<content styleCode="Ital ics"> (26.0-34.0 PG)</content> Erythrocyte mean 32.0-37. Below low normal <content [facility] corpuscular 0 styleCode="Bold Alex[facility] hemoglobin ">Mean Corpus. Medical concentration Hgb Center [Mass/volume] by Concentration Automated count (MCHC) </content>31.8 G/DL L<content styleCode="Ital ics"> (32.0-37.0 G/DL)</content> UNK 0 <content Saint styleCode="Bold [facility] ">Nucleated Red Medical Blood Cell Center </content>0.0 /100<content styleCode="Ital ics"> (0 /100)</content> UNK 0.0 <content Saint styleCode="Bold [facility] ">Nucleated Red Medical Blood Cell Center Count </content>0.00 KCUMM<content styleCode="Ital ics"> (0.0 KCUMM)</content > Platelets 130-400 <content [facility] [#/volume] in styleCode="Bold [facility] Blood by ">Platelet Medical Automated count Count Center </content>348 KCUMM<content styleCode="Ital ics"> (130-400 KCUMM)</content > Erythrocyte 11.5-14. <content [facility] distribution 5 styleCode="Bold [facility] width [Ratio] by ">Red Cell Medical Automated count Distribution Center Width </content>13.5 %<content styleCode="Ital ics"> (11.5-14.5 %)</content> Platelet mean 8.0-11.0 <content [facility] volume [Entitic styleCode="Bold Alex[facility] volume] in Blood ">Mean Platelet Medical by Automated Volume Center count </content>10.0 FL<content styleCode="Ital ics"> (8.0-11.0 FL)</content> ID Date Data Source GFR(Creatinine).[id number] 04/15/2018 11:40:00 AM EDT [facility] 0-0400 Name Value Range Interpretation Code Description Data Camryn rce(s) Supporting Document(s ) UNK > 60 <content [facility] styleCode="Bold"> Medical Cent er EGFR </content>91 GFR<content styleCode="Italic s"> (> 60 GFR)</content> ID Date Data Source AMEYA.[id number] 04/15/2018 11:40:00 AM EDT [facility] -0400 Name Value Range Interpretation Description Data Sup porting Code Source(s) Document(s ) UNK >= 1.0 <content [facility] styleCode="Bold Medical ">AG Ratio Center </content>1.1 NM<content styleCode="Ital ics"> (>= 1.0 NM)</content> Protein 6.3-8.2 <content [facility] [Mass/volum styleCode="Bold Medical e] in Serum ">Total Protein Center or Plasma </content>7.0 G/DL<content styleCode="Ital ics"> (6.3-8.2 G/DL)</content> UNK 2.3-3.5 <content [facility] styleCode="Bold Medical ">Globulin Center </content>3.4 G/DL<content styleCode="Ital ics"> (2.3-3.5 G/DL)</content> ID Date Data Source [facility].[id number] 04/15/2018 11:40:00 AM EDT [facility] Name Value Range Interpretation Description Data Sup porting Code Source(s) Document(s ) Sodium 137-145 <content Saint [Moles/volume] in styleCode="Bold"> [facility] phs Serum or Plasma Sodium Medical </content>138 Center MEQ/L<content styleCode="Italic s"> (137-145 MEQ/L)</content> UNK 7-17 <content [facility] styleCode="Bold"> [facility] BUN </content>8 Medical MG/DL<content Center styleCode="Italic s"> (7-17 MG/DL)</content> Chloride 98-107 <content [facility] [Moles/volume] in styleCode="Bold"> [facility] phs Serum or Plasma Chloride Medical </content>102 Center MEQ/L<content styleCode="Italic s"> (98-107 MEQ/L)</content> Carbon dioxide, 22-30 <content [facility] total styleCode="Bold"> [facility] [Moles/volume] in Carbon Dioxide Medical Serum or Plasma </content>30 Center MEQ/L<content styleCode="Italic s"> (22-30 MEQ/L)</content> Creatinine 0.5-1.3 <content [facility] [Mass/volume] in styleCode="Bold"> Dave hs Serum or Plasma Creatinine Medical </content>0.7 Center MG/DL<content styleCode="Italic s"> (0.5-1.3 MG/DL)</content> Potassium 3.5-5.3 <content [facility] [Moles/volume] in styleCode="Bold"> [facility] phs Serum or Plasma Potassium Medical </content>3.8 Center MEQ/L<content styleCode="Italic s"> (3.5-5.3 MEQ/L)</content> UNK > 60 <content [facility] styleCode="Bold"> [facility] EGFR </content>91 Medical GFR<content Center styleCode="Italic s"> (> 60 GFR)</content> Glucose 74-106 Above high <content Saint [Mass/volume] in normal styleCode="Bold"> Dave hs Serum or Plasma Glucose Medical </content>204 Center MG/DL H<content styleCode="Italic s"> (74-106 MG/DL)</content> Calcium 8.4-10. <content [facility] [Mass/volume] in 2 styleCode="Bold"> Dave hs Serum or Plasma Calcium Medical </content>8.8 Center MG/DL<content styleCode="Italic s"> (8.4-10.2 MG/DL)</content> Aspartate 14-36 <content [facility] aminotransferase styleCode="Bold"> Dave hs [Enzymatic Aspartate Medical activity/volume] Aminotransferase Center in Serum or Plasma (AST) </content>20 IU/L<content styleCode="Italic s"> (14-36 IU/L)</content> Alanine 7-30 <content Saint aminotransferase styleCode="Bold"> Dave hs [Enzymatic Alanine Medical activity/volume] Aminotransferase Center in Serum or Plasma (ALT) </content>19 IU/L<content styleCode="Italic s"> (7-30 IU/L)</content> Alkaline 38-126 <content Saint phosphatase styleCode="Bold"> [facility] [Enzymatic Alkaline Medical activity/volume] Phosphatase (ALP) Cente r in Serum or Plasma </content>111 IU/L<content styleCode="Italic s"> (38-126 IU/L)</content> Bilirubin.total 0.2-1.3 <content Saint [Mass/volume] in styleCode="Bold"> Dave hs Serum or Plasma Bilirubin Total Medical </content>0.3 Center MG/DL<content styleCode="Italic s"> (0.2-1.3 MG/DL)</content> Albumin 3.5-5.0 <content Saint [Mass/volume] in styleCode="Bold"> Dave hs Serum or Plasma Albumin Medical </content>3.6 Center G/DL<content styleCode="Italic s"> (3.5-5.0 G/DL)</content> ID Date Data Source Urinalysis.[id number] 03/04/2018 12:20:00 PM EDT [facility] 0 Name Value Range Interpretation Description Data Sup porting Code Source(s) Document(s ) UNK CLEAR <content Saint styleCode="Stacy Jackmans d">Urine Medical Clarity Center </content>ROBERT R <content styleCode="Desiree lics"> (CLEAR )</content> Color of Urine YELLOW <content Saint styleCode="Stacy Jackmans d">Color, Medical Urine Center </content>YELL OW <content styleCode="Desiree lics"> (YELLOW )</content> Specific 1.015-1.02 Below low normal <content Saint gravity of 5 styleCode="Stacy Vaughan Urine by Test d">Urine Medical strip Specific Center [place] </content>1.01 0 NM L<content styleCode="Desiree lics"> (1.015-1.025 NM)</content> Glucose NEGATIVE <content Saint [Mass/volume] styleCode="Stacy Alexus in Urine by d">Urine Medical Test strip Glucose Center </content>NEGA TIVE MG/DL<content styleCode="Desiree lics"> (NEGATIVE MG/DL)</conten t> Ketones NEGATIVE <content Saint [Mass/volume] styleCode="Stacy Alexus in Urine by d">Urine Medical Test strip Ketone Center </content>NEGA TIVE MG/DL<content styleCode="Desiree lics"> (NEGATIVE MG/DL)</conten t> UNK NEGATIVE <content Saint styleCode="Stacy Alexus d">Urine Medical Bilirubin Center </content>NEGA TIVE <content styleCode="Desiree lics"> (NEGATIVE )</content> Hemoglobin NEGATIVE <content Saint [Presence] in styleCode="Stacy Jackmans Urine by Test d">Urine Blood Medical strip </content>NEGA Center TIVE <content styleCode="Desiree lics"> (NEGATIVE )</content> Leukocyte NEGATIVE <content Saint esterase styleCode="Stacy Jackmans [Presence] in d">Urine Medical Urine by Test Leukocyte Center strip </content>TRAC E <content styleCode="Desiree lics"> (NEGATIVE )</content> Protein NEGATIVE <content Saint [Mass/volume] styleCode="Stacy Alexus in Urine by d">Urine Medical Test strip Protein Center </content>NEGA TIVE MG/DL<content styleCode="Desiree lics"> (NEGATIVE MG/DL)</conten t> pH of Urine by 4.5-8.0 <content Saint Test strip styleCode="Stacy Alexus d">Urine pH Medical </content>7.0 Center NM<content styleCode="Desiree lics"> (4.5-8.0 NM)</content> Nitrite NEGATIVE <content Saint [Presence] in styleCode="Stacy Jackmans Urine by Test d">Urine Medical strip Nitrite Center </content>NEGA TIVE <content styleCode="Desiree lics"> (NEGATIVE )</content> Urobilinogen 0.2-1.0 <content Saint [Units/volume] styleCode="Stacy Vaughan in Urine by d">Urine Medical Test strip Urobilinogen Center </content>0.2 MG/DL<content styleCode="Desiree lics"> (0.2-1.0 MG/DL)</conten t> UNK 0-3 <content Saint styleCode="Stacy Vaughan d">Urine White Medical Blood Cell Center </content>0-3 HPF<content styleCode="Desiree lics"> (0-3 HPF)</content> ID Date Data Source Microbiology.[id number] 03/04/2018 12:20:00 PM EDT [facility] 400 Name Value Range Interpretation Code Description Data Camryn rce(s) Supporting Document(s ) UNK <item><content [facility] styleCode="Bold">Cu Medical Ce nter lture Report </content>
<tab le><tbody><tr><td>S pecimen Number:</td><td>[id number]</td></tr><tr ><td>Sample Collection Date/Time: </td><td>03/04/2018 12:20 PM</td></tr><tr><td >Specimen Source:</td><td>URI NE</td></tr><tr><td >Urine Culture:</td><td>Co llection Plate Date: 03/04/2018 12:24 </td></tr><tr><td>C ulture Status:</td><td>Fin al </td></tr><tr><td>C ulture Report:</td><td>Cul ture in progress </td></tr><tr><td>O rganism 1:</td><td>DIPHTHER OIDS </td></tr><tr><td>O rganism 2:</td><td>COAGULAS E NEGATIVE STAPHYLOCOCCUS </td></tr><tr><td>O rganism 3:</td><td>COAGULAS E NEGATIVE STAPHYLOCOCCUS </td></tr><tr><td>O rganism 4:</td><td>COAGULAS E POSITIVE STAPHYLOCOCCUS </td></tr><tr><td>O rganism 5:</td><td>DIPHTHER OIDS </td></tr></tbody>< /table>
<table border="2"><tbody>< tr><td></td><td>1</ td><td>2</td><td>3< /td><td>4</td></tr> <tr><td>Comment</td ><td></td><td></td> <td></td><td></td>< /tr><tr><td>Result Value</td><td>DIPHT HEROIDS </td><td>COAGULASE NEGATIVE STAPHYLOCOCCUS </td><td>COAGULASE NEGATIVE STAPHYLOCOCCUS </td><td>COAGULASE POSITIVE STAPHYLOCOCCUS </td></tr><tr><td>R esult Status</td><td>Tiffanie l Result</td><td>Tiffanie l Result</td><td>Tiffanie l Result</td><td>Tiffanie l Result</td></tr><tr ><td></td><td></td> <td></td><td></td>< td></td></tr></tbod y></table>
<tab le border="2"><tbody>< tr><td></td><td>5</ td></tr><tr><td>Com ment</td><td></td>< /tr><tr><td>Result Value</td><td>DIPHT HEROIDS </td></tr><tr><td>R esult Status</td><td>Tiffanie l Result</td></tr><tr ><td></td><td></td> </tr></tbody></tabl e></item> UNK <item><content [facility] styleCode="Bold">Cu Medical Ce nter lture Status </content>
<tab le><tbody><tr><td>S pecimen Number:</td><td>[id number]</td></tr><tr ><td>Sample Collection Date/Time: </td><td>03/04/2018 12:20 PM</td></tr><tr><td >Specimen Source:</td><td>URI NE</td></tr><tr><td >Culture Status:</td><td>Fin al </td></tr><tr><td>C ulture Report:</td><td>Cul ture in progress </td></tr><tr><td>U rine Culture:</td><td>Co llection Plate Date: 03/04/2018 12:24 </td></tr><tr><td>O rganism 1:</td><td>DIPHTHER OIDS </td></tr><tr><td>O rganism 2:</td><td>COAGULAS E NEGATIVE STAPHYLOCOCCUS </td></tr><tr><td>O rganism 3:</td><td>COAGULAS E NEGATIVE STAPHYLOCOCCUS </td></tr><tr><td>O rganism 4:</td><td>COAGULAS E POSITIVE STAPHYLOCOCCUS </td></tr><tr><td>O rganism 5:</td><td>DIPHTHER OIDS </td></tr></tbody>< /table>
<table border="2"><tbody>< tr><td></td><td>1</ td><td>2</td><td>3< /td><td>4</td></tr> <tr><td>Comment</td ><td></td><td></td> <td></td><td></td>< /tr><tr><td>Result Value</td><td>DIPHT HEROIDS </td><td>COAGULASE NEGATIVE STAPHYLOCOCCUS </td><td>COAGULASE NEGATIVE STAPHYLOCOCCUS </td><td>COAGULASE POSITIVE STAPHYLOCOCCUS </td></tr><tr><td>R esult Status</td><td>Tiffanie l Result</td><td>Tiffanie l Result</td><td>Tiffanie l Result</td><td>Tiffanie l Result</td></tr><tr ><td></td><td></td> <td></td><td></td>< td></td></tr></tbod y></table>
<tab le border="2"><tbody>< tr><td></td><td>5</ td></tr><tr><td>Com ment</td><td></td>< /tr><tr><td>Result Value</td><td>DIPHT HEROIDS </td></tr><tr><td>R esult Status</td><td>Tiffanie l Result</td></tr><tr ><td></td><td></td> </tr></tbody></tabl e></item> ID Date Data Source LIPID.[id number] 03/04/2018 10:55:00 AM EDT [facility] Name Value Range Interpretation Description Data Sup porting Code Source(s) Document(s ) UNK > 60 Below low normal <content Saint styleCode="Stacy Alexus d">HDL- Medical Cholesterol Center </content>58 MG/DL L<content styleCode="Desiree lics"> (> 60 MG/DL)</conten t> Cholesterol -<200 <content Saint [Mass/volume] in styleCode="[facility] Serum or Plasma d">Cholesterol Medical </content>152 Center MG/DL<content styleCode="Desiree lics"> (-<200 MG/DL)</conten t> Triglyceride < 150 <content Saint [Mass/volume] in styleCode="[facility] Serum or Plasma d">Triglycerid [facility] Center </content>48 MG/DL<content styleCode="Desiree lics"> (< 150 MG/DL)</conten t> UNK < 100 <content Saint styleCode="[facility] d">LDL-Cholest [facility] </content>84 MG/DL<content styleCode="Desiree lics"> (< 100 MG/DL)</conten t> ID Date Data Source HematologyRou.[id number] 03/04/2018 10:55:00 AM EDT [facility] 0400 Name Value Range Interpretation Description Data Sup porting Code Source(s) Document(s ) Leukocytes 4.4-11.0 Above high <content Saint [#/volume] in normal styleCode="Bold Alexus Blood by ">White Blood Medical Automated count Cell Count Center </content>14.75 KCUMM H<content styleCode="Ital ics"> (4.4-11.0 KCUMM)</content > Erythrocytes 4.0-5.1 <content Saint [#/volume] in styleCode="Bold Alexus Blood by ">Red Blood Medical Automated count Cell Count Center </content>4.63 MCUMM<content styleCode="Ital ics"> (4.0-5.1 MCUMM)</content > Erythrocyte mean 26.0-34. <content Saint corpuscular 0 styleCode="Bold Alexus hemoglobin ">Mean Medical [Entitic mass] Corposcular Center by Automated Hemoglobin count </content>26.6 PG<content styleCode="Ital ics"> (26.0-34.0 PG)</content> Hematocrit 36.0-46. <content Saint [Volume 0 styleCode="Bold Alexus Fraction] of ">Hematocrit Medical Blood by </content>39.3 Center Automated count %<content styleCode="Ital ics"> (36.0-46.0 %)</content> Hemoglobin 12.3-16. <content Saint [Mass/volume] in 0 styleCode="Bold Alexus Blood ">Hemoglobin Medical </content>12.3 Center G/DL<content styleCode="Ital ics"> (12.3-16.0 G/DL)</content> Erythrocyte mean 80.0-100 <content Saint corpuscular .0 styleCode="Bold Alexus volume [Entitic ">Mean Medical volume] by Corpuscular Center Automated count Volume </content>84.9 FL<content styleCode="Ital ics"> (80.0-100.0 FL)</content> Erythrocyte 11.5-14. Above high <content Saint distribution 5 normal styleCode="Bold Alexus width [Ratio] by ">Red Cell Medical Automated count Distribution Center Width </content>14.6 % H<content styleCode="Ital ics"> (11.5-14.5 %)</content> Platelets 130-400 <content Saint [#/volume] in styleCode="Bold Alexus Blood by ">Platelet Medical Automated count Count Center </content>364 KCUMM<content styleCode="Ital ics"> (130-400 KCUMM)</content > Erythrocyte mean 32.0-37. Below low normal <content Saint corpuscular 0 styleCode="Bold Alexus hemoglobin ">Mean Corpus. Medical concentration Hgb Center [Mass/volume] by Concentration Automated count (MCHC) </content>31.3 G/DL L<content styleCode="Ital ics"> (32.0-37.0 G/DL)</content> Platelet mean 8.0-11.0 <content Saint volume [Entitic styleCode="Bold Alexus volume] in Blood ">Mean Platelet Medical by Automated Volume Center count </content>9.9 FL<content styleCode="Ital ics"> (8.0-11.0 FL)</content> UNK 0.0 <content Saint styleCode="Bold Alexus ">Nucleated Red Medical Blood Cell Center Count </content>0.00 KCUMM<content styleCode="Ital ics"> (0.0 KCUMM)</content > UNK 0 <content Saint styleCode="Bold Alexus ">Nucleated Red Medical Blood Cell Center </content>0.0 /100<content styleCode="Ital ics"> (0 /100)</content> ID Date Data Source GFR(Creatinine).[id number] 03/04/2018 10:55:00 AM EDT [facility] 0-0400 Name Value Range Interpretation Code Description Data Camryn rce(s) Supporting Document(s ) UNK > 60 <content [facility] styleCode="Bold"> Medical Cent er EGFR </content>68 GFR<content styleCode="Italic s"> (> 60 GFR)</content> ID Date Data Source Coagulation 03/04/2018 10:55:00 AM [facility] Rout.[id number] EDT Name Value Range Interpretation Description Data Sup porting Code Source(s) Document(s ) aPTT in 25.1-36. <content Saint Platelet poor 5 styleCode="Bold" Alexus plasma by >Partial Medical Coagulation Thromboplastin Center assay Time </content>30.7 SEC<content styleCode="Itali cs"> (25.1-36.5 SEC)</content> INR in 0.80-1.2 <content Saint Platelet poor 0 styleCode="Bold" Alexus plasma by >INR Medical Coagulation </content>1.10 Center assay #<content styleCode="Itali cs"> (0.80-1.20 #)</content> UNK 9.0-13.0 <content Saint styleCode="Bold" Alexus >Protime Medical </content>12.5 Center SEC<content styleCode="Itali cs"> (9.0-13.0 SEC)</content> ID Date Data Source CardiacMarkers.[id number] 03/04/2018 10:55:00 AM EDT [facility] -0400 Name Value Range Interpretation Description Data Sup porting Code Source(s) Document(s ) Troponin 0-0.034 <content Saint I.cardiac styleCode="Bold Alexus [Mass/volume ">Troponin I Medical ] in Serum </content>< Center or Plasma 0.012 NG/ML<content styleCode="Ital ics"> (0-0.034 NG/ML)</content > ID Date Data Source [id number] 03/04/2018 10:55:00 AM EDT [facility] Name Value Range Interpretation Description Data Sup porting Code Source(s) Document(s ) Sodium 137-145 <content Saint [Moles/volume] styleCode="Stacy Alexus in Serum or d">Sodium Medical Plasma </content>142 Center MEQ/L<content styleCode="Desiree lics"> (137-145 MEQ/L)</conten t> Potassium 3.5-5.3 <content Saint [Moles/volume] styleCode="Stacy Alexus in Serum or d">Potassium Medical Plasma </content>4.6 Center MEQ/L<content styleCode="Desiree lics"> (3.5-5.3 MEQ/L)</conten t> Chloride 98-107 <content Saint [Moles/volume] styleCode="Stacy Alexus in Serum or d">Chloride Medical Plasma </content>100 Center MEQ/L<content styleCode="Desiree lics"> (98-107 MEQ/L)</conten t> UNK 7-17 Above high normal <content Saint styleCode="Stacy Alexus d">BUN Medical </content>21 Center MG/DL H<content styleCode="Desiree lics"> (7-17 MG/DL)</conten t> Glucose 74-106 Above high normal <content Saint [Mass/volume] styleCode="Stacy Alexus in Serum or d">Glucose Medical Plasma </content>183 Center MG/DL H<content styleCode="Desiree lics"> (74-106 MG/DL)</conten t> Carbon 22-30 Above high normal <content Saint dioxide, total styleCode="Stacy Alexus [Moles/volume] d">Carbon Medical in Serum or Dioxide Center Plasma </content>32 MEQ/L H<content styleCode="Desiree lics"> (22-30 MEQ/L)</conten t> Creatinine 0.5-1.3 <content Saint [Mass/volume] styleCode="Stacy Alexus in Serum or d">Creatinine Medical Plasma </content>0.9 Center MG/DL<content styleCode="Desiree lics"> (0.5-1.3 MG/DL)</conten t> Calcium 8.4-10.2 <content Saint [Mass/volume] styleCode="Stacy Alexus in Serum or d">Calcium Medical Plasma </content>9.7 Center MG/DL<content styleCode="Desiree lics"> (8.4-10.2 MG/DL)</conten t> UNK > 60 <content Saint styleCode="Stacy Alexus d">EGFR Medical </content>68 Center GFR<content styleCode="Desiree lics"> (> 60 GFR)</content> ID Date Data Source [id number] 02/10/2018 12:00:00 AM EDT [facility] [facility]) Name Value Range Interpretation Code Description Data Camryn rce(s) Supporting Document(s ) ID Date Data Source [id number] 02/10/2018 12:00:00 AM EDT [facility]) Name Value Range Interpretation Code Description Data Camryn rce(s) Supporting Document(s ) ID Date Data Source [id number] 02/10/2018 12:00:00 AM EDT [facility] ([employer] [facility]) Name Value Range Interpretation Code Description Data Camryn rce(s) Supporting Document(s ) URIC ACID 5.5 mg/dL Normal (applies to MEDGEN non-numeric ([place] results) Medical Service) ID Date Data Source [id number] 02/10/2018 12:00:00 AM EDT [facility]) Name Value Range Interpretation Code Description Data Camryn rce(s) Supporting Document(s ) ESR 1 mm/hr Normal (applies to [facility] ([place] non-numeric results) Medical S ervice) ID Date Data Source [id number] 02/10/2018 12:00:00 AM EDT [facility]) Name Value Range Interpretation Description Data Sup porting Code Source(s) Document(s ) WBC 27.8 Above high normal [facility] 10(3)/uL ([place] Medical Service) RBC 4.6 Normal (applies to [facility]GEN 10(6)/uL non-numeric ([place] results) Medical Service) Hemoglobin 12.6 g/dL Normal (applies to [facility]GEN [Mass/volume] non-numeric ([place] in Mixed results) Medical venous blood Service) by Oximetry Hematocrit 40.3 % Normal (applies to MEDGEN [Pure volume non-numeric ([place] fraction] of results) Medical Blood by Service) Automated count MCV 88.2 fL Normal (applies to [facility]GEN non-numeric ([place] results) Medical Service) MCH 28 pg Normal (applies to [facility]GEN non-numeric ([place] results) Medical Service) MCHC 31 g/dL Normal (applies to MEDGEN non-numeric ([place] results) Medical Service) RDWSD 41.9 fL Normal (applies to [facility]GEN non-numeric ([place] results) Medical Service) RDWCV 13.1 % Normal (applies to [facility]GEN non-numeric ([place] results) Medical Service) PLT SEE NOTE Normal (applies to MEDGEN non-numeric ([place] results) Medical Service) MPV 13.8 fL Above high normal [facility]GEN ([place] Medical Service) NE# 9.34 Above high normal [facility] 10(3)/uL ([place] [facility]) LY# 15.27 Above high normal [facility] 10(3)/uL ([place] [facility]) MO# 2.72 Above high normal [facility] 10(3)/uL ([place] Medical Service) EO# 0.00 Normal (applies to [facility]GEN 10(3)/uL non-numeric ([place] results) Medical Service) IG# 0.41 Above high normal [facility] 10(3)/uL ([place] [facility]) NE% 33.70 % Below low normal [facility]GEN ([place] [facility]) LY% 55 % Above high normal [facility]GEN ([place] [facility]) MO% 9.8 % Normal (applies to [facility]GEN non-numeric ([place] results) Medical Service) EO% 0.0 % Normal (applies to [facility]GEN non-numeric ([place] results) Medical Service) BA% 0.0 % Normal (applies to [facility]GEN non-numeric ([place] results) Medical Service) IG% 1.50 % Above high normal [facility] ([place] [facility]) ID Date Data Source [id number] 02/10/2018 12:00:00 AM EDT [facility] ([facility]) Name Value Range Interpretation Description Data Sup porting Code Source(s) Document(s ) RHEUMATOID 4.40 Normal (applies to [facility] FACTOR IGG/IGM IU/mL non-numeric ([place] results) Medical Service) ID Date Data Source [id number] 02/10/2018 12:00:00 AM EDT [facility]) Name Value Range Interpretation Description Data Sup porting Code Source(s) Document(s ) MI Positive Abnormal (applies [facility] SCREEN,IFA to non-numeric ([place] results) Medical Service) MI PATTERN Homogeneous Normal (applies to [facility] 1 non-numeric ([place] results) Medical Service) MI TITER 2 DNR Normal (applies to [facility] non-numeric ([place] results) Medical Service) MI PATTERN DNR Normal (applies to [facility] 2 non-numeric ([place] results) Medical Service) ID Date Data Source [id number] 02/10/2018 12:00:00 AM EDT [facility] ([facility]) Name Value Range Interpretation Code Description Data Camryn rce(s) Supporting Document(s ) ID Date Data Source [id number] 02/10/2018 12:00:00 AM EDT [facility] ([facility]) Name Value Range Interpretation Code Description Data Camryn rce(s) Supporting Document(s ) ID Date Data Source [id number] 02/10/2018 12:00:00 AM EDT [facility] Name Value Range Interpretation Code Description Data Camryn rce(s) Supporting Document(s ) URIC ACID 5.5 mg/dL Normal (applies to [facility] non-numeric ([place] results) Medical Service) ID Date Data Source [id number] 02/10/2018 12:00:00 AM EDT [facility]) Name Value Range Interpretation Code Description Data Camryn rce(s) Supporting Document(s ) ESR 1 mm/hr Normal (applies to [facility] ([facility] non-numeric results) Medical S ervice) ID Date Data Source [id number] 02/10/2018 12:00:00 AM EDT [facility]) Name Value Range Interpretation Description Data Sup porting Code Source(s) Document(s ) WBC 27.8 Above high normal [facility] 10(3)/uL ([place] [facility]) RBC 4.6 Normal (applies to [facility] 10(6)/uL non-numeric ([place] results) Medical Service) Hemoglobin 12.6 g/dL Normal (applies to [facility]GEN [Mass/volume] non-numeric ([place] in Mixed results) Medical venous blood Service) by Oximetry Hematocrit 40.3 % Normal (applies to [facility]GEN [Pure volume non-numeric ([place] fraction] of results) Medical Blood by Service) Automated count MCV 88.2 fL Normal (applies to [facility] non-numeric ([place] results) Medical Service) MCH 28 pg Normal (applies to [facility] non-numeric ([place] results) Medical Service) MCHC 31 g/dL Normal (applies to [facility] non-numeric ([place] results) Medical Service) RDWSD 41.9 fL Normal (applies to [facility] non-numeric ([place] results) Medical Service) RDWCV 13.1 % Normal (applies to [facility] non-numeric ([place] results) Medical Service) PLT SEE NOTE Normal (applies to [facility] non-numeric ([place] results) Medical Service) MPV 13.8 fL Above high normal [facility]GEN ([place] [facility]) NE# 9.34 Above high normal [facility] 10(3)/uL ([place] [facility]) LY# 15.27 Above high normal [facility] 10(3)/uL ([place] [facility]) MO# 2.72 Above high normal [facility] 10(3)/uL ([place] [facility]) EO# 0.00 Normal (applies to [facility] 10(3)/uL non-numeric ([place] results) Medical Service) IG# 0.41 Above high normal [facility] 10(3)/uL ([place] [facility]) NE% 33.70 % Below low normal [facility] ([place] [facility]) LY% 55 % Above high normal [facility] ([place] [facility]) MO% 9.8 % Normal (applies to [facility] non-numeric ([place] results) Medical Service) EO% 0.0 % Normal (applies to [facility] non-numeric ([place] results) Medical Service) BA% 0.0 % Normal (applies to [facility] non-numeric ([place] results) Medical Service) IG% 1.50 % Above high normal [facility] ([place] [facility]) ID Date Data Source [id number] 02/10/2018 12:00:00 AM EDT [facility] ([facility]) Name Value Range Interpretation Description Data Sup porting Code Source(s) Document(s ) RHEUMATOID 4.40 Normal (applies to [facility] FACTOR IGG/IGM IU/mL non-numeric ([place] results) Medical Service) ID Date Data Source [id number] 02/10/2018 12:00:00 AM EDT [facility]) Name Value Range Interpretation Description Data Sup porting Code Source(s) Document(s ) MI Positive Abnormal (applies [facility]GEN SCREEN,IFA to non-numeric ([place] results) Medical Service) MI PATTERN Homogeneous Normal (applies to [facility] 1 non-numeric ([place] results) Medical Service) MI TITER 2 DNR Normal (applies to [facility] non-numeric ([place] results) Medical Service) MI PATTERN DNR Normal (applies to [facility] 2 non-numeric ([place] results) Medical Service) ID Date Data Source Urinalysis.[id number] 02/09/2018 11:17:00 AM EDT [facility] 0 Name Value Range Interpretation Description Data Sup porting Code Source(s) Document(s ) Color of Urine YELLOW <content Saint styleCode="Stacy Alexus d">Color, Medical Urine Center </content>YELL OW <content styleCode="Desiere lics"> (YELLOW )</content> UNK CLEAR <content Saint styleCode="Stacy Alexus d">Urine Medical Clarity Center </content>ROBERT R <content styleCode="Desiree lics"> (CLEAR )</content> Glucose NEGATIVE <content Saint [Mass/volume] styleCode="Stacy Alexus in Urine by d">Urine Medical Test strip Glucose Center </content>NEGA TIVE MG/DL<content styleCode="Desiree lics"> (NEGATIVE MG/DL)</conten t> UNK NEGATIVE <content Saint styleCode="Stacy Alexus d">Urine Medical Bilirubin Center </content>NEGA TIVE <content styleCode="Desiree lics"> (NEGATIVE )</content> Specific 1.015-1.02 <content Saint gravity of 5 styleCode="Stacy Alexus Urine by Test d">Urine Medical strip Specific Center [place] </content>1.01 5 NM<content styleCode="Desiree lics"> (1.015-1.025 NM)</content> Ketones NEGATIVE <content Saint [Mass/volume] styleCode="Stacy Alexus in Urine by d">Urine Medical Test strip [facility] </content>NEGA TIVE MG/DL<content styleCode="Desiree lics"> (NEGATIVE MG/DL)</conten t> Hemoglobin NEGATIVE <content Saint [Presence] in styleCode="Stacy Alexus Urine by Test d">Urine Blood Medical strip </content>NEGA Center TIVE <content styleCode="Desiree lics"> (NEGATIVE )</content> Protein NEGATIVE <content Saint [Mass/volume] styleCode="Stacy Alexus in Urine by d">Urine Medical Test strip Protein Center </content>NEGA TIVE MG/DL<content styleCode="Desiree lics"> (NEGATIVE MG/DL)</conten t> pH of Urine by 4.5-8.0 <content Saint Test strip styleCode="Stacy Alexus d">Urine pH Medical </content>6.5 Center NM<content styleCode="Desiree lics"> (4.5-8.0 NM)</content> Urobilinogen 0.2-1.0 <content Saint [Units/volume] styleCode="Stacy Alexus in Urine by d">Urine Medical Test strip Urobilinogen Center </content>0.2 MG/DL<content styleCode="Desiree lics"> (0.2-1.0 MG/DL)</conten t> Nitrite NEGATIVE <content Saint [Presence] in styleCode="Stacy Alexus Urine by Test d">Urine Medical strip Nitrite Center </content>NEGA TIVE <content styleCode="Desiree lics"> (NEGATIVE )</content> Leukocyte NEGATIVE <content Saint esterase styleCode="Stacy Alexus [Presence] in d">Urine Medical Urine by Test Leukocyte Center strip </content>NEGA TIVE <content styleCode="Desiree lics"> (NEGATIVE )</content> ID Date Data Source Liver 02/09/2018 11:17:00 AM EDT [facility] [id number] Name Value Range Interpretation Description Data Sup porting Code Source(s) Document(s ) Alkaline 38-126 <content Saint phosphatase styleCode="Bold"> Alexus [Enzymatic Alkaline Medical activity/volume] Phosphatase (ALP) Cente r in Serum or Plasma </content>111 IU/L<content styleCode="Italic s"> (38-126 IU/L)</content> Alanine 7-30 <content Saint aminotransferase styleCode="Bold"> Dave hs [Enzymatic Alanine Medical activity/volume] Aminotransferase Center in Serum or Plasma (ALT) </content>24 IU/L<content styleCode="Italic s"> (7-30 IU/L)</content> Aspartate 14-36 <content Saint aminotransferase styleCode="Bold"> Dave hs [Enzymatic Aspartate Medical activity/volume] Aminotransferase Center in Serum or Plasma (AST) </content>21 IU/L<content styleCode="Italic s"> (14-36 IU/L)</content> Bilirubin.total 0.2-1.3 <content Saint [Mass/volume] in styleCode="Bold"> Dave hs Serum or Plasma Bilirubin Total Medical </content>0.4 Center MG/DL<content styleCode="Italic s"> (0.2-1.3 MG/DL)</content> Albumin 3.5-5.0 <content Saint [Mass/volume] in styleCode="Bold"> Dave hs Serum or Plasma Albumin Medical </content>3.8 Center G/DL<content styleCode="Italic s"> (3.5-5.0 G/DL)</content> ID Date Data Source [id number] 02/09/2018 11:17:00 AM EDT [facility] Name Value Range Interpretation Description Data Sup porting Code Source(s) Document(s ) Cholesterol -<200 <content Saint [Mass/volume] in styleCode="Stacy [facility] Serum or Plasma d">Cholesterol Medical </content>145 Center MG/DL<content styleCode="Desiree lics"> (-<200 MG/DL)</conten t> Triglyceride < 150 <content Saint [Mass/volume] in styleCode="[facility] Serum or Plasma d">Triglycerid Medical es Center </content>96 MG/DL<content styleCode="Desiree lics"> (< 150 MG/DL)</conten t> UNK > 60 Below low normal <content Saint styleCode="[facility] d">HDL- Medical Cholesterol Center </content>49 MG/DL L<content styleCode="Desiree lics"> (> 60 MG/DL)</conten t> UNK < 100 <content Saint styleCode="[facility] d">LDL-Cholest [facility] stacie Center </content>77 MG/DL<content styleCode="Desiree lics"> (< 100 MG/DL)</conten t> ID Date Data Source HematologyRou.[id number] 02/09/2018 11:17:00 AM EDT [facility] 0400 Name Value Range Interpretation Description Data Sup porting Code Source(s) Document(s ) Hemoglobin 12.3-16. Below low normal <content Saint [Mass/volume] in 0 styleCode="Bold Alexus Blood ">Hemoglobin Medical </content>12.0 Center G/DL L<content styleCode="Ital ics"> (12.3-16.0 G/DL)</content> Erythrocytes 4.0-5.1 <content Saint [#/volume] in styleCode="Bold Alexus Blood by ">Red Blood Medical Automated count Cell Count Center </content>4.44 MCUMM<content styleCode="Ital ics"> (4.0-5.1 MCUMM)</content > Leukocytes 4.4-11.0 Above high <content Saint [#/volume] in normal styleCode="Bold Alexus Blood by ">White Blood Medical Automated count Cell Count Center </content>13.59 KCUMM H<content styleCode="Ital ics"> (4.4-11.0 KCUMM)</content > Hematocrit 36.0-46. <content Saint [Volume 0 styleCode="Bold Alexus Fraction] of ">Hematocrit Medical Blood by </content>37.1 Center Automated count %<content styleCode="Ital ics"> (36.0-46.0 %)</content> Erythrocyte mean 80.0-100 <content Saint corpuscular .0 styleCode="Bold Alexus volume [Entitic ">Mean Medical volume] by Corpuscular Center Automated count Volume </content>83.6 FL<content styleCode="Ital ics"> (80.0-100.0 FL)</content> Erythrocyte mean 32.0-37. <content Saint corpuscular 0 styleCode="Bold Alexus hemoglobin ">Mean Corpus. Medical concentration Hgb Center [Mass/volume] by Concentration Automated count (MCHC) </content>32.3 G/DL<content styleCode="Ital ics"> (32.0-37.0 G/DL)</content> Erythrocyte 11.5-14. <content Saint distribution 5 styleCode="Bold Alexus width [Ratio] by ">Red Cell Medical Automated count Distribution Center Width </content>14.2 %<content styleCode="Ital ics"> (11.5-14.5 %)</content> Erythrocyte mean 26.0-34. <content Saint corpuscular 0 styleCode="Bold Alexus hemoglobin ">Mean Medical [Entitic mass] Corposcular Center by Automated Hemoglobin count </content>27.0 PG<content styleCode="Ital ics"> (26.0-34.0 PG)</content> Platelets 130-400 <content Saint [#/volume] in styleCode="Bold Alexus Blood by ">Platelet Medical Automated count Count Center </content>333 KCUMM<content styleCode="Ital ics"> (130-400 KCUMM)</content > Platelet mean 8.0-11.0 <content Saint volume [Entitic styleCode="Bold Alexus volume] in Blood ">Mean Platelet Medical by Automated Volume Center count </content>9.9 FL<content styleCode="Ital ics"> (8.0-11.0 FL)</content> Neutrophils 36-66 Above high <content Saint [#/volume] in normal styleCode="Bold Alexus Blood by ">Neutrophil Medical Automated count </content>72.2 Center % H<content styleCode="Ital ics"> (36-66 %)</content> UNK 1.6-7.3 Above high <content Saint normal styleCode="Bold Alexus ">Neutrophil Medical Count Center </content>9.80 KCUMM H<content styleCode="Ital ics"> (1.6-7.3 KCUMM)</content > UNK 1.0-4.8 <content Saint styleCode="Bold Alexus ">Lymphocyte Medical Count Center </content>2.75 KCUMM<content styleCode="Ital ics"> (1.0-4.8 KCUMM)</content > Lymphocytes 24.0-44. Below low normal <content Saint [#/volume] in 0 styleCode="Bold Alexus Blood by ">Lymphocyte Medical Automated count </content>20.2 Center % L<content styleCode="Ital ics"> (24.0-44.0 %)</content> UNK 0.0-0.6 <content Saint styleCode="Bold Alexus ">Eosinophil Medical Count Center </content>0.20 KCUMM<content styleCode="Ital ics"> (0.0-0.6 KCUMM)</content > Monocytes 3.0-10.0 <content Saint [#/volume] in styleCode="Bold Alexus Blood by ">Monocyte Medical Automated count </content>4.6 Center %<content styleCode="Ital ics"> (3.0-10.0 %)</content> UNK 0.2-0.9 <content Saint styleCode="Bold Alexus ">Monocyte Medical Count Center </content>0.63 KCUMM<content styleCode="Ital ics"> (0.2-0.9 KCUMM)</content > Eosinophils 0-5.0 <content Saint [#/volume] in styleCode="Bold Alexus Blood by ">Eosinophil Medical Automated count </content>1.5 Center %<content styleCode="Ital ics"> (0-5.0 %)</content> UNK 0 <content Saint styleCode="Bold Alexus ">Nucleated Red Medical Blood Cell Center </content>0.0 /100<content styleCode="Ital ics"> (0 /100)</content> Basophils 0.0-1.0 <content Saint [#/volume] in styleCode="Bold Alexus Blood by ">Basophil Medical Automated count </content>0.7 Center %<content styleCode="Ital ics"> (0.0-1.0 %)</content> UNK 0.0-0.3 <content Saint styleCode="Bold Alexus ">Basophil Medical Count Center </content>0.10 KCUMM<content styleCode="Ital ics"> (0.0-0.3 KCUMM)</content > UNK 0-0.1 Above high <content Saint normal styleCode="Bold Alexus ">Immature Medical Granulocyte Center Count </content>0.11 KCUMM H<content styleCode="Ital ics"> (0-0.1 KCUMM)</content > UNK < 1 <content Saint styleCode="Bold Alxeus ">Immature Medical Granulocyte Center Ratio </content>0.8 %<content styleCode="Ital ics"> (< 1 %)</content> UNK 0.0 <content Saint styleCode="Bold Alexus ">Nucleated Red Medical Blood Cell Center Count </content>0.00 KCUMM<content styleCode="Ital ics"> (0.0 KCUMM)</content > ID Date Data Source GFR(Creatinine).[id number] 02/09/2018 11:17:00 AM EDT [facility] 0-0400 Name Value Range Interpretation Code Description Data Camryn rce(s) Supporting Document(s ) UNK > 60 <content [facility] styleCode="Bold"> Medical Cent er EGFR </content>68 GFR<content styleCode="Italic s"> (> 60 GFR)</content> ID Date Data Source CHMROUTINECCDA.[id number] 02/09/2018 11:17:00 AM EDT [facility] -0400 Name Value Range Interpretation Description Data Sup porting Code Source(s) Document(s ) UNK >= 1.0 <content Saint styleCode="Stacy Jackmans d">AG Ratio Medical </content>1.0 Center NM<content styleCode="Desiree lics"> (>= 1.0 NM)</content> UNK 2.3-3.5 Above high normal <content Saint styleCode="Stacy Jackmans d">Globulin Medical </content>3.7 Center G/DL H<content styleCode="Desiree lics"> (2.3-3.5 G/DL)</content > Protein 6.3-8.2 <content Saint [Mass/volu styleCode="Stacy Vaughan me] in d">Total Medical Serum or Protein Center Plasma </content>7.5 G/DL<content styleCode="Desiree lics"> (6.3-8.2 G/DL)</content > UNK Not <content Saint Established styleCode="Stacy Alexus d">Microalbumi Medical n Center </content>0.3 mg/dL<content styleCode="Desiree lics"> (Not Established mg/dL)</conten t> UNK 4.2-5.8 Above high normal <content Saint styleCode="Stacy Jackmans d">Hemoglobin Medical A1C Center </content>9.3 % H<content styleCode="Desiree lics"> (4.2-5.8 %)</content> ID Date Data Source [facility].[id number] 02/09/2018 11:17:00 AM EDT [facility] Center Name Value Range Interpretation Description Data Sup porting Code Source(s) Document(s ) Sodium 137-145 <content Saint [Moles/volume] in styleCode="Bold"> Adelso phs Serum or Plasma Sodium Medical </content>142 Center MEQ/L<content styleCode="Italic s"> (137-145 MEQ/L)</content> UNK 7-17 <content Saint styleCode="Bold"> Alexus BUN </content>14 Medical MG/DL<content Center styleCode="Italic s"> (7-17 MG/DL)</content> Chloride 98-107 <content Saint [Moles/volume] in styleCode="Bold"> Adelso phs Serum or Plasma Chloride Medical </content>104 Center MEQ/L<content styleCode="Italic s"> (98-107 MEQ/L)</content> Potassium 3.5-5.3 <content Saint [Moles/volume] in styleCode="Bold"> Adelso phs Serum or Plasma Potassium Medical </content>4.3 Center MEQ/L<content styleCode="Italic s"> (3.5-5.3 MEQ/L)</content> Carbon dioxide, 22-30 <content Saint total styleCode="Bold"> Alexus [Moles/volume] in Carbon Dioxide Medical Serum or Plasma </content>27 Center MEQ/L<content styleCode="Italic s"> (22-30 MEQ/L)</content> Glucose 74-106 Above high <content Saint [Mass/volume] in normal styleCode="Bold"> Dave hs Serum or Plasma Glucose Medical </content>137 Center MG/DL H<content styleCode="Italic s"> (74-106 MG/DL)</content> UNK > 60 <content Saint styleCode="Bold"> Alexus EGFR </content>68 Medical GFR<content Center styleCode="Italic s"> (> 60 GFR)</content> Calcium 8.4-10. <content Saint [Mass/volume] in 2 styleCode="Bold"> Dave hs Serum or Plasma Calcium Medical </content>9.1 Center MG/DL<content styleCode="Italic s"> (8.4-10.2 MG/DL)</content> Creatinine 0.5-1.3 <content Saint [Mass/volume] in styleCode="Bold"> Dave hs Serum or Plasma Creatinine Medical </content>0.9 Center MG/DL<content styleCode="Italic s"> (0.5-1.3 MG/DL)</content> Alkaline 38-126 <content Saint phosphatase styleCode="Bold"> Alexus [Enzymatic Alkaline Medical activity/volume] Phosphatase (ALP) Cente r in Serum or Plasma </content>111 IU/L<content styleCode="Italic s"> (38-126 IU/L)</content> Alanine 7-30 <content Saint aminotransferase styleCode="Bold"> Dave hs [Enzymatic Alanine Medical activity/volume] Aminotransferase Center in Serum or Plasma (ALT) </content>24 IU/L<content styleCode="Italic s"> (7-30 IU/L)</content> Aspartate 14-36 <content Saint aminotransferase styleCode="Bold"> Dave hs [Enzymatic Aspartate Medical activity/volume] Aminotransferase Center in Serum or Plasma (AST) </content>21 IU/L<content styleCode="Italic s"> (14-36 IU/L)</content> Bilirubin.total 0.2-1.3 <content Saint [Mass/volume] in styleCode="Bold"> Dave hs Serum or Plasma Bilirubin Total Medical </content>0.4 Center MG/DL<content styleCode="Italic s"> (0.2-1.3 MG/DL)</content> Albumin 3.5-5.0 <content Saint [Mass/volume] in styleCode="Bold"> Dave hs Serum or Plasma Albumin Medical </content>3.8 Center G/DL<content styleCode="Italic s"> (3.5-5.0 G/DL)</content> ID Date Data Source [id number] 10/26/2017 12:00:00 AM EDT [facility]) Name Value Range Interpretation Description Data Sup porting Code Source(s) Document(s ) GLUCOSE 326 Above high normal MEDGEN NONFASTING,SERUM mg/dL ([facility]) SODIUM, SERUM 136 Normal (applies MEDGEN mEq/L to non-numeric ([facility] results) Medical Service) POTASSIUM, SERUM 4.6 Normal (applies MEDGEN mEq/L to non-numeric ([facility] results) Medical Service) CHLORIDE, SERUM 98 mEq/L Below low normal MEDGEN ([facility]) Carbon dioxide 27 mEq/L Normal (applies MEDGEN [VFr/PPres] in to non-numeric ([facility] [employer] results) Medical system Service) Anion gap in 15.6 Normal (applies [facility] Body fluid mEq/L to non-numeric ([facility] results) Medical Service) BLOOD UREA 18 mg/dL Normal (applies MEDGEN NITROGEN to non-numeric ([facility]) Medical Service) CREATININE, 1.20 Above high normal MEDGEN SERUM mg/dL ([facility]) BUN/CREATININE 15.00 Normal (applies MEDGEN RATIO to non-numeric ([facility] results) Medical Service) CALCIUM, SERUM 9.9 Normal (applies MEDGEN mg/dL to non-numeric ([facility]) Medical Service) TOTAL PROTEIN 8.1 g/dL Normal (applies MEDGEN to non-numeric ([facility] results) Medical Service) Microalbumin 4.5 g/dL Normal (applies MEDGEN [Mass/time] in to non-numeric ([facility] Urine collected results) Medical for unspecified Service) duration Globulin 3.6 gldl Normal (applies MEDGEN [Mass/time] in to non-numeric ([facility] 24 hour Urine results) Medical Service) A/G RATIO 1.25 Normal (applies MEDGEN g/dl to non-numeric ([facility]) Medical Service) BILIRUBIN, TOTAL 0.2 Below low normal MEDGEN mg/dL ([facility]) ALKALINE 178 U/L Above high normal MEDGEN PHOSPHATASE, ALP ([facility]) ALT (SGPT) 53 U/L Above high normal MEDGEN ([facility]) AST 22 U/L Normal (applies MEDGEN to non-numeric ([facility]) Medical Service) EGFR NON AFR 49 Above high normal MEDGEN BRAZILIAN mL/min/1 ([facility] .73m2 Medical Service) EGFR AFR 59 Above high normal MEDGEN BRAZILIAN mL/min/1 ([facility] .73m2 Medical Service) ID Date Data Source [id number] 10/26/2017 12:00:00 AM EDT [facility] ([facility]) Name Value Range Interpretation Description Data Sup porting Code Source(s) Document(s ) GLUCOSE 326 Above high normal MEDGEN NONFASTING,SERUM mg/dL ([email or web address]) SODIUM, SERUM 136 Normal (applies MEDGEN mEq/L to non-numeric ([facility]) Medical Service) POTASSIUM, SERUM 4.6 Normal (applies MEDGEN mEq/L to non-numeric ([facility]) Medical Service) CHLORIDE, SERUM 98 mEq/L Below low normal MEDGEN ([facility]) Carbon dioxide 27 mEq/L Normal (applies MEDGEN [VFr/PPres] in to non-numeric ([facility] results) Medical system Service) Anion gap in 15.6 Normal (applies MEDGEN Body fluid mEq/L to non-numeric ([facility] results) Medical Service) BLOOD UREA 18 mg/dL Normal (applies MEDGEN NITROGEN to non-numeric ([facility] results) Medical Service) CREATININE, 1.20 Above high normal MEDGEN SERUM mg/dL ([facility]) BUN/CREATININE 15.00 Normal (applies MEDGEN RATIO to non-numeric ([facility] results) Medical Service) CALCIUM, SERUM 9.9 Normal (applies MEDGEN mg/dL to non-numeric ([facility] results) Medical Service) TOTAL PROTEIN 8.1 g/dL Normal (applies MEDGEN to non-numeric ([facility] results) Medical Service) Microalbumin 4.5 g/dL Normal (applies MEDGEN [Mass/time] in to non-numeric ([facility] Urine collected results) Medical for unspecified Service) duration Globulin 3.6 gldl Normal (applies MEDGEN [Mass/time] in to non-numeric ([facility] 24 hour Urine results) Medical Service) A/G RATIO 1.25 Normal (applies MEDGEN g/dl to non-numeric ([facility] results) Medical Service) BILIRUBIN, TOTAL 0.2 Below low normal MEDGEN mg/dL ([facility]) ALKALINE 178 U/L Above high normal MEDGEN PHOSPHATASE, ALP ([facility]) ALT (SGPT) 53 U/L Above high normal MEDGEN ([facility]) AST 22 U/L Normal (applies MEDGEN to non-numeric ([facility] results) Medical Service) EGFR NON AFR 49 Above high normal MEDGEN BRAZILIAN mL/min/1 ([place] [address] Medical Service) EGFR AFR 59 Above high normal MEDGEN BRAZILIAN mL/min/1 ([place] [address] Medical Service) ID Date Data Source [id number] 09/23/2017 12:00:00 AM EST [facility] ([facility]) Name Value Range Interpretation Description Data Sup porting Code Source(s) Document(s ) VITAMIN D 34.57 Normal (applies to MEDGEN 25-HYDROXY ng/mL non-numeric ([facility] results) Medical Service) ID Date Data Source [id number] 09/23/2017 12:00:00 AM EST [facility] ([facility]) Name Value Range Interpretation Description Data Sup porting Code Source(s) Document(s ) VITAMIN B12 679 pg/mL Normal (applies to MEDGEN non-numeric ([facility] results) Medical Service) ID Date Data Source [id number] 09/23/2017 12:00:00 AM EST [facility] ([facility]) Name Value Range Interpretation Description Data Sup porting Code Source(s) Document(s ) FOLATE 7.8 ng/mL Above high normal MEDGEN SERUM ([facility] Service) ID Date Data Source [id number] 09/23/2017 12:00:00 AM EST [facility] ([facility]) Name Value Range Interpretation Description Data Sup porting Code Source(s) Document(s ) Cholesterol 134 Normal (applies MEDGEN [Moles/volume] mg/dL to non-numeric ([facility] in Pericardial results) Medical fluid Service) LDL CALCULATION 64.4 Normal (applies MEDGEN mg/dL to non-numeric ([facility] results) Medical Service) CHOL/HDL RATIO 2.91 Normal (applies MEDGEN ratio to non-numeric ([facility] results) Medical Service) HDL CHOLESTEROL 46 mg/dL Above high normal MEDGEN ([facility] Service) VLDL CALCULATION 23.6 Normal (applies MEDGEN mg/dl to non-numeric ([facility] results) Medical Service) TRIGLYCERIDES 118 Normal (applies MEDGEN mg/dL to non-numeric ([facility] results) Medical Service) ID Date Data Source [id number] 09/23/2017 12:00:00 AM EST [facility] ([facility]) Name Value Range Interpretation Description Data Sup porting Code Source(s) Document(s ) GLUCOSE 233 Above high normal MEDGEN NONFASTING,SERUM mg/dL ([facility]) SODIUM, SERUM 138 Normal (applies MEDGEN mEq/L to non-numeric ([facility] results) Medical Service) POTASSIUM, SERUM 4.0 Normal (applies MEDGEN mEq/L to non-numeric ([facility] results) Medical Service) CHLORIDE, SERUM 101 Normal (applies MEDGEN mEq/L to non-numeric ([facility] results) Medical Service) Carbon dioxide 27 mEq/L Normal (applies MEDGEN [VFr/PPres] in to non-numeric ([facility] [employer] results) Medical system Service) Anion gap in 14 mEq/L Normal (applies MEDGEN Body fluid to non-numeric ([facility] results) Medical Service) BLOOD UREA 11 mg/dL Normal (applies MEDGEN NITROGEN to non-numeric ([facility] results) Medical Service) CREATININE, 0.90 Normal (applies MEDGEN SERUM mg/dL to non-numeric ([facility] results) Medical Service) CALCIUM, SERUM 9.5 Normal (applies MEDGEN mg/dL to non-numeric ([facility] results) Medical Service) TOTAL PROTEIN 6.6 g/dL Normal (applies MEDGEN to non-numeric ([facility] results) Medical Service) Microalbumin 3.9 g/dL Normal (applies MEDGEN [Mass/time] in to non-numeric ([facility] Urine collected results) Medical for unspecified Service) duration Globulin 2.7 gldl Normal (applies MEDGEN [Mass/time] in to non-numeric ([facility] 24 hour Urine results) Medical Service) A/G RATIO 1.44 Normal (applies MEDGEN g/dl to non-numeric ([facility] results) Medical Service) BILIRUBIN, TOTAL 0.2 Below low normal MEDGEN mg/dL ([facility] Service) ALKALINE 131 U/L Above high normal MEDGEN PHOSPHATASE, ALP ([facility]) ALT (SGPT) 22 U/L Normal (applies MEDGEN to non-numeric ([facility] results) Medical Service) AST 23 U/L Normal (applies MEDGEN to non-numeric ([facility] results) Medical Service) EGFR NON AFR 68 Above high normal MEDGEN BRAZILIAN mL/min/1 ([facility] .73m2 Medical Service) EGFR AFR 83 Above high normal MEDGEN BRAZILIAN mL/min/1 ([facility] .73m2 Medical Service) ID Date Data Source [id number] 09/23/2017 12:00:00 AM EST [facility] ([facility]) Name Value Range Interpretation Code Description Data Camryn rce(s) Supporting Document(s ) URIC ACID 4.6 mg/dL Normal (applies to MEDGEN non-numeric ([facility] results) Medical Service) ID Date Data Source [id number] 09/23/2017 12:00:00 AM EST [facility] ([employer] [facility]) Name Value Range Interpretation Code Description Data Camryn rce(s) Supporting Document(s ) ESR 67 mm/hr Above high normal MEDGEN ([facility] Medical Service) ID Date Data Source [id number] 09/23/2017 12:00:00 AM EST [facility] ([employer] [facility]) Name Value Range Interpretation Description Data Sup porting Code Source(s) Document(s ) WBC 15.3 Above high normal MEDGEN 10(3)/uL ([facility]) RBC 4.3 Normal (applies to MEDGEN 10(6)/uL non-numeric ([facility] results) Medical Service) Hemoglobin 11.7 g/dL Below low normal MEDGEN [Mass/volume] ([place] in Mixed Medical venous blood Service) by Oximetry Hematocrit 36.2 % Normal (applies to MEDGEN [Pure volume non-numeric ([place] fraction] of results) Medical Blood by Service) Automated count MCV 84.4 fL Normal (applies to MEDGEN non-numeric ([facility] results) Medical Service) MCH 27 pg Normal (applies to MEDGEN non-numeric ([facility] results) Medical Service) MCHC 32 g/dL Normal (applies to MEDGEN non-numeric ([facility] results) Medical Service) RDWSD 43.0 fL Normal (applies to MEDGEN non-numeric ([facility] results) Medical Service) RDWCV 14.1 % Normal (applies to MEDGEN non-numeric ([facility] results) Medical Service) PLT 327 Normal (applies to MEDGEN 10(3)/uL non-numeric ([facility] results) Medical Service) MPV 10.5 fL Normal (applies to MEDGEN non-numeric ([facility] results) Medical Service) NE# 11.56 Above high normal MEDGEN 10(3)/uL ([place] Service) LY# 2.59 Normal (applies to MEDGEN 10(3)/uL non-numeric ([facility] results) Medical Service) MO# 0.62 Normal (applies to MEDGEN 10(3)/uL non-numeric ([facility] results) Medical Service) EO# 0.38 Normal (applies to MEDGEN 10(3)/uL non-numeric ([facility] results) Medical Service) IG# 0.10 Above high normal MEDGEN 10(3)/uL ([facility] Service) NE% 75.40 % Above high normal MEDGEN ([facility]) LY% 17 % Below low normal MEDGEN ([facility]) MO% 4.0 % Normal (applies to MEDGEN non-numeric ([facility] results) Medical Service) EO% 2.5 % Normal (applies to MEDGEN non-numeric ([facility] results) Medical Service) BA% 0.5 % Normal (applies to MEDGEN non-numeric ([facility] results) Medical Service) IG% 0.70 % Above high normal MEDGEN ([employer] [facility]) ID Date Data Source [id number] 09/23/2017 12:00:00 AM EST MEDGEN [facility]) Name Value Range Interpretation Code Description Data Supporting Source(s) Document(s ) GLYCOMARK 4.25 ug/mL Below low normal MEDGEN ([employer] [facility]) ID Date Data Source [id number] 09/23/2017 12:00:00 AM EST MEDGEN [facility]) Name Value Range Interpretation Description Data Sup porting Code Source(s) Document(s ) Hemoglobin A1c 9.5 % Above high normal MEDGEN in Blood ([email or web address]) ID Date Data Source [id number] 09/23/2017 12:00:00 AM EST MEDGEN [facility]) Name Value Range Interpretation Description Data Sup porting Code Source(s) Document(s ) RHEUMATOID <3.50 Normal (applies to MEDGEN FACTOR IGG/IGM non-numeric ([facility] results) Medical Service) ID Date Data Source [id number] 09/23/2017 12:00:00 AM EST MEDGEN [facility]) Name Value Range Interpretation Description Data Sup porting Code Source(s) Document(s ) MI Positive Abnormal (applies MEDGEN SCREEN,IFA to non-numeric ([facility] results) Medical Service) MI PATTERN Homogeneous Normal (applies to MEDGEN 1 non-numeric ([facility] results) Medical Service) MI TITER 2 DNR Normal (applies to MEDGEN non-numeric ([facility] results) Medical Service) MI PATTERN DNR Normal (applies to MEDGEN 2 non-numeric ([facility] results) Medical Service) ID Date Data Source [id number] 09/23/2017 12:00:00 AM EST MEDGEN ([employer] [facility]) Name Value Range Interpretation Description Data Sup porting Code Source(s) Document(s ) TSH,3RD 1.46 Normal (applies to MEDGEN GENERATION uIU/mL non-numeric ([facility] results) Medical Service) T4 TOTAL 6.6 ug/dL Normal (applies to MEDGEN THYROXINE non-numeric ([facility] results) Medical Service) T3 TOTAL 92 ng/dL Normal (applies to MEDGEN non-numeric ([facility] results) Medical Service) ID Date Data Source [id number] 09/23/2017 12:00:00 AM EST MEDGEN ([facility]) Name Value Range Interpretation Description Data Sup porting Code Source(s) Document(s ) VITAMIN D 34.57 Normal (applies to MEDGEN 25-HYDROXY ng/mL non-numeric ([facility] results) Medical Service) ID Date Data Source [id number] 09/23/2017 12:00:00 AM EST MEDGEN ([facility]) Name Value Range Interpretation Description Data Sup porting Code Source(s) Document(s ) VITAMIN B12 679 pg/mL Normal (applies to MEDGEN non-numeric ([facility] results) Medical Service) ID Date Data Source [id number] 09/23/2017 12:00:00 AM EST MEDGEN ([facility]) Name Value Range Interpretation Description Data Sup porting Code Source(s) Document(s ) FOLATE 7.8 ng/mL Above high normal MEDGEN SERUM ([facility]) ID Date Data Source [id number] 09/23/2017 12:00:00 AM EST MEDGEN ([facility]) Name Value Range Interpretation Description Data Sup porting Code Source(s) Document(s ) Cholesterol 134 Normal (applies MEDGEN [Moles/volume] mg/dL to non-numeric ([facility] in Pericardial results) Medical fluid Service) LDL CALCULATION 64.4 Normal (applies MEDGEN mg/dL to non-numeric ([facility] results) Medical Service) CHOL/HDL RATIO 2.91 Normal (applies MEDGEN ratio to non-numeric ([facility] results) Medical Service) HDL CHOLESTEROL 46 mg/dL Above high normal MEDGEN ([facility]) VLDL CALCULATION 23.6 Normal (applies MEDGEN mg/dl to non-numeric ([facility] results) Medical Service) TRIGLYCERIDES 118 Normal (applies MEDGEN mg/dL to non-numeric ([facility] results) Medical Service) ID Date Data Source [id number] 09/23/2017 12:00:00 AM EST MEDGEN ([facility]) Name Value Range Interpretation Description Data Sup porting Code Source(s) Document(s ) GLUCOSE 233 Above high normal MEDGEN NONFASTING,SERUM mg/dL ([facility]) SODIUM, SERUM 138 Normal (applies MEDGEN mEq/L to non-numeric ([facility] results) Medical Service) POTASSIUM, SERUM 4.0 Normal (applies MEDGEN mEq/L to non-numeric ([facility] results) Medical Service) CHLORIDE, SERUM 101 Normal (applies MEDGEN mEq/L to non-numeric ([facility] results) Medical Service) Carbon dioxide 27 mEq/L Normal (applies MEDGEN [VFr/PPres] in to non-numeric ([facility] [employer] results) Medical system Service) Anion gap in 14 mEq/L Normal (applies MEDGEN Body fluid to non-numeric ([facility] results) Medical Service) BLOOD UREA 11 mg/dL Normal (applies MEDGEN NITROGEN to non-numeric ([facility] results) Medical Service) CREATININE, 0.90 Normal (applies MEDGEN SERUM mg/dL to non-numeric ([facility] results) Medical Service) CALCIUM, SERUM 9.5 Normal (applies MEDGEN mg/dL to non-numeric ([facility] results) Medical Service) TOTAL PROTEIN 6.6 g/dL Normal (applies MEDGEN to non-numeric ([facility] results) Medical Service) Microalbumin 3.9 g/dL Normal (applies MEDGEN [Mass/time] in to non-numeric ([facility] Urine collected results) Medical for unspecified Service) duration Globulin 2.7 gldl Normal (applies MEDGEN [Mass/time] in to non-numeric ([facility] 24 hour Urine results) Medical Service) A/G RATIO 1.44 Normal (applies MEDGEN g/dl to non-numeric ([facility] results) Medical Service) BILIRUBIN, TOTAL 0.2 Below low normal MEDGEN mg/dL ([facility]) ALKALINE 131 U/L Above high normal MEDGEN PHOSPHATASE, ALP ([facility]) ALT (SGPT) 22 U/L Normal (applies MEDGEN to non-numeric ([facility] results) Medical Service) AST 23 U/L Normal (applies MEDGEN to non-numeric ([facility] results) Medical Service) EGFR NON AFR 68 Above high normal MEDGEN BRAZILIAN mL/min/1 ([facility] .73m2 Medical Service) EGFR AFR 83 Above high normal MEDGEN BRAZILIAN mL/min/1 ([facility] .73m2 Medical Service) ID Date Data Source [id number] 09/23/2017 12:00:00 AM EST MEDGEN ([facility] [facility]) Name Value Range Interpretation Code Description Data Camryn rce(s) Supporting Document(s ) URIC ACID 4.6 mg/dL Normal (applies to MEDGEN non-numeric ([facility] results) Medical Service) ID Date Data Source [id number] 09/23/2017 12:00:00 AM EST MEDGEN ([facility] [place] [facility] Name Value Range Interpretation Code Description Data Camryn rce(s) Supporting Document(s ) ESR 67 mm/hr Above high normal [facility]) ID Date Data Source [id number] 09/23/2017 12:00:00 AM EST MEDGEN ([facility]) Name Value Range Interpretation Description Data Sup porting Code Source(s) Document(s ) WBC 15.3 Above high normal MEDGEN 10(3)/uL ([facility]) RBC 4.3 Normal (applies to MEDGEN 10(6)/uL non-numeric ([facility] results) Medical Service) Hemoglobin 11.7 g/dL Below low normal MEDGEN [Mass/volume] ([place] in Mixed Medical venous blood Service) by Oximetry Hematocrit 36.2 % Normal (applies to MEDGEN [Pure volume non-numeric ([facility] fraction] of results) Medical Blood by Service) Automated count MCV 84.4 fL Normal (applies to MEDGEN non-numeric ([facility] results) Medical Service) MCH 27 pg Normal (applies to MEDGEN non-numeric ([facility] results) Medical Service) MCHC 32 g/dL Normal (applies to MEDGEN non-numeric ([facility] results) Medical Service) RDWSD 43.0 fL Normal (applies to MEDGEN non-numeric ([facility] results) Medical Service) RDWCV 14.1 % Normal (applies to MEDGEN non-numeric ([facility] results) Medical Service) PLT 327 Normal (applies to MEDGEN 10(3)/uL non-numeric ([facility] results) Medical Service) MPV 10.5 fL Normal (applies to MEDGEN non-numeric ([facility] results) Medical Service) NE# 11.56 Above high normal MEDGEN 10(3)/uL ([facility]) LY# 2.59 Normal (applies to MEDGEN 10(3)/uL non-numeric ([facility] results) Medical Service) MO# 0.62 Normal (applies to MEDGEN 10(3)/uL non-numeric ([facility] results) Medical Service) EO# 0.38 Normal (applies to MEDGEN 10(3)/uL non-numeric ([facility] results) Medical Service) IG# 0.10 Above high normal MEDGEN 10(3)/uL ([facility]) NE% 75.40 % Above high normal MEDGEN ([facility]) LY% 17 % Below low normal MEDGEN ([facility]) MO% 4.0 % Normal (applies to MEDGEN non-numeric ([facility] results) Medical Service) EO% 2.5 % Normal (applies to MEDGEN non-numeric ([facility] results) Medical Service) BA% 0.5 % Normal (applies to MEDGEN non-numeric ([facility] results) Medical Service) IG% 0.70 % Above high normal MEDGEN ([facility]) ID Date Data Source [id number] 09/23/2017 12:00:00 AM EST MEDGEN ([employer] [facility]) Name Value Range Interpretation Code Description Data Supporting Source(s) Document(s ) GLYCOMARK 4.25 ug/mL Below low normal MEDGEN ([employer] [facility]) ID Date Data Source [id number] 09/23/2017 12:00:00 AM EST MEDGEN ([facility]) Name Value Range Interpretation Description Data Sup porting Code Source(s) Document(s ) Hemoglobin A1c 9.5 % Above high normal MEDGEN in Blood ([employer] [facility]) ID Date Data Source [id number] 09/23/2017 12:00:00 AM EST MEDGEN ([employer] [facility]) Name Value Range Interpretation Description Data Sup porting Code Source(s) Document(s ) RHEUMATOID <3.50 Normal (applies to MEDGEN FACTOR IGG/IGM non-numeric ([facility] results) Medical Service) ID Date Data Source [id number] 09/23/2017 12:00:00 AM EST MEDGEN ([facility]) Name Value Range Interpretation Description Data Sup porting Code Source(s) Document(s ) MI Positive Abnormal (applies MEDGEN SCREEN,IFA to non-numeric ([facility] results) Medical Service) MI PATTERN Homogeneous Normal (applies to MEDGEN 1 non-numeric ([facility] results) Medical Service) MI TITER 2 DNR Normal (applies to MEDGEN non-numeric ([facility] results) Medical Service) MI PATTERN DNR Normal (applies to MEDGEN 2 non-numeric ([facility] results) Medical Service) ID Date Data Source [id number] 09/23/2017 12:00:00 AM EST MEDGEN ([employer] [facility]) Name Value Range Interpretation Description Data Sup porting Code Source(s) Document(s ) TSH,3RD 1.46 Normal (applies to MEDGEN GENERATION uIU/mL non-numeric ([facility] results) Medical Service) T4 TOTAL 6.6 ug/dL Normal (applies to MEDGEN THYROXINE non-numeric ([facility] results) Medical Service) T3 TOTAL 92 ng/dL Normal (applies to MEDGEN non-numeric ([facility] results) Medical Service) ID Date Data Source [id number] 06/12/2017 12:00:00 AM EDT MEDGEN ([facility]) Name Value Range Interpretation Description Data Sup porting Code Source(s) Document(s ) Cholesterol 212 Above high normal MEDGEN [Moles/volume] mg/dL ([facility] in Pericardial Medical fluid Service) HDL Cholesterol 45 mg/dL Below low normal MEDGEN ([facility]) Cholesterol/HDL 4.7 Normal (applies MEDGEN Ratio to non-numeric ([facility] results) Medical Service) Non HDL 167 Normal (applies MEDGEN Cholesterol mg/dL to non-numeric ([facility] results) Medical Service) HDL Chol (%) 21.2 % Normal (applies MEDGEN to non-numeric ([facility] results) Medical Service) Cholesterol in 149 Above high normal MEDGEN LDL mg/dL ([facility] [Mass/volume] in Medical Serum or Plasma Service) by Direct assay Cholesterol in 18 Normal (applies MEDGEN LDL to non-numeric ([facility] [Mass/volume] in results) Medical Serum or Plasma Service) by Direct assay Triglycerides 90 mg/dL Normal (applies MEDGEN to non-numeric ([facility] results) Medical Service) ID Date Data Source [id number] 06/12/2017 12:00:00 AM EDT MEDGEN ([facility] [employer] [facility] Service) Name Value Range Interpretation Description Data Sup porting Code Source(s) Document(s ) Color, Urine Yellow Normal (applies MEDGEN to non-numeric ([facility] results) Medical Service) Appearance, Cloudy Above high MEDGEN Urine normal ([facility] Service) pH, Urine 6.5 Normal (applies MEDGEN to non-numeric ([facility] results) Medical Service) Specific gravity 1.006 R.I. Normal (applies MEDGEN of Pericardial to non-numeric ([facility] fluid by results) Medical Refractometry Service) Bilirubin, Urine Negative Normal (applies MEDGEN to non-numeric ([facility] results) Medical Service) Blood, Urine Negative Normal (applies MEDGEN to non-numeric ([facility] results) Medical Service) Leuk. Esterase, Negative Normal (applies MEDGEN U to non-numeric ([facility] results) Medical Service) Nitrites, Urine Negative Normal (applies MEDGEN to non-numeric ([facility] results) Medical Service) Glucose, Urine Negative Normal (applies MEDGEN to non-numeric ([facility] results) Medical Service) Ketones, Urine Negative Normal (applies MEDGEN to non-numeric ([facility] results) Medical Service) Protein, Urine Negative Normal (applies MEDGEN to non-numeric ([facility] results) Medical Service) Urobilinogen, U 0.2 EU/dL Normal (applies MEDGEN to non-numeric ([facility] results) Medical Service) RBC, Urine 0-2 Normal (applies MEDGEN to non-numeric ([facility] results) Medical Service) WBC, Urine None seen Normal (applies MEDGEN to non-numeric ([facility] results) Medical Service) Bacteria, Urine Few Above high MEDGEN normal ([facility]) Epithelial cells Moderate Above high MEDGEN [Presence] in normal ([facility] Unspecified Medical specimen by Gram Service) stain Crystals None seen Normal (applies MEDGEN [#/area] in Body to non-numeric [facility] Medical microscopy Service) Yeast [#/area] None seen Normal (applies MEDGEN in Urine by to non-numeric ([facility] Automated count results) Medical Service) ID Date Data Source [id number] 06/12/2017 12:00:00 AM EDT MEDGEN ([facility]) Name Value Range Interpretation Description Data Sup porting Code Source(s) Document(s ) White Blood 16.8 Above high normal MEDGEN Count x10^3/uL ([facility]) Red Blood 4.78 Normal (applies to MEDGEN Count x10^6/uL non-numeric ([facility] results) Medical Service) Hemoglobin 12.9 g/dL Normal (applies to MEDGEN [Mass/volume] non-numeric ([facility] in Mixed results) Medical venous blood Service) by Oximetry Hematocrit 42.8 % Normal (applies to MEDGEN [Pure volume non-numeric ([facility] fraction] of results) Medical Blood by Service) Automated count MCV 90 fL Normal (applies to MEDGEN non-numeric ([facility] results) Medical Service) MCH 27.0 pg Normal (applies to MEDGEN non-numeric ([facility] results) Medical Service) MCHC 30.1 g/dL Normal (applies to MEDGEN non-numeric ([facility] results) Medical Service) Neutrophils% 69.4 % Normal (applies to MEDGEN non-numeric ([facility] results) Medical Service) Lymphocytes% 25.5 % Normal (applies to MEDGEN non-numeric ([facility] results) Medical Service) Monocytes% 3.2 % Normal (applies to MEDGEN non-numeric ([facility] results) Medical Service) Eosinophils% 1.3 % Normal (applies to MEDGEN non-numeric ([facility] results) Medical Service) Basophils% 0.6 % Normal (applies to MEDGEN non-numeric ([facility] results) Medical Service) Neutrophils, 11.7 Above high normal MEDGEN Abs (ANC) x10^3/uL ([facility] Service) Lymphocytes, 4.3 Normal (applies to MEDGEN Abs x10^3/uL non-numeric ([facility] results) Medical Service) Monocytes, Abs 0.5 Normal (applies to MEDGEN x10^3/uL non-numeric ([facility] results) Medical Service) Eosinophils, 0.2 Normal (applies to MEDGEN Abs x10^3/uL non-numeric ([facility] results) Medical Service) Basophils, Abs 0.1 Normal (applies to MEDGEN x10^3/uL non-numeric ([facility] results) Medical Service) RDW-CV 14.3 % Normal (applies to MEDGEN non-numeric ([facility] results) Medical Service) Platelets 325 Normal (applies to MEDGEN [#/area] in x10^3/uL non-numeric ([facility] Blood by results) Medical Microscopy Service) high power field MPV 9.6 fL Normal (applies to MEDGEN non-numeric ([facility] results) Medical Service) ID Date Data Source [id number] 06/12/2017 12:00:00 AM EDT MEDGEN ([facility]) Name Value Range Interpretation Code Description Data Camryn rce(s) Supporting Document(s ) Urine <0.7 Normal (applies to MEDGEN Albumin, non-numeric ([facility] Random results) Medical Service) ID Date Data Source [id number] 06/12/2017 12:00:00 AM EDT MEDGEN ([facility]) Name Value Range Interpretation Description Data Sup porting Code Source(s) Document(s ) Folate 20.30 Normal (applies to MEDGEN [Interpreta ng/mL non-numeric ([facility] tion] in results) Medical Blood Service) ID Date Data Source [id number] 06/12/2017 12:00:00 AM EDT MEDGEN ([employer] [facility]) Name Value Range Interpretation Description Data Sup porting Code Source(s) Document(s ) Vitamin B12 598 pg/mL Normal (applies to MEDGEN non-numeric ([facility] results) Medical Service) ID Date Data Source [id number] 06/12/2017 12:00:00 AM EDT MEDGEN ([employer] [facility]) Name Value Range Interpretation Description Data Sup porting Code Source(s) Document(s ) Vitamin D 18.0 Below low normal MEDGEN (25 hydroxy) ng/mL ([employer] Service) ID Date Data Source [id number] 06/12/2017 12:00:00 AM EDT MEDGEN ([employer] [facility]) Name Value Range Interpretation Description Data Sup porting Code Source(s) Document(s ) Glucose mean 236 mg/dL Normal (applies to MEDGEN value non-numeric ([facility] [Moles/volume] results) Medical in Blood Service) Estimated from glycated hemoglobin ID Date Data Source [id number] 06/12/2017 12:00:00 AM EDT MEDGEN ([employer] [facility]) Name Value Range Interpretation Code Description Data Camryn rce(s) Supporting Document(s ) GlycoHgb 9.9 % Above high normal MEDGEN (A1c) ([facility]) ID Date Data Source [id number] 06/12/2017 12:00:00 AM EDT MEDGEN ([employer] [facility]) Name Value Range Interpretation Description Data Sup porting Code Source(s) Document(s ) Thyroxine (T4) 9.9 ug/dL Normal (applies to MEDGEN non-numeric ([facility] results) Medical Service) T3-Uptake 30.2 % Normal (applies to MEDGEN non-numeric ([facility] results) Medical Service) Free Thyroxine 3.0 ng/dL Normal (applies to MEDGEN Index (FTI) non-numeric ([facility] results) Medical Service) TSH 3rd 2.39 Normal (applies to MEDGEN Generation uIU/mL non-numeric ([facility] Ultra results) Medical Service) ID Date Data Source [id number] 06/12/2017 12:00:00 AM EDT MEDGEN ([employer] [facility]) Name Value Range Interpretation Description Data Sup porting Code Source(s) Document(s ) Cholesterol 212 Above high normal MEDGEN [Moles/volume] mg/dL ([facility] in Pericardial Medical fluid Service) HDL Cholesterol 45 mg/dL Below low normal MEDGEN ([facility]) Cholesterol/HDL 4.7 Normal (applies MEDGEN Ratio to non-numeric ([facility] results) Medical Service) Non HDL 167 Normal (applies MEDGEN Cholesterol mg/dL to non-numeric ([facility] results) Medical Service) HDL Chol (%) 21.2 % Normal (applies MEDGEN to non-numeric ([facility] results) Medical Service) Cholesterol in 149 Above high normal MEDGEN LDL mg/dL ([facility] [Mass/volume] in Medical Serum or Plasma Service) by Direct assay Cholesterol in 18 Normal (applies MEDGEN LDL to non-numeric ([facility] [Mass/volume] in results) Medical Serum or Plasma Service) by Direct assay Triglycerides 90 mg/dL Normal (applies MEDGEN to non-numeric ([facility] results) Medical Service) ID Date Data Source [id number] 06/12/2017 12:00:00 AM EDT MEDGEN ([facility]) Name Value Range Interpretation Description Data Sup porting Code Source(s) Document(s ) Color, Urine Yellow Normal (applies MEDGEN to non-numeric ([facility] results) Medical Service) Appearance, Cloudy Above high MEDGEN Urine normal ([facility]) pH, Urine 6.5 Normal (applies MEDGEN to non-numeric ([facility] results) Medical Service) Specific gravity 1.006 R.I. Normal (applies MEDGEN of Pericardial to non-numeric ([facility] fluid by results) Medical Refractometry Service) Bilirubin, Urine Negative Normal (applies MEDGEN to non-numeric ([facility] results) Medical Service) Blood, Urine Negative Normal (applies MEDGEN to non-numeric ([facility] results) Medical Service) Leuk. Esterase, Negative Normal (applies MEDGEN U to non-numeric ([facility] results) Medical Service) Nitrites, Urine Negative Normal (applies MEDGEN to non-numeric ([facility] results) Medical Service) Glucose, Urine Negative Normal (applies MEDGEN to non-numeric ([facility] results) Medical Service) Ketones, Urine Negative Normal (applies MEDGEN to non-numeric ([facility] results) Medical Service) Protein, Urine Negative Normal (applies MEDGEN to non-numeric ([facility] results) Medical Service) Urobilinogen, U 0.2 EU/dL Normal (applies MEDGEN to non-numeric ([facility] results) Medical Service) RBC, Urine 0-2 Normal (applies MEDGEN to non-numeric ([facility] results) Medical Service) WBC, Urine None seen Normal (applies MEDGEN to non-numeric ([facility] results) Medical Service) Bacteria, Urine Few Above high MEDGEN normal ([facility]) Epithelial cells Moderate Above high MEDGEN [Presence] in normal ([facility] Unspecified Medical specimen by Gram Service) stain Crystals None seen Normal (applies MEDGEN [#/area] in Body to non-numeric [facility] Medical microscopy Service) Yeast [#/area] None seen Normal (applies MEDGEN in Urine by to non-numeric ([facility] Automated count results) Medical Service) ID Date Data Source [id number] 06/12/2017 12:00:00 AM EDT MEDGEN ([facility]) Name Value Range Interpretation Description Data Sup porting Code Source(s) Document(s ) White Blood 16.8 Above high normal MEDGEN Count x10^3/uL ([facility]) Red Blood 4.78 Normal (applies to MEDGEN Count x10^6/uL non-numeric ([facility] results) Medical Service) Hemoglobin 12.9 g/dL Normal (applies to MEDGEN [Mass/volume] non-numeric ([place] in Mixed results) Medical venous blood Service) by Oximetry Hematocrit 42.8 % Normal (applies to MEDGEN [Pure volume non-numeric ([facility] fraction] of results) Medical Blood by Service) Automated count MCV 90 fL Normal (applies to MEDGEN non-numeric ([facility] results) Medical Service) MCH 27.0 pg Normal (applies to MEDGEN non-numeric ([facility] results) Medical Service) MCHC 30.1 g/dL Normal (applies to MEDGEN non-numeric ([facility] results) Medical Service) Neutrophils% 69.4 % Normal (applies to MEDGEN non-numeric ([facility] results) Medical Service) Lymphocytes% 25.5 % Normal (applies to MEDGEN non-numeric ([facility] results) Medical Service) Monocytes% 3.2 % Normal (applies to MEDGEN non-numeric ([facility] results) Medical Service) Eosinophils% 1.3 % Normal (applies to MEDGEN non-numeric ([facility] results) Medical Service) Basophils% 0.6 % Normal (applies to MEDGEN non-numeric ([facility] results) Medical Service) Neutrophils, 11.7 Above high normal MEDGEN Abs (ANC) x10^3/uL ([facility]) Lymphocytes, 4.3 Normal (applies to MEDGEN Abs x10^3/uL non-numeric ([facility] results) Medical Service) Monocytes, Abs 0.5 Normal (applies to MEDGEN x10^3/uL non-numeric ([facility] results) Medical Service) Eosinophils, 0.2 Normal (applies to MEDGEN Abs x10^3/uL non-numeric ([facility] results) Medical Service) Basophils, Abs 0.1 Normal (applies to MEDGEN x10^3/uL non-numeric ([facility] results) Medical Service) RDW-CV 14.3 % Normal (applies to MEDGEN non-numeric ([facility] results) Medical Service) Platelets 325 Normal (applies to MEDGEN [#/area] in x10^3/uL non-numeric ([facility] Blood by results) Medical Microscopy Service) high power field MPV 9.6 fL Normal (applies to MEDGEN non-numeric ([facility] results) Medical Service) ID Date Data Source [id number] 06/12/2017 12:00:00 AM EDT MEDGEN ([facility]) Name Value Range Interpretation Code Description Data Camryn rce(s) Supporting Document(s ) Urine <0.7 Normal (applies to MEDGEN Albumin, non-numeric ([facility] Random results) Medical Service) ID Date Data Source [id number] 06/12/2017 12:00:00 AM EDT MEDGEN ([facility]) Name Value Range Interpretation Description Data Sup porting Code Source(s) Document(s ) Folate 20.30 Normal (applies to MEDGEN [Interpreta ng/mL non-numeric ([facility] tion] in results) Medical Blood Service) ID Date Data Source [id number] 06/12/2017 12:00:00 AM EDT MEDGEN ([facility]) Name Value Range Interpretation Description Data Sup porting Code Source(s) Document(s ) Vitamin B12 598 pg/mL Normal (applies to MEDGEN non-numeric ([facility] results) Medical Service) ID Date Data Source [id number] 06/12/2017 12:00:00 AM EDT [facility] ([facility]) Name Value Range Interpretation Description Data Sup porting Code Source(s) Document(s ) Vitamin D 18.0 Below low normal [facility] (25 hydroxy) ng/mL ([facility]) ID Date Data Source [id number] 06/12/2017 12:00:00 AM EDT [facility] ([facility]) Name Value Range Interpretation Description Data Sup porting Code Source(s) Document(s ) Glucose mean 236 mg/dL Normal (applies to [facility] value non-numeric ([facility] [Moles/volume] results) Medical in Blood Service) Estimated from glycated hemoglobin ID Date Data Source [id number] 06/12/2017 12:00:00 AM EDT [facility] ([facility]) Name Value Range Interpretation Code Description Data Camryn rce(s) Supporting Document(s ) GlycoHgb 9.9 % Above high normal [facility] (A1c) ([facility]) ID Date Data Source [id number] 06/12/2017 12:00:00 AM EDT [facility] ([facility]) Name Value Range Interpretation Description Data Sup porting Code Source(s) Document(s ) Thyroxine (T4) 9.9 ug/dL Normal (applies to [facility] non-numeric ([facility] results) Medical Service) T3-Uptake 30.2 % Normal (applies to [facility] non-numeric ([facility] results) Medical Service) Free Thyroxine 3.0 ng/dL Normal (applies to [facility] Index (FTI) non-numeric ([facility] results) Medical Service) TSH 3rd 2.39 Normal (applies to [facility] Generation uIU/mL non-numeric ([place] Ultra results) Medical Service) ID Date Data Source [id number] 03/09/2017 12:00:00 AM EDT [facility] ([facility]) Name Value Range Interpretation Description Data Sup porting Code Source(s) Document(s ) Urine 3.85 mg/dL Normal (applies to [facility] Albumin, non-numeric ([place] Random results) Medical Service) ID Date Data Source [id number] 03/09/2017 12:00:00 AM EDT [facility] ([facility]) Name Value Range Interpretation Description Data Sup porting Code Source(s) Document(s ) 3 or more Above high normal [facility] organisms ([place] present; Medical probable Service) contamination Source Regular Normal (applies [facility] Urine to non-numeric ([facility] results) Medical Service) ID Date Data Source [id number] 03/09/2017 12:00:00 AM EDT [facility] ([facility]) Name Value Range Interpretation Description Data Sup porting Code Source(s) Document(s ) Color, Urine Dark Yellow Normal (applies [facility] to non-numeric ([place] results) Medical Service) Appearance, Cloudy Above high [facility] Urine normal ([facility]) pH, Urine 5.5 Normal (applies [facility] to non-numeric ([facility] results) Medical Service) Specific gravity 1.029 R.I. Normal (applies MED[facility] of Pericardial to non-numeric ([place] fluid by results) Medical Refractometry Service) Bilirubin, Urine Small Above high [facility] normal ([facility]) Blood, Urine Negative Normal (applies [facility] to non-numeric ([facility] results) Medical Service) Leuk. Esterase, Trace Above high [facility] U normal ([facility]) Nitrites, Urine Negative Normal (applies [facility] to non-numeric ([facility] results) Medical Service) Glucose, Urine 100 mg/dL Above high [facility] normal ([facility]) Ketones, Urine Negative Normal (applies [facility] to non-numeric ([facility] results) Medical Service) Protein, Urine 30 mg/dL Above high [facility] normal ([facility]) Urobilinogen, U 0.2 EU/dL Normal (applies [facility] to non-numeric ([facility] results) Medical Service) RBC, Urine 0-2 Normal (applies [facility] to non-numeric ([facility] results) Medical Service) WBC, Urine 11-20 Above high [facility] normal ([facility]) Bacteria, Urine Few Above high [facility] normal ([facility]) Epithelial cells Moderate Above high MED[facility] [Presence] in normal ([facility] Unspecified Medical specimen by Gram Service) stain Crystals None seen Normal (applies MEDGEN [#/area] in Body to non-numeric ([facility] y fluid by Light results) Medical microscopy Service) Casts [#/area] Granular, Above high [facility] in Urine Fine normal ([place] sediment by Medical Automated count Service) Yeast [#/area] None seen Normal (applies [facility] in Urine by to non-numeric ([place] Automated count results) Medical Service) ID Date Data Source [id number] 03/09/2017 12:00:00 AM EDT [facility] ([facility]) Name Value Range Interpretation Description Data Sup porting Code Source(s) Document(s ) Urine 3.85 mg/dL Normal (applies to [facility]GEN Albumin, non-numeric ([place] Random results) Medical Service) ID Date Data Source [id number] 03/09/2017 12:00:00 AM EDT MEDGEN ([facility]) Name Value Range Interpretation Description Data Sup porting Code Source(s) Document(s ) 3 or more Above high normal MEDGEN organisms ([place] present; Medical probable Service) contamination Source Regular Normal (applies [facility] Urine to non-numeric ([place] results) Medical Service) ID Date Data Source [id number] 03/09/2017 12:00:00 AM EDT MEDGEN ([facility]) Name Value Range Interpretation Description Data Sup porting Code Source(s) Document(s ) Color, Urine Dark Yellow Normal (applies [facility] to non-numeric ([place] results) Medical Service) Appearance, Cloudy Above high [facility] Urine normal ([facility]) pH, Urine 5.5 Normal (applies [facility] to non-numeric ([facility] results) Medical Service) Specific gravity 1.029 R.I. Normal (applies MEDGEN of Pericardial to non-numeric ([place] fluid by results) Medical Refractometry Service) Bilirubin, Urine Small Above high [facility] normal ([facility]) Blood, Urine Negative Normal (applies [facility]GEN to non-numeric ([facility] results) Medical Service) Leuk. Esterase, Trace Above high MEDGEN U normal ([facility]) Nitrites, Urine Negative Normal (applies [facility] to non-numeric ([place] results) Medical Service) Glucose, Urine 100 mg/dL Above high [facility] normal ([facility]) Ketones, Urine Negative Normal (applies [facility]GEN to non-numeric ([facility] results) Medical Service) Protein, Urine 30 mg/dL Above high [facility] normal ([facility]) Urobilinogen, U 0.2 EU/dL Normal (applies [facility] to non-numeric ([facility] results) Medical Service) RBC, Urine 0-2 Normal (applies [facility] to non-numeric ([place] results) Medical Service) WBC, Urine 11-20 Above high [facility] normal ([facility]) Bacteria, Urine Few Above high [facility] normal ([facility]) Epithelial cells Moderate Above high [facility] [Presence] in normal ([place] Unspecified Medical specimen by Gram Service) stain Crystals None seen Normal (applies MEDGEN [#/area] in Body to non-numeric ([place] [facility] fluid by Light results) Medical microscopy Service) Casts [#/area] Granular, Above high [facility] in Urine Fine normal ([place] sediment by Medical Automated count Service) Yeast [#/area] None seen Normal (applies [facility] in Urine by to non-numeric ([place] Automated count results) Medical Service) ID Date Data Source [id number] 01/12/2017 12:00:00 AM EDT [facility] ([facility]) Name Value Range Interpretation Description Data Sup porting Code Source(s) Document(s ) Cholesterol 202 Above high normal [facility] [Moles/volume] mg/dL ([place] in Pericardial Medical fluid Service) HDL Cholesterol 36 mg/dL Below low normal [facility] ([facility]) Cholesterol/HDL 5.6 Above high normal [facility] Ratio ([facility]) Non HDL 166 Normal (applies MEDGEN Cholesterol mg/dL to non-numeric ([facility] results) Medical Service) HDL Chol (%) 17.8 % Normal (applies [facility] to non-numeric ([facility] results) Medical Service) Cholesterol in 122 Normal (applies MEDGEN LDL mg/dL to non-numeric ([place] [Mass/volume] in results) Medical Serum or Plasma Service) by Direct assay Cholesterol in 44 Above high normal MEDGEN LDL ([place] [Mass/volume] in Medical Serum or Plasma Service) by Direct assay Triglycerides 218 Above high normal [facility] mg/dL ([facility]) ID Date Data Source [id number] 01/12/2017 12:00:00 AM EDT [facility] ([facility]) Name Value Range Interpretation Description Data Sup porting Code Source(s) Document(s ) Color, Urine Yellow Normal (applies MED[facility] to non-numeric ([place] results) Medical Service) Appearance, Clear Normal (applies MEDGEN Urine to non-numeric ([place] results) Medical Service) Specific gravity 1.011 R.I. Normal (applies MEDGEN of Pericardial to non-numeric ([place] fluid by results) Medical Refractometry Service) pH, Urine 7.0 Normal (applies MEDGEN to non-numeric ([place] results) Medical Service) Bilirubin, Urine Negative Normal (applies MEDGEN to non-numeric ([place] results) Medical Service) Blood, Urine Negative Normal (applies [facility]GEN to non-numeric ([place] results) Medical Service) Leuk. Esterase, Trace Above high MEDGEN U normal ([facility]) Nitrites, Urine Negative Normal (applies [facility]GEN to non-numeric ([place] results) Medical Service) Glucose, Urine >=1000 Abnormal MEDGEN (applies to ([place] non-numeric Medical results) Service) Ketones, Urine Trace Above high [facility]GEN normal ([facility]) Protein, Urine Negative Normal (applies [facility]GEN to non-numeric ([place] results) Medical Service) Urobilinogen, U 0.2 EU/dL Normal (applies MEDGEN to non-numeric ([place] results) Medical Service) RBC, Urine 0-2 Normal (applies MEDGEN to non-numeric ([place] results) Medical Service) WBC, Urine None seen Normal (applies [facility]GEN to non-numeric ([place] results) Medical Service) Bacteria, Urine Few Above high [facility]GEN normal ([facility]) Epithelial cells Few Above high MEDGEN [Presence] in normal ([place] Unspecified Medical specimen by Gram Service) stain Crystals None seen Normal (applies [facility] [#/area[facility] Medical microscopy Service) Yeast [#/area] None seen Normal (applies MEDGEN in Urine by to non-numeric ([place] Automated count results) Medical Service) ID Date Data Source [id number] 01/12/2017 12:00:00 AM EDT [facility] ([facility]) Name Value Range Interpretation Description Data Sup porting Code Source(s) Document(s ) White Blood 12.4 Above high normal [facility] Count x10^3/uL ([facility]) Red Blood 4.55 Normal (applies to MEDGEN Count x10^6/uL non-numeric ([facility] results) Medical Service) Hemoglobin 13.3 g/dL Normal (applies to [facility]GEN [Mass/volume] non-numeric ([place] in Mixed results) Medical venous blood Service) by Oximetry Hematocrit 41.3 % Normal (applies to MEDGEN [Pure volume non-numeric ([place] fraction] of results) Medical Blood by Service) Automated count MCV 91 fL Normal (applies to [facility]GEN non-numeric ([place] results) Medical Service) MCH 29.2 pg Normal (applies to MEDGEN non-numeric ([facility] results) Medical Service) MCHC 32.2 g/dL Normal (applies to [facility]GEN non-numeric ([place] results) Medical Service) Neutrophils% 70.9 % Above high normal [facility]GEN ([facility]) Lymphocytes% 21.2 % Normal (applies to [facility] non-numeric ([place] results) Medical Service) Monocytes% 4.4 % Normal (applies to [facility] non-numeric ([place] results) Medical Service) Eosinophils% 2.5 % Normal (applies to [facility] non-numeric ([facility] results) Medical Service) Basophils% 1.0 % Normal (applies to [facility]GEN non-numeric ([place] results) Medical Service) Neutrophils, 8.8 Above high normal MEDGEN Abs (ANC) x10^3/uL ([facility] Service) Lymphocytes, 2.6 Normal (applies to MEDGEN Abs x10^3/uL non-numeric ([place] results) Medical Service) Monocytes, Abs 0.6 Normal (applies to MEDGEN x10^3/uL non-numeric ([place] results) Medical Service) Eosinophils, 0.3 Normal (applies to MEDGEN Abs x10^3/uL non-numeric ([place] results) Medical Service) Basophils, Abs 0.1 Normal (applies to [facility]GEN x10^3/uL non-numeric ([place] results) Medical Service) RDW-CV 13.9 % Normal (applies to [facility] non-numeric ([place] results) Medical Service) Platelets 349 Normal (applies to MEDGEN [#/area] in x10^3/uL non-numeric ([place] Blood by results) Medical Microscopy Service) high power field MPV 10.9 fL Normal (applies to [facility]GEN non-numeric ([place] results) Medical Service) ID Date Data Source [id number] 01/12/2017 12:00:00 AM EDT [facility] ([facility]) Name Value Range Interpretation Code Description Data Camryn rce(s) Supporting Document(s ) Urine <0.7 Normal (applies to MEDGEN Albumin, non-numeric ([place] Random results) Medical Service) ID Date Data Source [id number] 01/12/2017 12:00:00 AM EDT [facility] ([facility]) Name Value Range Interpretation Description Data Sup porting Code Source(s) Document(s ) Folate 3.36 ng/mL Below low normal MEDGEN [Interpreta ([place] tion] in Medical Blood Service) ID Date Data Source [id number] 01/12/2017 12:00:00 AM EDT [facility] ([facility]) Name Value Range Interpretation Description Data Sup porting Code Source(s) Document(s ) Vitamin B12 659 pg/mL Normal (applies to [facility] non-numeric ([place] results) Medical Service) ID Date Data Source [id number] 01/12/2017 12:00:00 AM EDT [facility] ([facility]) Name Value Range Interpretation Description Data Sup porting Code Source(s) Document(s ) Vitamin D 14.1 Below low normal [facility] (25 hydroxy) ng/mL ([facility]) ID Date Data Source [id number] 01/12/2017 12:00:00 AM EDT MED[facility] ([facility]) Name Value Range Interpretation Code Description Data Camryn rce(s) Supporting Document(s ) Uric Acid 3.8 mg/dL Normal (applies to MEDGEN non-numeric ([place] results) Medical Service) ID Date Data Source [id number] 01/12/2017 12:00:00 AM EDT MED[facility] ([facility]) Name Value Range Interpretation Description Data Sup porting Code Source(s) Document(s ) Glucose mean 263 mg/dL Normal (applies to MEDGEN value non-numeric ([place] [Moles/volume] results) Medical in Blood Service) Estimated from glycated hemoglobin ID Date Data Source [id number] 01/12/2017 12:00:00 AM EDT MED[facility] ([facility]) Name Value Range Interpretation Code Description Data Supporting Source(s) Document(s ) GlycoHgb 10.8 % Above high normal [facility] (A1c) ([facility]) ID Date Data Source [id number] 01/12/2017 12:00:00 AM EDT MED[facility] ([facility]) Name Value Range Interpretation Description Data Sup porting Code Source(s) Document(s ) Glucose 343 Above upper panic MEDGEN [Mass/volume] in mg/dL limits ([place] Urine collected Medical for unspecified Service) duration Urea nitrogen 7 mg/dL Normal (applies [facility]GEN [Moles/volume] to non-numeric ([place] in Blood results) Medical Service) Creatinine 0.86 Normal (applies MED[facility] [Interpretation] mg/dL to non-numeric ([place] [facility] in Urine results) Medical Service) eGFR 82 Normal (applies MEDGEN (calculation) to non-numeric ([place] for results) Medical -Peruvian Service) s eGFR 68 Normal (applies MEDGEN (calculation) to non-numeric ([place] results) Medical Service) BUN/Creat Ratio 8.1 Normal (applies MEDGEN to non-numeric ([place] results) Medical Service) Sodium 138 Normal (applies MEDGEN [Moles/volume] mmol/L to non-numeric ([place] in Serum, Plasma results) Medical or Blood Service) Potassium 4.0 Normal (applies MEDGEN [Mass/volume] in mmol/L to non-numeric ([place] [facility] Blood results) Medical Service) Chloride 98 Normal (applies [facility]GEN [Moles/volume] mmol/L to non-numeric ([place] in Serum, Plasma results) Medical or Blood Service) Carbon dioxide 29 Normal (applies MEDGEN [VFr/PPres] in mmol/L to non-numeric ([place] Gas [employer] results) Medical system Service) Calcium 9.8 Normal (applies MEDGEN [Moles/volume] mg/dL to non-numeric ([place] in Urine results) Medical collected for Service) unspecified duration Protein, Total 7.6 g/dL Normal (applies MEDGEN to non-numeric ([place] results) Medical Service) Microalbumin 3.7 g/dL Normal (applies MEDGEN [Mass/time] in to non-numeric ([place] Urine collected results) Medical for unspecified Service) duration Globulin 3.9 g/dL Above high normal MEDGEN [Mass/time] in ([facility] 24 hour Urine Medical Service) A/G Ratio 0.9 Normal (applies MEDGEN Ratio to non-numeric ([place] results) Medical Service) Alkaline 108 IU/L Normal (applies MEDGEN phosphatase to non-numeric ([place] [Enzymatic results) Medical activity/volume] Service) in Serum, Plasma or Blood AST 11 IU/L Normal (applies MEDGEN to non-numeric ([place] results) Medical Service) ALT 13 IU/L Normal (applies MEDGEN to non-numeric ([place] results) Medical Service) Bilirubin, Total 0.2 Normal (applies MEDGEN mg/dL to non-numeric ([place] results) Medical Service) ID Date Data Source [id number] 01/12/2017 12:00:00 AM EDT [facility] ([facility]) Name Value Range Interpretation Description Data Sup porting Code Source(s) Document(s ) Thyroxine (T4) 10.3 Normal (applies to MEDGEN ug/dL non-numeric ([place] results) Medical Service) T3-Uptake 31.8 % Normal (applies to [facility] non-numeric ([place] results) Medical Service) Free Thyroxine 3.3 ng/dL Normal (applies to MEDGEN Index (FTI) non-numeric ([place] results) Medical Service) TSH 3rd 4.22 Normal (applies to MEDGEN Generation uIU/mL non-numeric ([place] Ultra results) Medical Service) ID Date Data Source [id number] 01/12/2017 12:00:00 AM EDT [facility] ([facility]) Name Value Range Interpretation Description Data Sup porting Code Source(s) Document(s ) Cholesterol 202 Above high normal MED[facility] [Moles/volume] mg/dL ([place] in Pericardial Medical fluid Service) HDL Cholesterol 36 mg/dL Below low normal MED[facility] ([place] Service) Cholesterol/HDL 5.6 Above high normal [facility] Ratio ([facility]) Non HDL 166 Normal (applies MEDGEN Cholesterol mg/dL to non-numeric ([place] results) Medical Service) HDL Chol (%) 17.8 % Normal (applies MEDGEN to non-numeric ([place] results) Medical Service) Cholesterol in 122 Normal (applies MEDGEN LDL mg/dL to non-numeric ([place] [Mass/volume] in results) Medical Serum or Plasma Service) by Direct assay Cholesterol in 44 Above high normal MED[facility] LDL ([place] [Mass/volume] in Medical Serum or Plasma Service) by Direct assay Triglycerides 218 Above high normal [facility] mg/dL ([place] Medical Service) ID Date Data Source [id number] 01/12/2017 12:00:00 AM EDT [facility] ([facility]) Name Value Range Interpretation Description Data Sup porting Code Source(s) Document(s ) Color, Urine Yellow Normal (applies MEDGEN to non-numeric ([place] results) Medical Service) Appearance, Clear Normal (applies MEDGEN Urine to non-numeric ([place] results) Medical Service) pH, Urine 7.0 Normal (applies MEDGEN to non-numeric ([place] results) Medical Service) Specific gravity 1.011 R.I. Normal (applies MEDGEN of Pericardial to non-numeric ([place] fluid by results) Medical Refractometry Service) Bilirubin, Urine Negative Normal (applies MEDGEN to non-numeric ([place] results) Medical Service) Blood, Urine Negative Normal (applies MEDGEN to non-numeric ([place] results) Medical Service) Leuk. Esterase, Trace Above high MEDGEN U normal ([facility]) Nitrites, Urine Negative Normal (applies MEDGEN to non-numeric ([facility] results) Medical Service) Glucose, Urine >=1000 Abnormal MEDGEN (applies to ([place] non-numeric Medical results) Service) Ketones, Urine Trace Above high MEDGEN normal ([facility] Service) Protein, Urine Negative Normal (applies MEDGEN to non-numeric ([facility] results) Medical Service) Urobilinogen, U 0.2 EU/dL Normal (applies MEDGEN to non-numeric ([place] results) Medical Service) WBC, Urine None seen Normal (applies MEDGEN to non-numeric ([place] results) Medical Service) RBC, Urine 0-2 Normal (applies MEDGEN to non-numeric ([place] results) Medical Service) Bacteria, Urine Few Above high MEDGEN normal ([facility] Service) Epithelial cells Few Above high MED[facility] [Presence] in normal ([place] Unspecified Medical specimen by Gram Service) stain Crystals None seen Normal (applies MEDGEN [#/area] in Body to non-numeric ([facility] y fluid by Light results) Medical microscopy Service) Yeast [#/area] None seen Normal (applies MEDGEN in Urine by to non-numeric ([facility] Automated count results) Medical Service) ID Date Data Source [id number] 01/12/2017 12:00:00 AM EDT [facility] ([facility]) Name Value Range Interpretation Description Data Sup porting Code Source(s) Document(s ) White Blood 12.4 Above high normal [facility] Count x10^3/uL ([facility]) Red Blood 4.55 Normal (applies to MEDGEN Count x10^6/uL non-numeric ([facility] results) Medical Service) Hemoglobin 13.3 g/dL Normal (applies to MEDGEN [Mass/volume] non-numeric ([place] in Mixed results) Medical venous blood Service) by Oximetry Hematocrit 41.3 % Normal (applies to MEDGEN [Pure volume non-numeric ([place] fraction] of results) Medical Blood by Service) Automated count MCV 91 fL Normal (applies to MEDGEN non-numeric ([place] results) Medical Service) MCH 29.2 pg Normal (applies to MEDGEN non-numeric ([place] results) Medical Service) MCHC 32.2 g/dL Normal (applies to MEDGEN non-numeric ([place] results) Medical Service) Neutrophils% 70.9 % Above high normal MEDGEN ([place] Medical Service) Lymphocytes% 21.2 % Normal (applies to MEDGEN non-numeric ([place] results) Medical Service) Monocytes% 4.4 % Normal (applies to MEDGEN non-numeric ([place] results) Medical Service) Eosinophils% 2.5 % Normal (applies to MEDGEN non-numeric ([place] results) Medical Service) Basophils% 1.0 % Normal (applies to MEDGEN non-numeric ([place] results) Medical Service) Neutrophils, 8.8 Above high normal MEDGEN Abs (ANC) x10^3/uL ([facility] Service) Lymphocytes, 2.6 Normal (applies to MEDGEN Abs x10^3/uL non-numeric ([facility] results) Medical Service) Monocytes, Abs 0.6 Normal (applies to MEDGEN x10^3/uL non-numeric ([place] results) Medical Service) Eosinophils, 0.3 Normal (applies to MEDGEN Abs x10^3/uL non-numeric ([place] results) Medical Service) Basophils, Abs 0.1 Normal (applies to MEDGEN x10^3/uL non-numeric ([place] results) Medical Service) RDW-CV 13.9 % Normal (applies to MEDGEN non-numeric ([place] results) Medical Service) Platelets 349 Normal (applies to MEDGEN [#/area] in x10^3/uL non-numeric ([place] Blood by results) Medical Microscopy Service) high power field MPV 10.9 fL Normal (applies to MEDGEN non-numeric ([place] results) Medical Service) ID Date Data Source [id number] 01/12/2017 12:00:00 AM EDT [facility] ([facility]) Name Value Range Interpretation Code Description Data Camryn rce(s) Supporting Document(s ) Urine <0.7 Normal (applies to MEDGEN Albumin, non-numeric ([place] Random results) Medical Service) ID Date Data Source [id number] 01/12/2017 12:00:00 AM EDT [facility] ([facility]) Name Value Range Interpretation Description Data Sup porting Code Source(s) Document(s ) Folate 3.36 ng/mL Below low normal MEDGEN [Interpreta ([place] tion] in Medical Blood Service) ID Date Data Source [id number] 01/12/2017 12:00:00 AM EDT MEDGEN ([facility] [facility]) Name Value Range Interpretation Description Data Sup porting Code Source(s) Document(s ) Vitamin B12 659 pg/mL Normal (applies to MEDGEN non-numeric ([place] results) Medical Service) ID Date Data Source [id number] 01/12/2017 12:00:00 AM EDT MEDGEN ([email or web address] [facility]) Name Value Range Interpretation Description Data Sup porting Code Source(s) Document(s ) Vitamin D 14.1 Below low normal [facility] (25 hydroxy) ng/mL ([email or web address]) ID Date Data Source [id number] 01/12/2017 12:00:00 AM EDT MED[facility] ([facility]) Name Value Range Interpretation Code Description Data Camryn rce(s) Supporting Document(s ) Uric Acid 3.8 mg/dL Normal (applies to MEDGEN non-numeric ([facility] results) Medical Service) ID Date Data Source [id number] 01/12/2017 12:00:00 AM EDT MEDGEN ([email or web address]) Name Value Range Interpretation Description Data Sup porting Code Source(s) Document(s ) Glucose mean 263 mg/dL Normal (applies to MEDGEN value non-numeric ([place] [Moles/volume] results) Medical in Blood Service) Estimated from glycated hemoglobin ID Date Data Source [id number] 01/12/2017 12:00:00 AM EDT MEDGEN ([facility]) Name Value Range Interpretation Code Description Data Supporting Source(s) Document(s ) GlycoHgb 10.8 % Above high normal MEDGEN (A1c) ([facility]) ID Date Data Source [id number] 01/12/2017 12:00:00 AM EDT MEDGEN ([facility]) Name Value Range Interpretation Description Data Sup porting Code Source(s) Document(s ) Glucose 343 Above upper panic MEDGEN [Mass/volume] in mg/dL limits ([facility] Urine collected Medical for unspecified Service) duration Urea nitrogen 7 mg/dL Normal (applies MEDGEN [Moles/volume] to non-numeric ([facility] in Blood results) Medical Service) Creatinine 0.86 Normal (applies MEDGEN [Interpretation] mg/dL to non-numeric ([place] in Urine results) Medical Service) eGFR 82 Normal (applies MEDGEN (calculation) to non-numeric ([place] for results) Medical -Peruvian Service) s eGFR 68 Normal (applies MEDGEN (calculation) to non-numeric ([facility] results) Medical Service) BUN/Creat Ratio 8.1 Normal (applies MEDGEN to non-numeric ([facility] results) Medical Service) Sodium 138 Normal (applies MEDGEN [Moles/volume] mmol/L to non-numeric ([facility] in Serum, Plasma results) Medical or Blood Service) Potassium 4.0 Normal (applies MEDGEN [Mass/volume] [facility]L [facility]) Chloride 98 Normal (applies MEDGEN [Moles/volume] mmol/L to non-numeric ([place] in Serum, Plasma results) Medical or Blood Service) Carbon dioxide 29 Normal (applies MEDGEN [VFr/PPres] in mmol/L to non-numeric ([facility] Gas delivery results) Medical system Service) Calcium 9.8 Normal (applies MEDGEN [Moles/volume] mg/dL to non-numeric ([place] in Urine results) Medical collected for Service) unspecified duration Protein, Total 7.6 g/dL Normal (applies MEDGEN to non-numeric ([facility] results) Medical Service) Microalbumin 3.7 g/dL Normal (applies MEDGEN [Mass/time] in to non-numeric ([facility] Urine collected results) Medical for unspecified Service) duration Globulin 3.9 g/dL Above high normal MEDGEN [Mass/time] in ([facility] 24 hour Urine Medical Service) A/G Ratio 0.9 Normal (applies MEDGEN Ratio to non-numeric ([facility] results) Medical Service) Alkaline 108 IU/L Normal (applies MEDGEN phosphatase to non-numeric ([place] [Enzymatic results) Medical activity/volume] Service) in Serum, Plasma or Blood AST 11 IU/L Normal (applies MEDGEN to non-numeric ([facility] results) Medical Service) ALT 13 IU/L Normal (applies MEDGEN to non-numeric ([facility] results) Medical Service) Bilirubin, Total 0.2 Normal (applies MEDGEN mg/dL to non-numeric ([facility] results) Medical Service) ID Date Data Source [id number] 01/12/2017 12:00:00 AM EDT MEDGEN ([facility] Medical Service) Name Value Range Interpretation Description Data Sup porting Code Source(s) Document(s ) Thyroxine (T4) 10.3 Normal (applies to MEDGEN ug/dL non-numeric ([facility] results) Medical Service) T3-Uptake 31.8 % Normal (applies to MEDGEN non-numeric ([facility] results) Medical Service) Free Thyroxine 3.3 ng/dL Normal (applies to MEDGEN Index (FTI) non-numeric ([facility] results) Medical Service) TSH 3rd 4.22 Normal (applies to MEDGEN Generation uIU/mL non-numeric ([facility] Ultra results) Medical Service) ID Date Data Source [id number] 09/20/2016 12:00:00 AM EST MEDGEN ([facility]) Name Value Range Interpretation Description Data Sup porting Code Source(s) Document(s ) HIV Nonreactive Normal (applies to MEDGEN AG/AB, non-numeric ([facility] 4TH GEN results) Medical Service) ID Date Data Source [id number] 09/20/2016 12:00:00 AM EST MEDGEN ([facility]) Name Value Range Interpretation Description Data Sup porting Code Source(s) Document(s ) MICROALBUMIN 1.1 mg/dL Normal (applies MEDGEN to non-numeric ([facility] results) Medical Service) MICROALBUMIN:CR 5 mcg/mg Normal (applies MEDGEN RATIO Creat to non-numeric ([facility] results) Medical Service) CREATININE, 198 mg/dL Normal (applies MEDGEN RANDOM URINE to non-numeric ([facility] results) Medical Service) Color of Yellow Normal (applies MEDGEN Peritoneal to non-numeric ([facility] dialysis fluid results) Medical Service) Appearance of Cloudy Abnormal MEDGEN Abdomen (applies to ([facility] non-numeric Medical results) Service) GLUCOSE,QL Abnormal MEDGEN (applies to ([facility] non-numeric Medical results) Service) BILIRUBIN,URINE Negative Normal (applies MEDGEN to non-numeric ([facility] results) Medical Service) Ketones Negative Normal (applies MEDGEN [Presence] in to non-numeric ([facility] Blood by Tablet results) Medical Service) Specific gravity 1.030 Normal (applies MEDGEN of Pericardial to non-numeric ([facility] fluid by results) Medical Refractometry Service) Blood [Presence] Negative Normal (applies MEDGEN in Urine by to non-numeric ([facility] Visual results) Medical Service) pH of Lower 6.0 Normal (applies MEDGEN respiratory to non-numeric ([facility] specimen results) Medical Service) Nitrite Negative Normal (applies MEDGEN [Presence] in to non-numeric ([facility] Urine by Test results) Medical strip Service) PROTEIN,TOTAL,QL Negative Normal (applies MEDGEN to non-numeric ([facility] results) Medical Service) Leukocyte Negative Normal (applies MEDGEN esterase to non-numeric ([place] [Presence] in results) Medical Body fluid by Service) Automated test strip SQUAMOUS 10-20 Above high MEDGEN EPITHELIAL CELLS normal ([facility] Medical Service) WBC 0-5 Normal (applies MEDGEN to non-numeric ([facility] results) Medical Service) Bacteria Few(10-25) Above high MEDGEN [Presence] in normal ([facility] Prostatic fluid Medical by Light Service) microscopy RBC None Seen Normal (applies MEDGEN to non-numeric ([facility] results) Medical Service) Hyaline casts None Seen Normal (applies MEDGEN [#/area] in to non-numeric ([facility] Urine sediment results) Medical by Automated Service) count ID Date Data Source [id number] 09/20/2016 12:00:00 AM EST MEDGEN ([facility] Medical Service) Name Value Range Interpretation Description Data Sup porting Code Source(s) Document(s ) VITAMIN 15 ng/mL Below low normal MEDGEN D,25-OH,TOTA ([facility] Medical Service) ID Date Data Source [id number] 09/20/2016 12:00:00 AM EST MEDGEN ([facility] Medical Service) Name Value Range Interpretation Description Data Sup porting Code Source(s) Document(s ) Hemoglobin 10.1 % of Above high normal MEDGEN A1c/Hemoglobin total Hgb ([facility] .total in Medical Blood Service) ID Date Data Source [id number] 09/20/2016 12:00:00 AM EST MEDGEN ([facility] Medical Service) Name Value Range Interpretation Description Data Sup porting Code Source(s) Document(s ) C.TRACHOMA Not Detected Normal (applies to MEDGEN TIS non-numeric ([facility] RNA,TMA results) Medical Service) Repair of Not Detected Normal (applies to MEDGEN tongue non-numeric ([facility] (procedure results) Medical ) Service) ID Date Data Source [id number] 09/20/2016 12:00:00 AM EST MEDGEN ([facility] Service) Name Value Range Interpretation Description Data Sup porting Code Source(s) Document(s ) RPR SCREEN Nonreactive Normal (applies to MEDGEN non-numeric ([facility] results) Medical Service) ID Date Data Source [id number] 09/20/2016 12:00:00 AM EST MEDGEN ([facility]) Name Value Range Interpretation Description Data Sup porting Code Source(s) Document(s ) HEPATITIS A Nonreactive Normal (applies MEDGEN AB (IGM) to non-numeric ([facility] results) Medical Service) HB S AG Non Reactive Normal (applies MEDGEN to non-numeric ([facility] results) Medical Service) HB CORE AB Non Reactive Normal (applies MEDGEN (IGM) to non-numeric ([facility] results) Medical Service) HCV RATIO 0.07 Ratio Normal (applies MEDGEN to non-numeric ([facility] results) Medical Service) HEPATITIS C Non Reactive Normal (applies MEDGEN AB to non-numeric ([facility] results) Medical Service) ID Date Data Source [id number] 09/20/2016 12:00:00 AM EST MEDGEN ([facility]) Name Value Range Interpretation Code Description Data Camryn rce(s) Supporting Document(s ) FOLATE,SE 5.0 ng/mL Below low normal MEDGEN RUM ([facility] Medical Service) ID Date Data Source [id number] 09/20/2016 12:00:00 AM EST MEDGEN ([facility]) Name Value Range Interpretation Description Data Sup porting Code Source(s) Document(s ) VITAMIN B12 453 pg/mL Normal (applies to MEDGEN non-numeric ([facility] results) Medical Service) ID Date Data Source [id number] 09/20/2016 12:00:00 AM EST MEDGEN ([facility]) Name Value Range Interpretation Description Data Sup porting Code Source(s) Document(s ) WBC 12.6 Above high normal MEDGEN Thous/mc ([facility] L Medical Service) RBC 4.40 Normal (applies MEDGEN Mill/mcL to non-numeric ([facility] results) Medical Service) Hemoglobin 12.3 Normal (applies MEDGEN [Mass/volume] in g/dL to non-numeric ([place] [facility] Mixed venous results) Medical blood by Service) Oximetry Hematocrit [Pure 37.3 % Normal (applies MEDGEN volume fraction] to non-numeric ([place] [facility] of Blood by results) Medical Automated count Service) MCV 84.6 fL Normal (applies MEDGEN to non-numeric ([facility] results) Medical Service) MCH 27.9 pg Normal (applies MEDGEN to non-numeric ([facility] results) Medical Service) MCHC 33.0 Normal (applies MEDGEN g/dL to non-numeric ([facility] results) Medical Service) RDW 13.8 % Normal (applies MEDGEN to non-numeric ([facility] results) Medical Service) PLATELET COUNT 354 Normal (applies MEDGEN Thous/mc to non-numeric ([facility] L results) Medical Service) TOTAL 72.5 % Normal (applies MEDGEN NEUTROPHILS,% to non-numeric ([facility] results) Medical Service) MPV 8.8 fL Normal (applies MEDGEN to non-numeric ([facility] results) Medical Service) TOTAL 19.6 % Normal (applies MEDGEN LYMPHOCYTES,% to non-numeric ([facility] results) Medical Service) MONOCYTES,% 4.8 % Normal (applies MEDGEN to non-numeric ([facility] results) Medical Service) EOSINOPHILS,% 2.7 % Normal (applies MEDGEN to non-numeric ([facility] results) Medical Service) BASOPHILS,% 0.4 % Normal (applies MEDGEN to non-numeric ([facility] results) Medical Service) NEUTROPHILS,ABSO 9135 Above high normal MEDGE N LUTE Cells/mc ([facility] Medical Service) LYMPHOCYTES,ABSO 2470 Normal (applies MEDGEN LUTE Cells/mc to non-numeric ([facility] L results) Medical Service) MONOCYTES,ABSOLU 605 Normal (applies MEDGEN TE Cells/mc to non-numeric ([facility] L results) Medical Service) EOSINOPHILS,ABSO 340 Normal (applies MEDGEN LUTE Cells/mc to non-numeric ([facility] L results) Medical Service) BASOPHILS,ABSOLU 50 Normal (applies MEDGEN TE Cells/mc to non-numeric ([facility] L results) Medical Service) DIFFERENTIAL Normal (applies MEDGEN to non-numeric ([facility] results) Medical Service) ID Date Data Source [id number] 09/20/2016 12:00:00 AM EST MEDGEN ([facility]) Name Value Range Interpretation Description Data Sup porting Code Source(s) Document(s ) CHOLESTEROL,TOTA 216 Above high normal MEDGE N L mg/dL ([facility]) HDL CHOLESTEROL 38 mg/dL Below low normal MEDGEN ([facility]) CHOLESTEROL/HDL 5.7 Above high normal MEDGEN RATIO ([facility]) LDL CHOL, 153 Above high normal MEDGEN CALCULATED mg/dL ([facility]) TRIGLYCERIDES 124 Normal (applies MEDGEN mg/dL to non-numeric ([facility] results) Medical Service) NON HDL 178 Above high normal MEDGEN CHOLESTEROL mg/dL ([facility] Medical Service) ID Date Data Source [id number] 09/20/2016 12:00:00 AM EST MEDGEN ([facility]) Name Value Range Interpretation Code Description Data Camryn rce(s) Supporting Document(s ) URIC ACID 3.7 mg/dL Normal (applies to MEDGEN non-numeric ([facility] results) Medical Service) ID Date Data Source [id number] 09/20/2016 12:00:00 AM EST MEDGEN ([facility]) Name Value Range Interpretation Description Data Sup porting Code Source(s) Document(s ) Glucose 310 Above high normal MEDGEN [Mass/volume] in mg/dL ([facility] Urine collected Medical for unspecified Service) duration Sodium 138 Normal (applies MEDGEN [Moles/volume] mmol/L to non-numeric ([facility] in Serum, Plasma results) Medical or Blood Service) Potassium 4.2 Normal (applies MEDGEN [Mass/volume] in mmol/L to non-numeric ([place] [facility] Blood results) Medical Service) Chloride 100 Normal (applies MEDGEN [Moles/volume] mmol/L to non-numeric ([facility] in Serum, Plasma results) Medical or Blood Service) Carbon dioxide 28 Normal (applies MEDGEN [VFr/PPres] in mmol/L to non-numeric ([facility] Gas delivery results) Medical system Service) Urea nitrogen 8 mg/dL Normal (applies MEDGEN [Moles/volume] to non-numeric ([facility] in Blood results) Medical Service) Creatinine 0.89 Normal (applies MEDGEN [Interpretation] mg/dL to non-numeric ([place] in Urine results) Medical Service) Calcium 9.0 Normal (applies MEDGEN [Moles/volume] mg/dL to non-numeric ([facility] in Urine results) Medical collected for Service) unspecified duration BUN/CREATININE NOTE Normal (applies MEDGEN RATIO to non-numeric ([facility] results) Medical Service) PROTEIN, TOTAL 7.0 g/dL Normal (applies MEDGEN to non-numeric ([facility] results) Medical Service) Microalbumin 3.7 g/dL Normal (applies MEDGEN [Mass/time] in to non-numeric ([facility] Urine collected results) Medical for unspecified Service) duration Globulin 3.3 g/dL Normal (applies MEDGEN [Mass/time] in (calc) to non-numeric ([facility] 24 hour Urine results) Medical Service) ALBUMIN/GLOBULIN 1.1 Normal (applies MEDGEN RATIO (calc) to non-numeric ([facility] results) Medical Service) BILIRUBIN,TOTAL 0.2 Normal (applies MEDGEN mg/dL to non-numeric ([facility] results) Medical Service) Alkaline 114 U/L Normal (applies MEDGEN phosphatase to non-numeric ([facility] [Enzymatic results) Medical activity/volume] Service) in Serum, Plasma or Blood AST 13 U/L Normal (applies MEDGEN to non-numeric ([facility] results) Medical Service) ALT 14 U/L Normal (applies MEDGEN to non-numeric ([facility] results) Medical Service) EGFR NON AFR 72 Normal (applies MEDGEN BRAZILIAN mL/min/1 to non-numeric ([facility] .73m2 results) Medical Service) EGFR 83 Normal (applies MEDGEN BRAZILIAN mL/min/1 to non-numeric ([facility] .73m2 results) Medical Service) ID Date Data Source [id number] 09/20/2016 12:00:00 AM EST MEDGEN ([facility] Medical Service) Name Value Range Interpretation Description Data Sup porting Code Source(s) Document(s ) TSH 1.86 mIU/L Normal (applies to MEDGEN non-numeric ([facility] results) Medical Service) T4 7.2 mcg/dL Normal (applies to MEDGEN (THYROXINE) non-numeric ([facility] , TOTAL results) Medical Service) T3 UPTAKE 28 % Normal (applies to MEDGEN non-numeric ([facility] results) Medical Service) FREE T4 2.0 Normal (applies to MEDGEN INDEX (T7) non-numeric ([facility] results) Medical Service) T3,TOTAL 104 ng/dL Normal (applies to MEDGEN non-numeric ([facility] results) Medical Service) ID Date Data Source [id number] 09/20/2016 12:00:00 AM EST MEDGEN ([facility] Medical Service) Name Value Range Interpretation Description Data Sup porting Code Source(s) Document(s ) HIV Nonreactive Normal (applies to MEDGEN AG/AB, non-numeric ([facility] 4TH GEN results) Medical Service) ID Date Data Source [id number] 09/20/2016 12:00:00 AM EST MEDGEN ([facility] Medical Service) Name Value Range Interpretation Description Data Sup porting Code Source(s) Document(s ) MICROALBUMIN 1.1 mg/dL Normal (applies MEDGEN to non-numeric ([facility] results) Medical Service) MICROALBUMIN:CR 5 mcg/mg Normal (applies MEDGEN RATIO Creat to non-numeric ([facility] results) Medical Service) CREATININE, 198 mg/dL Normal (applies MEDGEN RANDOM URINE to non-numeric ([facility] results) Medical Service) Color of Yellow Normal (applies MEDGEN Peritoneal to non-numeric ([facility] dialysis fluid results) Medical Service) Appearance of Cloudy Abnormal MEDGEN Abdomen (applies to ([facility] non-numeric Medical results) Service) GLUCOSE,QL Abnormal MEDGEN (applies to ([facility] non-numeric Medical results) Service) BILIRUBIN,URINE Negative Normal (applies MEDGEN to non-numeric ([facility] results) Medical Service) Ketones Negative Normal (applies MEDGEN [Presence] in to non-numeric ([facility] Blood by Tablet results) Medical Service) Specific gravity 1.030 Normal (applies MEDGEN of Pericardial to non-numeric ([facility] fluid by results) Medical Refractometry Service) Blood [Presence] Negative Normal (applies MEDGEN in Urine by to non-numeric ([facility] Visual results) Medical Service) pH of Lower 6.0 Normal (applies MEDGEN respiratory to non-numeric ([facility] specimen results) Medical Service) PROTEIN,TOTAL,QL Negative Normal (applies MEDGEN to non-numeric ([facility] results) Medical Service) Nitrite Negative Normal (applies MEDGEN [Presence] in to non-numeric ([facility] Urine by Test results) Medical strip Service) Leukocyte Negative Normal (applies MEDGEN esterase to non-numeric ([facility] [Presence] in results) Medical Body fluid by Service) Automated test strip SQUAMOUS 10-20 Above high MEDGEN EPITHELIAL CELLS normal ([facility] Medical Service) WBC 0-5 Normal (applies MEDGEN to non-numeric ([facility] results) Medical Service) Bacteria Few(10-25) Above high MEDGEN [Presence] in normal ([facility] Prostatic fluid Medical by Light Service) microscopy RBC None Seen Normal (applies MEDGEN to non-numeric ([facility] results) Medical Service) Hyaline casts None Seen Normal (applies MEDGEN [#/area] in to non-numeric ([facility] Urine sediment results) Medical by Automated Service) count ID Date Data Source [id number] 09/20/2016 12:00:00 AM EST MEDGEN ([facility] Medical Service) Name Value Range Interpretation Description Data Sup porting Code Source(s) Document(s ) VITAMIN 15 ng/mL Below low normal MEDGEN D,25-OH,TOTA ([facility] Medical Service) ID Date Data Source [id number] 09/20/2016 12:00:00 AM EST MEDGEN ([facility]) Name Value Range Interpretation Description Data Sup porting Code Source(s) Document(s ) Hemoglobin 10.1 % of Above high normal MEDGEN A1c/Hemoglobin total Hgb ([facility] .total in Medical Blood Service) ID Date Data Source [id number] 09/20/2016 12:00:00 AM EST MEDGEN ([facility]) Name Value Range Interpretation Description Data Sup porting Code Source(s) Document(s ) C.TRACHOMA Not Detected Normal (applies to MEDGEN TIS non-numeric ([facility] RNA,TMA results) Medical Service) Repair of Not Detected Normal (applies to MEDGEN tongue non-numeric ([facility] (procedure results) Medical ) Service) ID Date Data Source [id number] 09/20/2016 12:00:00 AM EST MEDGEN ([facility]) Name Value Range Interpretation Description Data Sup porting Code Source(s) Document(s ) RPR SCREEN Nonreactive Normal (applies to MEDGEN non-numeric ([facility] results) Medical Service) ID Date Data Source [id number] 09/20/2016 12:00:00 AM EST MEDGEN ([facility]) Name Value Range Interpretation Description Data Sup porting Code Source(s) Document(s ) HEPATITIS A Nonreactive Normal (applies MEDGEN AB (IGM) to non-numeric ([facility] results) Medical Service) HB S AG Non Reactive Normal (applies MEDGEN to non-numeric ([facility] results) Medical Service) HB CORE AB Non Reactive Normal (applies MEDGEN (IGM) to non-numeric ([facility] results) Medical Service) HCV RATIO 0.07 Ratio Normal (applies MEDGEN to non-numeric ([facility] results) Medical Service) HEPATITIS C Non Reactive Normal (applies MEDGEN AB to non-numeric ([facility] results) Medical Service) ID Date Data Source [id number] 09/20/2016 12:00:00 AM EST MEDGEN ([facility]) Name Value Range Interpretation Code Description Data Camryn rce(s) Supporting Document(s ) FOLATE,SE 5.0 ng/mL Below low normal MEDGEN RUM ([facility] Service) ID Date Data Source [id number] 09/20/2016 12:00:00 AM EST MEDGEN ([facility]) Name Value Range Interpretation Description Data Sup porting Code Source(s) Document(s ) VITAMIN B12 453 pg/mL Normal (applies to MEDGEN non-numeric ([facility] results) Medical Service) ID Date Data Source [id number] 09/20/2016 12:00:00 AM EST MEDGEN ([facility]) Name Value Range Interpretation Description Data Sup porting Code Source(s) Document(s ) WBC 12.6 Above high normal MEDGEN Thous/mc ([facility] L Medical Service) RBC 4.40 Normal (applies MEDGEN Mill/mcL to non-numeric ([facility] results) Medical Service) Hemoglobin 12.3 Normal (applies MEDGEN [Mass/volume] [facility] g[facility]dL [facility] Medical blood by Service) Oximetry Hematocrit [Pure 37.3 % Normal (applies MEDGEN volume fraction] to non-numeric [facility] Medical Automated count Service) MCV 84.6 fL Normal (applies MEDGEN to non-numeric ([facility] results) Medical Service) MCH 27.9 pg Normal (applies MEDGEN to non-numeric ([facility] results) Medical Service) MCHC 33.0 Normal (applies MEDGEN g/dL to non-numeric ([facility] results) Medical Service) RDW 13.8 % Normal (applies MEDGEN to non-numeric ([facility] results) Medical Service) PLATELET COUNT 354 Normal (applies MEDGEN Thous/mc to non-numeric ([facility] L results) Medical Service) MPV 8.8 fL Normal (applies MEDGEN to non-numeric ([facility] results) Medical Service) TOTAL 72.5 % Normal (applies MEDGEN NEUTROPHILS,% to non-numeric ([facility] results) Medical Service) TOTAL 19.6 % Normal (applies MEDGEN LYMPHOCYTES,% to non-numeric ([facility] results) Medical Service) MONOCYTES,% 4.8 % Normal (applies MEDGEN to non-numeric ([facility] results) Medical Service) EOSINOPHILS,% 2.7 % Normal (applies MEDGEN to non-numeric ([facility] results) Medical Service) BASOPHILS,% 0.4 % Normal (applies MEDGEN to non-numeric ([facility] results) Medical Service) NEUTROPHILS,ABSO 9135 Above high normal MEDGE N LUTE Cells/mc ([facility] L Medical Service) LYMPHOCYTES,ABSO 2470 Normal (applies MEDGEN LUTE Cells/mc to non-numeric ([facility] L results) Medical Service) MONOCYTES,ABSOLU 605 Normal (applies MEDGEN TE Cells/mc to non-numeric ([facility] L results) Medical Service) EOSINOPHILS,ABSO 340 Normal (applies MEDGEN LUTE Cells/mc to non-numeric ([facility] L results) Medical Service) BASOPHILS,ABSOLU 50 Normal (applies MEDGEN TE Cells/mc to non-numeric ([facility] L results) Medical Service) DIFFERENTIAL Normal (applies MEDGEN to non-numeric ([facility] results) Medical Service) ID Date Data Source [id number] 09/20/2016 12:00:00 AM EST MEDGEN ([facility]) Name Value Range Interpretation Description Data Sup porting Code Source(s) Document(s ) CHOLESTEROL,TOTA 216 Above high normal MEDGE N L mg/dL ([facility] Service) HDL CHOLESTEROL 38 mg/dL Below low normal MEDGEN ([facility] Service) CHOLESTEROL/HDL 5.7 Above high normal MEDGEN RATIO ([facility] Service) LDL CHOL, 153 Above high normal MEDGEN CALCULATED mg/dL ([facility] Service) TRIGLYCERIDES 124 Normal (applies MEDGEN mg/dL to non-numeric ([facility] results) Medical Service) NON HDL 178 Above high normal MEDGEN CHOLESTEROL mg/dL ([facility] Medical Service) ID Date Data Source [id number] 09/20/2016 12:00:00 AM EST MED[facility] ([facility] [facility]) Name Value Range Interpretation Code Description Data Camryn rce(s) Supporting Document(s ) URIC ACID 3.7 mg/dL Normal (applies to MEDGEN non-numeric ([place] results) Medical Service) ID Date Data Source [id number] 09/20/2016 12:00:00 AM EST MEDGEN ([facility]) Name Value Range Interpretation Description Data Sup porting Code Source(s) Document(s ) Glucose 310 Above high normal MEDGEN [Mass/volume] in mg/dL ([place] Urine collected Medical for unspecified Service) duration Sodium 138 Normal (applies MEDGEN [Moles/volume] mmol/L to non-numeric ([place] in Serum, Plasma results) Medical or Blood Service) Potassium 4.2 Normal (applies MEDGEN [Mass/volume] in mmol/L to non-numeric ([place] Blood results) Medical Service) Chloride 100 Normal (applies MEDGEN [Moles/volume] mmol/L to non-numeric ([place] in Serum, Plasma results) Medical or Blood Service) Carbon dioxide 28 Normal (applies MEDGEN [VFr/PPres] in mmol/L to non-numeric ([place] Gas delivery results) Medical system Service) Urea nitrogen 8 mg/dL Normal (applies MEDGEN [Moles/volume] to non-numeric ([place] in Blood results) Medical Service) Creatinine 0.89 Normal (applies MEDGEN [Interpretation] mg/dL to non-numeric ([place] in Urine results) Medical Service) BUN/CREATININE NOTE Normal (applies MEDGEN RATIO to non-numeric ([place] results) Medical Service) Calcium 9.0 Normal (applies MEDGEN [Moles/volume] mg/dL to non-numeric ([place] in Urine results) Medical collected for Service) unspecified duration PROTEIN, TOTAL 7.0 g/dL Normal (applies MEDGEN to non-numeric ([place] results) Medical Service) Microalbumin 3.7 g/dL Normal (applies MEDGEN [Mass/time] in to non-numeric ([place] Urine collected results) Medical for unspecified Service) duration Globulin 3.3 g/dL Normal (applies MEDGEN [Mass/time] in (calc) to non-numeric ([place] 24 hour Urine results) Medical Service) ALBUMIN/GLOBULIN 1.1 Normal (applies MEDGEN RATIO (calc) to non-numeric ([place] results) Medical Service) BILIRUBIN,TOTAL 0.2 Normal (applies MEDGEN mg/dL to non-numeric ([place] results) Medical Service) Alkaline 114 U/L Normal (applies MEDGEN phosphatase to non-numeric ([place] [Enzymatic results) Medical activity/volume] Service) in Serum, Plasma or Blood AST 13 U/L Normal (applies MEDGEN to non-numeric ([place] results) Medical Service) ALT 14 U/L Normal (applies MEDGEN to non-numeric ([place] results) Medical Service) EGFR NON AFR 72 Normal (applies MEDGEN BRAZILIAN mL/min/1 to non-numeric ([place] .73m2 results) Medical Service) EGFR 83 Normal (applies MEDGEN BRAZILIAN mL/min/1 to non-numeric ([place] .73m2 results) Medical Service) ID Date Data Source [id number] 09/20/2016 12:00:00 AM EST MEDGEN ([facility]) Name Value Range Interpretation Description Data Sup porting Code Source(s) Document(s ) TSH 1.86 mIU/L Normal (applies to MEDGEN non-numeric ([place] results) Medical Service) T4 7.2 mcg/dL Normal (applies to MEDGEN (THYROXINE) non-numeric ([place] , TOTAL results) Medical Service) T3 UPTAKE 28 % Normal (applies to MEDGEN non-numeric ([place] results) Medical Service) FREE T4 2.0 Normal (applies to MEDGEN INDEX (T7) non-numeric ([place] results) Medical Service) T3,TOTAL 104 ng/dL Normal (applies to MEDGEN non-numeric ([place] results) Medical Service) Procedure Social History Code Duration Value Status Description Data Source(s ) Caffeine Use 04/17/2020 completed [facility]GEN [facility] [place] Sm[facility] 04/17/2020 Unknown if ever completed Unknown if ever NEXT GEN ([facility] [place] Smoking 04/13/2020 no tob completed no tob MEDGEN ([place] 12:00:00 AM [facility] Servi ce) EDT Smoking 04/13/2020 Never smoked completed Never smoked [facility] ([place] 12:00:00 AM [facility] Servi ce) EDT Smoking 03/31/2020 no tob completed no tob [facility] ([place] 12:00:00 AM Medical Servi ce) EDT Smoking 03/31/2020 Never smoked completed Never smoked [facility] ([place] 12:00:00 AM [facility] Servi ce) EDT Caffeine Use 03/20/2020 completed NEXTGEN ([facility] [place] Smoking 07/20/2019 Denies Ever completed Denies Ever [place] [facility] 12:[facility]oked [facility] EST Smoking 07/20/2019 Denies Ever completed Denies Ever [place] 12:[facility]:00 PM Smoked Smoked [facility] Cent[facility] EST Smoking 07/20/2019 Denies Ever completed Denies Ever [place] 11:35:00 AM Smoked Smoked Medical Cente r EST Smoking 07/23/2012 Never smoked completed Never smoked OLIVIA ( [facility] 04:24:37 PM tobacco (finding) tobacco Guy EST (finding) [facility]) Smoking Unknown if ever completed Unknown if ever Amarilis Vaughan smoked smoked Medical Center Alcohol Use completed NEXTGEN (Amarilis Vaughan [facility]) Assertion Exercise history completed Exercise OLIVIA ([facility] finding (finding) history finding Ve rnon ([facility]) Assertion Finding relating completed Finding OLIVIA ([facility] to drug misuse relating to [place] behavior drug misuse [facility] ([facility] behavior [facility]) (finding) Assertion Smoker (finding) completed Smoker OLIVIA ([facility] ([facility]) [facility]) Assertion Dietary intake completed Dietary intake [place] A[place] ([facility] finding ([facility]) finding [place] ([facility]) Assertion social history completed OLIVIA ( [facility] unchanged [facility]) Assertion Irregular meal completed Irregular meal [place] AY ([facility] frequency frequency [place] ([facility]) ([facility]) Assertion Current drinker completed Current drinker GREE NWAY ([facility] of alcohol of alcohol [place] ([facility]) ([facility]) Assertion Inadequate food completed Inadequate food G[place] NWAY ([facility] diet ([facility]) diet ([facility]) [facility]) Assertion Tobacco user completed Tobacco user OLIVIA ( [facility] ([facility]) ([facility]) [facility]) Assertion Excessive dietary completed Excessive GREEN Y ([facility] intake of fat dietary intake [place] ([facility]) of fat [facility]) Assertion meals taken at completed OLIVIA ( [facility] home (___ [place] times/week) [facility] home-[facility] ) Assertion frequent high completed OLIVIA (M ount carbohydrate [place] meals [facility]) Assertion Exercises completed Exercises OLIVIA (Moun t regularly regularly [place] ([facility]) ([facility]) Assertion dietary excesses completed OLIVIA ([facility] juices [facility]) Assertion Eats snacks completed Eats snacks OLIVIA (Mo unt frequently frequently Guy ([facility]) ([facility]) Assertion dietary excesses completed OLIVIA ([facility]) Assertion Excessive dietary completed Excessive [place] Y ([facility] caloric intake dietary caloric Ver n (finding) intake [facility] ([facility]) Assertion Excessive dietary completed Excessive [place] Y ([facility] intake of fat dietary intake Guy ([facility]) of fat [facility]) Assertion Eats junk food ++ completed Eats junk food GRE ENWAY ([facility] (finding) ++ (finding) [facility]) Assertion High fat diet completed High fat diet OLIVIA ([facility] (finding) ([facility]) [facility]) Assertion High fat diet completed High fat diet OLIVIA ([facility] (finding) (finding) [facility]) Assertion High fat diet completed High fat diet OLIVIA ([facility] (finding) (finding) [facility]) Assertion Caffeine user completed Caffeine user OLIVIA ([facility] (finding) (finding) [facility]) Assertion High sugar diet completed High sugar diet GREE NWAY ([facility] (finding) (finding) [facility]) Assertion High sugar diet completed High sugar diet G[place] NW[place] ([facility] (finding) ([facility]) [facility]) Assertion High sodium diet completed High sodium [place] Y ([facility] (finding) diet (finding) [facility]) Assertion High residue diet completed High residue [place] [address] ([facility] ([facility]) diet ([facility]) [facility]) Assertion current diet completed OLIVIA (Mo unt frequency of [place] meals ___ per day [facility]) Assertion current diet completed OLIVIA (Mo unt frequency of Guy meals ___ snacks [facility] per day [facility]) Vital Signs ID Date Data Source UNK Name Value Range Interpretation Code Description Data Source(s) Heart rate 80 /min 80 /min [facility] ([facility]) Respiratory rate 16 /min 16 /min MEDGEN ( [place] [facility]) Body mass index 38 kg/m2 38 kg/m2 MEDGEN ([facility] (BMI) [Ratio] Medical Ser vice) Diastolic blood 80 mm[Hg] 80 mm[Hg] MEDGEN ([facility] pressure Medical Servic e) Systolic blood 140 mm[Hg] 140 mm[Hg] [facility] ([place] pressure [facility]) Body weight 208 lb 208 lb [facility] ([facility]) Body height 62 in 62 in MEDGEN ([facility]) Heart rate 80 /min 80 /min [facility] ([facility] [facility]) Respiratory rate 16 /min 16 /min MEDGEN ( [place] [facility]) Body mass index 38 kg/m2 38 kg/m2 MEDGEN ([facility] (BMI) [Ratio] Medical Ser vice) Diastolic blood 84 mm[Hg] 84 mm[Hg] MEDGEN ([facility] pressure Medical Servic e) Systolic blood 160 mm[Hg] 160 mm[Hg] MED[facility] ([place] pressure [facility]) Body weight 208 lb 208 lb [facility] ([facility]) Body height 62 in 62 in MEDGEN ([facility] way [facility] Servic e) Heart rate 80 /min 80 /min [facility] ([facility] [facility]) Respiratory rate 16 /min 16 /min MEDGEN ( [place] [facility]) Body mass index 38 kg/m2 38 kg/m2 MEDGEN ([facility] (BMI) [Ratio] Medical Ser vice) Diastolic blood 84 mm[Hg] 84 mm[Hg] MEDGEN ([facility] pressure Medical Servic e) Systolic blood 160 mm[Hg] 160 mm[Hg] MEDGEN ([place] pressure [facility]) Body weight 208 lb 208 lb MEDGEN ([facility] way [facility] Serv[facility] e) Body height 62 in 62 in [facility] ([facility]) Heart rate 80 /min 80 /min [facility] ([place] [facility]) Respiratory rate 16 /min 16 /min MEDGEN ( [place] [facility]) Body mass index 36.8 kg/m2 36.8 kg/m2 MEDGEN ([facility] (BMI) [Ratio] Medical Ser vice) Diastolic blood 80 mm[Hg] 80 mm[Hg] MEDGEN ([facility] pressure Medical Servic e) Systolic blood 140 mm[Hg] 140 mm[Hg] MEDGEN ([place] pressure [facility]) Body weight 201 lb 201 lb MEDGEN ([facility] Serv[facility]) Body height 62 in 62 in MEDGEN ([facility] Serv[facility]) Heart rate 80 /min 80 /min [facility] ([place] [facility]) Respiratory rate 16 /min 16 /min MEDGEN ( [place] [facility]) Body mass index 36.8 kg/m2 36.8 kg/m2 MEDGEN ([facility] (BMI) [Ratio] Medical Ser vice) Diastolic blood 80 mm[Hg] 80 mm[Hg] MEDGEN ([facility] pressure Medical Servic e) Systolic blood 140 mm[Hg] 140 mm[Hg] MEDGEN ([place] pressure [facility]) Body weight 201 lb 201 lb [facility] ([facility]) Body height 62 in 62 in MEDGEN ([facility]) Heart rate 80 /min 80 /min [facility] ([place] [facility]) Respiratory rate 16 /min 16 /min MEDGEN ( [place] [facility]) Body mass index 36.4 kg/m2 36.4 kg/m2 MEDGEN ([facility] (BMI) [Ratio] Medical Ser vice) Diastolic blood 70 mm[Hg] 70 mm[Hg] MEDGEN ([facility] pressure Medical Servic e) Systolic blood 141 mm[Hg] 141 mm[Hg] MEDGEN ([place] pressure [facility]) Body weight 199 lb 199 lb MEDGEN ([facility]) Body height 62 in 62 in MEDGEN ([facility] Serv[facility]) Heart rate 80 /min 80 /min [facility] ([place] [facility]) Respiratory rate 16 /min 16 /min MEDGEN ( [facility]) Body mass index 36.4 kg/m2 36.4 kg/m2 MEDGEN ([facility] (BMI) [Ratio] Medical Ser vice) Diastolic blood 70 mm[Hg] 70 mm[Hg] MEDGEN ([facility] pressure Medical Servic e) Systolic blood 141 mm[Hg] 141 mm[Hg] MEDGEN ([place] pressure [facility]) Body weight 199 lb 199 lb MEDGEN ([facility] Serv[facility]) Body height 62 in 62 in MEDGEN ([facility] Servic e) Body mass index 39.5 kg/m2 39.5 kg/m2 MEDGEN ([facility] (BMI) [Ratio] Medical Ser vice) Diastolic blood 70 mm[Hg] 70 mm[Hg] MEDGEN ([facility] pressure Medical Servic e) Systolic blood 124 mm[Hg] 124 mm[Hg] MEDGEN ([place] pressure [facility]) Body weight 216 lb 216 lb [facility] ([facility]) Body height 62 in 62 in MEDGEN ([facility] Servic [facility]) Body mass index 39.5 kg/m2 39.5 kg/m2 MEDGEN ([facility] (BMI) [Ratio] Medical Ser vice) Diastolic blood 70 mm[Hg] 70 mm[Hg] MEDGEN ([facility] pressure Medical Servic e) Systolic blood 124 mm[Hg] 124 mm[Hg] MEDGEN ([place] pressure [facility]) Body weight 216 lb 216 lb [facility] ([facility]) Body height 62 in 62 in [facility] ([facility]) Body mass index 39.5 kg/m2 39.5 kg/m2 MEDGEN ([facility] (BMI) [Ratio] Medical Ser vice) Diastolic blood 70 mm[Hg] 70 mm[Hg] MEDGEN ([facility] pressure Medical Servic e) Systolic blood 130 mm[Hg] 130 mm[Hg] MEDGEN ([place] pressure [facility]) Body weight 216 lb 216 lb [facility] ([facility]) Body height 62 in 62 in [facility] ([facility]) Body mass index 39.5 kg/m2 39.5 kg/m2 MEDGEN ([facility] (BMI) [Ratio] Medical Ser vice) Diastolic blood 70 mm[Hg] 70 mm[Hg] MEDGEN ([facility] pressure Medical Servic e) Systolic blood 130 mm[Hg] 130 mm[Hg] MEDGEN ([place] pressure [facility]) Body weight 216 lb 216 lb [facility] ([facility]) Body height 62 in 62 in [facility] ([facility]) Body mass index 39.5 kg/m2 39.5 kg/m2 MEDGEN ([facility] (BMI) [Ratio] Medical Ser vice) Diastolic blood 70 mm[Hg] 70 mm[Hg] MEDGEN ([facility] pressure Medical Servic e) Systolic blood 122 mm[Hg] 122 mm[Hg] MEDGEN ([place] pressure [facility]) Body weight 216 lb 216 lb [facility] ([facility]) Body height 62 in 62 in [facility] ([facility]) Body mass index 39.5 kg/m2 39.5 kg/m2 MEDGEN ([facility] (BMI) [Ratio] Medical Ser vice) Diastolic blood 70 mm[Hg] 70 mm[Hg] MEDGEN ([facility] pressure Medical Servic e) Systolic blood 122 mm[Hg] 122 mm[Hg] MEDGEN ([place] pressure [facility]) Body weight 216 lb 216 lb [facility] ([facility]) Body height 62 in 62 in [facility] ([facility]) Body mass index 39.5 kg/m2 39.5 kg/m2 MEDGEN ([facility] (BMI) [Ratio] Medical Ser vice) Diastolic blood 80 mm[Hg] 80 mm[Hg] MEDGEN ([facility] pressure Medical Servic e) Systolic blood 120 mm[Hg] 120 mm[Hg] MED[facility] ([place] pressure [facility]) Body weight 216 lb 216 lb [facility] ([facility]) Body height 62 in 62 in [facility] ([facility]) Body mass index 39.5 kg/m2 39.5 kg/m2 MEDGEN ([facility] (BMI) [Ratio] Medical Ser vice) Diastolic blood 80 mm[Hg] 80 mm[Hg] MEDGEN ([facility] pressure Medical Servic e) Systolic blood 120 mm[Hg] 120 mm[Hg] MEDGEN ([place] pressure [facility]) Body weight 216 lb 216 lb [facility] ([facility]) Body height 62 in 62 in [facility] ([facility]) Body mass index 39.5 kg/m2 39.5 kg/m2 MEDGEN ([facility] (BMI) [Ratio] Medical Ser vice) Diastolic blood 80 mm[Hg] 80 mm[Hg] MEDGEN ([facility] pressure Medical Servic e) Systolic blood 140 mm[Hg] 140 mm[Hg] MEDGEN ([place] pressure [facility]) Body weight 216 lb 216 lb [facility] ([facility]) Body height 62 in 62 in [facility] ([facility]) Body mass index 39.5 kg/m2 39.5 kg/m2 MEDGEN ([facility] (BMI) [Ratio] Medical Ser vice) Diastolic blood 80 mm[Hg] 80 mm[Hg] MEDGEN ([facility] pressure Medical Servic e) Systolic blood 140 mm[Hg] 140 mm[Hg] MEDGEN ([place] pressure [facility]) Body weight 216 lb 216 lb [facility] ([facility]) Body height 62 in 62 in MEDGEN ([facility]) Body temperature [id number] [facility] Respiratory rate 20 /min 20 /min [facility] Oxygen saturation 97 % 97 % [facility] in Arterial blood [facility] Center by Pulse oximetry Heart rate 82 /min 82 /min [facility] Diastolic blood 66 mm[Hg] 66 mm[Hg] [facility] pressure Medical Center Systolic blood 125 mm[Hg] 125 mm[Hg] [facility] pressure [facility] Body temperature [id number] [facility] Respiratory rate 18 /min 18 /min [facility] Oxygen saturation 98 % 98 % [facility] in Arterial blood [facility] Center by Pulse oximetry Heart rate 78 /min 78 /min [facility] Diastolic blood 96 mm[Hg] 96 mm[Hg] [facility] pressure Medical Center Systolic blood 140 mm[Hg] 140 mm[Hg] [facility] Body surface area 1.84 m2 1.84 m2 [facility] Y ([facility] Derived from [facility]) Body mass index 40.4 kg/m2 40.4 kg/m2 [place] ([facility] (BMI) [Ratio] [facility]) Body weight 199.9 199.9 [lb_av] OLIVIA ( [facility] [lb_av] [facility]) Body height 59 [in_us] 59 [in_us] [place] ([facility]) Body surface area 1.96 m2 1.96 m2 [facility] Y ([facility] Derived from [facility]) Body mass index 41.4 kg/m2 41.4 kg/m2 [place] ([facility] (BMI) [Ratio] [facility]) Body weight 219 [lb_av] 219 [lb_av] OLIVIA ([facility]) Body height 61 [in_us] 61 [in_us] OLIVIA ([facility]) Body mass index 39.5 kg/m2 39.5 kg/m2 MEDGEN ([facility] (BMI) [Ratio] Medical Ser vice) Diastolic blood 80 mm[Hg] 80 mm[Hg] MEDGEN ([facility] pressure Medical Servic e) Systolic blood 150 mm[Hg] 150 mm[Hg] MEDGEN ([place] pressure [facility]) Body weight 216 lb 216 lb [facility] ([facility]) Body height 62 in 62 in [facility] ([facility]) Body mass index 39.5 kg/m2 39.5 kg/m2 MEDGEN ([facility] (BMI) [Ratio] Medical Ser vice) Diastolic blood 80 mm[Hg] 80 mm[Hg] MEDGEN ([facility] pressure Medical Servic e) Systolic blood 150 mm[Hg] 150 mm[Hg] MEDGEN ([place] pressure [facility]) Body weight 216 lb 216 lb MED[facility] ([facility]) Body height 62 in 62 in [facility]) Oxygen saturation 97 % 97 % [facility] ([facility] in Arterial blood [facility] Pulse oximetry Center) Body mass index 38.09 kg/m2 Overweight 38.09 kg/m2 [facility] ([facility] (BMI) [Ratio] [facility]) Respiratory rate 18 /min 18 /min [facility] ([facility]) Body temperature 36.67 Violet 36.67 Violet [facility] ([facility]) Heart rate 84 /min 84 /min [facility] ([facility]) Diastolic blood 75 mm[Hg] 75 mm[Hg] [facility] ( [facility] pressure [facility]) Systolic blood 139 mm[Hg] 139 mm[Hg] [facility] ([facility] pressure [facility]) Body weight 97.522 kg 97.522 kg [facility] ([facility]) Body height 160.02 cm 160.02 cm [facility] ([facility]) Body mass index 39.1 kg/m2 39.1 kg/m2 MEDGEN ([facility] (BMI) [Ratio] Medical Ser vice) Diastolic blood 80 mm[Hg] 80 mm[Hg] MEDGEN ([facility] pressure Medical Servic e) Systolic blood 120 mm[Hg] 120 mm[Hg] [facility] ([place] pressure [facility]) Body weight 214 lb 214 lb MEDGEN ([facility]) Body height 62 in 62 in MEDGEN ([facility]) Body mass index 39.1 kg/m2 39.1 kg/m2 MEDGEN ([facility] (BMI) [Ratio] Medical Ser vice) Diastolic blood 80 mm[Hg] 80 mm[Hg] MEDGEN ([facility] pressure Medical Servic e) Systolic blood 120 mm[Hg] 120 mm[Hg] [facility] ([place] pressure [facility]) Body weight 214 lb 214 lb [facility] ([facility]) Body height 62 in 62 in [facility] ([facility]) Body mass index 39.1 kg/m2 39.1 kg/m2 MEDGEN ([facility] (BMI) [Ratio] Medical Ser vice) Diastolic blood 80 mm[Hg] 80 mm[Hg] MEDGEN ([facility] pressure Medical Servic e) Systolic blood 120 mm[Hg] 120 mm[Hg] [facility] ([place] pressure [facility]) Body weight 214 lb 214 lb [facility] ([facility]) Body height 62 in 62 in [facility] ([facility]) Body mass index 39.1 kg/m2 39.1 kg/m2 MEDGEN ([facility] (BMI) [Ratio] Medical Ser vice) Diastolic blood 80 mm[Hg] 80 mm[Hg] MEDGEN ([facility] pressure Medical Servic e) Systolic blood 120 mm[Hg] 120 mm[Hg] [facility] ([place] [facility]) Body weight 214 lb 214 lb [facility] ([facility]) Body height 62 in 62 in [facility] ([facility]) Body mass index 39.1 kg/m2 39.1 kg/m2 MEDGEN ([facility] (BMI) [Ratio] Medical Ser vice) Diastolic blood 88 mm[Hg] 88 mm[Hg] MEDGEN ([facility] pressure Medical Servic e) Systolic blood 138 mm[Hg] 138 mm[Hg] [facility] ([place] [facility]) Body weight 214 lb 214 lb [facility] ([facility]) Body height 62 in 62 in [facility] ([facility]) Body mass index 39.1 kg/m2 39.1 kg/m2 MEDGEN ([facility] (BMI) [Ratio] Medical Ser vice) Diastolic blood 88 mm[Hg] 88 mm[Hg] MEDGEN ([facility] pressure Medical Servic e) Systolic blood 138 mm[Hg] 138 mm[Hg] [facility] ([place] [facility]) Body weight 214 lb 214 lb [facility] ([facility]) Body height 62 in 62 in [facility] ([facility]) Body mass index 39.1 kg/m2 39.1 kg/m2 MEDGEN ([facility] (BMI) [Ratio] Medical Ser vice) Diastolic blood 90 mm[Hg] 90 mm[Hg] MEDGEN ([facility] pressure Medical Servic e) Systolic blood 140 mm[Hg] 140 mm[Hg] [facility] ([place] [facility]) Body weight 214 lb 214 lb [facility] ([facility]) Body height 62 in 62 in [facility] ([facility]) Body mass index 39.1 kg/m2 39.1 kg/m2 MEDGEN ([facility] (BMI) [Ratio] Medical Ser vice) Diastolic blood 90 mm[Hg] 90 mm[Hg] MEDGEN ([facility] pressure Medical Servic e) Systolic blood 140 mm[Hg] 140 mm[Hg] [facility] ([place] [facility] [facility] Body weight 214 lb 214 lb [facility] Body height 62 in 62 in [facility] Diastolic blood 80 mm[Hg] 80 mm[Hg] [facility] Systolic blood 140 mm[Hg] 140 mm[Hg] [facility] Body weight 214 lb 214 lb [facility] Diastolic blood 80 mm[Hg] 80 mm[Hg] [facility] Systolic blood 140 mm[Hg] 140 mm[Hg] [facility] Body weight 214 lb 214 lb [facility] Systolic blood 145 mm[Hg] 145 mm[Hg] [facility] Body weight 209 lb 209 lb [facility] Body height 62 in 62 in [facility] Heart rate 75 /min 75 /min [facility] Respiratory rate 16 /min 16 /min [facility] ( [facility] Body mass index 38.2 kg/m2 38.2 kg/m2 [facility] ([facility] (BMI) [Ratio] [facility]) Diastolic blood 90 mm[Hg] 90 mm[Hg] [facility] Heart rate 75 /min 75 /min [facility] Respiratory rate 16 /min 16 /min [facility] ( [facility] Body mass index 38.2 kg/m2 38.2 kg/m2 [facility] ([facility] (BMI) [Ratio] [facility]) Diastolic blood 90 mm[Hg] 90 mm[Hg] [facility] Systolic blood 145 mm[Hg] 145 mm[Hg] [facility] Body weight 209 lb 209 lb [facility] Body height 62 in 62 in [facility]) Heart rate 75 /min 75 /min [facility] Respiratory rate 16 /min 16 /min [facility] ( [facility] Body mass index 36.9 kg/m2 36.9 kg/m2 [facility] ([facility] (BMI) [Ratio] [facility]) Diastolic blood 90 mm[Hg] 90 mm[Hg] [facility] Systolic blood 140 mm[Hg] 140 mm[Hg] [facility] Body weight 202 lb 202 lb [facility] Body height 62 in 62 in [facility]) Heart rate 75 /min 75 /min [facility] Respiratory rate 16 /min 16 /min [facility] ( [facility] Body mass index 36.9 kg/m2 36.9 kg/m2 [facility] ([facility] (BMI) [Ratio] [facility]) Diastolic blood 90 mm[Hg] 90 mm[Hg] [facility] Systolic blood 140 mm[Hg] 140 mm[Hg] [facility] Body weight 202 lb 202 lb [facility] Body height 62 in 62 in [facility]) Heart rate 75 /min 75 /min [facility] Respiratory rate 16 /min 16 /min [facility] ( [facility]) Body mass index 37.3 kg/m2 37.3 kg/m2 [facility] ([facility] (BMI) [Ratio] [facility]) Diastolic blood 90 mm[Hg] 90 mm[Hg] [facility] Systolic blood 140 mm[Hg] 140 mm[Hg] [facility] Body weight 204 lb 204 lb [facility] Body height 62 in 62 in [facility]) Heart rate 75 /min 75 /min [facility] Respiratory rate 16 /min 16 /min [facility] ( [facility] Body mass index 37.3 kg/m2 37.3 kg/m2 [facility] ([facility] (BMI) [Ratio] [facility]) Diastolic blood 90 mm[Hg] 90 mm[Hg] [facility] Systolic blood 140 mm[Hg] 140 mm[Hg] [facility] Body weight 204 lb 204 lb [facility] ([facility] Body height 62 in 62 in [facility] ([facility] Heart rate 75 /min 75 /min [facility] Respiratory rate 16 /min 16 /min [facility] ( [facility]) Body mass index 37.3 kg/m2 37.3 kg/m2 [facility] ([facility] (BMI) [Ratio] [facility]) Diastolic blood 60 mm[Hg] 60 mm[Hg] [facility] Systolic blood 100 mm[Hg] 100 mm[Hg] [facility] Body weight 204 lb 204 lb [facility] Body height 62 in 62 in [facility] ([facility] Heart rate 75 /min 75 /min [facility] Respiratory rate 16 /min 16 /min [facility] ( [facility] Body mass index 37.3 kg/m2 37.3 kg/m2 [facility] ([facility] (BMI) [Ratio] [facility]) Diastolic blood 60 mm[Hg] 60 mm[Hg] [facility] Systolic blood 100 mm[Hg] 100 mm[Hg] [facility] Body weight 204 lb 204 lb [facility] Body height 62 in 62 in [facility]) Heart rate 75 /min 75 /min [facility] Respiratory rate 16 /min 16 /min [facility] ( [facility]) Body mass index 37.9 kg/m2 37.9 kg/m2 [facility] ([facility] (BMI) [Ratio] [facility]) Diastolic blood 60 mm[Hg] 60 mm[Hg] [facility] Systolic blood 110 mm[Hg] 110 mm[Hg] [facility] Body weight 207 lb 207 lb [facility] Body height 62 in 62 in [facility]) Heart rate 75 /min 75 /min [facility] Respiratory rate 16 /min 16 /min [facility] ( [facility]) Body mass index 37.9 kg/m2 37.9 kg/m2 [facility] ([facility] (BMI) [Ratio] [facility]) Diastolic blood 60 mm[Hg] 60 mm[Hg] [facility] Systolic blood 110 mm[Hg] 110 mm[Hg] [facility] Body weight 207 lb 207 lb [facility] Body height 62 in 62 in [facility]) Heart rate 75 /min 75 /min [facility] Respiratory rate 16 /min 16 /min [facility] ( [facility] Body mass index 37.3 kg/m2 37.3 kg/m2 [facility] ([facility] (BMI) [Ratio] [facility]) Diastolic blood 80 mm[Hg] 80 mm[Hg] [facility] Systolic blood 130 mm[Hg] 130 mm[Hg] [facility] Body weight 204 lb 204 lb [facility] Body height 62 in 62 in [facility] Heart rate 75 /min 75 /min [facility] Respiratory rate 16 /min 16 /min [facility] ( [facility] Body mass index 37.3 kg/m2 37.3 kg/m2 [facility] ([facility] (BMI) [Ratio] [facility]) Diastolic blood 80 mm[Hg] 80 mm[Hg] [facility] Systolic blood 130 mm[Hg] 130 mm[Hg] [facility] Body weight 204 lb 204 lb [facility] Body height 62 in 62 in [facility]) Heart rate 75 /min 75 /min [facility] Respiratory rate 16 /min 16 /min [facility] ( [facility] Body mass index 37.7 kg/m2 37.7 kg/m2 [facility] ([facility] (BMI) [Ratio] [facility]) Diastolic blood 80 mm[Hg] 80 mm[Hg] [facility] Systolic blood 130 mm[Hg] 130 mm[Hg] [facility] Body weight 206 lb 206 lb [facility] Body height 62 in 62 in [facility]) Heart rate 75 /min 75 /min [facility] Respiratory rate 16 /min 16 /min [facility] ( [facility] Body mass index 37.7 kg/m2 37.7 kg/m2 [facility] ([facility] (BMI) [Ratio] [facility]) Diastolic blood 80 mm[Hg] 80 mm[Hg] [facility] Systolic blood 130 mm[Hg] 130 mm[Hg] [facility] Body weight 206 lb 206 lb [facility] Body height 62 in 62 in [facility]) Heart rate 76 /min 76 /min [facility] Respiratory rate 16 /min 16 /min [facility] ( [facility]) Body mass index 37.7 kg/m2 37.7 kg/m2 [facility] ([facility] (BMI) [Ratio] [facility]) Diastolic blood 82 mm[Hg] 82 mm[Hg] [facility] Systolic blood 120 mm[Hg] 120 mm[Hg] [facility] Body weight 206 lb 206 lb [facility] ([facility] Body height 62 in 62 in [facility] ([facility] Heart rate 76 /min 76 /min [facility]) Respiratory rate 16 /min 16 /min [facility] ( [facility]) Body mass index 37.7 kg/m2 37.7 kg/m2 [facility] ([facility] (BMI) [Ratio] [facility]) Diastolic blood 82 mm[Hg] 82 mm[Hg] [facility] Systolic blood 120 mm[Hg] 120 mm[Hg] [facility] Body weight 206 lb 206 lb [facility] ([facility] Body height 62 in 62 in [facility] ([facility] Heart rate 76 /min 76 /min [facility]) Respiratory rate 16 /min 16 /min [facility] ( [facility] Body mass index 38.4 kg/m2 38.4 kg/m2 [facility] ([facility] (BMI) [Ratio] [facility]) Diastolic blood 80 mm[Hg] 80 mm[Hg] [facility] Systolic blood 120 mm[Hg] 120 mm[Hg] [facility] Body weight 210 lb 210 lb [facility] ([facility] Body height 62 in 62 in [facility] ([facility] Heart rate 76 /min 76 /min [facility]) Respiratory rate 16 /min 16 /min [facility] ( [facility]) Body mass index 38.4 kg/m2 38.4 kg/m2 [facility] ([facility] (BMI) [Ratio] [facility]) Diastolic blood 80 mm[Hg] 80 mm[Hg] [facility] Systolic blood 120 mm[Hg] 120 mm[Hg] [facility] Body weight 210 lb 210 lb [facility] ([facility] Body height 62 in 62 in [facility] ([facility] Heart rate 80 /min 80 /min [facility] Respiratory rate 16 /min 16 /min [facility] ( [facility]) Body mass index 37.9 kg/m2 37.9 kg/m2 [facility] ([facility] (BMI) [Ratio] [facility]) Diastolic blood 80 mm[Hg] 80 mm[Hg] [facility] Systolic blood 120 mm[Hg] 120 mm[Hg] [facility] Body weight 207 lb 207 lb [facility] ([facility] Body height 62 in 62 in [facility] ([facility] Heart rate 80 /min 80 /min [facility] Respiratory rate 16 /min 16 /min [facility] ( [facility]) Body mass index 37.9 kg/m2 37.9 kg/m2 [facility] ([facility] (BMI) [Ratio] [facility]) Diastolic blood 80 mm[Hg] 80 mm[Hg] [facility] Systolic blood 120 mm[Hg] 120 mm[Hg] [facility] Body weight 207 lb 207 lb [facility] ([facility] Body height 62 in 62 in [facility] ([facility] Heart rate 80 /min 80 /min [facility]) Respiratory rate 16 /min 16 /min [facility] ( [facility]) Body mass index 37.9 kg/m2 37.9 kg/m2 [facility] ([facility] (BMI) [Ratio] [facility]) Diastolic blood 90 mm[Hg] 90 mm[Hg] [facility] Systolic blood 132 mm[Hg] 132 mm[Hg] [facility] Body weight 207 lb 207 lb [facility] ([facility] Body height 62 in 62 in [facility] ([facility] Heart rate 80 /min 80 /min [facility]) Respiratory rate 16 /min 16 /min [facility] ( [facility]) Body mass index 37.9 kg/m2 37.9 kg/m2 [facility] ([facility] (BMI) [Ratio] [facility]) Diastolic blood 90 mm[Hg] 90 mm[Hg] [facility] Systolic blood 132 mm[Hg] 132 mm[Hg] [facility] Body weight 207 lb 207 lb [facility] Body height 62 in 62 in [facility] Heart rate 80 /min 80 /min [facility] Respiratory rate 16 /min 16 /min [facility] ( [facility]) Body mass index 37.9 kg/m2 37.9 kg/m2 [facility] ([facility] (BMI) [Ratio] [facility]) Diastolic blood 92 mm[Hg] 92 mm[Hg] [facility] Systolic blood 152 mm[Hg] 152 mm[Hg] [facility] Body weight 207 lb 207 lb [facility]) Body height 62 in 62 in [facility]) Heart rate 80 /min 80 /min [facility] Respiratory rate 16 /min 16 /min [facility] ( [facility]) Body mass index 37.9 kg/m2 37.9 kg/m2 [facility] ([facility] (BMI) [Ratio] [facility]) Diastolic blood 92 mm[Hg] 92 mm[Hg] [facility] Systolic blood 152 mm[Hg] 152 mm[Hg] [facility] Body weight 207 lb 207 lb [facility]) Body height 62 in 62 in [facility]) Heart rate 80 /min 80 /min [facility] Respiratory rate 16 /min 16 /min [facility] ( [facility]) Body mass index 37.9 kg/m2 37.9 kg/m2 [facility] ([facility] (BMI) [Ratio] [facility]) Diastolic blood 80 mm[Hg] 80 mm[Hg] [facility] Systolic blood 120 mm[Hg] 120 mm[Hg] [facility] Body weight 207 lb 207 lb [facility] ([facility] Body height 62 in 62 in [facility]) Heart rate 80 /min 80 /min [facility] Respiratory rate 16 /min 16 /min [facility] ( [facility]) Body mass index 37.9 kg/m2 37.9 kg/m2 [facility] ([facility] (BMI) [Ratio] [facility]) Diastolic blood 80 mm[Hg] 80 mm[Hg] [facility] Systolic blood 120 mm[Hg] 120 mm[Hg] [facility] Body weight 207 lb 207 lb [facility] ([facility] Body height 62 in 62 in [facility] ([facility] Heart rate 80 /min 80 /min [facility]) Respiratory rate 16 /min 16 /min [facility] ( [facility]) Body mass index 36.9 kg/m2 36.9 kg/m2 [facility] ([facility] (BMI) [Ratio] [facility]) Diastolic blood 80 mm[Hg] 80 mm[Hg] [facility] Systolic blood 140 mm[Hg] 140 mm[Hg] [facility] Body weight 202 lb 202 lb [facility] ([facility]) Body height 62 in 62 in [facility]) Diastolic blood 80 mm[Hg] 80 mm[Hg] [facility] Systolic blood 140 mm[Hg] 140 mm[Hg] [facility] Body weight 202 lb 202 lb [facility] ([facility]) Body height 62 in 62 in [facility]) Heart rate 80 /min 80 /min [facility]) Respiratory rate 16 /min 16 /min [facility] ( [facility]) Body mass index 36.9 kg/m2 36.9 kg/m2 [facility] ([facility] (BMI) [Ratio] [facility]) Heart rate 80 /min 80 /min [facility] Respiratory rate 16 /min 16 /min [facility] ( [facility]) Body mass index 36.9 kg/m2 36.9 kg/m2 [facility] ([facility] (BMI) [Ratio] [facility]) Diastolic blood 80 mm[Hg] 80 mm[Hg] [facility] Systolic blood 130 mm[Hg] 130 mm[Hg] [facility] Body weight 202 lb 202 lb [facility]) Body height 62 in 62 in [facility]) Heart rate 80 /min 80 /min [facility] Respiratory rate 16 /min 16 /min [facility] ( [facility]) Body mass index 36.9 kg/m2 36.9 kg/m2 [facility] ([facility] (BMI) [Ratio] [facility]) Diastolic blood 80 mm[Hg] 80 mm[Hg] [facility] Systolic blood 130 mm[Hg] 130 mm[Hg] [facility] Body weight 202 lb 202 lb [facility] Body height 62 in 62 in [facility]) Heart rate 80 /min 80 /min [facility] Respiratory rate 16 /min 16 /min [facility] ( [facility]) Body mass index 36.9 kg/m2 36.9 kg/m2 [facility] ([facility] (BMI) [Ratio] [facility]) Diastolic blood 80 mm[Hg] 80 mm[Hg] [facility] Systolic blood 140 mm[Hg] 140 mm[Hg] [facility] Body weight 202 lb 202 lb [facility] ([facility]) Body height 62 in 62 in [facility]) Heart rate 80 /min 80 /min [facility] Respiratory rate 16 /min 16 /min [facility] ( [facility]) Body mass index 36.9 kg/m2 36.9 kg/m2 [facility] ([facility] (BMI) [Ratio] [facility]) Diastolic blood 80 mm[Hg] 80 mm[Hg] [facility] Systolic blood 140 mm[Hg] 140 mm[Hg] [facility] Body weight 202 lb 202 lb [facility] Body height 62 in 62 in [facility]) Heart rate 80 /min 80 /min [facility] Respiratory rate 16 /min 16 /min [facility] ( [facility]) Body mass index 36.9 kg/m2 36.9 kg/m2 [facility] ([facility] (BMI) [Ratio] [facility]) Diastolic blood 80 mm[Hg] 80 mm[Hg] [facility] Systolic blood 120 mm[Hg] 120 mm[Hg] [facility] Body weight 202 lb 202 lb [facility]) Body height 62 in 62 in [facility]) Heart rate 80 /min 80 /min [facility] Respiratory rate 16 /min 16 /min [facility] ( [facility]) Body mass index 36.9 kg/m2 36.9 kg/m2 [facility] ([facility] (BMI) [Ratio] [facility]) Diastolic blood 80 mm[Hg] 80 mm[Hg] [facility] Systolic blood 120 mm[Hg] 120 mm[Hg] [facility] Body weight 202 lb 202 lb [facility]) Body height 62 in 62 in [facility]) Heart rate 80 /min 80 /min [facility] Respiratory rate 16 /min 16 /min [facility] ( [facility] Body mass index 36.9 kg/m2 36.9 kg/m2 [facility] ([facility] (BMI) [Ratio] [facility]) Diastolic blood 80 mm[Hg] 80 mm[Hg] [facility] Systolic blood 120 mm[Hg] 120 mm[Hg] [facility] Body weight 202 lb 202 lb [facility]) Body height 62 in 62 in [facility] ([facility] Heart rate 80 /min 80 /min [facility]) Respiratory rate 16 /min 16 /min [facility] ( [facility] Body mass index 36.9 kg/m2 36.9 kg/m2 [facility] ([facility] (BMI) [Ratio] [facility]) Diastolic blood 80 mm[Hg] 80 mm[Hg] [facility] Systolic blood 120 mm[Hg] 120 mm[Hg] [facility] Body weight 202 lb 202 lb [facility] ([facility] Body height 62 in 62 in [facility] ([facility] Heart rate 80 /min 80 /min [facility]) Respiratory rate 16 /min 16 /min [facility] ( [facility]) Body mass index 36.9 kg/m2 36.9 kg/m2 [facility] ([facility] (BMI) [Ratio] [facility]) Diastolic blood 80 mm[Hg] 80 mm[Hg] [facility] ([facility] Systolic blood 140 mm[Hg] 140 mm[Hg] [facility] Body weight 202 lb 202 lb [facility] ([facility] Body height 62 in 62 in [facility] ([facility] Heart rate 80 /min 80 /min [facility]) Respiratory rate 16 /min 16 /min [facility] ( [facility]) Body mass index 36.9 kg/m2 36.9 kg/m2 [facility] ([facility] (BMI) [Ratio] [facility]) Diastolic blood 80 mm[Hg] 80 mm[Hg] [facility] Systolic blood 140 mm[Hg] 140 mm[Hg] [facility] Body weight 202 lb 202 lb [facility] ([facility] Body height 62 in 62 in [facility] Heart rate 80 /min 80 /min [facility]) Respiratory rate 16 /min 16 /min [facility] ( [facility]) Body mass index 36.6 kg/m2 36.6 kg/m2 [facility] ([facility] (BMI) [Ratio] [facility]) Diastolic blood 80 mm[Hg] 80 mm[Hg] [facility] Systolic blood 130 mm[Hg] 130 mm[Hg] [facility] Body weight 200 lb 200 lb [facility] Body height 62 in 62 in [facility] Heart rate 80 /min 80 /min [facility] Respiratory rate 16 /min 16 /min [facility] ( [facility] Body mass index 36.6 kg/m2 36.6 kg/m2 [facility] ([facility] (BMI) [Ratio] [facility]) Diastolic blood 80 mm[Hg] 80 mm[Hg] [facility] ([facility] Systolic blood 130 mm[Hg] 130 mm[Hg] [facility] Body weight 200 lb 200 lb [facility] Body height 62 in 62 in [facility]) Heart rate 80 /min 80 /min [facility] Respiratory rate 16 /min 16 /min [facility] ( [facility]) Body mass index 36.6 kg/m2 36.6 kg/m2 [facility] ([facility] (BMI) [Ratio] [facility]) Diastolic blood 80 mm[Hg] 80 mm[Hg] [facility] ([facility] Systolic blood 140 mm[Hg] 140 mm[Hg] [facility] Body weight 200 lb 200 lb [facility] Body height 62 in 62 in [facility] Heart rate 80 /min 80 /min [facility] Respiratory rate 16 /min 16 /min [facility] ( [facility] Body mass index 36.6 kg/m2 36.6 kg/m2 [facility] ([facility] (BMI) [Ratio] [facility]) Diastolic blood 80 mm[Hg] 80 mm[Hg] [facility] ([facility] Systolic blood 140 mm[Hg] 140 mm[Hg] [facility] Body weight 200 lb 200 lb [facility] ([facility] Body height 62 in 62 in [facility]) Heart rate 80 /min 80 /min [facility] Respiratory rate 16 /min 16 /min [facility] ( [facility] Body mass index 36.6 kg/m2 36.6 kg/m2 [facility] ([facility] (BMI) [Ratio] Medical [facility]) Diastolic blood 80 mm[Hg] 80 mm[Hg] [facility] Systolic blood 160 mm[Hg] 160 mm[Hg] [facility] Body weight 200 lb 200 lb [facility] Body height 62 in 62 in [facility]) Heart rate 80 /min 80 /min [facility] Respiratory rate 16 /min 16 /min [facility] ( [facility]) Body mass index 36.6 kg/m2 36.6 kg/m2 [facility] ([facility] (BMI) [Ratio] Medical [facility]) Diastolic blood 80 mm[Hg] 80 mm[Hg] [facility] Systolic blood 160 mm[Hg] 160 mm[Hg] [facility] Body weight 200 lb 200 lb [facility] Body height 62 in 62 in [facility] Heart rate 80 /min 80 /min [facility] Respiratory rate 16 /min 16 /min [facility] ( [facility] Body mass index 36.6 kg/m2 36.6 kg/m2 [facility] ([facility] (BMI) [Ratio] Medical [facility]) Diastolic blood 80 mm[Hg] 80 mm[Hg] [facility] Systolic blood 130 mm[Hg] 130 mm[Hg] [facility] Body weight 200 lb 200 lb [facility] Body height 62 in 62 in [facility] ([facility] Heart rate 80 /min 80 /min [facility]) Respiratory rate 16 /min 16 /min [facility] ( [facility]) Body mass index 36.6 kg/m2 36.6 kg/m2 [facility] ([facility] (BMI) [Ratio] Medical [facility]) Diastolic blood 80 mm[Hg] 80 mm[Hg] [facility] ([facility] Systolic blood 130 mm[Hg] 130 mm[Hg] [facility] ([facility] Body weight 200 lb 200 lb [facility] ([facility]) Body height 62 in 62 in MED[facility] ([facility]) Heart rate 80 /min 80 /min [facility] Respiratory rate 16 /min 16 /min [facility] ( [facility]) Body mass index 36.6 kg/m2 36.6 kg/m2 [facility] ([facility] (BMI) [Ratio] Medical Ser vice) Diastolic blood 80 mm[Hg] 80 mm[Hg] [facility] ([facility] Systolic blood 130 mm[Hg] 130 mm[Hg] [facility] ([facility] Body weight 200 lb 200 lb [facility] ([facility]) Body height 62 in 62 in [facility] ([facility]) Heart rate 80 /min 80 /min [facility] Respiratory rate 16 /min 16 /min [facility] ( [facility]) Body mass index 36.6 kg/m2 36.6 kg/m2 [facility] ([facility] (BMI) [Ratio] Medical Ser vice) Diastolic blood 80 mm[Hg] 80 mm[Hg] [facility] ([facility]) Systolic blood 130 mm[Hg] 130 mm[Hg] [facility] ([facility] Body weight 200 lb 200 lb [facility] ([facility]) Body height 62 in 62 in [facility] ([facility]) Heart rate 80 /min 80 /min [facility] ([facility]) Respiratory rate 16 /min 16 /min [facility] ( [facility]) Body mass index 36.4 kg/m2 36.4 kg/m2 [facility] ([facility] (BMI) [Ratio] Medical Ser vice) Diastolic blood 80 mm[Hg] 80 mm[Hg] [facility] ([facility]) Systolic blood 120 mm[Hg] 120 mm[Hg] [facility] ([facility] Body weight 199 lb 199 lb [facility] ([facility] Body height 62 in 62 in [facility] ([facility]) Heart rate 80 /min 80 /min [facility] ([facility]) Respiratory rate 16 /min 16 /min [facility] ( [facility]) Body mass index 36.4 kg/m2 36.4 kg/m2 [facility] ([facility] (BMI) [Ratio] Medical Ser vice) Diastolic blood 80 mm[Hg] 80 mm[Hg] [facility] ([facility]) Systolic blood 120 mm[Hg] 120 mm[Hg] [facility] ([facility] Body weight 199 lb 199 lb [facility] ([facility] Body height 62 in 62 in [facility] ([facility]) Heart rate 80 /min 80 /min [facility] ([facility]) Respiratory rate 16 /min 16 /min [facility] ( [facility]) Body mass index 35.5 kg/m2 35.5 kg/m2 [facility] ([facility] (BMI) [Ratio] Medical Ser vice) Diastolic blood 80 mm[Hg] 80 mm[Hg] [facility] ([facility]) Systolic blood 120 mm[Hg] 120 mm[Hg] [facility] ([facility] Body weight 194 lb 194 lb [facility] ([facility] Body height 62 in 62 in [facility] ([facility]) Heart rate 80 /min 80 /min [facility] ([facility] Respiratory rate 16 /min 16 /min [facility] ( [facility]) Body mass index 35.5 kg/m2 35.5 kg/m2 [facility] ([facility] (BMI) [Ratio] Medical Ser [facility]) Diastolic blood 80 mm[Hg] 80 mm[Hg] [facility] ([facility]) Systolic blood 120 mm[Hg] 120 mm[Hg] [facility] ([facility] Body weight 194 lb 194 lb [facility] ([facility] Body height 62 in 62 in [facility] ([facility]) Heart rate 80 /min 80 /min [facility] ([facility] Respiratory rate 16 /min 16 /min [facility] ( [facility]) Body mass index 35.5 kg/m2 35.5 kg/m2 [facility] ([facility] (BMI) [Ratio] Medical Ser vice) Diastolic blood 80 mm[Hg] 80 mm[Hg] [facility] ([facility]) Systolic blood 120 mm[Hg] 120 mm[Hg] [facility] ([facility] Body weight 194 lb 194 lb [facility] ([facility]) Body height 62 in 62 in [facility] ([facility] Heart rate 80 /min 80 /min [facility] ([facility] Respiratory rate 16 /min 16 /min [facility] ( [facility]) Body mass index 35.5 kg/m2 35.5 kg/m2 [facility] ([facility] (BMI) [Ratio] Medical Ser vice) Diastolic blood 80 mm[Hg] 80 mm[Hg] [facility] ([facility]) Systolic blood 120 mm[Hg] 120 mm[Hg] [facility] ([facility] Body weight 194 lb 194 lb [facility] ([facility]) Body height 62 in 62 in [facility] ([facility]) Heart rate 80 /min 80 /min [facility] ([facility] Respiratory rate 16 /min 16 /min [facility] ( [facility]) Body mass index 35.1 kg/m2 35.1 kg/m2 [facility] ([facility] (BMI) [Ratio] Medical Ser [facility]) Diastolic blood 80 mm[Hg] 80 mm[Hg] [facility] ([facility]) Systolic blood 120 mm[Hg] 120 mm[Hg] [facility] ([facility] Body weight 192 lb 192 lb [facility] ([facility]) Body height 62 in 62 in [facility] ([facility] Heart rate 80 /min 80 /min [facility] ([facility] Respiratory rate 16 /min 16 /min [facility] ( [facility]) Body mass index 35.1 kg/m2 35.1 kg/m2 [facility] ([facility] (BMI) [Ratio] Medical Ser [facility]) Diastolic blood 80 mm[Hg] 80 mm[Hg] [facility] ([facility]) Systolic blood 120 mm[Hg] 120 mm[Hg] [facility] ([facility] Body weight 192 lb 192 lb [facility] ([facility]) Body height 62 in 62 in [facility] ([facility]) Heart rate 80 /min 80 /min [facility] ([facility]) Respiratory rate 16 /min 16 /min [facility] ( [facility]) Body mass index 36.2 kg/m2 36.2 kg/m2 [facility] ([facility] (BMI) [Ratio] Medical Ser vice) Diastolic blood 90 mm[Hg] 90 mm[Hg] [facility] ([facility]) Systolic blood 140 mm[Hg] 140 mm[Hg] [facility] ([facility] Body weight 198 lb 198 lb [facility] ([facility] Body height 62 in 62 in [facility] ([facility] Heart rate 80 /min 80 /min [facility] ([facility] Respiratory rate 16 /min 16 /min [facility] ( [facility]) Body mass index 36.2 kg/m2 36.2 kg/m2 [facility] ([facility] (BMI) [Ratio] Medical Ser vice) Diastolic blood 90 mm[Hg] 90 mm[Hg] [facility] ([facility]) Systolic blood 140 mm[Hg] 140 mm[Hg] [facility] ([facility] Body weight 198 lb 198 lb [facility] ([facility] Body height 62 in 62 in [facility] ([facility] Heart rate 80 /min 80 /min [facility] ([facility] Respiratory rate 16 /min 16 /min [facility] ( [facility]) Body mass index 36.2 kg/m2 36.2 kg/m2 [facility] ([facility] (BMI) [Ratio] Medical Ser vice) Diastolic blood 90 mm[Hg] 90 mm[Hg] [facility] ([facility]) Systolic blood 140 mm[Hg] 140 mm[Hg] [facility] ([facility] Body weight 198 lb 198 lb [facility] ([facility] Body height 62 in 62 in [facility] ([facility]) Heart rate 80 /min 80 /min [facility] ([facility]) Respiratory rate 16 /min 16 /min [facility] ( [facility]) Body mass index 36.2 kg/m2 36.2 kg/m2 [facility] ([facility] (BMI) [Ratio] Medical Ser vice) Diastolic blood 90 mm[Hg] 90 mm[Hg] [facility] ([facility]) Systolic blood 140 mm[Hg] 140 mm[Hg] [facility] ([facility] Body weight 198 lb 198 lb [facility] ([facility]) Body height 62 in 62 in [facility] ([facility]) Heart rate 80 /min 80 /min [facility] ([facility]) Respiratory rate 16 /min 16 /min [facility] ( [facility]) Body mass index 36 kg/m2 36 kg/m2 [facility] ([facility] (BMI) [Ratio] Medical Ser [facility]) Diastolic blood 84 mm[Hg] 84 mm[Hg] [facility] ([facility] Systolic blood 136 mm[Hg] 136 mm[Hg] [facility] ([facility] Body weight 197 lb 197 lb [facility] ([facility]) Body height 62 in 62 in [facility] ([facility]) Heart rate 80 /min 80 /min [facility] ([facility]) Respiratory rate 16 /min 16 /min [facility] ( [facility]) Body mass index 36 kg/m2 36 kg/m2 [facility] ([facility] (BMI) [Ratio] Medical Ser vice) Diastolic blood 84 mm[Hg] 84 mm[Hg] [facility] ([facility]) Systolic blood 136 mm[Hg] 136 mm[Hg] [facility] ([facility] Body weight 197 lb 197 lb [facility] ([facility]) Body height 62 in 62 in [facility] ([facility]) Heart rate 80 /min 80 /min [facility] ([facility]) Respiratory rate 16 /min 16 /min [facility] ( [facility]) Body mass index 36 kg/m2 36 kg/m2 [facility] ([facility] (BMI) [Ratio] Medical Ser vice) Diastolic blood 90 mm[Hg] 90 mm[Hg] [facility] ([facility]) Systolic blood 130 mm[Hg] 130 mm[Hg] [facility] ([facility] Body weight 197 lb 197 lb [facility] ([facility]) Body height 62 in 62 in [facility] ([facility]) Heart rate 80 /min 80 /min [facility] ([facility]) Respiratory rate 16 /min 16 /min [facility] ( [facility]) Body mass index 36 kg/m2 36 kg/m2 [facility] ([facility] (BMI) [Ratio] Medical Ser vice) Diastolic blood 90 mm[Hg] 90 mm[Hg] [facility] ([facility]) Systolic blood 130 mm[Hg] 130 mm[Hg] [facility] ([facility] Body weight 197 lb 197 lb [facility] ([facility]) Body height 62 in 62 in [facility] ([facility]) Heart rate 80 /min 80 /min [facility] ([facility]) Respiratory rate 16 /min 16 /min [facility] ( [facility]) Body mass index 36.4 kg/m2 36.4 kg/m2 [facility] ([facility] (BMI) [Ratio] Medical Ser vice) Diastolic blood 90 mm[Hg] 90 mm[Hg] [facility] ([facility]) Systolic blood 130 mm[Hg] 130 mm[Hg] [facility] ([facility] Body weight 199 lb 199 lb [facility] ([facility]) Body height 62 in 62 in [facility] ([facility]) Heart rate 80 /min 80 /min [facility] ([facility]) Respiratory rate 16 /min 16 /min [facility] ( [facility]) Body mass index 36.4 kg/m2 36.4 kg/m2 [facility] ([facility] (BMI) [Ratio] Medical Ser vice) Diastolic blood 90 mm[Hg] 90 mm[Hg] [facility] ([facility]) Systolic blood 130 mm[Hg] 130 mm[Hg] [facility] ([facility] Body weight 199 lb 199 lb [facility] ([facility]) Body height 62 in 62 in [facility] ([facility]) Body mass index 35.7 kg/m2 35.7 kg/m2 [facility] ([facility] (BMI) [Ratio] Medical Ser vice) Diastolic blood 90 mm[Hg] 90 mm[Hg] [facility] ([facility]) Systolic blood 150 mm[Hg] 150 mm[Hg] [facility] ([facility] Body weight 195 lb 195 lb [facility] ([facility]) Body height 62 in 62 in [facility] ([facility]) Body mass index 35.7 kg/m2 35.7 kg/m2 [facility] ([facility] (BMI) [Ratio] Medical Ser vice) Diastolic blood 90 mm[Hg] 90 mm[Hg] [facility] ([facility]) Systolic blood 150 mm[Hg] 150 mm[Hg] [facility] ([facility] Body weight 195 lb 195 lb [facility] ([facility]) Body height 62 in 62 in [facility] ([facility]) Body mass index 37.3 kg/m2 37.3 kg/m2 [facility] ([facility] (BMI) [Ratio] Medical Ser vice) Diastolic blood 80 mm[Hg] 80 mm[Hg] [facility] ([facility]) Systolic blood 120 mm[Hg] 120 mm[Hg] [facility] ([facility] Body weight 204 lb 204 lb [facility] ([facility]) Body height 62 in 62 in [facility] ([facility]) Body mass index 37.3 kg/m2 37.3 kg/m2 [facility] ([facility] (BMI) [Ratio] Medical Ser vice) Diastolic blood 80 mm[Hg] 80 mm[Hg] [facility] ([facility]) Systolic blood 120 mm[Hg] 120 mm[Hg] [facility] ([facility] Body weight 204 lb 204 lb [facility] ([facility]) Body height 62 in 62 in [facility] ([facility]) Systolic blood 120 mm[Hg] 120 mm[Hg] [facility] ([facility] Body weight 203 lb 203 lb [facility] ([facility]) Body height 62 in 62 in [facility] ([facility]) Heart rate 68 /min 68 /min [facility] ([facility] Respiratory rate 18 /min 18 /min [facility] ( [facility]) Body mass index 37.1 kg/m2 37.1 kg/m2 [facility] ([facility] (BMI) [Ratio] Medical Ser vice) Diastolic blood 80 mm[Hg] 80 mm[Hg] [facility] ([facility]) Heart rate 68 /min 68 /min [facility] ([facility]) Respiratory rate 18 /min 18 /min [facility] ( [facility]) Body mass index 37.1 kg/m2 37.1 kg/m2 [facility] ([facility] (BMI) [Ratio] Medical Ser vice) Diastolic blood 80 mm[Hg] 80 mm[Hg] [facility] ([facility]) Systolic blood 120 mm[Hg] 120 mm[Hg] [facility] ([facility] Body weight 203 lb 203 lb [facility] ([facility]) Body height 62 in 62 in [facility] ([facility]) Heart rate 68 /min 68 /min [facility] ([facility] Respiratory rate 18 /min 18 /min [facility] ( [facility]) Body mass index 38.4 kg/m2 38.4 kg/m2 [facility] ([facility] (BMI) [Ratio] Medical Ser vice) Diastolic blood 78 mm[Hg] 78 mm[Hg] [facility] ([facility]) Systolic blood 120 mm[Hg] 120 mm[Hg] [facility] ([facility] Body weight 210 lb 210 lb [facility] ([facility]) Body height 62 in 62 in [facility] ([facility]) Heart rate 68 /min 68 /min [facility] ([facility]) Respiratory rate 18 /min 18 /min [facility] ( [facility]) Body mass index 38.4 kg/m2 38.4 kg/m2 [facility] ([facility] (BMI) [Ratio] Medical Ser vice) Diastolic blood 78 mm[Hg] 78 mm[Hg] [facility] ([facility]) Systolic blood 120 mm[Hg] 120 mm[Hg] [facility] ([facility] Body weight 210 lb 210 lb [facility] ([facility]) Body height 62 in 62 in [facility] ([facility]) Heart rate 68 /min 68 /min [facility] ([facility]) Respiratory rate 18 /min 18 /min [facility] ( [facility]) Body mass index 38.2 kg/m2 38.2 kg/m2 [facility] ([facility] (BMI) [Ratio] Medical Ser vice) Diastolic blood 78 mm[Hg] 78 mm[Hg] [facility] ([facility]) Systolic blood 120 mm[Hg] 120 mm[Hg] [facility] ([facility] Body weight 209 lb 209 lb [facility] ([facility]) Body height 62 in 62 in [facility] ([facility] Heart rate 68 /min 68 /min [facility] ([facility]) Respiratory rate 18 /min 18 /min [facility] ( [facility]) Body mass index 38.2 kg/m2 38.2 kg/m2 [facility] ([facility] (BMI) [Ratio] Medical Ser [facility]) Diastolic blood 78 mm[Hg] 78 mm[Hg] [facility] ([facility]) Systolic blood 120 mm[Hg] 120 mm[Hg] [facility] ([facility] Body weight 209 lb 209 lb [facility] ([facility]) Body height 62 in 62 in [facility] ([facility]) Heart rate 68 /min 68 /min [facility] ([facility]) Respiratory rate 18 /min 18 /min [facility] ( [facility]) Body mass index 38.4 kg/m2 38.4 kg/m2 [facility] ([facility] (BMI) [Ratio] Medical Ser vice) Diastolic blood 78 mm[Hg] 78 mm[Hg] [facility] ([facility]) Systolic blood 134 mm[Hg] 134 mm[Hg] [facility] ([facility] Body weight 210 lb 210 lb [facility] ([facility]) Body height 62 in 62 in [facility] ([facility]) Heart rate 68 /min 68 /min [facility] ([facility]) Respiratory rate 18 /min 18 /min [facility] ( [facility]) Body mass index 38.4 kg/m2 38.4 kg/m2 [facility] ([facility] (BMI) [Ratio] Medical Ser vice) Diastolic blood 78 mm[Hg] 78 mm[Hg] [facility] ([facility]) Systolic blood 134 mm[Hg] 134 mm[Hg] [facility] ([facility] Body weight 210 lb 210 lb [facility] ([facility]) Body height 62 in 62 in [facility] ([facility]) Body mass index 37.2 kg/m2 37.2 kg/m2 [facility] ([facility] (BMI) [Ratio] Medical Ser vice) Diastolic blood 90 mm[Hg] 90 mm[Hg] [facility] ([facility]) Systolic blood 146 mm[Hg] 146 mm[Hg] [facility] ([facility] Body weight 210 lb 210 lb [facility] ([facility]) Body height 63 in 63 in [facility] ([facility]) Body mass index 37.2 kg/m2 37.2 kg/m2 [facility] ([facility] (BMI) [Ratio] Medical Ser vice) Diastolic blood 90 mm[Hg] 90 mm[Hg] [facility] ([facility]) Systolic blood 146 mm[Hg] 146 mm[Hg] [facility] ([facility] Body weight 210 lb 210 lb [facility] ([facility]) Body height 63 in 63 in [facility] ([facility]) Heart rate 80 /min 80 /min [facility] ([facility]) Respiratory rate 22 /min 22 /min [facility] ( [facility]) Body mass index 40.1 kg/m2 40.1 kg/m2 [facility] ([facility] (BMI) [Ratio] Medical Ser vice) Diastolic blood 72 mm[Hg] 72 mm[Hg] [facility] ([facility]) Systolic blood 128 mm[Hg] 128 mm[Hg] [facility] ([facility] Body weight 219 lb 219 lb [facility] ([facility]) Body height 62 in 62 in [facility] ([facility]) Heart rate 80 /min 80 /min [facility]) Respiratory rate 22 /min 22 /min [facility] ( [facility]) Body mass index 40.1 kg/m2 40.1 kg/m2 [facility] ([facility] (BMI) [Ratio] Medical Ser vice) Diastolic blood 72 mm[Hg] 72 mm[Hg] [facility] ([facility]) Systolic blood 128 mm[Hg] 128 mm[Hg] [facility] ([facility] Body weight 219 lb 219 lb [facility] ([facility]) Body height 62 in 62 in [facility] ([facility] Patient Treatment Plan of Care Planned Activity Planned Date Details Description Data Source (s) Trazodone Hydrochloride 04/17/2020 NEXT GEN ([facility] 150 MG Oral Tablet 12:00:00 AM ED [facility]) Clonazepam 1 MG Oral 04/17/2020 NEXTGEN ([facility] Tablet [Klonopin] 12:00:00 AM ED Medical [place]) Haloperidol 5 MG Oral 04/17/2020 NEXTGE N ([facility] Tablet 12:00:00 AM ED Medical [facility] er) 24 HR venlafaxine 75 MG 04/17/2020 NEXT GEN ([facility] Extended Release Oral 12:00:00 AM EDT [facility]) Capsule [Effexor] 24 HR venlafaxine 150 MG 04/17/2020 NEX TGEN ([facility] Extended Release Oral 12:00:00 AM [facility] Capsule [Effexor] Trazodone Hydrochloride 03/20/2020 NEXT GEN ([facility] 150 MG Oral Tablet 12:00:00 AM [facility]) Clonazepam 1 MG Oral 03/20/2020 NEXTGEN ([facility] Tablet [Klonopin] 12:00:00 AM [facility]) Haloperidol 5 MG Oral 03/20/2020 NEXTGE N ([facility] Tablet 12:00:00 AM [facility] er) 24 HR venlafaxine 75 MG 03/20/2020 NEXT GEN ([facility] Extended Release Oral 12:00:00 AM [facility]) Capsule [Effexor] 24 HR venlafaxine 150 MG 03/20/2020 NEX TGEN ([facility] Extended Release Oral 12:00:00 AM [facility]) Capsule [Effexor] Clonazepam 1 MG Oral 02/20/2020 NEXTGEN ([facility] Tablet [Klonopin] 12:00:00 AM [facility]) 24 HR venlafaxine 150 MG 02/20/2020 NEX TGEN ([facility] Extended Release Oral 12:00:00 AM [facility]) Capsule [Effexor] 24 HR venlafaxine 75 MG 02/20/2020 NEXT GEN ([facility] Extended Release Oral 12:00:00 AM [facility]) Capsule [Effexor] Haloperidol 5 MG Oral 02/20/2020 NEXTGE N ([facility] Tablet 12:00:00 AM [facility]) Trazodone Hydrochloride 02/20/2020 NEXT GEN ([facility] 150 MG Oral Tablet 12:00:00 AM [facility]) Clonazepam 1 MG Oral 02/20/2020 NEXTGEN ([facility] Tablet [Klonopin] 12:00:00 AM [facility]) 24 HR venlafaxine 150 MG 01/24/2020 NEX TGEN ([facility] Extended Release Oral 12:00:00 AM [facility]) Capsule [Effexor] 24 HR venlafaxine 75 MG 01/24/2020 NEXT GEN ([facility] Extended Release Oral 12:00:00 AM [facility]) Capsule [Effexor] Haloperidol 5 MG Oral 01/24/2020 NEXTGE N ([facility] Tablet 12:00:00 AM [facility] er) Clonazepam 1 MG Oral 01/24/2020 NEXTGEN ([facility] Tablet [Klonopin] 12:00:00 AM [facility]) Trazodone Hydrochloride 01/24/2020 NEXT GEN ([facility] 150 MG Oral Tablet 12:00:00 AM [facility]) Trazodone Hydrochloride 12/25/2019 NEXT GEN ([facility] 150 MG Oral Tablet 12:00:00 AM [facility]) Clonazepam 1 MG Oral 12/25/2019 NEXTGEN ([facility] Tablet [Klonopin] 12:00:00 AM [facility]) Haloperidol 5 MG Oral 12/25/2019 NEXTGE N ([facility] Tablet 12:00:00 AM [facility]) 24 HR venlafaxine 75 MG 12/25/2019 NEXT GEN ([facility] Extended Release Oral 12:00:00 AM [facility]) Capsule [Effexor] 24 HR venlafaxine 150 MG 12/25/2019 NEX TGEN ([facility] Extended Release Oral 12:00:00 AM [facility]) Capsule [Effexor] 24 HR venlafaxine 150 MG 11/26/2019 NEX TGEN ([facility] Extended Release Oral 12:00:00 AM [facility]) Capsule [Effexor] 24 HR venlafaxine 75 MG 11/26/2019 NEXT GEN ([facility] Extended Release Oral 12:00:00 AM [facility]) Capsule [Effexor] Haloperidol 5 MG Oral 11/26/2019 NEXTGE N ([facility] Tablet 12:00:00 AM [facility]) Clonazepam 1 MG Oral 11/26/2019 NEXTGEN ([facility] Tablet [Klonopin] 12:00:00 AM [facility]) Trazodone Hydrochloride 11/26/2019 NEXT GEN ([facility] 150 MG Oral Tablet 12:00:00 AM [facility]) 24 HR venlafaxine 75 MG 10/28/2019 NEXT GEN ([facility] Extended Release Oral 12:00:00 AM [facility]) Capsule [Effexor] 24 HR venlafaxine 150 MG 10/28/2019 NEX TGEN ([facility] Extended Release Oral 12:00:00 AM [facility]) Capsule [Effexor] Trazodone Hydrochloride 10/28/2019 NEXT GEN ([facility] 150 MG [facility] Clonazepam 1 MG Oral 10/28/2019 NEXTGEN ([facility] Tablet [Klonopin] 12:00:00 AM [facility]) Haloperidol 5 MG Oral 10/28/2019 NEXTGE N ([facility] Tablet 12:00:00 AM [facility] Medical [facility] er) 24 HR venlafaxine 75 MG 10/28/2019 NEXT GEN ([facility] Extended Release Oral 12:00:00 AM [facility]) Capsule [Effexor] 24 HR venlafaxine 150 MG 10/28/2019 NEX TGEN ([facility] Extended Release Oral 12:00:00 AM [facility]) Capsule [Effexor] 24 HR venlafaxine 150 MG 09/27/2019 NEX TGEN ([facility] Extended Release Oral 12:00:00 AM [facility]) Capsule [Effexor] 24 HR venlafaxine 75 MG 09/27/2019 NEXT GEN ([facility] Extended Release Oral 12:00:00 AM [facility]) Capsule [Effexor] Haloperidol 5 MG Oral 09/27/2019 NEXTGE N ([facility] Tablet 12:00:00 AM [facility] er) Clonazepam 1 MG Oral 09/27/2019 NEXTGEN ([facility] Tablet [Klonopin] 12:00:00 AM [facility]) Trazodone Hydrochloride 09/27/2019 NEXT GEN ([facility] 150 MG [facility] Trazodone Hydrochloride 08/29/2019 NEXT GEN ([facility] 150 MG Oral Tablet 12:[facility] Clonazepam 1 MG Oral 08/29/2019 NEXTGEN ([facility] Tablet [Klonopin] 12:00:00 AM [facility]) Haloperidol 5 MG Oral 08/29/2019 NEXTGE N ([facility] Tablet 12:00:00 AM [facility] er) 24 HR venlafaxine 75 MG 08/29/2019 NEXT GEN ([facility] Extended Release Oral 12:00:00 AM [facility]) Capsule [Effexor] 24 HR venlafaxine 150 MG 08/29/2019 NEX TGEN ([facility] Extended Release Oral 12:00:00 AM EST [facility] ical [place]) Capsule [Effexor] 24 HR venlafaxine 75 MG 08/01/2019 NEXT GEN ([facility] Extended Release Oral 12:00:00 AM [facility]) Capsule [Effexor] 24 HR venlafaxine 150 MG 08/01/2019 NEX TGEN ([facility] Extended Release Oral 12:00:00 AM [facility]) Capsule [Effexor] Haloperidol 5 MG Oral 08/01/2019 NEXTGE N ([facility] Tablet 12:00:00 AM [facility] Medical [facility] er) Trazodone Hydrochloride 08/01/2019 NEXT GEN ([facility] 150 MG Oral Tablet 12:00:00 [facility]) Clonazepam 1 MG Oral 08/01/2019 NEXTGEN ([facility] Tablet [Klonopin] 12:00:00 AM [facility]) Haloperidol 5 MG Oral 07/19/2019 NEXTGE N ([facility] Tablet 12:00:00 AM [facility] er) 24 HR venlafaxine 75 MG 07/19/2019 NEXT GEN ([facility] Extended Release Oral 12:00:00 AM [facility] Capsule [Effexor] 24 HR venlafaxine 150 MG 07/19/2019 NEX TGEN ([facility] Extended Release Oral 12:00:00 AM [facility] Capsule [Effexor] Trazodone Hydrochloride 07/02/2019 NEXT GEN ([facility] 150 MG Oral Tablet 12:00:00 AM [facility]) Clonazepam 1 MG Oral 07/02/2019 NEXTGEN ([facility] Tablet [Klonopin] 12:00:00 AM [facility] Medical [place]) Haloperidol 5 MG Oral 07/02/2019 NEXTGE N ([facility] Tablet 12:00:00 AM [facility] Medical Cent er) 24 HR venlafaxine 75 MG 07/02/2019 NEXT GEN ([facility] Extended Release Oral 12:00:00 AM [facility] ical [place]) Capsule [Effexor] 24 HR venlafaxine 150 MG 07/02/2019 NEX TGEN ([facility] Extended Release Oral 12:00:00 AM [facility] [place]) Capsule [Effexor] 24 HR venlafaxine 150 MG 06/03/2019 NEX TGEN ([facility] Extended Release Oral 12:00:00 AM EDT [facility]) Capsule [Effexor] 24 HR venlafaxine 75 MG 06/03/2019 NEXT GEN ([facility] Extended Release Oral 12:00:00 AM T Med [facility]) Capsule [Effexor] Haloperidol 5 MG Oral 06/03/2019 NEXTGE N ([facility] Tablet 12:00:00 AM T Medical [facility] er) Clonazepam 1 MG Oral 06/03/2019 NEXTGEN ([facility] Tablet [Klonopin] 12:00:00 AM [facility]) Trazodone Hydrochloride 06/03/2019 NEXT GEN ([facility] 150 MG [facility] 24 HR venlafaxine 150 MG 05/03/2019 NEX TGEN ([facility] Extended Release Oral 12:00:00 AM [facility]) Capsule [Effexor] 24 HR venlafaxine 75 MG 05/03/2019 NEXT GEN ([facility] Extended Release Oral 12:00:00 AM [facility]) Capsule [Effexor] Haloperidol 5 MG Oral 05/03/2019 NEXTGE N ([facility] Tablet 12:00:00 AM [facility] er) Clonazepam 1 MG Oral 05/03/2019 NEXTGEN ([facility] Tablet [Klonopin] 12:00:00 AM [facility]) Trazodone Hydrochloride 05/03/2019 NEXT GEN ([facility] 150 MG Oral Tablet 12:00:00 [facility] Trazodone Hydrochloride 04/05/2019 NEXT GEN ([facility] 150 MG Oral Tablet 12:00:[facility] Clonazepam 1 MG Oral 04/05/2019 NEXTGEN ([facility] Tablet [Klonopin] 12:00:00 AM [facility]) Haloperidol 5 MG Oral 04/05/2019 NEXTGE N ([facility] Tablet 12:00:00 AM [facility] Medical [facility] er) 24 HR venlafaxine 75 MG 04/05/2019 NEXT GEN ([facility] Extended Release Oral 12:00:00 AM T [facility]) Capsule [Effexor] 24 HR venlafaxine 150 MG 04/05/2019 NEX TGEN ([facility] Extended Release Oral 12:00:00 AM [facility]) Capsule [Effexor] Trazodone Hydrochloride 03/08/2019 NEXT GEN ([facility] 150 MG Oral Tablet 12:00:00 AM [facility]) Clonazepam 1 MG Oral 03/08/2019 NEXTGEN ([facility] Tablet [Klonopin] 12:00:00 AM [facility]) Haloperidol 5 MG Oral 03/08/2019 NEXTGE N ([facility] Tablet 12:00:00 AM [facility] er) 24 HR venlafaxine 75 MG 03/08/2019 NEXT GEN ([facility] Extended Release Oral 12:00:00 AM [facility]) Capsule [Effexor] 24 HR venlafaxine 150 MG 03/08/2019 NEX TGEN ([facility] Extended Release Oral 12:00:00 AM [facility]) Capsule [Effexor] Trazodone Hydrochloride 02/28/2019 NEXT GEN ([facility] 150 MG Oral Tablet 12:00:00 AM [facility]) Clonazepam 1 MG Oral 02/28/2019 NEXTGEN ([facility] Tablet [Klonopin] 12:00:00 AM [facility]) Haloperidol 5 MG Oral 02/28/2019 NEXTGE N ([facility] Tablet 12:00:00 AM [facility]) 24 HR venlafaxine 75 MG 02/28/2019 NEXT GEN ([facility] Extended Release Oral 12:00:00 AM [facility]) Capsule [Effexor] 24 HR venlafaxine 150 MG 02/28/2019 NEX TGEN ([facility] Extended Release Oral 12:00:00 AM [facility]) Capsule [Effexor] Trazodone Hydrochloride 01/21/2019 NEXT GEN ([facility] 150 MG Oral Tablet 12:00:00 AM [facility]) Clonazepam 1 MG Oral 01/21/2019 NEXTGEN ([facility] Tablet [Klonopin] 12:00:00 AM [facility]) Haloperidol 5 MG Oral 01/21/2019 NEXTGE N ([facility] Tablet 12:00:00 AM [facility] er) 24 HR venlafaxine 75 MG 01/21/2019 NEXT GEN ([facility] Extended Release Oral 12:00:00 AM EDT [facility]) Capsule [Effexor] 24 HR venlafaxine 150 MG 01/21/2019 NEX TGEN ([facility] Extended Release Oral 12:00:00 AM T [facility]) Capsule [Effexor] Trazodone Hydrochloride 01/21/2019 NEXT GEN ([facility] 100 MG Oral Tablet 12:00:00 AM [facility]) Trazodone Hydrochloride 12/24/2018 NEXT GEN ([facility] 100 MG Oral Tablet 12:00:00 AM [facility]) Clonazepam 1 MG Oral 12/24/2018 NEXTGEN ([facility] Tablet [Klonopin] 12:00:00 AM [facility]) Haloperidol 5 MG Oral 12/24/2018 NEXTGE N ([facility] Tablet 12:00:00 AM [facility] er) 24 HR venlafaxine 75 MG 12/24/2018 NEXT GEN ([facility] Extended Release Oral 12:00:00 AM [facility]) Capsule [Effexor] 24 HR venlafaxine 150 MG 12/24/2018 NEX TGEN ([facility] Extended Release Oral 12:00:00 AM [facility]) Capsule [Effexor] Trazodone Hydrochloride 12/18/2018 NEXT GEN ([facility] 100 MG Oral Tablet 12:00:00 AM [facility]) Clonazepam 1 MG Oral 12/18/2018 NEXTGEN ([facility] Tablet [Klonopin] 12:00:00 AM [facility]) Haloperidol 5 MG Oral 12/18/2018 NEXTGE N ([facility] Tablet 12:00:00 AM [facility] er) 24 HR venlafaxine 75 MG 12/18/2018 NEXT GEN ([facility] Extended Release Oral 12:00:00 AM [facility] Caps[facility] [[facility]ffexor] 24 HR venlafaxine 150 MG 12/18/2018 NEX TGEN ([facility] Extended Release Oral 12:00:00 AM [facility] Med [facility]) Capsule [Effexor] 24 HR venlafaxine 75 MG 11/12/2018 NEXT GEN ([facility] Extended Release Oral 12:00:00 AM T [facility]) Capsule [Effexor] Trazodone Hydrochloride 11/12/2018 NEXT GEN ([facility] 100 MG Oral Tablet 12:00:00 [facility] Clonazepam 1 MG Oral 11/12/2018 NEXTGEN ([facility] Tablet [Klonopin] 12:00:00 AM [facility] Medical [place]) Haloperidol 5 MG Oral 11/12/2018 NEXTGE N ([facility] Tablet 12:00:00 AM [facility] er) 24 HR venlafaxine 150 MG 11/12/2018 NEX TGEN ([facility] Extended Release Oral 12:00:00 AM [facility] Capsule [Effexor] Clonazepam 1 MG Oral 10/15/2018 NEXTGEN ([facility] Tablet [Klonopin] 12:00:00 AM [facility]) Trazodone Hydrochloride 10/15/2018 NEXT GEN ([facility] 100 MG Oral Tablet 12:00:00 AM [facility]) Haloperidol 5 MG Oral 10/15/2018 NEXTGE N ([facility] Tablet 12:00:00 AM [facility]) 24 HR venlafaxine 75 MG 10/15/2018 NEXT GEN ([facility] Extended Release Oral 12:00:00 AM [facility]) Capsule [Effexor] 24 HR venlafaxine 150 MG 10/15/2018 NEX TGEN ([facility] Extended Release Oral 12:00:00 AM [facility]) Capsule [Effexor] Clonazepam 1 MG Oral 09/21/2018 NEXTGEN ([facility] Tablet [Klonopin] 12:00:00 AM [facility]) Trazodone Hydrochloride 09/21/2018 NEXT GEN ([facility] 100 MG Oral Tablet 12:00:00 [facility] 24 HR venlafaxine 75 MG 09/21/2018 NEXT GEN ([facility] Extended Release Oral 12:00:00 AM [facility]) Capsule [Effexor] 24 HR venlafaxine 150 MG 09/21/2018 NEX TGEN ([facility] Extended Release Oral 12:00:00 AM [facility]) Capsule [Effexor] Haloperidol 5 MG Oral 09/21/2018 NEXTGE N ([facility] Tablet 12:00:00 AM [facility] er) Metformin hydrochloride 04/18/2012 NEREYDA NWBLADIMIR ([place] 500 MG Oral Tablet 12:00:00 AM EDT [facility]) Advair Diskus 03/07/2012 OLIVIA ([place] 250-50MCG/DOSE IN AEPB 12:00:00 AM EDT [facility]) Ventolin HFA 108 (90 03/07/2012 ALISSAWA Y ([place] [employer])MCG/ACT IN AERS 12:00:00 AM EDT [facility]) Glucophage 1000 MG TABS 03/07/2012 GREE NWBLADIMIR ([place] 12:00:00 AM EDT [facility])
[2020-05-04] MEDS ORDERED: HALOPERIDOL 5 MG TABLET PO SCH (22:00)
[2020-05-04] MEDS ORDERED: ATORVASTATIN CA 20 MG TABLET (FP) PO SCH (22:00)
[2020-05-04] MEDS ORDERED: traZODone HCL 50 MG TABLET (FP) PO SCH (22:00)
[2020-05-04] MEDS ORDERED: ENOXAPARIN NA (PORCINE) 40 MG/0.4 ML DISP.SYRIN SQ ONE (23:07)
[2020-05-04] MEDS ORDERED: clonazePAM 0.5 MG TABLET ONE (23:07)
[2020-05-04] MEDS ORDERED: ATORVASTATIN CA 20 MG TABLET (FP) ONE (23:07)
[2020-05-04] MEDS: clonazePAM 0.5 MG TABLET PO SCH (23:24)
[2020-05-05] MEDS ORDERED: KETOROLAC TROMETHAMINE 15 MG/ML VIAL IVPUSH ONE (05:31)
[2020-05-05 07:00] LABS: HEMATOCRIT 36.2 % (32.4-45.2); HEMOGLOBIN 11.8 GM/dL (10.7-15.3); MCH 27.5 pg (25.7-33.7); MCHC 32.7 g/dl (32.0-36.0); MEAN CELL VOLUME 84.1 fl (80-96); MEAN PLT VOLUME 8.5 fl (7.5-11.1); PLATELET COUNT 310 K/MM3 (134-434); RDW 14.3 % (11.6-15.6); WHITE BLOOD COUNT 10.6 K/mm3 (4.0-10.0)
[2020-05-05] MEDS ORDERED: INSULIN SLIDING SCALE (NOVOLOG) 1 VIAL SQ SCH (07:00)
[2020-05-05 07:16] LABS: BLOOD UREA NITROGEN 7.8 mg/dL (7-18); CALCIUM 8.5 mg/dL (8.5-10.1); CREATININE 0.9 mg/dL (0.55-1.3)
[2020-05-05 07:27] LABS: MAGNESIUM 1.7 mg/dL (1.8-2.4)
[2020-05-05 08:07] VITALS: BP 154/78; PULSE 84; TEMP 98.9
[2020-05-05] MEDS ORDERED: ASPIRIN COATED 81 MG TABLET.EC ONE (09:14)
[2020-05-05] MEDS ORDERED: PANTOPRAZOLE 40 MG TABLET ONE (09:15)
[2020-05-05] MEDS ORDERED: ENOXAPARIN NA (PORCINE) 40 MG/0.4 ML DISP.SYRIN SQ ONE (09:15)
[2020-05-05] MEDS ORDERED: LOSARTAN POTASSIUM 50 MG TABLET ONE (09:15)
[2020-05-05] MEDS ORDERED: clonazePAM 0.5 MG TABLET ONE (09:15)
--- NOTE | 2020-05-05 09:43 | EKG ---
Test Reason : Blood Pressure : / mmHG Vent. Rate : 086 BPM Atrial Rate : 086 BPM P-R Int : 138 ms QRS Dur : 072 ms QT Int : 364 ms P-R-T Axes : 047 026 064 degrees QTc Int : 435 ms NORMAL SINUS RHYTHM LOW VOLTAGE QRS BORDERLINE ECG WHEN COMPARED WITH ECG OF 28-AUG-2019 12:15, NO SIGNIFICANT CHANGE WAS FOUND Confirmed by Juan Francisco Anand ([id number]) on 05/05/2020 9:43:07 AM Referred By: Confirmed By:Juan Francisco Anand
[2020-05-05] MEDS ORDERED: ASPIRIN COATED 81 MG TABLET.EC PO SCH (10:00)
[2020-05-05] MEDS ORDERED: LOSARTAN POTASSIUM 50 MG TABLET PO SCH (10:00)
[2020-05-05] MEDS ORDERED: PANTOPRAZOLE 40 MG TABLET PO SCH (10:00)
[2020-05-05] MEDS: clonazePAM 0.5 MG TABLET PO SCH (10:00)
[2020-05-05] MEDS: ENOXAPARIN NA (PORCINE) 40 MG/0.4 ML DISP.SYRIN SQ SCH (10:16)
--- NOTE | 2020-05-05 13:47 | CON.CARD ---
Cardiology Consult (text) - Consultation Consultation Note: Cardiology was called to assess this patient for chest pain. I was told by the ER staff that she signed out AMA. Please place another consult or contact me if the patient is available for interview and evaluation in the future.
[2020-05-05] MEDS ORDERED: ALBUTEROL SO4 0.083% IH SOL 2.5 MG/3 ML VIAL.NEB. NEB SCH (14:00)
== END 2020-05-05 10:21 | disposition left against medical advice (07) ==
LOC: JER 14:22 → JERBED 15:42
PROVIDERS: ADMIT Hospitalist; ATTEND Family Medicine
PROC: 3E0333Z Introduction of Anti-inflammatory into Peripheral Vein, Percutaneous Approach (ICD-10-PCS; principal; 2020-05-04)
PROC: 3E033GC Introduction of Other Therapeutic Substance into Peripheral Vein, Percutaneous Approach (ICD-10-PCS; 2020-05-04)
PROC: 3E0337Z Introduction of Electrolytic and Water Balance Substance into Peripheral Vein, Percutaneous Approach (ICD-10-PCS; 2020-05-04)
DX: R07.89 Other chest pain (principal); I10 Essential (primary) hypertension; E78.5 Hyperlipidemia, unspecified; I34.1 Nonrheumatic mitral (valve) prolapse; J45.909 Unspecified asthma, uncomplicated; E11.9 Type 2 diabetes mellitus without complications; F41.0 Panic disorder [episodic paroxysmal anxiety]; M79.7 Fibromyalgia; E66.9 Obesity, unspecified; Z68.35 Body mass index [BMI] 35.0-35.9, adult; D72.829 Elevated white blood cell count, unspecified; E83.42 Hypomagnesemia; Z98.84 Bariatric surgery status; Z95.5 Presence of coronary angioplasty implant and graft; Z88.0 Allergy status to penicillin; Z91.013 Allergy to seafood; Z79.4 Long term (current) use of insulin
CPT/HCPCS: 36415; 71045-TC-FY; 71046-TC-FY; 80048; 80053; 80061; 81003; 82550; 82962; 83036; 83721; 83735; 84443; 84484; 85025; 85027; 85379; 85610; 93005; 93010; 93970-TC; 96374; 96375; 99285-25; G0378; U0003

== ENCOUNTER 2022-06-08 21:13 | Emergency (ER) | payer OTHER ==
[2022-06-08 21:33] VITALS: BP 172/82; PULSE 96; RESP 19; TEMP 98.3; BMI 36.6
[2022-06-08] MEDS ORDERED: METHOCARBAMOL 500 MG TABLET PO ONE (23:07)
[2022-06-08] MEDS ORDERED: LIDOCAINE 5% TOPICAL PATCH TP ONE (23:07)
[2022-06-08] MEDS ORDERED: ACETAMINOPHEN 500 MG TABLET (FP) PO ONE (23:07)
[2022-06-08] MEDS ORDERED: KETOROLAC TROMETHAMINE 15 MG/ML VIAL IM ONE (23:07)
[2022-06-08] MEDS ORDERED: METHOCARBAMOL 500 MG TABLET ONE (23:13)
[2022-06-08] MEDS ORDERED: LIDOCAINE 5% TOPICAL PATCH ONE (23:13)
[2022-06-08] MEDS ORDERED: KETOROLAC TROMETHAMINE 15 MG/ML VIAL ONE (23:13)
[2022-06-08] MEDS ORDERED: ACETAMINOPHEN 325 MG TABLET (FP) ONE (23:13)
[2022-06-08 23:42] LABS: BASO % 0.6 % (0-2.0); EOS % 2.6 % (0-4.5); HEMOGLOBIN 11.6 GM/dL (10.7-15.3); LYMPH % 24.3 % (8-40); MCHC 33.1 g/dl (32.0-36.0); MEAN CELL VOLUME 84.7 fl (80-96); MEAN PLT VOLUME 7.5 fl (7.5-11.1); MONO % 4.9 % (3.8-10.2); NEUT % 67.6 % (42.8-82.8); PLATELET COUNT 367 10^3/uL (134-434); RBC 4.13 M/mm3 (3.60-5.2); RDW 14.1 % (11.6-15.6)
[2022-06-09 00:04] LABS: EPI CELLS 30 /uL (0-25.1); HYALINE CASTS 1 /uL (0-3.1); URINE APPEARANCE CLEAR; URINE BACTERIA 253 /uL (0-1359); URINE BILIRUBIN NEGATIVE (NEGATIVE); URINE COLOR YELLOW; URINE GLUCOSE (UA) NEGATIVE (NEGATIVE); URINE KETONE NEGATIVE (NEGATIVE); URINE LEUK ESTERASE 2+ (NEGATIVE); URINE NITRITE NEGATIVE (NEGATIVE); URINE PROTEIN 1+ (NEGATIVE); URINE RBC 26 /uL (0-23.9); URINE UROBILINOGEN 0.2 mg/dL (0.2-1.0); URINE WBC 73 /uL (0-25.8)
[2022-06-09 00:10] LABS: CALCIUM 9.2 mg/dL (8.5-10.1)
[2022-06-09 00:11] LABS: ALBUMIN 3.2 g/dl (3.4-5.0); BLOOD UREA NITROGEN 9.7 mg/dL (7-18)
[2022-06-09 00:15] LABS: BILIRUBIN,TOTAL 0.2 mg/dL (0.2-1); TOT PROT 7.2 g/dl (6.4-8.2)
[2022-06-09] MEDS ORDERED: CEFTRIAXONE 1 GM in DEXTROSE 5%-WATER - 100 ML IVPB ONE (00:49)
[2022-06-09] MEDS ORDERED: CEPHALEXIN MONOHYDRATE 500 MG CAPSULE (UD) PO ONE (00:54)
[2022-06-09] MEDS ORDERED: CEPHALEXIN MONOHYDRATE 500 MG CAPSULE (UD) ONE (00:54)
[2022-06-09] MEDS ORDERED: LIDOCAINE PATCH REMOVAL MC ONE (12:00)
== END 2022-06-09 01:09 | disposition home or self-care (01) ==
LOC: JER 21:13
PROC: 3E023GC Introduction of Other Therapeutic Substance into Muscle, Percutaneous Approach (ICD-10-PCS; principal; 2022-06-08)
DX: N39.0 Urinary tract infection, site not specified (principal)
CPT/HCPCS: 36415; 71046-TC-FY; 80053; 81003; 85025; 87086; 93005; 93010; 99285-25

== ENCOUNTER 2022-12-27 10:29 | Emergency (ER) | payer OTHER ==
[2022-12-27 10:42] VITALS: BP 178/88; PULSE 94; RESP 16; TEMP 97.8; BMI 35.4
[2022-12-27] MEDS ORDERED: LIDOCAINE 5% TOPICAL PATCH TP ONE ×2 (11:19→11:21)
[2022-12-27] MEDS ORDERED: KETOROLAC TROMETHAMINE 30 MG/1 ML VIAL IM ONE (11:20)
[2022-12-27] MEDS ORDERED: CYCLOBENZAPRINE HCL 5 MG TABLET PO ONE (11:21)
[2022-12-27] MEDS ORDERED: KETOROLAC TROMETHAMINE 30 MG/1 ML VIAL ONE (11:45)
[2022-12-27] MEDS ORDERED: LIDOCAINE 5% TOPICAL PATCH ONE ×2 (11:45→11:58)
[2022-12-27] MEDS ORDERED: CYCLOBENZAPRINE HCL 10 MG TABLET (FP) ONE (11:45)
[2022-12-27 12:32] LABS: BASO % 0.7 % (0-2.0); EOS % 2.9 % (0-4.5); HEMATOCRIT 35.5 % (32.4-45.2); HEMOGLOBIN 11.4 GM/dL (10.7-15.3); LYMPH % 22.3 % (8-40); MCH 26.9 pg (25.7-33.7); MEAN CELL VOLUME 84.1 fl (80-96); MEAN PLT VOLUME 8.2 fl (7.5-11.1); MONO % 4.7 % (3.8-10.2); NEUT % 69.4 % (42.8-82.8); PLATELET COUNT 390 10^3/uL (134-434); RBC 4.22 M/mm3 (3.60-5.2); RDW 14.5 % (11.6-15.6); WHITE BLOOD COUNT 10.7 K/mm3 (4.0-10.0)
[2022-12-27 12:50] LABS: POTASSIUM 5.1 mmol/L (3.5-5.1)
[2022-12-27 12:52] LABS: ALBUMIN 3.2 g/dl (3.4-5.0); BLOOD UREA NITROGEN 9.8 mg/dL (7-18); CALCIUM 9.2 mg/dL (8.5-10.1)
[2022-12-27 12:57] LABS: BILIRUBIN,TOTAL 0.2 mg/dL (0.2-1); TOT PROT 7.4 g/dl (6.4-8.2)
[2022-12-27] MEDS ORDERED: LIDOCAINE PATCH REMOVAL TD ONE ×2 (22:00)
== END 2022-12-27 14:04 | disposition home or self-care (01) ==
LOC: JER 10:29
PROC: 3E0233Z Introduction of Anti-inflammatory into Muscle, Percutaneous Approach (ICD-10-PCS; principal; 2022-12-27)
DX: M25.511 Pain in right shoulder (principal)
CPT/HCPCS: 36415; 71046-TC-FY; 73030-TC-RT-FY; 80053; 84484; 85025; 93005; 93010; 99285-25